=== PATIENT | female | born 1960 | race Hispanic/Latino ===

== ENCOUNTER 2018-02-04 15:05 | Emergency (ER) | payer OTHER ==
--- OUTSIDE RECORDS SUMMARY | 2018-02-04 15:07 | XMS REPORT | Clinical Summary ---
:1960 Author Organization [facility] Address [address] [place] [address] Phone Care Team Providers Name Role Phone Unavailable Primary Care Provider Unavailable Allergies Active Allergy Reactions Severity Noted Date Comments Salicylates Hives 01/02/2016 Sumatriptan Nausea Only 01/02/2016 Current Medications Prescription Sig. Disp. Refills Start Date End Date Status tiZANidine (ZANAFLEX) 4 MG Take 4 mg by mouth Active tablet every 6 (six) hours as needed. QUEtiapine (SEROQUEL) 50 Take 50 mg by Active MG tablet mouth nightly. OXcarbazepine (TRILEPTAL) Take 150 mg by Active 150 MG tablet mouth 2 (two) times daily. pregabalin (LYRICA) 150 MG Take 150 mg by Active capsule mouth 2 (two) times daily. doxepin (SINEQUAN) 75 MG Take 75 mg by Active capsule mouth nightly. BUPRENORPHINE (BUTRANS TD) Place onto the Active skin. HYDROcodone-acetaminophen Take 1 tablet by Active (NORCO 5-325) 5-325 mg per mouth every 6 tablet (six) hours as needed for Pain. Active Problems Not on file Social History Tobacco Use Types Packs/Day Years Used Date Never Smoker Alcohol Use Drinks/Week oz/Week Comments No Sex Assigned at Date Recorded Not on file Last Filed Vital Signs Not on file Plan of Treatment Not on file Results Not on fileafter 02/03/2017
[2018-02-04] MEDS ORDERED: HYDROCODONE/APAP 7.5/325 MG TAB ONE (15:29)
--- NOTE | 2018-02-04 15:49 | RAD REPORT ---
EXAM DESCRIPTION: RAD - Knee Right 3 View - 02/04/2018 3:43 pm CLINICAL HISTORY: PAIN COMPARISON: Knee Right 3 View dated 10/20/2008 FINDINGS: No acute fracture or dislocation is seen. No joint effusion is evident.
--- NOTE | 2018-02-04 15:57 | ER ---
Nurse's Notes [facility] Name: Shahnaz Ramos Age: 57 yrs Sex: Female : 1960 Arrival Date: 02/04/2018 Time: 15:08 Bed 30 Private MD: John Miguel E Diagnosis: Contusion of right knee Presentation: 02/04 15:09 Presenting complaint: Patient states: "I slipped and fell right onto my knee on aa5 concrete". Pt c/o right knee pain. Care prior to arrival: None. Mechanism of Injury: Fall from standing position. Trauma event details: Injury occurred in the [facility], Injury occurred: at home. Injury occurred: February 04, 2018. 15:09 Acuity: [place] 4 aa5 15:09 Method Of Arrival: Ambulatory aa5 15:27 Transition of care: patient was not received from another setting of care. Onset of mg2 symptoms was February 04, 2018. Risk Assessment: Do you want to hurt yourself or someone else? Patient reports no desire to harm self or others. Initial Sepsis Screen: Does the patient meet any 2 criteria? No. Patient's initial sepsis screen is negative. Does the patient have a suspected source of infection? No. Patient's initial sepsis screen is negative. Trauma Activation: Not Applicable Physician: ED Physician; Name: ; Notified At: ; Arrived At: Physician: General Surgeon; Name: ; Notified At: ; Arrived At: Physician: Radiology; Name: ; Notified At: ; Arrived At: Physician: Respiratory; Name: ; Notified At: ; Arrived At: Physician: Lab; Name: ; Notified At: ; Arrived At: Historical: - Allergies: 15:11 Aspirin; aa5 15:11 Imitrex; aa5 - PMHx: 15:11 Anxiety; Asthma; Bipolar disorder; cervical spinal stenosis; COPD; Depression; aa5 Fibromyalgia; GERD; Hepatitis C; insomnia; Migraines; Ulcers; - PSHx: 15:11 Cholecystectomy; Tubal ligation; aa5 - Immunization history:: Last tetanus immunization: unknown. - Social history:: Smoking status: Patient uses tobacco products, smokes one-half pack cigarettes per day. - Ebola Screening: : No symptoms or risks identified at this time. Screenin:27 Abuse screen: Denies threats or abuse. Denies injuries from another. Nutritional mg2 screening: No deficits noted. Tuberculosis screening: No symptoms or risk factors identified. Fall Risk Fall in past 12 months (25 points). Gait- Weak (10 pts.). Assessment: 15:24 General: Appears in no apparent distress. comfortable, Behavior is calm, cooperative. mg2 Pain: Complains of pain in right knee Pain does not radiate. Pain currently is 10 out of 10 on a pain scale. Quality of pain is described as aching, Pain began suddenly, 30 min ago. Is intermittent, Alleviated by rest, cold application. Neuro: Level of Consciousness is awake, alert, obeys commands, Oriented to person, place, time, situation. Cardiovascular: Capillary refill < 3 seconds Patient's skin is warm and dry. Respiratory: Airway is patent Respiratory effort is even, unlabored, Respiratory pattern is regular, symmetrical. GI: No signs and/or symptoms were reported involving the gastrointestinal system. : No signs and/or symptoms were reported regarding the genitourinary system. EENT: No signs and/or symptoms were reported regarding the EENT system. Derm: Skin has skin tears on right knee Wound noted right knee Wound is light scrape of skin. Musculoskeletal: Circulation, motion, and sensation intact. Vital Signs: 15:10 BP 129 / 77; Pulse 86; Resp 18 S; Temp 97.4(TE); Pulse Ox 98% on R/A; Weight 72.57 kg aa5 (R); Height 5 ft. 1 in. (154.94 cm) (R); Pain 10/10; 15:10 Body Mass Index 30.23 (72.57 kg, 154.94 cm) aa5 ED Course: 15:08 Patient arrived in ED. mr 15:08 John Miguel MD is Private Physician. mr 15:10 Triage completed. aa5 15:10 Arm band placed on. aa5 15:12 Rey Mata PA is PHCP. jr8 15:12 Don Mclain MD is Attending Physician. jr8 15:12 Vicki Schwab FNP-C is PHCP. kb 15:15 Ga Salazar, NEHA is Primary Nurse. mg2 15:28 Patient has correct armband on for positive identification. Call light in reach. Side mg2 rails up X 1. Pulse ox on. NIBP on. Door closed. Warm blanket given. Ice pack to injury. 15:43 X-ray completed. Portable x-ray completed in exam room. Patient tolerated procedure la2 well. 15:45 XRAY Knee RIGHT 3 view In Process Unspecified. EDMS 15:57 Sujit Cordova MD is Referral Physician. jr8 16:13 No provider procedures requiring assistance completed. Patient did not have IV access mg2 during this emergency room visit. Dressings: non-adherent dressing x 1 right knee. Administered Medications: 15:24 Drug: Bronson (7.5 mg-325 mg) 1 tabs Route: PO; mg2 16:13 Follow up: Response: No adverse reaction; Marked relief of symptoms mg2 Outcome: 15:57 Discharge ordered by . jr8 16:13 Discharged to mg2 16:13 Discharged to home ambulatory. 16:13 Condition: good 16:13 Discharge instructions given to patient, Instructed on discharge instructions, follow up and referral plans. Demonstrated understanding of instructions, follow-up care. 16:14 Patient left the ED. mg2 Signatures: Dispatcher [employer] EDMN Vicki Schwab, LINE SERVICE TECHNICIAN-C LINE SERVICE TECHNICIAN-Kelly Prince Audri, RN RN aa5 Rey Mata PA PA jr8 Ivon Olson2 Ga Salazar, RN RN mg2
--- NOTE | 2018-02-04 15:58 | EDPHYS ---
Physician Documentation [facility] Name: Shahnaz Ramos Age: 57 yrs Sex: Female : 1960 Arrival Date: 02/04/2018 Time: 15:08 Bed 30 Private MD: John Miguel E ED Physician Don Mclain HPI: 02/04 15:22 This 57 yrs old Female presents to ER via Ambulatory with complaints of Fall jr8 Injury. 15:22 Details of fall: The patient fell from an upright position, while standing. Onset: The jr8 symptoms/episode began/occurred acutely, today. Associated injuries: The patient sustained right knee, abrasion, decreased range of motion, painful injury. Severity of symptoms: At their worst the symptoms were moderate, in the emergency department the symptoms are unchanged. The patient has not experienced similar symptoms in the past. The patient has not recently seen a physician. Denies hitting head or neck. Denies any other pain . Historical: - Allergies: 15:11 Aspirin; aa5 15:11 Imitrex; aa5 - PMHx: 15:11 Anxiety; Asthma; Bipolar disorder; cervical spinal stenosis; COPD; Depression; aa5 Fibromyalgia; GERD; Hepatitis C; insomnia; Migraines; Ulcers; - PSHx: 15:11 Cholecystectomy; Tubal ligation; aa5 - Immunization history:: Last tetanus immunization: unknown. - Social history:: Smoking status: Patient uses tobacco products, smokes one-half pack cigarettes per day. - Ebola Screening: : No symptoms or risks identified at this time. ROS: 15:22 Eyes: Negative for injury, pain, redness, and discharge, ENT: Negative for injury, jr8 pain, and discharge, Neck: Negative for injury, pain, and swelling, Cardiovascular: Negative for chest pain, palpitations, and edema, Respiratory: Negative for shortness of breath, cough, wheezing, and pleuritic chest pain, Abdomen/GI: Negative for abdominal pain, nausea, vomiting, diarrhea, and constipation, Back: Negative for injury and pain, Skin: Negative for injury, rash, and discoloration, Neuro: Negative for headache, weakness, numbness, tingling, and seizure. 15:22 MS/extremity: Positive for abrasion, decreased range of motion, pain, tenderness, of the right knee. Exam: 15:22 Head/Face: Normocephalic, atraumatic. Eyes: Pupils equal round and reactive to light, jr8 extra-ocular motions intact. Lids and lashes normal. Conjunctiva and sclera are non-icteric and not injected. Cornea within normal limits. Periorbital areas with no swelling, redness, or edema. ENT: Nares patent. No nasal discharge, no septal abnormalities noted. Tympanic membranes are normal and external auditory canals are clear. Oropharynx with no redness, swelling, or masses, exudates, or evidence of obstruction, uvula midline. Mucous membranes moist. Neck: Trachea midline, no thyromegaly or masses palpated, and no cervical lymphadenopathy. Supple, full range of motion without nuchal rigidity, or vertebral point tenderness. No Meningismus. Chest/axilla: Normal chest wall appearance and motion. Nontender with no deformity. No lesions are appreciated. Cardiovascular: Regular rate and rhythm with a normal S1 and S2. No gallops, murmurs, or rubs. Normal PMI, no JVD. No pulse deficits. Respiratory: Lungs have equal breath sounds bilaterally, clear to auscultation and percussion. No rales, rhonchi or wheezes noted. No increased work of breathing, no retractions or nasal flaring. Abdomen/GI: Soft, non-tender, with normal bowel sounds. No distension or tympany. No guarding or rebound. No evidence of tenderness throughout. Back: No spinal tenderness. No costovertebral tenderness. Full range of motion. Skin: Warm, dry with normal turgor. Normal color with no rashes, no lesions, and no evidence of cellulitis. Neuro: Awake and alert, GCS 15, oriented to person, place, time, and situation. Cranial nerves II-XII grossly intact. Motor strength 5/5 in all extremities. Sensory grossly intact. Cerebellar exam normal. Normal gait. 15:22 Musculoskeletal/extremity: Extremities: grossly normal except: noted in the right knee: abrasion, decreased ROM, pain, tenderness, ROM: full active range of motion, limited passive range of motion, in the right knee, limited active range of motion due to pain, in the right knee, limited passive range of motion due to pain, in the right knee, Circulation is intact in all extremities. Sensation intact. Vital Signs: 15:10 BP 129 / 77; Pulse 86; Resp 18 S; Temp 97.4(TE); Pulse Ox 98% on R/A; Weight 72.57 kg aa5 (R); Height 5 ft. 1 in. (154.94 cm) (R); Pain 10/10; 15:10 Body Mass Index 30.23 (72.57 kg, 154.94 cm) aa5 MDM: 15:12 Patient medically screened. jr8 15:56 Data reviewed: vital signs, nurses notes, radiologic studies, plain films, and as a jr8 result, I will discharge patient. Data interpreted: Pulse oximetry: on room air is 98 %. Interpretation: normal. Counseling: I had a detailed discussion with the patient and/or guardian regarding: the historical points, exam findings, and any diagnostic results supporting the discharge/admit diagnosis, radiology results, the need for outpatient follow up, a orthopedic surgeon, to return to the emergency department if symptoms worsen or persist or if there are any questions or concerns that arise at home. 02/04 15:21 Order name: XRAY Knee RIGHT 3 view; Complete Time: 15:56 jr8 Administered Medications: 15:24 Drug: Horatio (7.5 mg-325 mg) 1 tabs Route: PO; mg2 16:13 Follow up: Response: No adverse reaction; Marked relief of symptoms mg2 Disposition: 02/05 06:52 Co-signature as Attending Physician, Don Mclain MD I agree with the assessment and opal plan of care. Disposition: 02/04/18 15:57 Discharged to Home. Impression: Contusion of right knee. - Condition is Stable. - Discharge Instructions: Knee Pain. - Medication Reconciliation Form, Thank You Letter, Antibiotic Education, Prescription Opioid Use form. - Follow up: Sujit Cordova MD; When: 1 week; Reason: Recheck today's complaints, Continuance of care, Re-evaluation by your physician. - Problem is new. - Symptoms have improved. Signatures: Dispatcher [employer] Don Camejo MD MD cha Calderon, Audri, RN RN aa5 Rey Mata PA PA jr8 Ga Salazar RN RN mg2 Corrections: (The following items were deleted from the chart) 02/04 16:14 15:57 02/04/2018 15:57 Discharged to Home. Impression: Contusion of right knee. mg2 Condition is Stable. Forms are Medication Reconciliation Form, Thank You Letter, Antibiotic Education, Prescription Opioid Use. Follow up: Dr. Sujit Cordova; When: 1 week; Reason: Recheck today's complaints, Continuance of care, Re-evaluation by your physician. Problem is new. Symptoms have improved. jr8
[2018-02-04 16:21] VITALS: BP 129/77; TEMP 97.4; O2SAT 98
== END 2018-02-04 16:14 | disposition home or self-care (01) ==
LOC: ER 15:05
DX: S80.01XA Contusion of right knee, initial encounter (principal); W18.30XA Fall on same level, unspecified, initial encounter; Y93.89 Activity, other specified; Y92.9 Unspecified place or not applicable; Z88.6 Allergy status to analgesic agent; Z88.8 Allergy status to other drugs, medicaments and biological substances; F17.210 Nicotine dependence, cigarettes, uncomplicated
CPT/HCPCS: 99283

== ENCOUNTER 2018-07-11 18:12 | Emergency (ER) | payer OTHER ==
--- OUTSIDE RECORDS SUMMARY | 2018-07-11 18:14 | XMS REPORT | Clinical Summary ---
:1960 Author Organization [facility] Address [address] [place] [address] Care Team Providers Name Role Phone Medina Gómez A Primary Care Provider Allergies Active Allergy Reactions Severity Noted Date Comments Salicylates Hives 01/02/2016 Sumatriptan Nausea Only 01/02/2016 Medications Medication Sig Dispensed Refills Start Date End Date Status tiZANidine (ZANAFLEX) 4 Take 4 mg by 0 Active MG tablet mouth every 6 (six) hours as needed. QUEtiapine (SEROQUEL) 50 Take 50 mg by 0 Active MG tablet mouth nightly. OXcarbazepine Take 150 mg by 0 Active (TRILEPTAL) 150 MG mouth 2 (two) tablet times daily. pregabalin (LYRICA) 150 Take 150 mg by 0 Active MG capsule mouth 2 (two) times daily. doxepin (SINEQUAN) 75 MG Take 75 mg by 0 Active capsule mouth nightly. BUPRENORPHINE (BUTRANS Place onto the 0 Active TD) skin. HYDROcodone-acetaminophe Take 1 tablet by 0 Active n (NORCO 5-325) 5-325 mg mouth every 6 per tablet (six) hours as needed for Pain. Active Problems Not on file Social History Tobacco Use Types Packs/Day Years Used Date Never Smoker Alcohol Use Drinks/Week oz/Week Comments No Sex Assigned at Date Recorded Not on file Job Start Date Occupation Industry Not on file Not on file Not on file Travel History Travel Start Travel End No recent travel history available. Last Filed Vital Signs Not on file Plan of Treatment Not on file Results Not on fileafter 07/10/2017 Insurance Payer Benefit Plan / Group Subscriber ID Type Phone Address MEDICARE MEDICARE A B xxxxxxxxxx Medicare OTHER MCR ADV PLANS GENERIC MEDICARE xxxxxxxxx NON-CONTR ADVANTAGE
[2018-07-11] MEDS ORDERED: DIAZEPAM 5 MG TABLET ONE (19:22)
[2018-07-11] MEDS ORDERED: FENTANYL CITR 100 MCG/2 ML ONE (20:47)
--- NOTE | 2018-07-11 21:01 | EDPHYS ---
Physician Documentation [facility] Name: Shahnaz Ramos Age: 58 yrs Sex: Female : 1960 Arrival Date: 07/11/2018 Time: 18:15 Bed 23 Private MD: John Miguel E ED Physician Lee Barrett HPI: 07/11 19:11 This 58 yrs old Female presents to ER via Ambulatory with complaints of High snw Blood Pressure, Migraine. 19:11 The patient has elevated blood pressure and discovered this hx of HTN and migraines. snw States Toradol never helps and she is allergic to Aspirin. Historical: - Allergies: 18:19 Aspirin; la1 18:19 Imitrex; la1 - PMHx: 18:19 Anxiety; Asthma; Bipolar disorder; cervical spinal stenosis; COPD; Depression; la1 Fibromyalgia; GERD; Hepatitis C; insomnia; Migraines; Ulcers; - Immunization history:: Adult Immunizations up to date. - Social history:: Smoking status: Patient uses tobacco products, smokes one pack cigarettes per day. - Ebola Screening: : No symptoms or risks identified at this time. ROS: 19:09 Eyes: Negative for injury, pain, redness, and discharge, ENT: Negative for injury, snw pain, and discharge, Neck: Negative for injury, pain, and swelling, Cardiovascular: Negative for chest pain, palpitations, and edema, Respiratory: Negative for shortness of breath, wheezing, and pleuritic chest pain, + cough Abdomen/GI: Negative for abdominal pain, nausea, vomiting, diarrhea, and constipation, Back: Negative for injury and pain, : Negative for injury, bleeding, discharge, and swelling, MS/Extremity: Negative for injury and deformity, Skin: Negative for injury, rash, and discoloration. 19:09 Constitutional: Positive for fever, malaise. 19:09 Neuro: Positive for headache, of the top of head and forehead. Exam: 19:09 Constitutional: This is a well developed, well nourished patient who is awake, alert, snw and in no acute distress. Head/Face: Normocephalic, atraumatic. Eyes: Pupils equal round and reactive to light, extra-ocular motions intact. Lids and lashes normal. Conjunctiva and sclera are non-icteric and not injected. Cornea within normal limits. Periorbital areas with no swelling, redness, or edema. ENT: Nares patent. No nasal discharge, no septal abnormalities noted. Tympanic membranes are normal and external auditory canals are clear. Oropharynx with no redness, swelling, or masses, exudates, or evidence of obstruction, uvula midline. Mucous membranes moist. Neck: Trachea midline, no thyromegaly or masses palpated, and no cervical lymphadenopathy. Supple, full range of motion without nuchal rigidity, or vertebral point tenderness. No Meningismus. Chest/axilla: Normal chest wall appearance and motion. Nontender with no deformity. No lesions are appreciated. Cardiovascular: Regular rate and rhythm with a normal S1 and S2. No gallops, murmurs, or rubs. Normal PMI, no JVD. No pulse deficits. Respiratory: Lungs have equal breath sounds bilaterally, clear to auscultation and percussion. No rales, rhonchi or wheezes noted. No increased work of breathing, no retractions or nasal flaring. Abdomen/GI: Soft, non-tender, with normal bowel sounds. No distension or tympany. No guarding or rebound. No evidence of tenderness throughout. Back: No spinal tenderness. No costovertebral tenderness. Full range of motion. Skin: Warm, dry with normal turgor. Normal color with no rashes, no lesions, and no evidence of cellulitis. MS/ Extremity: Pulses equal, no cyanosis. Neurovascular intact. Full, normal range of motion. Neuro: Awake and alert, GCS 15, oriented to person, place, time, and situation. Cranial nerves II-XII grossly intact. Motor strength 5/5 in all extremities. Sensory grossly intact. Cerebellar exam normal. Normal gait. Vital Signs: 18:19 BP 142 / 91; Pulse 88; Resp 18; Temp 98.4; Pulse Ox 98% on R/A; Weight 70.76 kg; Height la1 5 ft. 2 in. (157.48 cm); 19:45 BP 133 / 81; Pulse 81; Resp 18; Pulse Ox 100% on R/A; aj1 20:00 BP 133 / 81; Pulse 83; Resp 18; Pulse Ox 100% on R/A; rv 20:15 BP 111 / 73; Pulse 79; Resp 18 S; Pulse Ox 100% on R/A; rv 20:30 BP 117 / 85; Pulse 78; Resp 16 S; Pulse Ox 100% on R/A; rv 20:45 BP 135 / 67; Pulse 78; Resp 17 S; Pulse Ox 100% on R/A; rv 21:00 Pain 4/10; rv 18:19 Body Mass Index 28.53 (70.76 kg, 157.48 cm) la1 MDM: 18:40 Patient medically screened. snw 20:34 Data reviewed: vital signs, nurses notes. Data interpreted: Pulse oximetry: on room air snw is 100 %. Interpretation: normal. 07/11 18:25 Order name: Flu; Complete Time: 19:04 kb 07/11 18:34 Order name: Strep; Complete Time: 20:35 snw 07/11 20:07 Order name: Throat Culture EDMS Administered Medications: 19:22 Drug: Valium 5 mg Route: PO; aj1 20:57 Follow up: Response: Pain is unchanged, physician notified rv 20:20 Drug: fentaNYL (PF) 25 mcg Route: IM; Site: left deltoid; rv 21:00 Follow up: Pain 4/10 Adult; Response: Pain is decreased rv Disposition: 07/12 07:22 Co-signature as Attending Physician, Lee Barrett MD. rn Disposition: 07/11/18 21:00 Discharged to Home. Impression: Headache. - Condition is Stable. - Discharge Instructions: Migraine Headache, Analgesic Rebound Headaches, Rehydration, Adult. - Prescriptions for Zyrtec 10 mg Oral Tablet - take 1 tablet by ORAL route once daily As needed; 20 tablet. - Medication Reconciliation Form, Thank You Letter, Antibiotic Education, Prescription Opioid Use form. - Follow up: John Miguel MD; When: 1 - 2 days; Reason: Recheck today's complaints, Continuance of care, Re-evaluation by your physician. Follow up: Emergency Department; When: As needed; Reason: Worsening of condition. Signatures: Dispatcher [employer] EDMS Amairani Martin RN RN aj1 Leanne Birch, LOOPER FIXER-C LOOPER FIXER-Csnw Lee Barrett MD MD rn Attema, Lee, RN RN la1 Art Bingham RN RN rv Corrections: (The following items were deleted from the chart) 07/11 21:08 21:00 07/11/2018 21:00 Discharged to Home. Impression: Headache. Condition is Stable. rv Forms are Medication Reconciliation Form, Thank You Letter, Antibiotic Education, Prescription Opioid Use. Follow up: John Miguel; When: 1 - 2 days; Reason: Recheck today's complaints, Continuance of care, Re-evaluation by your physician. Follow up: Emergency Department; When: As needed; Reason: Worsening of condition. snw
--- NOTE | 2018-07-11 21:01 | ER ---
Nurse's Notes [facility] Name: Shahnaz Ramos Age: 58 yrs Sex: Female : 1960 Arrival Date: 07/11/2018 Time: 18:15 Bed 23 Private MD: John Miguel E Diagnosis: Headache Presentation: 07/11 18:17 Presenting complaint: Patient states: I have been feeling bad with headache/migraine la1 and had fever of 103 this morning. I took dayquil at 1000 this morning. Pt reports cough, sore throat, congestion. Transition of care: patient was not received from another setting of care. Onset of symptoms was July 11, 2018. Risk Assessment: Do you want to hurt yourself or someone else? Patient reports no desire to harm self or others. Initial Sepsis Screen: Does the patient meet any 2 criteria? No. Patient's initial sepsis screen is negative. Does the patient have a suspected source of infection? No. Patient's initial sepsis screen is negative. Care prior to arrival: None. 18:17 Method Of Arrival: Ambulatory la1 18:17 Acuity: WOLFGANG 3 la1 Historical: - Allergies: 18:19 Aspirin; la1 18:19 Imitrex; la1 - PMHx: 18:19 Anxiety; Asthma; Bipolar disorder; cervical spinal stenosis; COPD; Depression; la1 Fibromyalgia; GERD; Hepatitis C; insomnia; Migraines; Ulcers; - Immunization history:: Adult Immunizations up to date. - Social history:: Smoking status: Patient uses tobacco products, smokes one pack cigarettes per day. - Ebola Screening: : No symptoms or risks identified at this time. Screenin:45 Abuse screen: Denies threats or abuse. Denies injuries from another. Nutritional aj1 screening: No deficits noted. Tuberculosis screening: No symptoms or risk factors identified. 21:08 Fall Risk None identified. rv Assessment: 18:45 General: Appears in no apparent distress. uncomfortable, Behavior is calm, cooperative, aj1 appropriate for age. Pain: Complains of pain in forehead and top of head. Neuro: Level of Consciousness is awake, alert, obeys commands, Oriented to person, place, time, situation, Moves all extremities. Full function Gait is steady, Speech is normal, Facial symmetry appears normal, Reports headache. Cardiovascular: Heart tones S1 S2 present Patient's skin is warm and dry. Respiratory: Reports cough that is persistent Airway is patent Respiratory effort is even, unlabored, Respiratory pattern is regular, symmetrical, Breath sounds are clear bilaterally. GI: No signs and/or symptoms were reported involving the gastrointestinal system. : No signs and/or symptoms were reported regarding the genitourinary system. EENT: Reports nasal congestion nasal discharge sore throat. Derm: No signs and/or symptoms reported regarding the dermatologic system. Skin is pink, warm \T\ dry. normal. Musculoskeletal: No signs and/or symptoms reported regarding the musculoskeletal system. Circulation, motion, and sensation intact. 19:45 Reassessment: Patient appears in no apparent distress at this time. No changes from aj1 previously documented assessment. Patient and/or family updated on plan of care and expected duration. Pain level reassessed. Patient is alert, oriented x 3, equal unlabored respirations, skin warm/dry/pink. Vital Signs: 18:19 BP 142 / 91; Pulse 88; Resp 18; Temp 98.4; Pulse Ox 98% on R/A; Weight 70.76 kg; Height la1 5 ft. 2 in. (157.48 cm); 19:45 BP 133 / 81; Pulse 81; Resp 18; Pulse Ox 100% on R/A; aj1 20:00 BP 133 / 81; Pulse 83; Resp 18; Pulse Ox 100% on R/A; rv 20:15 BP 111 / 73; Pulse 79; Resp 18 S; Pulse Ox 100% on R/A; rv 20:30 BP 117 / 85; Pulse 78; Resp 16 S; Pulse Ox 100% on R/A; rv 20:45 BP 135 / 67; Pulse 78; Resp 17 S; Pulse Ox 100% on R/A; rv 21:00 Pain 4/10; rv 18:19 Body Mass Index 28.53 (70.76 kg, 157.48 cm) la1 ED Course: 18:15 Patient arrived in ED. sb2 18:15 John Miguel MD is Private Physician. sb2 18:18 Triage completed. la1 18:20 Arm band placed on right wrist. la1 18:33 Amairani Martin RN is Primary Nurse. aj1 18:34 [facility] Bir[facility]C [facility]. snw 18:34 Lee Barrett MD is Attending Physician. snw 18:45 Patient has correct armband on for positive identification. Bed in low position. Call aj1 light in reach. Side rails up X 1. 18:45 No provider procedures requiring assistance completed. aj1 19:24 Strep swab sent to lab. lt1 21:00 John Miguel MD is Referral Physician. snw 21:08 Patient did not have IV access during this emergency room visit. bleeding controlled, rv No redness/swelling at site. Pressure dressing applied. Administered Medications: 19:22 Drug: Valium 5 mg Route: PO; aj1 20:57 Follow up: Response: Pain is unchanged, physician notified rv 20:20 Drug: fentaNYL (PF) 25 mcg Route: IM; Site: left deltoid; rv 21:00 Follow up: Pain 4/10 Adult; Response: Pain is decreased rv Outcome: 21:00 Discharge ordered by . snw 21:07 Discharged to home ambulatory. rv 21:07 Condition: good 21:07 Discharge instructions given to patient, Instructed on discharge instructions, follow up and referral plans. medication usage, Demonstrated understanding of instructions, follow-up care, medications, Prescriptions given X 1. 21:08 Patient left the ED. rv Signatures: Amairani Martin, RN RN aj1 Leanne Birch, PRECISION GRINDER EXTERNAL-C PRECISION GRINDER EXTERNAL-Csnw Mazin Jerez, RN RN la1 Yael Cummings sb2 Art Bingham, RN RN rv Cele De La Cruz lt1 Corrections: (The following items were deleted from the chart) 20:00 19:57 General: Appears in no apparent distress. uncomfortable, Behavior is calm, aj1 cooperative, appropriate for age, aj1 20: 19:57 Pain: Complains of pain in forehead and top of head aj1 aj1 20:00 19:57 Neuro: Level of Consciousness is awake, alert, obeys commands, Oriented to aj1 person, place, time, situation, Moves all extremities. Full function Gait is steady, Speech is normal, Facial symmetry appears normal, Reports headache aj1 20: 19:57 Cardiovascular: Heart tones S1 S2 present Patient's skin is warm and dry. aj1 aj1 20:00 19:57 Respiratory: Reports cough that is persistent Airway is patent Respiratory effort aj1 is even, unlabored, Respiratory pattern is regular, symmetrical, Breath sounds are clear bilaterally. aj1 : 19:57 GI: No signs and/or symptoms were reported involving the gastrointestinal system. aj1 aj1 : 19:57 : No signs and/or symptoms were reported regarding the genitourinary system. aj1aj1 : 19:57 EENT: Reports nasal congestion nasal discharge sore throat. aj1 aj1 : 19:57 Derm: No signs and/or symptoms reported regarding the dermatologic system. Skin aj1 is pink, warm \T\ dry. normal, aj1 : 19:57 Musculoskeletal: No signs and/or symptoms reported regarding the musculoskeletal aj1 system. Circulation, motion, and sensation intact. aj1
[2018-07-11 21:14] VITALS: TEMP 98.4
[2018-07-11 21:15] VITALS: O2SAT 100
[2018-07-11 21:20] VITALS: BP 135/67
[2018-07-12] MEDS ORDERED: KETOROLAC 30 MG/ML INJ ONE (15:02)
[2018-07-12] MEDS ORDERED: predniSONE 20 MG TAB ONE (15:02)
== END 2018-07-11 21:08 | disposition home or self-care (01) ==
LOC: ER 18:12
DX: R51 Headache (principal); I10 Essential (primary) hypertension; F17.210 Nicotine dependence, cigarettes, uncomplicated; Z88.6 Allergy status to analgesic agent; Z88.8 Allergy status to other drugs, medicaments and biological substances
CPT/HCPCS: 87070; 87081; 87804 ×2; 96372; 99283; J3010; J7512

== ENCOUNTER 2018-07-12 13:28 | Emergency (ER) | payer OTHER ==
--- OUTSIDE RECORDS SUMMARY | 2018-07-12 14:29 | XMS REPORT | Clinical Summary ---
:1960 [address] [facility] Address [address] [place] [address] Care Team Providers Name Role Phone Medina [...] Not on file Results Not on fileafter 07/11/2017 Insurance Payer Benefit Plan / Group Subscriber ID Type Phone Address MEDICARE MEDICARE A B xxxxxxxxxx Medicare OTHER MCR ADV PLANS GENERIC MEDICARE xxxxxxxxx NON-CONTR ADVANTAGE
--- NOTE | 2018-07-12 14:58 | ER ---
Nurse's Notes [facility] Name: Shahnaz Ramos Age: 58 yrs Sex: Female : 1960 Arrival Date: 07/12/2018 Time: 13:30 Bed 24 Private MD: John Miguel E Diagnosis: Radiculopathy, cervical region;Migraine Presentation: 07/12 13:35 Presenting complaint: Sinus pressure and headache x 2 days, left sided neck and upper hb back pain since this morning. Pt was seen in ED yesterday for sinus pressure and headache, reports pain is much worse today. Transition of care: patient was not received from another setting of care. Onset of symptoms was July 09, 2018. Risk Assessment: Do you want to hurt yourself or someone else? Patient reports no desire to harm self or others. Care prior to arrival: None. 13:35 Method Of Arrival: Ambulatory hb 13:35 Acuity: WOLFGANG 3 hb Triage Assessment: 15:41 Pain: Also complains of. la1 Historical: - Allergies: 13:37 Aspirin; hb 13:37 Imitrex; hb - PMHx: 14:45 Anxiety; Asthma; Bipolar disorder; cervical spinal stenosis; COPD; Depression; la1 Fibromyalgia; GERD; Hepatitis C; insomnia; Migraines; Ulcers; - Immunization history:: Adult Immunizations up to date. - Social history:: Smoking status: Patient/guardian denies using tobacco. - Ebola Screening: : No symptoms or risks identified at this time. Screenin:56 Abuse screen: Denies threats or abuse. Nutritional screening: No deficits noted. la1 Tuberculosis screening: No symptoms or risk factors identified. Fall Risk None identified. Assessment: 14:56 General: Appears in no apparent distress. Behavior is calm, cooperative. Pain: la1 Complains of pain in forehead and left trapezius. Neuro: Level of Consciousness is awake, alert, obeys commands, Oriented to person, place, time, situation. Cardiovascular: Capillary refill < 3 seconds Patient's skin is warm and dry. Respiratory: Airway is patent Respiratory effort is even, unlabored, Respiratory pattern is regular, symmetrical. GI: No signs and/or symptoms were reported involving the gastrointestinal system. : No signs and/or symptoms were reported regarding the genitourinary system. Vital Signs: 13:36 BP 132 / 68; Pulse 90; Resp 16; Temp 98.2; Pulse Ox 99% on R/A; Pain 10/10; hb 15:42 BP 130 / 67; Pulse 81; Resp 16; Pulse Ox 98% on R/A; la1 [place] Coma Score: 14:49 Eye Response: spontaneous(4). Verbal Response: oriented(5). Motor Response: obeys kb commands(6). Total: 15. ED Course: 13:30 Patient arrived in ED. as 13:30 John Miguel MD is Private Physician. as 13:36 Triage completed. hb 13:37 Arm band placed on right wrist. hb 14:40 Mazin Jerez RN is Primary Nurse. la1 14:41 Vicki Schwab FNP-C is [facility]. kb 14:41 Lee Barrett MD is Attending Physician. kb 14:57 Call light in reach. Side rails up X 1. la1 14:57 No provider procedures requiring assistance completed. Patient did not have IV access la1 during this emergency room visit. Administered Medications: 14:56 Drug: TORadol 60 mg Route: IM; Site: right gluteus; la1 14:56 Drug: predniSONE 40 mg Route: PO; la1 Outcome: 14:57 Discharge ordered by MD. kb 15:42 Discharged to home ambulatory. la1 15:42 Condition: stable 15:42 Discharge instructions given to patient, Instructed on discharge instructions, follow up and referral plans. medication usage, Demonstrated understanding of instructions, follow-up care, medications, Prescriptions given X 2. 15:42 Patient left the ED. la1 Signatures: Vicki Schwab FNP-C FNP-Solange Han as Mazin Jerez RN RN la1 Domonique Romero RN RN hb Corrections: (The following items were deleted from the chart) 13:38 13:35 Presenting complaint: Sinus pressure and headache x 2 days, left sided neck and hb upper back pain since this morning. hb
--- NOTE | 2018-07-12 14:58 | EDPHYS ---
Physician Documentation [facility] Name: Shahnaz Ramos Age: 58 yrs Sex: Female : 1960 Arrival Date: 07/12/2018 Time: 13:30 Bed 24 Private MD: John Miguel E ED Physician Lee Barrett HPI: 07/12 14:54 This 58 yrs old Female presents to ER via Ambulatory with complaints of kb Headache, High Blood Pressure, Back Pain, Arm Pain. 14:54 The patient complains of pain to the forehead. The patient describes the headache as kb constant. Onset: The symptoms/episode began/occurred yesterday. Associated signs and symptoms: The patient has no apparent associated signs or symptoms. Severity of symptoms: At its worst the pain was moderate, in the emergency department the pain is unchanged. Headache History: The patient has had previous headaches and this one is similar to previous episodes. The symptoms are alleviated by nothing. the symptoms are aggravated by nothing. The patient has experienced similar episodes in the past, multiple times. The patient has been recently seen at the [facility] Emergency Department, yesterday, for similar complaints. Pt reports migraine and also pain to left side of neck that radiates to left shoulder. Reports she has neck problems and it only ever effects left side. Historical: - Allergies: 13:37 Aspirin; hb 13:37 Imitrex; hb - PMHx: 14:45 Anxiety; Asthma; Bipolar disorder; cervical spinal stenosis; COPD; Depression; la1 Fibromyalgia; GERD; Hepatitis C; insomnia; Migraines; Ulcers; - Immunization history:: Adult Immunizations up to date. - Social history:: Smoking status: Patient/guardian denies using tobacco. - Ebola Screening: : No symptoms or risks identified at this time. ROS: 14:51 Constitutional: Negative for fever, chills, and weight loss, ENT: Negative for injury, kb pain, and discharge, Cardiovascular: Negative for chest pain, palpitations, and edema, Respiratory: Negative for shortness of breath, cough, wheezing, and pleuritic chest pain, Abdomen/GI: Negative for abdominal pain, nausea, vomiting, diarrhea, and constipation, Back: Negative for injury and pain, : Negative for injury, bleeding, discharge, and swelling, MS/Extremity: Negative for injury and deformity, Skin: Negative for injury, rash, and discoloration. 14:51 Neck: Positive for pain with movement, pain at rest, Negative for injury or acute deformity, mass, rash, stiffness, swelling, swollen nodes, tenderness, bony tenderness. 14:51 Neuro: Positive for headache, Negative for altered mental status, dizziness, gait disturbance, hearing loss, loss of consciousness, numbness, seizure activity, speech changes, syncope, near syncope, tingling, tinnitus, tremor, visual changes, weakness. Exam: 14:51 Constitutional: This is a well developed, well nourished patient who is awake, alert, kb and in no acute distress. Head/Face: Normocephalic, atraumatic. ENT: Nares patent. No nasal discharge, no septal abnormalities noted. Tympanic membranes are normal and external auditory canals are clear. Oropharynx with no redness, swelling, or masses, exudates, or evidence of obstruction, uvula midline. Mucous membranes moist. Chest/axilla: Normal chest wall appearance and motion. Nontender with no deformity. No lesions are appreciated. Cardiovascular: Regular rate and rhythm with a normal S1 and S2. No gallops, murmurs, or rubs. Normal PMI, no JVD. No pulse deficits. Respiratory: Lungs have equal breath sounds bilaterally, clear to auscultation and percussion. No rales, rhonchi or wheezes noted. No increased work of breathing, no retractions or nasal flaring. Abdomen/GI: Soft, non-tender, with normal bowel sounds. No distension or tympany. No guarding or rebound. No evidence of tenderness throughout. Skin: Warm, dry with normal turgor. Normal color with no rashes, no lesions, and no evidence of cellulitis. MS/ Extremity: Pulses equal, no cyanosis. Neurovascular intact. Full, normal range of motion. Neuro: Awake and alert, GCS 15, oriented to person, place, time, and situation. Cranial nerves II-XII grossly intact. Motor strength 5/5 in all extremities. Sensory grossly intact. Cerebellar exam normal. Normal gait. 14:51 Neck: External neck: tenderness, that is moderate, of the left trapezius. 14:51 Back: pain, that is moderate, of the left trapezius. Vital Signs: 13:36 BP 132 / 68; Pulse 90; Resp 16; Temp 98.2; Pulse Ox 99% on R/A; Pain 10/10; hb 15:42 BP 130 / 67; Pulse 81; Resp 16; Pulse Ox 98% on R/A; la1 [place] Coma Score: 14:49 Eye Response: spontaneous(4). Verbal Response: oriented(5). Motor Response: obeys kb commands(6). Total: 15. MDM: 14:42 Patient medically screened. kb 14:49 Data reviewed: vital signs, nurses notes. Data interpreted: Pulse oximetry: on room air kb is 99 %. Interpretation: normal. Counseling: I had a detailed discussion with the patient and/or guardian regarding: the historical points, exam findings, and any diagnostic results supporting the discharge/admit diagnosis, the need for outpatient follow up, a family practitioner, to return to the emergency department if symptoms worsen or persist or if there are any questions or concerns that arise at home. Administered Medications: 14:56 Drug: TORadol 60 mg Route: IM; Site: right gluteus; la1 14:56 Drug: predniSONE 40 mg Route: PO; la1 Disposition: 18:35 Co-signature as Attending Physician, Lee Barrett MD. rn Disposition: 07/12/18 14:57 Discharged to Home. Impression: Radiculopathy, cervical region, Migraine. - Condition is Stable. - Discharge Instructions: Migraine Headache, [id number], Cervical Radiculopathy, [id number]. - Prescriptions for Prednisone 20 mg Oral Tablet - take 1 tablet by ORAL route once daily for 5 days; 5 tablet. Cyclobenzaprine 10 mg Oral Tablet - take 1 tablet by ORAL route every 8 hours As needed; 21 tablet. - Medication Reconciliation Form, Thank You Letter, Antibiotic Education, Prescription Opioid Use form. - Follow up: Emergency Department; When: As needed; Reason: Worsening of condition. Follow up: Private Physician; When: 2 - 3 days; Reason: Recheck today's complaints, Continuance of care, Re-evaluation by your physician. Signatures: Vicki Schwab, TOOL FILER-C TOOL FILER-Ckb Lee Barrett MD MD rn Attema, Lee, RN RN la1 Domonique Romero RN RN hb Corrections: (The following items were deleted from the chart) 15:42 14:57 07/12/2018 14:57 Discharged to Home. Impression: Radiculopathy, cervical region; la1 Migraine. Condition is Stable. Forms are Medication Reconciliation Form, Thank You Letter, Antibiotic Education, Prescription Opioid Use. Follow up: Emergency Department; When: As needed; Reason: Worsening of condition. Follow up: Private Physician; When: 2 - 3 days; Reason: Recheck today's complaints, Continuance of care, Re-evaluation by your physician. kb
[2018-07-12 16:09] VITALS: TEMP 98.2
[2018-07-12 16:10] VITALS: BP 130/67; O2SAT 98
== END 2018-07-12 15:42 | disposition home or self-care (01) ==
LOC: ER 13:28
DX: G43.909 Migraine, unspecified, not intractable, without status migrainosus (principal); M54.12 Radiculopathy, cervical region
CPT/HCPCS: 96372; 99283

== ENCOUNTER 2018-12-10 07:31 | Emergency (ER) | payer OTHER ==
--- OUTSIDE RECORDS SUMMARY | 2018-12-10 07:34 | XMS REPORT | Clinical Summary ---
:1960 Author Organization [facility] Address [address] [place] [address] Care Team Providers Name Role Phone Medina [...] Not on file Results Not on fileafter 12/09/2017 Insurance Payer Benefit Plan / Group Subscriber ID Type Phone Address MEDICARE MEDICARE A B xxxxxxxxxx Medicare OTHER MCR ADV PLANS GENERIC MEDICARE xxxxxxxxx NON-CONTR ADVANTAGE
[2018-12-10 08:58] LABS: Absolute Lymphocytes (CBC) 1.2 K/uL (0.7-4.9); Eosinophils % 1.3 % (0-4.4); Hematocrit 39.3 % (36.0-45.0); Lymphocytes % 21.8 % (15.3-44.8); MPV 10.1 fL (7.6-11.3); Monocytes % 14.3 % (3.3-12.3); RBC Red Blood Cell Count 4.22 M/uL (3.86-4.86)
[2018-12-10] MEDS ORDERED: ONDANSETRON 4 MG/2 ML VIAL ONE (09:02)
[2018-12-10] MEDS ORDERED: FENTANYL CITR 100 MCG/2 ML ONE (09:02)
[2018-12-10 09:15] LABS: Bilirubin Direct 0.1 mg/dL (0-0.2); Bilirubin Total 0.4 mg/dL (0.2-1.0); Potassium 3.3 mmol/L (3.5-5.1)
[2018-12-10 09:16] LABS: Albumin 2.9 g/dL (3.4-5.0); Protein, Total 6.5 g/dL (6.4-8.2)
[2018-12-10] MEDS ORDERED: NA CHLORIDE 0.9% 1,000 ML ONE (09:19)
[2018-12-10] MEDS ORDERED: FAMOTIDINE 20 MG/2 ML VIAL IV ONE (09:19)
--- NOTE | 2018-12-10 09:52 | RAD REPORT ---
EXAM DESCRIPTION: CT - Abdomen Pelvis W Contrast - 12/10/2018 9:39 am CLINICAL HISTORY: Abdominal pain, abdominal cramping, history of diverticulitis COMPARISON: July 2017 TECHNIQUE: Biphasic, helical CT imaging of the abdomen and pelvis was performed following 100 ml non -ionic IV contrast. No oral contrast administered air All CT scans are performed using dose optimization technique as appropriate and may include automated exposure control or mA/KV adjustment according to patient size. FINDINGS: No suspicious findings in the lung bases. The liver, spleen, and pancreas show no suspicious findings. Cholecystectomy clips are present. No bi liary tree dilatation. Symmetric renal function is seen with no hydronephrosis or suspicious renal mass. No pyelonephritis o r acute parenchymal process. No bladder abnormalities. No adrenal abnormalities. No gastric dilatation or gastric wall thickening. No dilated large or small bowel. Colon is decompres sed. Mild colitis could be masked along mucosal surface. No inflammatory stranding the surrounding fa t. No free air, free fluid or inflammatory stranding. No hernia, mass or bulky lymphadenopathy. Mimi mihir is absent. Ovaries are absent or atrophic. IMPRESSION: No bowel obstruction, free air or surgically emergent finding. No diverticulitis seen. Colon is decompressed. A mild mucosal level colitis would still be possible. Status post cholecystectomy.
--- NOTE | 2018-12-10 10:10 | ER ---
Nurse's Notes [facility] Name: Shahnaz Ramos Age: 58 yrs Sex: Female : 1960 Arrival Date: 12/10/2018 Time: 07:34 Bed 15 Private MD: John Miguel E Diagnosis: Abdominal and pelvic pain;Hypokalemia Presentation: 12/10 07:53 Presenting complaint: Patient states: vomiting/diarrhea started Friday, yesterday iw seemed to get better but last night started having symptoms again, also had dark red blood in stool, hx of diverticulitis, also c/o abd cramping 02/09. Transition of care: patient was not received from another setting of care. Onset of symptoms was December 07, 2018. Risk Assessment: Do you want to hurt yourself or someone else? Patient reports no desire to harm self or others. Initial Sepsis Screen: Does the patient meet any 2 criteria? No. Patient's initial sepsis screen is negative. Does the patient have a suspected source of infection? No. Patient's initial sepsis screen is negative. Care prior to arrival: None. 07:53 Method Of Arrival: Ambulatory iw 07:53 Acuity: [id number] 3 iw Historical: - Allergies: 07:57 Aspirin; iw 07:57 Imitrex; iw - Home Meds: 07:57 ranitidine HCl 150 mg Oral cap 1 cap 2 times per day [Active]; Vitamin B-12 Oral daily iw [Active]; Dexilant 60 mg oral CpDB 1 cap once daily [Active]; promethazine 25 mg Oral tab as needed [Active]; fluoxetine 40 mg Oral cap once daily [Active]; - PMHx: 07:57 Anxiety; Asthma; Bipolar disorder; cervical spinal stenosis; COPD; Depression; iw Fibromyalgia; GERD; Hepatitis C; insomnia; Migraines; Ulcers; Diverticulitis; - PSHx: 07:57 Cholecystectomy; Hysterectomy; iw - Immunization history:: Adult Immunizations up to date. - Social history:: Smoking status: Patient uses tobacco products, smokes one-half pack cigarettes per day. - Ebola Screening: : Patient negative for fever greater than or equal to 101.5 degrees Fahrenheit, and additional compatible Ebola Virus Disease symptoms Patient denies exposure to infectious person Patient denies travel to an Ebola-affected area in the 21 days before illness onset No symptoms or risks identified at this time. Screenin:59 Abuse screen: Denies threats or abuse. Denies injuries from another. Nutritional ph screening: No deficits noted. Tuberculosis screening: No symptoms or risk factors identified. Fall Risk None identified. Assessment: 08:35 General: Appears in no apparent distress. uncomfortable, well groomed, Behavior is ph calm, cooperative, appropriate for age, Reports chills for 1-2 days. Pain: Complains of pain in abdomen. Neuro: Level of Consciousness is awake, alert, obeys commands, Oriented to person, place, time, situation. Cardiovascular: Capillary refill < 3 seconds in bilateral fingers Patient's skin is warm and dry. Respiratory: Airway is patent Respiratory effort is even, unlabored, Respiratory pattern is regular, symmetrical. GI: Abdomen is non-distended, obese, Bowel sounds hypoactive in right upper quadrant, left upper quadrant, right lower quadrant and left lower quadrant Abdomen is tender to palpation in left upper quadrant and left lower quadrant Reports lower abdominal pain, upper abdominal pain, diarrhea, bloody stool, nausea, vomiting. : No signs and/or symptoms were reported regarding the genitourinary system. Derm: Skin is intact, is healthy with good turgor, Skin is pink, warm \T\ dry. Musculoskeletal: Circulation, motion, and sensation intact. Range of motion: intact in all extremities. 09:58 General: Appears in no apparent distress. comfortable, Behavior is calm, cooperative, aj appropriate for age. Neuro: Level of Consciousness is awake, alert, obeys commands, Oriented to person, place, time, situation. Respiratory: Airway is patent Respiratory effort is even, unlabored, Respiratory pattern is regular, symmetrical. GI: Abdomen is non-distended, obese, Reports lower abdominal pain, upper abdominal pain. Derm: Skin is intact, is healthy with good turgor, Skin is pink, warm \T\ dry. normal. Vital Signs: 07:50 BP 113 / 62; Pulse 82; Resp 18; Temp 98.0; Pulse Ox 98% on R/A; Weight 70.76 kg; Height iw 5 ft. 1 in. (154.94 cm); Pain 9/10; 09:00 BP 109 / 70; Pulse 75; Resp 18; Pulse Ox 96% on R/A; ph 09:58 BP 105 / 59; Pulse 68; Resp 18; Pulse Ox 97% on R/A; aj 10:32 BP 106 / 61; Pulse 62; Resp 18; Pulse Ox 98% on R/A; aj 07:50 Body Mass Index 29.48 (70.76 kg, 154.94 cm) iw ED Course: 07:34 Patient arrived in ED. as 07:35 John Miguel MD is Private Physician. as 07:44 Daphney Pedraza RN is Primary Nurse. ph 07:55 Triage completed. iw 07:55 Arm band placed on. iw 08:18 Chauncey Dos Santos MD is Attending Physician. kdr 08:39 Patient has correct armband on for positive identification. Bed in low position. Call mh5 light in reach. Side rails up X 1. Pulse ox on. NIBP on. 08:39 Initial lab(s) drawn, by me, sent to lab. Inserted saline lock: 22 gauge in right mh5 antecubital area, using aseptic technique. Blood collected. 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 ph 09:29 CT Abd/Pelvis - IV Contrast Only In Process Unspecified. EDMS 09:48 Primary Nurse role handed off by Daphney Pedraza RN aj 09:48 Stacia Shields, NEHA is Primary Nurse. aj 10:09 John Miguel MD is Referral Physician. kdr 10:32 IV discontinued, intact, bleeding controlled, No redness/swelling at site. Pressure aj dressing applied. Administered Medications: 08:56 Drug: fentaNYL (PF) 25 mcg Route: IVP; Site: right antecubital; ph 10:13 Follow up: Response: No change in condition; Pain is unchanged, physician notified aj 08:56 Drug: Zofran 4 mg Route: IVP; Site: right antecubital; ph 10:13 Follow up: Response: No adverse reaction; No change in condition aj 09:25 Drug: Pepcid 20 mg Route: IVP; Site: right antecubital; ph 10:14 Follow up: Response: No adverse reaction aj 09:25 Drug: NS 0.9% 1000 ml Route: IV; Rate: 1 bolus; Site: right antecubital; ph 10:34 Follow up: Response: No adverse reaction; IV Status: Order to discontinue infusion; IV aj Intake: 500ml 09:25 Drug: fentaNYL (PF) 25 mcg Route: IVP; Site: right antecubital; ph 10:34 Follow up: Response: No adverse reaction; No change in condition aj 10:12 Drug: Potassium Chloride 40 mEq Route: PO; aj 10:33 Follow up: Response: No adverse reaction aj 10:12 Drug: Cipro 500 mg Route: PO; aj 10:34 Follow up: Response: No adverse reaction aj 10:13 Drug: Flagyl 500 mg Route: PO; aj 10:34 Follow up: Response: No adverse reaction aj Intake: 10:34 IV: 500ml; Total: 500ml. aj Outcome: 10:09 Discharge ordered by . kdr 10:32 Discharged to home ambulatory. aj 10:32 Condition: good 10:32 Discharge instructions given to patient, Instructed on discharge instructions, follow up and referral plans. medication usage, Demonstrated understanding of instructions, follow-up care, medications, Prescriptions given X 5 10:33 Patient left the ED. aj Signatures: Dispatcher [employer] EDMS Stacia Shields RN RN aj Rittger, Kevin, MD MD kdr Martinez, Amelia as Roya Hummel, NEHA SOLOMON Daphney Pedraza RN RN Kelly Grijalva [facility] Corrections: (The following items were deleted from the chart) 07:57 07:50 BP 113 / 62; Pulse 82bpm; Resp 18bpm; Pulse Ox 98% RA; ph iw
--- NOTE | 2018-12-10 10:10 | EDPHYS ---
Physician Documentation [facility] Name: Shahnaz Ramos Age: 58 yrs Sex: Female : 1960 Arrival Date: 12/10/2018 Time: 07:34 Bed 15 Private MD: John Miguel E ED Physician Chauncey Dos Santos HPI: 12/10 09:10 This 58 yrs old Female presents to ER via Ambulatory with complaints of Bloody kdr Stools, Abdominal Pain, Pelvic Pain. 09:10 The patient presents with abdominal pain that is diffuse. Onset: The symptoms/episode kdr began/occurred gradually, Started Friday - . The symptoms do not radiate. Associated signs and symptoms: Pertinent positives: nausea and vomiting, blood in stools. The symptoms are described as achy, crampy, vague. Modifying factors: The symptoms are alleviated by nothing, the symptoms are aggravated by touching the area, walking. Severity of pain: At its worst the pain was moderate severe just prior to arrival, in the emergency department the pain is unchanged. The patient has experienced similar episodes in the past, multiple times. Historical: - Allergies: 07:57 Aspirin; iw 07:57 Imitrex; iw - Home Meds: 07:57 ranitidine HCl 150 mg Oral cap 1 cap 2 times per day [Active]; Vitamin B-12 Oral daily iw [Active]; Dexilant 60 mg oral CpDB 1 cap once daily [Active]; promethazine 25 mg Oral tab as needed [Active]; fluoxetine 40 mg Oral cap once daily [Active]; - PMHx: 07:57 Anxiety; Asthma; Bipolar disorder; cervical spinal stenosis; COPD; Depression; iw Fibromyalgia; GERD; Hepatitis C; insomnia; Migraines; Ulcers; Diverticulitis; - PSHx: 07:57 Cholecystectomy; Hysterectomy; iw - Immunization history:: Adult Immunizations up to date. - Social history:: Smoking status: Patient uses tobacco products, smokes one-half pack cigarettes per day. - Ebola Screening: : Patient negative for fever greater than or equal to 101.5 degrees Fahrenheit, and additional compatible Ebola Virus Disease symptoms Patient denies exposure to infectious person Patient denies travel to an Ebola-affected area in the 21 days before illness onset No symptoms or risks identified at this time. ROS: 09:10 Constitutional: Negative for fever, chills, and weight loss, Eyes: Negative for injury, kdr pain, redness, and discharge, ENT: Negative for injury, pain, and discharge, Neck: Negative for injury, pain, and swelling, Cardiovascular: Negative for chest pain, palpitations, and edema, Respiratory: Negative for shortness of breath, cough, wheezing, and pleuritic chest pain, Back: Negative for injury and pain, : Negative for injury, bleeding, discharge, and swelling, MS/Extremity: Negative for injury and deformity, Skin: Negative for injury, rash, and discoloration, Neuro: Negative for headache, weakness, numbness, tingling, and seizure activity. Psych: Negative for depression, anxiety, suicide ideation, homicidal ideation, and hallucinations, Allergy/Immunology: Negative for hives, rash, and allergies, Endocrine: Negative for neck swelling, polydipsia, polyuria, polyphagia, and marked weight changes, Hematologic/Lymphatic: Negative for swollen nodes, abnormal bleeding, and unusual bruising. 09:10 Abdomen/GI: Positive for abdominal pain, nausea and vomiting, rectal bleeding. Exam: 09:10 Constitutional: This is a well developed, well nourished patient who is awake, alert, kdr and in no acute distress. Head/Face: Normocephalic, atraumatic. Eyes: Pupils equal round and reactive to light, extra-ocular motions intact. Lids and lashes normal. Conjunctiva and sclera are non-icteric and not injected. Cornea within normal limits. Periorbital areas with no swelling, redness, or edema. Neck: Trachea midline, no thyromegaly or masses palpated, and no cervical lymphadenopathy. Supple, full range of motion without nuchal rigidity, or vertebral point tenderness. No Meningismus. Chest/axilla: Normal chest wall appearance and motion. Nontender with no deformity. No lesions are appreciated. Cardiovascular: Regular rate and rhythm with a normal S1 and S2. No gallops, murmurs, or rubs. Normal PMI, no JVD. No pulse deficits. Respiratory: Lungs have equal breath sounds bilaterally, clear to auscultation and percussion. No rales, rhonchi or wheezes noted. No increased work of breathing, no retractions or nasal flaring. Back: No spinal tenderness. No costovertebral tenderness. Full range of motion. Skin: Warm, dry with normal turgor. Normal color with no rashes, no lesions, and no evidence of cellulitis. MS/ Extremity: Pulses equal, no cyanosis. Neurovascular intact. Full, normal range of motion. Neuro: Awake and alert, GCS 15, oriented to person, place, time, and situation. Cranial nerves II-XII grossly intact. Motor strength 5/5 in all extremities. Sensory grossly intact. Cerebellar exam normal. Normal gait. Psych: Awake, alert, with orientation to person, place and time. Behavior, mood, and affect are within normal limits. 09:10 Abdomen/GI: Inspection: abdomen appears normal, Bowel sounds: diminished, in all quadrants, Palpation: soft, mild abdominal tenderness, in all quadrants, Rectal exam: rectal tone normal, Stool: normal, guzman, guaiac negative, the exam is chaperoned by the nurse. Vital Signs: 07:50 BP 113 / 62; Pulse 82; Resp 18; Temp 98.0; Pulse Ox 98% on R/A; Weight 70.76 kg; Height iw 5 ft. 1 in. (154.94 cm); Pain 9/10; 09:00 BP 109 / 70; Pulse 75; Resp 18; Pulse Ox 96% on R/A; ph 09:58 BP 105 / 59; Pulse 68; Resp 18; Pulse Ox 97% on R/A; aj 10:32 BP 106 / 61; Pulse 62; Resp 18; Pulse Ox 98% on R/A; aj 07:50 Body Mass Index 29.48 (70.76 kg, 154.94 cm) iw MDM: 10:09 Patient medically screened. kdr 10:25 Data reviewed: vital signs, nurses notes, lab test result(s), radiologic studies. kdr Counseling: I had a detailed discussion with the patient and/or guardian regarding: the historical points, exam findings, and any diagnostic results supporting the discharge/admit diagnosis, lab results, radiology results, the need for outpatient follow up. 12/10 08:18 Order name: Basic Metabolic Panel; Complete Time: 09:59 kdr 12/10 08:18 Order name: CBC with Diff; Complete Time: :59 kdr 12/10 08:18 Order name: Creatinine for Radiology; Complete Time: :59 kdr 12/10 08:18 Order name: Hepatic Function; Complete Time: :59 kdr 12/10 08:18 Order name: Lipase; Complete Time: 09:59 kdr 12/10 09:38 Order name: Urine Dipstick--Ancillary (enter results) ag 12/10 08:54 Order name: CT Abd/Pelvis - IV Contrast Only; Complete Time: 09:59 kdr 12/10 08:18 Order name: IV Saline Lock; Complete Time: 08:56 kdr 12/10 08:18 Order name: Labs collected and sent; Complete Time: 08:56 kdr Administered Medications: 08:56 Drug: fentaNYL (PF) 25 mcg Route: IVP; Site: right antecubital; ph 10:13 Follow up: Response: No change in condition; Pain is unchanged, physician notified aj 08:56 Drug: Zofran 4 mg Route: IVP; Site: right antecubital; ph 10:13 Follow up: Response: No adverse reaction; No change in condition aj 09:25 Drug: Pepcid 20 mg Route: IVP; Site: right antecubital; ph 10:14 Follow up: Response: No adverse reaction aj 09:25 Drug: NS 0.9% 1000 ml Route: IV; Rate: 1 bolus; Site: right antecubital; ph 10:34 Follow up: Response: No adverse reaction; IV Status: Order to discontinue infusion; IV aj Intake: 500ml 09:25 Drug: fentaNYL (PF) 25 mcg Route: IVP; Site: right antecubital; ph 10:34 Follow up: Response: No adverse reaction; No change in condition aj 10:12 Drug: Potassium Chloride 40 mEq Route: PO; aj 10:33 Follow up: Response: No adverse reaction aj 10:12 Drug: Cipro 500 mg Route: PO; aj 10:34 Follow up: Response: No adverse reaction aj 10:13 Drug: Flagyl 500 mg Route: PO; aj 10:34 Follow up: Response: No adverse reaction aj Disposition: 12/10/18 10:09 Discharged to Home. Impression: Abdominal and pelvic pain, Hypokalemia. - Condition is Stable. - Discharge Instructions: Potassium Content of Foods, Abdominal Pain, Adult, [id number]. - Prescriptions for Bentyl 20 mg Oral Tablet - take 1 tablet by ORAL route every 6 hours As needed; 20 tablet. Cipro 500 mg Oral Tablet - take 1 tablet by ORAL route every 12 hours for 10 days; 20 tablet. Flagyl 500 mg Oral Tablet - take 1 tablet by ORAL route every 6 hours for 10 days; 40 tablet. Tylenol- Codeine #3 300-30 mg Oral Tablet - take 2 tablet by ORAL route every 6 hours As needed; 30 tablet. Reglan 10 mg Oral Tablet - take 1 tablet by ORAL route every 6 hours take 30 minutes before meals and at bedtime; 20 tablet. - Medication Reconciliation Form, Thank You Letter, Antibiotic Education, Prescription Opioid Use form. - Follow up: John Miguel MD; When: 2 - 3 days; Reason: If symptoms return, Further diagnostic work-up, Recheck today's complaints, Continuance of care, Re-evaluation by your physician. - Problem is an acute exacerbation. - Symptoms have improved. Signatures: Dispatcher [employer] EDMS Stacia Shields RN RN Chauncey Moon MD MD kdr Roya Hummel RN RN iw Daphney Pedraza RN RN ph Corrections: (The following items were deleted from the chart) 10:10 10:09 12/10/2018 10:09 Discharged to Home. Impression: Abdominal and pelvic pain. kdr Condition is Stable. Forms are Medication Reconciliation Form, Thank You Letter, Antibiotic Education, Prescription Opioid Use. Follow up: John Miguel; When: 2 - 3 days; Reason: If symptoms return, Further diagnostic work-up, Recheck today's complaints, Continuance of care, Re-evaluation by your physician. Problem is an acute exacerbation. Symptoms have improved. kdr 10:33 10:10 12/10/2018 10:09 Discharged to Home. Impression: Abdominal and pelvic pain; aj Hypokalemia. Condition is Stable. Forms are Medication Reconciliation Form, Thank You Letter, Antibiotic Education, Prescription Opioid Use. Follow up: John Miguel; When: 2 - 3 days; Reason: If symptoms return, Further diagnostic work-up, Recheck today's complaints, Continuance of care, Re-evaluation by your physician. Problem is an acute exacerbation. Symptoms have improved. kdr
[2018-12-10] MEDS ORDERED: POTASSIUM CL SA 10 MEQ TAB PO ONE (10:21)
[2018-12-10] MEDS ORDERED: CIPROFLOXACIN HCL 500 MG TAB ONE (10:21)
[2018-12-10] MEDS ORDERED: metroNIDAZOLE 500 MG TABLET ONE (10:21)
[2018-12-10 10:40] VITALS: TEMP 98
[2018-12-10 10:43] VITALS: BP 106/61; O2SAT 98
[2018-12-10 10:57] LABS: Urine Blood TRACE (NEG); Urine Glucose NEGATIVE (NEG); Urine Protein 1+ (NEG); Urine Specific Gravity 1.025 (1.005-1.030)
== END 2018-12-10 10:33 | disposition home or self-care (01) ==
LOC: ER 07:31
DX: E87.6 Hypokalemia (principal); F41.9 Anxiety disorder, unspecified; F32.9 Major depressive disorder, single episode, unspecified; J44.9 Chronic obstructive pulmonary disease, unspecified; F17.210 Nicotine dependence, cigarettes, uncomplicated; Z88.6 Allergy status to analgesic agent; Z88.8 Allergy status to other drugs, medicaments and biological substances
CPT/HCPCS: 96361; 85025; 80048; 36415; 80076; 81003; 83690; 74177; 96375; 96374; 99284; Q9967; J3010; J7030; J2405

== ENCOUNTER 2019-03-12 21:01 | Emergency (ER) | payer OTHER ==
[2019-03-12] MEDS ORDERED: HYDROCODONE/CHLORPHEN 5 ML/OSYR ONE (22:11)
[2019-03-12] MEDS ORDERED: ALBUTEROL 2.5 MG/3 ML NEB SOL ONE ×2 (22:11→23:22)
[2019-03-12] MEDS ORDERED: IPRATROPIUM BROM 0.5MG/2.5ML ONE (22:11)
[2019-03-12 22:17] LABS: Urine Blood NEGATIVE (NEG); Urine Glucose NEGATIVE (NEG); Urine Protein NEGATIVE (NEG); Urine pH 5.5 (5.0-7.0)
[2019-03-12 22:18] LABS: Absolute Lymphocytes (CBC) 3.1 K/uL (0.7-4.9); Basophils % 0.2 % (0-1.3); Hematocrit 36.8 % (36.0-45.0); Lymphocytes % 37.9 % (15.3-44.8); MPV 9.6 fL (7.6-11.3); RBC Red Blood Cell Count 3.93 M/uL (3.86-4.86)
[2019-03-12 22:19] LABS: Protime INR 0.87
[2019-03-12 22:24] LABS: Urine Bacteria <20 /HPF (<20); Urine Culture Reflex Order REFLEXED; Urine RBC NONE SEEN /HPF (NONE SEEN); Urine Yeast PRESENT (NONE SEEN)
[2019-03-12 22:35] LABS: ALT/SGPT 37 U/L (12-78); AST/SGOT 17 U/L (15-37); Albumin 2.9 g/dL (3.4-5.0); Alkaline Phosphatase 128 U/L (45-117); BUN Blood Urea Nitrogen 17 mg/dL (7-18); Bicarbonate 26 mmol/L (21-32); Bilirubin Direct < 0.1 mg/dL (0-0.2); Bilirubin Total 0.2 mg/dL (0.2-1.0); Glucose Level 130 mg/dL (74-106); Magnesium 1.8 mg/dL (1.8-2.4); NT PRO-BNP 215 pg/mL (<125); Potassium 3.8 mmol/L (3.5-5.1); Protein, Total 6.2 g/dL (6.4-8.2); Sodium Level 143 mmol/L (136-145); Troponin (Emerg Dept Use Only) < 0.02 ng/mL (0.0-0.045)
[2019-03-12] MEDS ORDERED: BENZONATATE 100 MG CAP PO ONE (23:21)
[2019-03-12] MEDS ORDERED: DIPHENHYDRAMINE 50 MG/ML VIAL ONE (23:21)
[2019-03-12] MEDS ORDERED: METOCLOPRAMIDE 10 MG/2mL INJ ONE (23:21)
[2019-03-12] MEDS ORDERED: dexAMETHasone 10 MG/ML VIAL ONE (23:21)
[2019-03-12] MEDS ORDERED: NA CHLORIDE 0.9% 1,000 ML ONE (23:21)
--- NOTE | 2019-03-13 00:01 | RAD REPORT ---
EXAM DESCRIPTION: RAD - Chest Pa And Lat (2 Views) - 03/12/2019 10:30 pm CLINICAL HISTORY: COUGH Chest pain. COMPARISON: Chest Single View dated 07/10/2017; Chest Pa And Lat (2 Views) dated 02/08/2017; Chest Singl e View dated 09/25/2016; Chest Single View dated 09/01/2016 FINDINGS: Mild interstitial prominence is present most compatible with viral pneumonitis/ bronchitis . No focal consolidation seen. The heart is upper limit of normal in size. No displaced fractures.
--- NOTE | 2019-03-13 00:03 | EDPHYS ---
Physician Documentation [facility] Name: Shahnaz Ramos Age: 58 yrs Sex: Female : 1960 Arrival Date: 03/12/2019 Time: 21:13 Bed 14 Private MD: ED Physician Lee Barrett HPI: 03/12 21:55 This 58 yrs old Female presents to ER via Ambulatory with complaints of Cough, cp Shortness Of Breath, Sore Throat, Headache. 21:55 The patient or guardian reports cough, that is constant. cp 21:55 Onset: The symptoms/episode began/occurred 3 week(s) ago. Severity of symptoms: in the emergency department the symptoms are unchanged, despite home interventions. Associated signs and symptoms: Pertinent positives: chest pain, with cough, sore throat, headache, shortness of breath, Pertinent negatives: diarrhea, fever, vomiting. Historical: - Allergies: 21:19 Aspirin; mg2 21:19 Imitrex; mg2 - Home Meds: 21:44 Dexilant 60 mg Oral CpDB 1 cap once daily [Active]; fluoxetine 40 mg Oral cap once wh daily [Active]; dicyclomine 20 mg Oral tab q 6hr pnr [Active]; doxepin 100 mg oral cap 1 cap once daily [Active]; paliperidone 6 mg oral tr24 1 tab nightly [Active]; promethazine 25 mg Oral tab BID PRN [Active]; Lyrica 100 Oral 1 cap 2 times per day [Active]; - PMHx: 21:19 Anxiety; Asthma; Bipolar disorder; cervical spinal stenosis; COPD; Depression; mg2 Diverticulitis; Fibromyalgia; GERD; Hepatitis C; insomnia; Migraines; Ulcers; - PSHx: 21:19 Cholecystectomy; exlap; mg2 - Immunization history:: Flu vaccine is up to date. - Social history:: Smoking status: Patient uses tobacco products, smokes one pack cigarettes per day. Patient/guardian denies using alcohol, street drugs, IV drugs. - Ebola Screening: : No symptoms or risks identified at this time. ROS: 22:03 Constitutional: Negative for body aches, chills, fever, poor PO intake. cp 22:03 Eyes: Negative for injury, pain, redness, and discharge. cp 22:03 ENT: Positive for sore throat, Negative for drainage from ear(s), ear pain, difficulty swallowing, difficulty handling secretions. 22:03 Cardiovascular: Positive for chest pain, with cough, Negative for edema, palpitations. 22:03 Respiratory: Positive for cough, shortness of breath, Negative for wheezing. 22:03 Abdomen/GI: Negative for abdominal pain, nausea, vomiting, and diarrhea, constipation, anorexia. 22:03 Back: Negative for pain at rest, pain with movement. 22:03 : Negative for urinary symptoms. 22:03 Skin: Negative for cellulitis, rash. 22:03 Neuro: Positive for headache, Negative for altered mental status, syncope, weakness. 22:03 All other systems are negative. Exam: 22:05 ECG was reviewed by the Attending Physician. cp 22:10 Constitutional: The patient appears in no acute distress, alert, awake, cp non-diaphoretic, non-toxic, well developed, well nourished. 22:10 Head/Face: Normocephalic, atraumatic. cp 22:10 Eyes: Periorbital structures: appear normal, Conjunctiva: normal, no exudate, no injection, Lids and lashes: appear normal, bilaterally. 22:10 ENT: External ear(s): are unremarkable, Ear canal(s): are normal, clear, TM's: bulging, is not appreciated, bilaterally, dullness, bilaterally, erythema, is not appreciated, bilaterally, Nose: is normal, Mouth: Lips: moist, Oral mucosa: moist, Posterior pharynx: Airway: no evidence of obstruction, patent, swelling, is not appreciated, erythema, that is mild. 22:10 Neck: ROM/movement: is normal, is supple, without pain, no range of motions limitations, no meningismus, no nuchal rigidity. 22:10 Chest/axilla: Inspection: normal, Palpation: is normal, no crepitus, no tenderness. 22:10 Cardiovascular: Rate: normal, Rhythm: regular, Edema: is not appreciated, JVD: is not appreciated. 22:10 Respiratory: the patient does not display signs of respiratory distress, Respirations: normal, no use of accessory muscles, no retractions, no splinting, no tachypnea, labored breathing, is not present, Breath sounds: bronchial sounds, that are mild, are heard diffusely, decreased breath sounds, are not appreciated, stridor, is not appreciated, wheezing: is not appreciated. 22:10 Abdomen/GI: Inspection: abdomen appears normal, Palpation: abdomen is soft and non-tender, in all quadrants. 22:10 Back: pain, is absent, ROM is normal. 22:10 Skin: no rash present. 22:10 Neuro: Orientation: to person, place \T\ time. Mentation: is normal, Cerebellar function: is grossly normal, Motor: moves all fours, strength is normal, Sensation: is normal. Vital Signs: 21:18 BP 123 / 65; Pulse 83; Resp 18; Temp 98; Pulse Ox 100% on R/A; Weight 73.94 kg; Height mg2 6 ft. 1 in. (185.42 cm); Pain 8/10; 22:00 BP 103 / 56; Pulse 86; Resp 18; Pulse Ox 99% on R/A; wh 23:00 BP 99 / 62; Pulse 98; Resp 18; Pulse Ox 97% on R/A; wh 03/13 00:00 BP 105 / 71; Pulse 98; Resp 18; Pulse Ox 97% on R/A; wh 03/12 21:18 Body Mass Index 21.51 (73.94 kg, 185.42 cm) mg2 MDM: 03/12 21:29 Patient medically screened. 03/13 00:01 Data reviewed: vital signs, nurses notes, lab test result(s), EKG, radiologic studies, cp plain films. 00:01 Test interpretation: by ED physician or midlevel provider: ECG, plain radiologic cp studies, chest xray negative for infiltrates. Counseling: I had a detailed discussion with the patient and/or guardian regarding: the historical points, exam findings, and any diagnostic results supporting the discharge/admit diagnosis, lab results, radiology results, to return to the emergency department if symptoms worsen or persist or if there are any questions or concerns that arise at home. Response to treatment: the patient's symptoms have markedly improved after treatment, and as a result, I will discharge patient. 03/12 21:46 Order name: Basic Metabolic Panel; Complete Time: 23:00 03/12 23:01 Interpretation: Normal except: CL 109; GLUC 130; GFR 62; CA 8.1. 03/12 21:46 Order name: CBC with Diff 03/12 23:02 Interpretation: Reviewed. 03/12 21:46 Order name: LFT's; Complete Time: 23:00 03/12 23:01 Interpretation: Normal except: ALK 128; TP 6.2; ALB 2.9; A/G 0.9. 03/12 21:46 Order name: Magnesium; Complete Time: 23:00 03/12 21:46 Order name: NT PRO-BNP; Complete Time: 23:00 03/12 21:46 Order name: PT-INR; Complete Time: 23:00 03/12 21:46 Order name: Troponin (emerg Dept Use Only); Complete Time: 23:00 03/12 21:46 Order name: Influenza Screen (a \T\ B); Complete Time: 23:00 03/12 21:46 Order name: Strep; Complete Time: 23:00 03/12 23:01 Interpretation: Reviewed. 03/12 21:48 Order name: Urine Microscopic Only; Complete Time: 23:00 03/12 23:01 Interpretation: Normal except: YEAST PRESENT; BUD PRESENT. 03/12 22:15 Order name: Urine Dipstick--Ancillary (enter results); Complete Time: 23:00 [facility] 03/12 22:23 Order name: Throat Culture [facility] 03/12 22:25 Order name: Urine Culture [facility] 03/12 22:32 Order name: Manual Differential [facility] 03/12 21:46 Order name: EKG; Complete Time: 21:47 03/12 21:46 Order name: Cardiac monitoring; Complete Time: 22:08 03/12 21:46 Order name: EKG - Nurse/Tech; Complete Time: 22:08 03/12 21:46 Order name: IV Saline Lock; Complete Time: 22:08 03/12 21:46 Order name: Labs collected and sent; Complete Time: 22:08 03/12 21:46 Order name: O2 Per Protocol; Complete Time: 22:08 03/12 21:50 Order name: XRAY Chest Pa And Lat (2 Views); Complete Time: 00:11 03/13 00:11 Interpretation: Report reviewed. 03/12 21:46 Order name: O2 Sat Monitoring; Complete Time: 22:08 03/12 21:48 Order name: Urine Dipstick-Ancillary (obtain specimen); Complete Time: 22:08 cp EC/11 22:05 Rate is 81 beats/min. Rhythm is regular. MO interval is normal. QRS interval is normal. cp QT interval is normal. T waves are Inverted in leads V2, V3. Interpreted by me. Reviewed by me. Administered Medications: 22:15 Drug: Tussionex Pennkinetic ER 5 ml Route: PO; 03/13 00:23 Follow up: Response: No adverse reaction 03/12 22:15 Drug: Albuterol 2.5 mg Route: Inhalation; 22:15 Drug: AtroVENT Aerosol 0.5 mg Route: Inhalation; 23:28 Drug: Albuterol 2.5 mg Route: Inhalation; 03/13 00:20 Follow up: Response: No adverse reaction; Wheezing diminished 03/12 23:29 Drug: Reglan 10 mg Route: IVP; Site: right antecubital; 03/13 00:20 Follow up: Response: No adverse reaction 03/12 23:29 Drug: Benadryl 25 mg Route: IVP; Site: right antecubital; 03/13 00:20 Follow up: Response: No adverse reaction 03/12 23:29 Drug: NS 0.9% 1000 ml Route: IV; Rate: 1 bolus; Site: right antecubital; 03/13 00:20 Follow up: Response: No adverse reaction; IV Status: Completed infusion 03/12 23:30 Drug: Tessalon Perle 200 mg Route: PO; 03/13 00:19 Follow up: Response: No adverse reaction 03/12 23:30 Drug: Decadron - Dexamethasone 10 mg Route: IVP; Site: right antecubital; 03/13 00:20 Follow up: Response: No adverse reaction Disposition: 00:51 Co-signature as Attending Physician, Lee Barrett MD. rn Disposition: 03/13/19 00:02 Discharged to Home. Impression: Chronic obstructive pulmonary disease with acute lower respiratory infection. - Condition is Stable. - Discharge Instructions: Chronic Obstructive Pulmonary Disease, Upper Respiratory Infection, Adult. - Prescriptions for Levaquin 750 mg Oral Tablet - take 1 tablet by ORAL route once daily for 7 days; 7 tablet. Guaifenesin AC 10- 100 mg/5 mL Oral Liquid - take 10 milliliters by ORAL route every 6 hours As needed; 180 milliliter. Albuterol Sulfate 90 mcg/actuation - inhale 1-2 puff by INHALATION route every 4-6 hours; 1 Inhaler. Fluconazole 200 mg Oral Tablet - take 1 tablet by ORAL route once daily repeat 2 days later if vaginal itching or discharge; 2 tablet. - Medication Reconciliation Form, Thank You Letter, Antibiotic Education, Prescription Opioid Use form. - Follow up: Private Physician; When: 2 - 3 days; Reason: Worsening of condition. - Problem is new. - Symptoms have improved. Signatures: Dispatcher [employer] EDLee Rose MD MD rn Don Retana PA PA cp Habalo, Winsy wh Gardose, Michele, RN RN mg2 Corrections: (The following items were deleted from the chart) 03/12 23:01 23:00 Normal except: CL 109; GLUC 130; GFR 62. cp cp 03/13 00:22 00:02 03/13/2019 00:02 Discharged to Home. Impression: Chronic obstructive pulmonary wh disease with acute lower respiratory infection. Condition is Stable. Forms are Medication Reconciliation Form, Thank You Letter, Antibiotic Education, Prescription Opioid Use. Follow up: Private Physician; When: 2 - 3 days; Reason: Worsening of condition. Problem is new. Symptoms have improved. cp
--- NOTE | 2019-03-13 00:03 | ER ---
Nurse's Notes [facility] Name: Shahnaz Ramos Age: 58 yrs Sex: Female : 1960 Arrival Date: 03/12/2019 Time: 21:13 Bed 14 Private MD: Diagnosis: Chronic obstructive pulmonary disease with acute lower respiratory infection Presentation: 03/12 21:16 Presenting complaint: Patient states: i have URTI for 3 weeks now and my DR. put me on mg2 ABX for 7 days and im done with it but im getting worse. i have headache (migraine), cough and sore throat and vomiting this morning. Transition of care: patient was not received from another setting of care. Onset of symptoms was March 12, 2019. Risk Assessment: Do you want to hurt yourself or someone else? Patient reports no desire to harm self or others. Initial Sepsis Screen: Does the patient meet any 2 criteria? No. Patient's initial sepsis screen is negative. Does the patient have a suspected source of infection? No. Patient's initial sepsis screen is negative. Care prior to arrival: None. 21:16 Method Of Arrival: Ambulatory mg2 21:16 Acuity: [place] 4 mg2 Triage Assessment: 21:49 General: Behavior is calm, cooperative. Respiratory: Airway is patent Onset: The symptoms/episode began/occurred at an unknown time. the patient has mild shortness of breath. Historical: - Allergies: 21:19 Aspirin; mg2 21:19 Imitrex; mg2 - Home Meds: 21:44 Dexilant 60 mg Oral CpDB 1 cap once daily [Active]; fluoxetine 40 mg Oral cap once wh daily [Active]; dicyclomine 20 mg Oral tab q 6hr pnr [Active]; doxepin 100 mg oral cap 1 cap once daily [Active]; paliperidone 6 mg oral tr24 1 tab nightly [Active]; promethazine 25 mg Oral tab BID PRN [Active]; Lyrica 100 Oral 1 cap 2 times per day [Active]; - PMHx: 21:19 Anxiety; Asthma; Bipolar disorder; cervical spinal stenosis; COPD; Depression; mg2 Diverticulitis; Fibromyalgia; GERD; Hepatitis C; insomnia; Migraines; Ulcers; - PSHx: 21:19 Cholecystectomy; exlap; mg2 - Immunization history:: Flu vaccine is up to date. - Social history:: Smoking status: Patient uses tobacco products, smokes one pack cigarettes per day. Patient/guardian denies using alcohol, street drugs, IV drugs. - Ebola Screening: : No symptoms or risks identified at this time. Screenin:39 Abuse screen: Denies threats or abuse. Denies injuries from another. Nutritional wh screening: No deficits noted. Tuberculosis screening: No symptoms or risk factors identified. Fall Risk None identified. Assessment: 21:45 General: Appears in no apparent distress. Pain: Denies pain. Neuro: Level of wh Consciousness is awake, alert, obeys commands. Cardiovascular: Heart tones S1 S2 Rhythm is regular. Respiratory: Airway is patent Respiratory effort is even, unlabored, Respiratory pattern is regular, symmetrical, Breath sounds with rhonchi bilaterally. Respiratory: Reports cough that is productive. GI: Abdomen is round non-distended. : No signs and/or symptoms were reported regarding the genitourinary system. EENT: No signs and/or symptoms were reported regarding the EENT system. Derm: Skin is intact, is healthy with good turgor, Skin is pink, warm \T\ dry. normal. Musculoskeletal: Circulation, motion, and sensation intact. 23:05 Reassessment: Patient appears in no apparent distress at this time. No changes from previously documented assessment. Patient and/or family updated on plan of care and expected duration. Pain level reassessed. Patient is alert, oriented x 3, equal unlabored respirations, skin warm/dry/pink. Notified Provider Pt still C/O cough and headache. 03/13 00:16 Reassessment: Patient appears in no apparent distress at this time. No changes from previously documented assessment. Patient and/or family updated on plan of care and expected duration. Pain level reassessed. Patient is alert, oriented x 3, equal unlabored respirations, skin warm/dry/pink. Patient denies pain at this time. Patient states feeling better. Patient states symptoms have improved. Vital Signs: 03/12 21:18 BP 123 / 65; Pulse 83; Resp 18; Temp 98; Pulse Ox 100% on R/A; Weight 73.94 kg; Height mg2 6 ft. 1 in. (185.42 cm); Pain 01/09; 22:00 BP 103 / 56; Pulse 86; Resp 18; Pulse Ox 99% on R/A; 23:00 BP 99 / 62; Pulse 98; Resp 18; Pulse Ox 97% on R/A; 03/13 00:00 BP 105 / 71; Pulse 98; Resp 18; Pulse Ox 97% on R/A; 03/12 21:18 Body Mass Index 21.51 (73.94 kg, 185.42 cm) [facility] [place] Course: 03/12 21:13 Patient arrived in ED. cf2 21:18 Triage completed. mg2 21:19 Arm band placed on. mg2 21:20 Don Retana PA is PHCP. cp 21:20 Lee Barrett MD is Attending Physician. cp 21:23 Jose Guadalupe Farmer is Primary Nurse. wh 21:49 Patient has correct armband on for positive identification. Placed in gown. Bed in low wh position. Call light in reach. Side rails up X 1. Pulse ox on. NIBP on. 22:00 Inserted saline lock: 20 gauge in right antecubital area, using aseptic technique. wh Blood collected. 22:30 XRAY Chest Pa And Lat (2 Views) In Process Unspecified. EDMS 03/13 00:21 No provider procedures requiring assistance completed. IV discontinued, intact, wh bleeding controlled, No redness/swelling at site. Administered Medications: 03/12 22:15 Drug: Tussionex Pennkinetic ER 5 ml Route: PO; 03/13 00:23 Follow up: Response: No adverse reaction 03/12 22:15 Drug: Albuterol 2.5 mg Route: Inhalation; 22:15 Drug: AtroVENT Aerosol 0.5 mg Route: Inhalation; 23:28 Drug: Albuterol 2.5 mg Route: Inhalation; 03/13 00:20 Follow up: Response: No adverse reaction; Wheezing diminished 03/12 23:29 Drug: Reglan 10 mg Route: IVP; Site: right antecubital; 03/13 00:20 Follow up: Response: No adverse reaction 03/12 23:29 Drug: Benadryl 25 mg Route: IVP; Site: right antecubital; 03/13 00:20 Follow up: Response: No adverse reaction 03/12 23:29 Drug: NS 0.9% 1000 ml Route: IV; Rate: 1 bolus; Site: right antecubital; 03/13 00:20 Follow up: Response: No adverse reaction; IV Status: Completed infusion 03/12 23:30 Drug: Tessalon Perle 200 mg Route: PO; 03/13 00:19 Follow up: Response: No adverse reaction 03/12 23:30 Drug: Decadron - Dexamethasone 10 mg Route: IVP; Site: right antecubital; 03/13 00:20 Follow up: Response: No adverse reaction Outcome: 00:02 Discharge ordered by . tiara 00:21 Discharged to home ambulatory, with family. 00:21 Condition: good 00:21 Discharge instructions given to patient, Instructed on discharge instructions, follow up and referral plans. medication usage, POC URTI and COPD Demonstrated understanding of instructions, follow-up care, medications, POC Prescriptions given X 3. 00:22 Patient left the ED. Signatures: Dispatcher [employer] EDMS Don Retana PA PA cp Habalo, Winsy Ga Salazar RN RN mg2 [place]ier, Celesta 2
[2019-03-13 00:17] LABS: Blood Morphology Comment NOT SEEN (NOT SEEN); Platelet Estimate ADEQ
[2019-03-13 01:17] VITALS: TEMP 98
[2019-03-13 01:20] VITALS: O2SAT 97
[2019-03-13 01:21] VITALS: BP 105/71
--- NOTE | 2019-03-14 13:06 | EKG ---
Test Date: 2019-03-12 Test Time: 21:56:40 Economic Geographer: LADARIUS MEASUREMENT RESULTS: Intervals: Rate: 81 MI: 146 QRSD: 74 QT: 378 QTc: 439 [place]: P: 63 MI: 146 QRS: 85 T: 53 INTERPRETIVE STATEMENTS: Normal sinus rhythm Low voltage QRS Nonspecific T wave abnormality Abnormal ECG Compared to ECG 07/10/2017 18:37:59 Low QRS voltage now present T-wave abnormality now present Myocardial infarct finding no longer present Electronically Signed On 03-14-19 13:03:48 CDT by Rajan Singh
== END 2019-03-13 00:22 | disposition home or self-care (01) ==
LOC: ER 21:01
DX: J44.0 Chronic obstructive pulmonary disease with (acute) lower respiratory infection (principal); F41.9 Anxiety disorder, unspecified; F32.9 Major depressive disorder, single episode, unspecified; Z72.0 Tobacco use
CPT/HCPCS: 96361; 93005; 87070; 87088; 85025; 80048; 36415; 83735; 85610; 80076; 87081; 84484; 83880; 87804 ×2; 71046; 96375; 96374; 99284; J2765; J1200; J1100; J7030; 81003; 81015; 87086

== ENCOUNTER 2019-12-21 13:40 | Emergency (ER) | payer OTHER ==
--- OUTSIDE RECORDS SUMMARY | 2019-12-21 14:42 | XMS REPORT | Clinical Summary ---
:1960 Author Organization [facility] Address [address] [place] [address] Care Team Providers Name Role Phone Anshu Medina Primary Care Provider Allergies Active Allergy Reactions [...] nightly. OXcarbazepine Take 150 mg by 0 A ctive (TRILEPTAL) 150 MG mouth 2 (two) tablet [...] Not on file Results Not on fileafter 12/20/2018 Insurance Payer Benefit Plan / Group Subscriber ID Type Phone A ddress MEDICARE MEDICARE A B xxxxxxxxxx Medicare OTHER MCR ADV PLANS GENERIC MEDICARE xxxxxxxxx NON-CONTR ADVANTAGE
--- OUTSIDE RECORDS SUMMARY | 2019-12-21 14:42 | XMS REPORT | Clinical Summary ---
:1960 Author Organization [facility] Address [address] [place] [address] Care Team Providers Name Role Phone John Miguel MD Primary Care Provider Allergies Active Allergy Reactions Severity Noted Date Comments Aspirin Hives 04/07/2019 Sumatriptan Succinate Palpitations Low 04/07/2019 And ch est pain Medications Medication Sig Dispensed Refills Start Date End Date Status FLUoxetine (PROzac) 40 MG Take 40 mg by 0 Active capsule mouth daily. cyanocobalamin, vitamin Take by mouth. 0 Active B-12, (VITAMIN B-12 ORAL) dexlansoprazole Take 60 mg by 0 Active (DEXILANT) 60 mg capsule mouth daily. paliperidone (INVEGA Take by mouth. 0 Active ORAL) ALPRAZolam (XANAX) 2 MG Take 2 mg by 0 Active tablet mouth 3 (three) times a day as needed for anxiety. budesonide/formoterol Inhale. 0 Active fumarate (SYMBICORT INHL) Active Problems No known active problems Encounters Date Type Specialty Care Team Description 04/12/2019 Anesthesia Event General Surgery David Nam MD 04/12/2019 Surgery General Surgery Ger Corbett CERVICAL M EDIAL BRANCH BLOCK LEFT C4-7 04/12/2019 Hospital Encounter General Surgery Ger Corbett MD after 12/20/2018 Social History Tobacco Use Types Packs/Day Years Used Date Current Every Day Smoker Cigarettes 1 Smokeless Tobacco: Never Used Alcohol Use Drinks/Week oz/Week Comments Not Currently Alcohol Habits Answer Date Recorded How often do you have a drink containing alcohol? Never 04/07/2019 How many drinks containing alcohol do you have on a typical Not asked day when you are drinking? How often do you have six or more drinks on one occasion? No t asked Sex Assigned at Date Recorded Not on file Job Start Date Occupation Industry Not on file Not on file Not on file Travel History Travel Start Travel End No recent travel history available. Last Filed Vital Signs Vital Sign Reading Time Taken Comments Blood Pressure 111/53 04/12/2019 11:00 AM [employer] Pulse 71 04/12/2019 11:00 AM [employer] Temperature 36.8 C (98.3 F) 04/12/2019 10:45 AM [employer] Respiratory Rate 16 04/12/2019 11:00 AM [employer] Oxygen Saturation 96% 04/12/2019 11:00 AM [employer] Inhaled Oxygen Concentration - - Weight 75.3 kg (166 lb 1.6 oz) 04/12/2019 8:22 AM [employer] Height 154.9 cm (5' 1") 04/12/2019 8:22 AM [employer] Body Mass Index 31.38 04/12/2019 8:22 AM [employer] Plan of Treatment Health Maintenance Due Date Last Done Comments CERVICAL CANCER SCREENING 1982 BREAST CANCER SCREENING 2011 COLONOSCOPY SCREENING 2011 SHINGLES VACCINES (#1) 2011 INFLUENZA VACCINE 01/01/2020 Procedures Procedure Name Priority Date/Time Associated Diagnosis Comme nts OR [place] < 1 HOUR Routine 04/12/2019 10:42 Results f or this AM [employer] procedure are i n the results section. 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 after 12/20/2018 Results OR [place] < 1 Hour (04/12/2019 10:42 AM [employer]) Specimen Narrative Performed At EXAMINATION: [place] 1 HOUR HM [facility]IANT C-arm fluoroscopy was requested in OR. FLUORO TIME 0:37 IMPRESSION: Separate operative report will be issued by the physic marv performing the procedure. [id number] Procedure Note Hm Interface, Radiology Results Incoming - 04/12/2019 11:13 AM [employer] EXAMINATION: [place] 1 HOUR C-arm fluoroscopy was requested in OR. FLUORO TIME 0:37 IMPRESSION: Separate operative report will be issued by the physician performing the procedure. [id number] Performing Organization Address City/[facility]/Zipcode Phone Number [facility] [address] [place] [address] ECG 12 lead (04/12/2019 8:47 AM [employer]IVERSITY [employer]) Pathologist Sig nature Ventricular rate 69 [facility] Atrial rate 69 [facility] UT interval 158 [facility] QRSD interval 84 [facility] QT interval 420 [facility] QTC interval 450 [facility] P axis 1 64 [facility] QRS axis 1 74 [facility] T wave axis 50 [facility] EKG impression Normal sinus [facility] rhythm-Normal ECG-No previous ECGs available-Electronicall y Signed By Itzel Robbins MD ([id number]) on 04/12/2019 11:09:16 AM Specimen Narrative Performed At This result has an attachment that is no t available. 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
--- OUTSIDE RECORDS SUMMARY | 2019-12-21 14:43 | XMS REPORT | Continuity of Care Document ---
:1960 Author Organization [facility] t Address [address] [place] [address] Care Team Providers Name Role Phone Anshu Medina Primary Care Physician Lab, Fam Pob I Attending Clinician Unavailable DR ALBIN Attending Clinician Unavailable DR Breanna SIMEON Attending Clinician Unavailable Aric NAIDU Attending Clinician Cyril NAIDU Attending Clinician DR ALBIN Admitting Clinician Unavailable DR Breanna SIMEON Admitting Clinician Unavailable Payers Payer Name Policy Type Policy Number Effective Date Expiration Date Cesar thomas UHC MEDICAREUHC xxxxxxxxx 2018 [place] DUAL COMPLETE 00:00:00 Mandaen [id number] 019-PresentHMO Problems This patient has no known problems. Allergies, Adverse Reactions, Alerts Allergy Allergy Status Severity Reaction(s) Onset Inactive Treating Comm ents Source Name Type Date Date Clinician Aspirin Propensi Active Hives 2018-06 Roger ty to 06-07 Methodi adverse 00:00: st reaction 00 s to drug Sumatrip Propensi Active Palpitations 2018-[address] Roger guzman ty to 06-07 pain Methodi Succinat adverse 00:00: st e reaction 00 s to drug Salicyla Propensi Active Hives [facility] reaction 00 Center s Sumatrip Propensi Active Nausea Only [facility] guz[facility] ty to 01-01 [facility] - adverse 00:00: Medical reaction 00 [facility] s Social History Social Habit Start Date Stop Date Quantity Comments Source History of tobacco Cigarette Smoker [facility]mer use Mandaen History [facility] Alcohol Std Drinks Method ist History [facility] Alcohol Binge Mandaen Sex Assigned At [facility] Mandaen Cigarettes smoked 2019-04-12 2019-04-12 Elmer current (pack per 00:00:00 00:00:[address] day) - Reported Alcohol intake 2019-04-12 2019-04-12 Ex-drinker Elmer 00:00:00 00:00:00 (finding) Mandaen History [facility] 2019-04-07 2019-04-07 1 Elmer Alcohol Frequency 00:00:00 00:00:[address] Smoking Status Start Date Stop Date Source Current every day smoker 2019-04-12 00:00:00 Omaira Lockwoodist Never smoker [facility] Medications Ordered Filled Start Stop Current Ordering Indication Dosage Frequency Signature Comments Components Source Medication Medication Date Date Medication? Clinician (SIG) Name Name FLUoxetine 2018-06 Yes 40mg QD Take 40 mg [place] (PROzac) 40 11 by mouth Meth darshan MG capsule 11:18: daily. st 06 cyanocobala 2018-06 Yes Take by Omaira villarreal min, 11 mouth. Methodi vitamin 11:18: st B-12, 06 (VITAMIN B-12 ORAL) dexlansopra 2018-06 Yes 60mg QD Take 60 mg Roger zole 11 by mouth Methodi (DEXILANT) 11:18: daily. st 60 mg 06 capsule paliperidon 2018-06 Yes Take by Omaira villarreal e (INVEGA 11 mouth. Methodi ORAL) 11:18: st 06 ALPRAZolam 2018-06 Yes 2mg [id number] Take 2 mg Roger (XANAX) 2 -11 [id number] by mouth 3 Methodi MG tablet 11:18: 3D (three) st 06 times a day as needed for anxiety. budesonide/ 2018-06 Yes Inhale. Omaira villarreal formoterol 11 Methodi fumarate 11:18: st (SYMBICORT 06 INHL) BUPRENORPHI Yes Place onto [facility] (BUTRANS 8-02 the skin. Harry fagan - TD) 10:59: Medical 26 Center HYDROcodone 2016-0 Yes 1{tbl} Take [address] -acetaminop 8-02 tablet by Harry Castaneda hen (NORCO 10:59: mouth Medica l 5-325) 26 every 6 Center 5-325 mg (six) per tablet hours as needed for Pain. tiZANidine 2015-0 Yes 4mg Take [address] (ZANAFLEX) 8-02 by mouth [facility] - 4 MG tablet 10:59: every 6 Med ical 25 (six) Center hours as needed. QUEtiapine 2015-0 Yes 50mg QD Take [address] (SEROQUEL) 8-02 by mouth [facility] - 50 MG 10:59: nightly. Medical tablet 25 Center OXcarbazepi 0 Yes 150mg Q.5D Take [address] ne 8-02 mg by [facility] - (TRILEPTAL) 10:59: mouth 2 Med ical 150 MG 25 (two) Center tablet times daily. pregabalin 2015-0 Yes 150mg Q.5D Take [address] (LYRICA) 8-02 mg by [facility] - 150 MG 10:59: mouth 2 Medical capsule 25 (two) Center times daily. doxepin 2015-0 Yes 75mg QD Take [address] (SINEQUAN) 8-02 by mouth [facility] - 75 MG 10:59: nightly. Medical capsule 25 Center Vital Signs Vital Name Observation Time Observation Value Comments Source Systolic blood 2019-04-12 11:00:00 111 mm[Hg] Jessica n Mandaen pressure Diastolic blood 2019-04-12 11:00:00 53 mm[Hg] Yazan on Mandaen pressure Heart rate 2019-04-12 11:00:00 71 /min Kana Dejesus Respiratory rate 2019-04-12 11:00:00 16 /min Alexandra Dejesus Oxygen saturation in 2019-04-12 11:00:00 96 /min Kana Dejesus Arterial blood by Pulse oximetry Body temperature 2019-04-12 10:45:00 36.83 Daniela Alexandra Dejesus Body height 2019-04-12 08:22:00 154.9 cm Kana Dejesus Body weight 2019-04-12 08:22:00 75.342 kg Kana Dejesus BMI 2019-04-12 08:22:00 31.38 kg/m2 Kana Dejesus Procedures Procedure Date / Time Performed Performing Clinician Sour e OR FL < 1 HOUR 2019-04-12 10:42:00 Ger Corbett BLOCK, FACET JOINT, 2019-04-12 10:20:00 Ger Corbett Mandaen CERVICAL OR THORACIC INJECTION, HIP 2019-04-12 10:20:00 Ger Corbett odist ECG 12-LEAD 2019-04-12 08:47:04 Ger Corbett Plan of Care Planned Activity Planned Date Details Comments Source Future Scheduled 2020-01-01 INFLUENZA VACCINE [place] Test 00:00:00 [code = INFLUENZA VACCINE] Future Scheduled 2011 BREAST CANCER [facility] Test 00:00:00 SCREENING [code = BREAST CANCER SCREENING] Future Scheduled 2011 COLONOSCOPY [facility]CREENING [facility] Test 00:00:00 [code = COLONOSCOPY SCREENING] Future Scheduled 2011 SHINGLES VACCINES [place] Test 00:00:00 (#1) [code = SHINGLES VACCINES (#1)] Future Scheduled 1982 Screening for [facility] Test 00:00:00 malignant neoplasm of cervix (procedure) [code = 511681325] Encounters Start End Encounter Admission Attending Care Care Encounter Source Date/Time Date/Time Type Type Clinicians Facility Department ID 2019-12-10 2019-12-10 Laboratory Lab, [facility] [id number] 14:41:41 15:01:41 Only Fam Pob I [facility] [id number] [place] [id number] Professio [id number] nal [address] 2019-11-15 2019-11-15 Emergency E TALAMANTES, [facility] [id number] 20:57:00 22:21:00 KEN [facility] 2019-10-15 2019-10-15 Emergency E FREEYEHUDA, [facility] [id number] 14:01:00 15:07:00 [facility] Results Test Description Test Time Test Comments Results Result Comments Source SARS-CoV (RAPID ANTIGEN) WW 2019-11-15 21:58:00 Test Item Value Reference Range Interpretation Comme nts SARS-CoV (ANTIGEN) (test code = NEGATIVE NEGATIVE COVAG) COVID AG (test code = COVAGC) This test has been marketed under the FDA Emergency Use Authorization (EUA) to meet challenges of the COVID-19 pandemic. The validation standards normally enforced by the FDA and the [employer] of the [employer] (CAP) are more stringent than those required for this test. Therefore, the result should be interpreted with caution and close attention to other clinical and epidemiological data OR FL < 1 [id number] 11:10:39Hm Interface, Radiology Results Incoming - 04/12/2019 11:13 AM CSTEXAMINATION: [place] FL 1 HOURC-arm fluoroscopy was requested in OR. FLUORO TIME 0:37IMPRESSION:Separate operative report will be issuedby the physician performing the procedure.[id number] [id number] 11:09:30 Test Item Value Reference Range Interpretation Comments Ventricular rate (test 69 code = 253) Atrial rate (test code = 69 255) WI interval (test code = 158 266) QRSD interval (test code 84 = 260) QT interval (test code = 420 264) QTC interval (test code 450 = 265) P axis 1 (test code = 64 267) QRS axis 1 (test code = 74 268) T wave axis (test code = 50 270) EKG impression (test Normal sinus code = 273) rhythm-Normal ECG-No previous ECGs available-Electronica lly Signed By Itzel Robbins MD ([id number]) on 04/12/2019 11:09:16 AM Kana Dejesus
--- OUTSIDE RECORDS SUMMARY | 2019-12-21 14:43 | XMS REPORT | Summary of Care ---
:1960 Author Organization [facility] - [facility] Address [address] [place] [id number] Care Team Providers Name Role Phone Gómez Medina Medicaid o Gianni Davison MD Unavailable Reason for Visit Reason Comments Exposure COVID Encounter Details Date Type Department Care Team Description 12/10/2019 Laboratory Only [facility] Family Jackson Leary, FRANCHISE SALES DIRECTOR [address] [address] Exposure to Covid-19 [facility], [facility] Fam Pob I Virus (Primary Dx) [address] [place] [address] Allergies Active Allergy Reactions Severity Noted Date Comments Aspirin Rash 06/11/2006 Sumatriptan Succinate Shortness of Breath 06/11/2006 documented as of this encounter (statuses as of 12/10/2019) Medications Medication Sig Dispensed Refills Start Date End Date Status DEXLANSOPRAZOLE Take 60 mg by 0 Active (DEXILANT ORAL) mouth daily. HYDROcodone-acetaminophe Take 1 Tab by 0 Active n (NORCO) 10-325 mg mouth 2 (two) tablet times daily. ALBUTEROL INHALE Inhale 2 Puffs 0 Active as needed. tiZANidine (ZANAFLEX) 4 Take 4 mg by 0 Active mg tablet mouth 3 (three) times daily. DOXEPIN HCL (DOXEPIN Take 75 mg by 0 Active ORAL) mouth daily. pregabalin (LYRICA) 150 Take 150 mg by 0 Active mg capsule mouth daily. hydrOXYzine (ATARAX) 50 Take 50 mg by 0 Active mg tablet mouth 3 (three) times daily as needed for Itching. QUEtiapine (SEROQUEL) 50 Take 100 mg by 0 Active mg tablet mouth at bedtime. OXcarbazepine Take 150 mg by 0 A ctive (TRILEPTAL) 150 mg mouth 2 (two) tablet times daily. ALPRAZolam (XANAX) 2 mg Take 2 mg by 0 Active tablet mouth. antipyrine-benzocaine Place 2 Drops in 1 Bottle 0 10/08/2016 Active 5.4-1.4 % otic drops both ears every 4 (four) hours as needed for Pain (scale 4-6). lidocaine 2% viscous Take 15 mL by 200 mL 0 10/08/2016 Active (LIDOCAINE VISCOUS) 2 % mouth every 4 solution (four) hours as needed for Oral mucosal pain. azithromycin (ZITHROMAX #1 Zpak-Take as 1 Package 0 08/31/2019 Active Z-RIVER) 250 mg directed tabletIndications: Acute lower respiratory infection, Intermittent asthma without complication, unspecified asthma severity documented as of this encounter (statuses as of 12/10/2019) Active Problems Problem Noted Date Cervical high risk human papillomavirus (HPV) DNA test positive 02/22/2014 Overview: 53yo h/o hysterectomy unclear of reason, per patient heavy bleeding, with +HPV; pap NIL. Per guidelines repeat cytology 1 y ear. 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 06/11/2006 Overview: ICD10 Diagnosis [employer] Cocaine abuse in remission 06/11/2006 Overview: ICD10 Diagnosis [employer] Asthma with status asthmaticus 06/11/2006 Overview: ICD10 Diagnosis [employer] Peptic ulcer 06/11/2006 Overview: ICD10 Diagnosis [employer] Migraine with aura 06/11/2006 Overview: ICD10 Diagnosis [employer] documented as of this encounter (statuses as of 12/10/2019) Immunizations Name Administration Dates Next Due TDAP 03/18/2013 documented as of this encounter Social History Tobacco Use Types Packs/Day Years Used Date Current Every Day Smoker Cigarettes 0.5 Smokeless Tobacco: Never Used Alcohol Use Drinks/Week oz/Week Comments No Sex Assigned at Date Recorded Not on file Job Start Date Occupation Industry Not on file Not on file Not on file Travel History Travel Start Travel End No recent travel history available. COVID-19 Exposure Response Date Recorded In the last month, have you been in contact with No / Unsure 12/10/2019 10:09 AM CDT someone who was confirmed or suspected to have Coronavirus / COVID-19? documented as of this encounter Last Filed Vital Signs Not on filedocumented in this encounter Plan of Treatment Name Type Priority Associated Diagnoses Order S chedule COVID-19 (PCR MOLECULAR LAB Routine Exposure to Covid -19 Expected: 12/10/2019, TESTING) Virus Expires: 2020 Health Maintenance Due Date Last Done Comments HEPATITIS C (HCV) SCREEN 1960 PNEUMOCOCCAL 0-64 YEARS COMBINED SERIES (1 of 1 - 1967 PPSV23) Depression Screening 1973 Breast Cancer Screening (MAMMOGRAM) 03/09/2011 03/09/2010 COLONOSCOPY 2011 Zoster Recombinant Vaccine (SHINGRIX) (1 of 2) 2011 LUNG CANCER SCREEN: Recommended for age 55-80 with 30 2016 + pack year history PAP SMEAR 02/16/2017 02/16/2014 INFLUENZA VACCINE (#1) 2020 DTaP,Tdap,and Td Vaccines (2 - Td) 03/18/2023 03/18/2013 documented as of this encounter Results Not on filedocumented in this encounter Visit Diagnoses Diagnosis Exposure to Covid-19 Virus - Primary documented in this encounter Additional Health Concerns Infection Onset Date Last Indicated Resolved Time COVID-19 Rule Out 12/10/2019 12/10/2019 documented as of this encounter Insurance Payer Benefit Plan / Subscriber ID Effective Phone Address T ype Group Dates [facility] [id number] 2019-Prese Medic are Adv HEALTHCARE - HEALTHCARE DUAL nt H MO MANAGED COMPLETE HMO MEDICARE [id number] documented as of this encounter Advance Directives Type Date Recorded Patient Survey Technologist Explanati on Advance Directives and Living Will Power of Count Team Member
--- NOTE | 2019-12-21 15:00 | RAD REPORT ---
EXAM DESCRIPTION: RAD - Chest Single View - 12/21/2019 2:53 pm CLINICAL HISTORY: MALAISE Chest pain. COMPARISON: Chest Pa And Lat (2 Views) dated 03/12/2019; Chest Single View dated 07/10/2017; Chest Pa And Lat (2 Views) dated 02/08/2017; Chest Single View dated 09/25/2016 FINDINGS: Portable technique limits examination quality. The lungs are grossly clear. The heart is normal in size. No displaced fractures. IMPRESSION: No acute intrathoracic process suspected.
[2019-12-21 15:01] LABS: RBC Red Blood Cell Count 4.71 M/uL (3.86-4.86)
[2019-12-21 15:02] LABS: Absolute Lymphocytes (CBC) 2.4 K/uL (0.7-4.9); Basophils % 0.8 % (0-1.3); Lymphocytes % 31.6 % (15.3-44.8); MPV 9.5 fL (7.6-11.3)
[2019-12-21 15:14] LABS: ALT/SGPT 22 U/L (12-78); AST/SGOT 11 U/L (15-37); Albumin 3.6 g/dL (3.4-5.0); Alkaline Phosphatase 108 U/L (45-117); BUN Blood Urea Nitrogen 10 mg/dL (7-18); Bicarbonate 25 mmol/L (21-32); Bilirubin Direct 0.1 mg/dL (0-0.2); Bilirubin Total 0.6 mg/dL (0.2-1.0); Glucose Level 96 mg/dL (74-106); Magnesium 2.2 mg/dL (1.8-2.4); NT PRO-BNP 15 pg/mL (<125); Potassium 3.8 mmol/L (3.5-5.1); Protein, Total 7.6 g/dL (6.4-8.2); Sodium Level 139 mmol/L (136-145); Troponin (Emerg Dept Use Only) < 0.02 ng/mL (0.0-0.045)
[2019-12-21] MEDS ORDERED: ACETAMINOPHEN 325 MG TABLET ONE (15:37)
[2019-12-21] MEDS ORDERED: MECLIZINE HCL 12.5 MG TAB ONE (15:37)
--- NOTE | 2019-12-21 15:54 | RAD REPORT ---
EXAM DESCRIPTION: CT - Head Brain Wo Cont - 12/21/2019 3:48 pm CLINICAL HISTORY: DIZZINESS Headache, drowsiness, dizziness COMPARISON: Head Brain Wo Cont dated 03/19/2017; Head Brain Wo Cont dated 08/22/2016 TECHNIQUE: All CT scans are performed using dose optimization technique as appropriate and may inclu de automated exposure control or mA/KV adjustment according to patient size. FINDINGS: No intracranial hemorrhage, hydrocephalus or extra-axial fluid collection.No areas of brai n edema or evidence of midline shift. The paranasal sinuses and mastoids are clear. The calvarium is intact. IMPRESSION: No acute intracranial abnormality.
--- NOTE | 2019-12-21 16:27 | RAD REPORT ---
EXAM DESCRIPTION: MRI - Brain Wo Cont - 12/21/2019 4:08 pm CLINICAL HISTORY: DIZZINESS Headache, drowsiness COMPARISON: Head Brain Wo Cont dated 12/21/2019; MRI BRAIN WITH CONTRAST dated 12/24/2011; MRA HEAD W O CONTRAST dated 12/24/2011 TECHNIQUE: Multi-sequence, multiplanar MR imaging of the brain was performed without contrast. FINDINGS: No intracranial hemorrhage, hydrocephalus or extra-axial fluid collections.Several focal T 2/FLAIR hyperintensities are seen in the periventricular region, left insular region, left superior c erebellar peduncle. This is a new finding since 2012 comparative study. No edema or shift of midline structures. No findings to suspect brain mass. DWI is negative for acute CVA. Midline structures are normally formed. Mastoid air cells and paranasal sinuses are clear. IMPRESSION: No acute CVA or other acute intracranial abnormality. Scattered T2/FLAIR hyperintense lesions as detailed above may represent chronic microvascular ischemi a or underlying demyelinating condition.
[2019-12-21] MEDS ORDERED: DIAZEPAM 10 MG/2 ML INJ SYRINGE ONE (16:57)
--- NOTE | 2019-12-21 18:01 | EDPHYS ---
Physician Documentation [facility] Name: Shahnaz Ramos Age: 59 yrs Sex: Female : 1960 Arrival Date: 12/21/2019 Time: 13:45 Bed 25 Private MD: ED Physician Lee Barrett HPI: 12/20 15:26 This 59 yrs old Female presents to ER via Wheelchair with complaints of jmm Dizziness, Fall Injury. 15:26 The patient presents with dizziness. Onset: The symptoms/episode began/occurred jmm acutely, 3 day(s) ago. Context: occurred at home. Modifying factors: The symptoms are alleviated by nothing, the symptoms are aggravated by movement of head, standing up, changing position. Associated signs and symptoms: Pertinent negatives: chest pain, shortness of breath. This is a 59 year old female with a history of copd, that presents to the ED with complaints of dizziness beginning approx 3 days ago. Symptoms are described as the room spinning. Patient is also concerned she may have COVID. Patient states she was exposed to someone recently diagnosed. . Historical: - Allergies: 14:08 Aspirin; ca1 14:08 Imitrex; ca1 - PMHx: 14:08 Anxiety; Asthma; Bipolar disorder; cervical spinal stenosis; COPD; Depression; ca1 Diverticulitis; Fibromyalgia; GERD; Hepatitis C; insomnia; Migraines; Ulcers; - PSHx: 14:08 Cholecystectomy; exlap; ca1 - Immunization history:: Adult Immunizations up to date. - Social history:: Smoking status: Patient reports the use of cigarette tobacco products, smokes one-half pack cigarettes per day. ROS: 15:26 Cardiovascular: Negative for chest pain, palpitations, and edema, Respiratory: Negative jmm for shortness of breath, cough, wheezing, and pleuritic chest pain, Abdomen/GI: Negative for abdominal pain, nausea, vomiting, diarrhea, and constipation. 15:26 Constitutional: Positive for fatigue, malaise. 15:26 Neuro: Positive for dizziness. 15:26 All other systems are negative. Exam: 15:26 Constitutional: This is a well developed, well nourished patient who is awake, alert, jmm and in no acute distress. Head/Face: atraumatic. 15:26 ENT: Moist Mucus Membranes Neck: Trachea midline, Supple Chest/axilla: Normal chest wall appearance and motion. Cardiovascular: Regular rate and rhythm. No edema appreciated Respiratory: Normal respirations, no respiratory distress appreciated Abdomen/GI: Non distended, soft Back: Normal ROM Skin: General appearance color normal MS/ Extremity: Moves all extremities, no obvious deformities appreciated, no edema noted to the lower extremities Neuro: Awake and alert, normal gait Psych: Behavior is normal, Mood is normal, Patient is cooperative and pleasant 15:26 Eyes: Nystagmus: Vital Signs: 14:02 BP 117 / 85; Pulse 79; Resp 18 S; Temp 97.1(TE); Pulse Ox 99% on R/A; Weight 72.57 kg ca1 (R); Height 5 ft. 1 in. (154.94 cm) (R); 15:35 BP 110 / 67; Pulse 73; Resp 18; Pulse Ox 98% on R/A; em 16:15 BP 132 / 69; Pulse 72; Resp 18; Pulse Ox 99% on R/A; em 18:00 BP 127 / 75; Pulse 69; Resp 20; Pulse Ox 97% on R/A; em 14:02 Body Mass Index 30.23 (72.57 kg, 154.94 cm) ca1 MDM: 15:12 Patient medically screened. jovon 17:59 Data reviewed: vital signs, nurses notes. Counseling: I had a detailed discussion with daisha the patient and/or guardian regarding: the historical points, exam findings, and any diagnostic results supporting the discharge/admit diagnosis, radiology results, the need for outpatient follow up, to return to the emergency department if symptoms worsen or persist or if there are any questions or concerns that arise at home. ED course: MRI negative for CVA. Patient is able to use restroom without assistance in the ED. Most likely peripheral vertigo. Patient is otherwise given strict return precautions. Patient understood and agrees with the plan of care. . 12/20 14:25 Order name: Basic Metabolic Panel; Complete Time: 15: 4 12/20 14:25 Order name: CBC with Diff; Complete Time: 15: 4 12/20 14:25 Order name: LFT's; Complete Time: 15: 4 12/20 14:25 Order name: Magnesium; Complete Time: 15: 4 12/20 14:25 Order name: NT PRO-BNP; Complete Time: 15: [facility] 12/20 14:25 Order name: PT-INR; Complete Time: 15:21 [facility] 12/20 14:25 Order name: Troponin (emerg Dept Use Only); Complete Time: 15:21 [facility] 12/20 14:25 Order name: XRAY Chest (1 view); Complete Time: 15:12 [facility] 12/20 15:22 Order name: CT Head Brain wo Cont; Complete Time: 16:00 [facility] 12/20 15:22 Order name: COVID-19 [facility] 12/20 15:25 Order name: MRI - Brain Wo Cont; Complete Time: 16:31 [facility] 12/20 14:25 Order name: EKG; Complete Time: 14:25 [facility] 12/20 14:25 Order name: Cardiac monitoring; Complete Time: 15:18 [facility] 12/20 14:25 Order name: EKG - Nurse/Tech; Complete Time: 15:18 [facility] 12/20 14:25 Order name: IV Saline Lock; Complete Time: 15:18 [facility] 12/20 14:25 Order name: Labs collected and sent; Complete Time: 15:18 [facility] 12/20 14:25 Order name: O2 Per Protocol; Complete Time: 15:18 [facility] 12/20 14:25 Order name: O2 Sat Monitoring; Complete Time: 15:18 [facility] 12/20 17:28 Order name: Misc. Order: ambulate patient; Complete Time: 18:20 jm Administered Medications: 15:38 Drug: Meclizine 50 mg Route: PO; em 16:30 Follow up: Response: No adverse reaction; No change in condition em 15:38 Drug: Tylenol 650 mg Route: PO; em 16:30 Follow up: Response: No adverse reaction em 16:53 Drug: Valium 5 mg Route: IVP; Site: left antecubital; em 18:20 Follow up: Response: No adverse reaction; Marked relief of symptoms em Disposition: 18:56 Co-signature as Attending Physician, Lee Barrett MD. rn Disposition: 12/21/19 18:01 Discharged to Home. Impression: Vertigo. - Condition is Stable. - Discharge Instructions: Benign Positional Vertigo. - Prescriptions for Valium 5 mg Oral Tablet - take 1 tablet by ORAL route every 8 hours As needed; 20 tablet. - Medication Reconciliation Form, Thank You Letter, Antibiotic Education, Prescription Opioid Use form. - Follow up: Andrew Wen MD; When: 2 - 3 days; Reason: Recheck today's complaints, Continuance of care, Re-evaluation by your physician. Signatures: Dispatcher [employer] Jag Dorman PA PA jmm Munoz, Edgar, RN RN em Lee Barrett MD MD rn Stewart, Lisa, RN RN ls4 AcIsela lozano RN RN ca1 Corrections: (The following items were deleted from the chart) 18:23 18:01 12/21/2019 18:01 Discharged to Home. Impression: Vertigo. Condition is Stable. em Forms are Medication Reconciliation Form, Thank You Letter, Antibiotic Education, Prescription Opioid Use. Follow up: Andrew Wen; When: 2 - 3 days; Reason: Recheck today's complaints, Continuance of care, Re-evaluation by your physician. daisha
--- NOTE | 2019-12-21 18:01 | ER ---
Nurse's Notes [facility] Name: Shahnaz Ramos Age: 59 yrs Sex: Female : 1960 Arrival Date: 12/21/2019 Time: 13:45 Bed 25 Private MD: Diagnosis: Vertigo Presentation: 12/20 14:02 Chief complaint: Patient states: Dizziness x 3 days, getting worse, fell down twice. ca1 Feels confused, seeing objects moving, feels weak and tired. Exposed to a Covid positive person 3 days ago. Denies cough, SOB and fever. Coronavirus screen: Patient denies a cough. Patient denies shortness of breath or difficulty breathing. Patient denies measured and/or subjective temperature greater than 100.4F prior to today's visit. Patient denies travel on a cruise ship or to a country the [facility] currently lists as an affected area. Patient reports contact with known and/or suspected case of COVID-19. Patient was placed back in the lobby due to no available rooms at this time. Patient was instructed to always wear their mask and to isolate themselves as much as possible from others in the lobby. [id number]. Ebola Screen: Patient negative for fever greater than or equal to 101.5 degrees Fahrenheit, and additional compatible Ebola Virus Disease symptoms Patient denies exposure to infectious person. Patient denies travel to an Ebola-affected area in the 21 days before illness onset. No symptoms or risks identified at this time. Initial Sepsis Screen: Does the patient meet any 2 criteria? No. Patient's initial sepsis screen is negative. Does the patient have a suspected source of infection? No. Patient's initial sepsis screen is negative. Risk Assessment: Do you want to hurt yourself or someone else? Patient reports no desire to harm self or others. Onset of symptoms was December 21, 2019. 14:02 Method Of Arrival: Wheelchair ca1 14:02 Acuity: [place] 3 ca1 Historical: - Allergies: 14:08 Aspirin; ca1 14:08 Imitrex; ca1 - PMHx: 14:08 Anxiety; Asthma; Bipolar disorder; cervical spinal stenosis; COPD; Depression; ca1 Diverticulitis; Fibromyalgia; GERD; Hepatitis C; insomnia; Migraines; Ulcers; - PSHx: 14:08 Cholecystectomy; exlap; ca1 - Immunization history:: Adult Immunizations up to date. - Social history:: Smoking status: Patient reports the use of cigarette tobacco products, smokes one-half pack cigarettes per day. Screenin:53 Abuse screen: Denies threats or abuse. Nutritional screening: No deficits noted. em Tuberculosis screening: No symptoms or risk factors identified. Fall Risk None identified. Assessment: 14:50 General: Appears in no apparent distress. comfortable, Behavior is calm, cooperative, em appropriate for age, Denies fever. Pain: Complains of pain in "head" Pain currently is 8 out of 10 on a pain scale. Neuro: Level of Consciousness is awake, alert, obeys commands, Oriented to person, place, time, situation, Appropriate for age Reports dizziness. Cardiovascular: Capillary refill < 3 seconds Patient's skin is warm and dry. Respiratory: Airway is patent Respiratory effort is even, unlabored, Respiratory pattern is regular, symmetrical. GI: Patient currently denies nausea, vomiting. Derm: Skin is intact, is healthy with good turgor, Skin is pink, warm \\T\\ dry. Musculoskeletal: Capillary refill < 3 seconds, Range of motion: intact in all extremities. 16:12 Reassessment: returned from MRI via wheelchair. em 17:10 Reassessment: Patient appears in no apparent distress at this time. Patient and/or em family updated on plan of care and expected duration. Pain level reassessed. Patient is alert, oriented x 3, equal unlabored respirations, skin warm/dry/pink. 18:00 Reassessment: Patient appears in no apparent distress at this time. Patient and/or em family updated on plan of care and expected duration. Pain level reassessed. Patient is alert, oriented x 3, equal unlabored respirations, skin warm/dry/pink. Patient states feeling better. Patient states symptoms have improved. Vital Signs: 14:02 BP 117 / 85; Pulse 79; Resp 18 S; Temp 97.1(TE); Pulse Ox 99% on R/A; Weight 72.57 kg ca1 (R); Height 5 ft. 1 in. (154.94 cm) (R); 15:35 BP 110 / 67; Pulse 73; Resp 18; Pulse Ox 98% on R/A; em 16:15 BP 132 / 69; Pulse 72; Resp 18; Pulse Ox 99% on R/A; em 18:00 BP 127 / 75; Pulse 69; Resp 20; Pulse Ox 97% on R/A; em 14:02 Body Mass Index 30.23 (72.57 kg, 154.94 cm) ca1 ED Course: 13:45 Patient arrived in ED. mr 14:07 Triage completed. ca1 14:08 Arm band placed on right wrist. ca1 14:30 Armando Rojo, RN is Primary Nurse. em 14:40 Initial lab(s) drawn, by me, sent to lab. Inserted saline lock: 22 gauge in left kj1 antecubital area, using aseptic technique. Blood collected. 14:53 Patient has correct armband on for positive identification. Placed in gown. Bed in low em position. Call light in reach. Pulse ox on. NIBP on. 14:54 XRAY Chest (1 view) In Process Unspecified. EDMS 15:11 Jag Tirado PA is PHCP. jmm 15:11 Lee Barrett MD is Attending Physician. jmm 15:49 CT Head Brain wo Cont In Process Unspecified. EDMS 16:07 MRI - Brain Wo Cont In Process Unspecified. EDMS 18:00 Andrew Wen MD is Referral Physician. jmm 18:21 No provider procedures requiring assistance completed. IV discontinued, intact, em bleeding controlled, No redness/swelling at site. Pressure dressing applied. Administered Medications: 15:38 Drug: Meclizine 50 mg Route: PO; em 16:30 Follow up: Response: No adverse reaction; No change in condition em 15:38 Drug: Tylenol 650 mg Route: PO; em 16:30 Follow up: Response: No adverse reaction em 16:53 Drug: Valium 5 mg Route: IVP; Site: left antecubital; em 18:20 Follow up: Response: No adverse reaction; Marked relief of symptoms em Outcome: 18:01 Discharge ordered by . jmm 18:21 Discharged to home ambulatory. em 18:21 Condition: good 18:21 Discharge instructions given to patient, Instructed on discharge instructions, follow up and referral plans. medication usage, Demonstrated understanding of instructions, follow-up care, medications, Prescriptions given X 1. 18:23 Patient left the ED. em Addendum: 12/24/2019 12:18 Addendum: COVID-19 Result: Negative result given to RN to notify pt. Contacted by: anais Yuen RN. Notified pt of negative COVID 19 swab results. Pt advised that even with a negative test result they should remain in isolation until symptom free for 3 days without medication. Pt also advised to return to the ED for worsening symptoms. Signatures: Dispatcher [employer] Marline Palumbo RN RN dm5 Jag Tirado PA PA jmm Rivera, Mary mr Armando Rojo RN RN em Acob, Cheryl, RN RN ca1 Jackson, Kandis kj1
[2019-12-22 08:59] VITALS: TEMP 97.1
[2019-12-22 09:02] VITALS: BP 127/75; O2SAT 97
--- NOTE | 2019-12-22 12:34 | EKG ---
Test Date: 2019-12-21 Test Time: 14:35:16 Iv Technician: GEETA MEASUREMENT RESULTS: Intervals: Rate: 73 CT: 154 QRSD: 78 QT: 386 QTc: 425 [place]: P: 55 CT: 154 QRS: 77 T: 37 INTERPRETIVE STATEMENTS: Normal sinus rhythm Normal ECG Compared to ECG 03/12/2019 21:56:40 T-wave abnormality no longer present Electronically Signed On 12-22-19 12:31:36 CDT by Rajan Singh
== END 2019-12-21 18:23 | disposition home or self-care (01) ==
LOC: ER 13:40
DX: R42 Dizziness and giddiness (principal); Z20.828 Contact with and (suspected) exposure to other viral communicable diseases; F17.210 Nicotine dependence, cigarettes, uncomplicated; Z88.6 Allergy status to analgesic agent; Z88.8 Allergy status to other drugs, medicaments and biological substances
CPT/HCPCS: 93005; 85025; 80048; 36415; 83735; 85610; 80076; 84484; 83880; 70450; 71045; 70551; 96374; 99284; U0001; J3360; J8597

== ENCOUNTER 2021-05-06 13:05 | Emergency (ER) | payer OTHER ==
--- OUTSIDE RECORDS SUMMARY | 2021-05-06 13:10 | XMS REPORT | Continuity of Care Document ---
:1960 Author Organization [facility] t Address [address] [place] [id number] Care Team Providers Name Role Phone Miguel, E Primary Care Physician Cesar TATE Attending Clinician Unavailable Taisha PAC, S Attending Clinician DR Rosanne WOOD Attending Clinician Unavailable SAMM Attending Clinician Unavailable DR Sang ROMERO Attending Clinician Unavailable Radiology Attending Clinician Unavailable Lab, Fam Pob I Attending Clinician Unavailable DR ALBIN Attending Clinician Unavailable Cesar PEREZ Attending Clinician Unavailable DR Breanna SIMEON Attending Clinician Unavailable DR Rosanne WOOD Admitting Clinician Unavailable DR Sang ROMERO Admitting Clinician Unavailable DR ALBIN Admitting Clinician Unavailable DR Breanna SIMEON Admitting Clinician Unavailable Payers Payer Name Policy Type Policy Number Effective Date Expiration Date S martha [facility] DUAL [id number] 2020 COMP HMO D SNP 00:00:00 [place]ID OF [place] [id number] 2020 00:00:00 Problems Condition Condition Condition Status Onset Resolution Last Treating Co mments Source Name Details Category Date Date Treatment Clinician Date CHEST PAIN Condition Active 2015-01-04 Memoria 01-04 16:37:00 l CHEST 00:00: Tal PAIN 00 Active 01/04/2015 Condition [facility] LIGHTHEADE Condition Active 2015-01-04 Memoria DNESS 01-04 16:37:00 l 00:00: [place] LIGHTHEADE 00 DNESS Active 01/04/2015 Condition [facility] SHORTNESS Condition Active 2015-01-04 Memoria OF BREATH 01-04 16:37:00 l 00:00: [place] SHORTNESS 00 OF BREATH Active 01/04/2015 Condition 5 [facility] Cervical Cervical Disease Active Overview: Un anjel high risk high risk 02-22 Formattin i ty of human human 00:00: g of this [place] papillomav papillomav 00 note Me dical irus (HPV) irus (HPV) might be Branch DNA test DNA test different positive positive from the original. 53yo h/o hysterect sukhdev unclear of reason, per patient heavy bleeding, with +HPV; pap NIL. Per guideline s repeat cytology 1 year. Tobacco Tobacco Disease Active Univers use use 02-16 ity of disorder disorder 00:00: [place] 00 Medical Branch S/P S/P Disease Active Univers hysterecto hysterecto 02-16 it y of my my 00:00: [place] 00 Medical Branch Overweight Overweight Disease Active Overview : Univers 02-16 Formattin ity of 00:00: g of this [place] 00 note Medical might be Branch different from the original. 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 ICD10 Diagnosis Term Audit Officer Utility Cocaine Cocaine Disease Active Overview: Univ ers abuse in abuse in 1-10 Formattin ity of remission remission 00:00: [place] of this [place] 00 note Medical might be Branch different from the original. ICD10 Diagnosis Term Audit Officer Utility Asthma Asthma Disease Active Overview: Univer s with with 1-10 Formattin ity of status status 00:00: g of this [place] asthmaticu asthmaticu 00 note Me dical s s might be Branch different from the original. ICD10 Diagnosis Term Audit Officer Utility Peptic Peptic Disease Active Overview: Univer s ulcer ulcer 1-10 Formattin ity of 00:00: g of this [place] note Medical might be Branch different from the original. ICD10 Diagnosis Term Audit Officer Utility Migraine Migraine Disease Active Overview: Un anjel with aura with aura 1-10 Formattin i ty of 00:00: g of this [place] note Medical might be Branch different from the original. ICD10 Diagnosis Term Audit Officer Utility Shortness Shortness Problem Active Uni vers of breath of breath ity of [place] [facility] ans Depressive Depressive Problem Active U nivers disorder disorder ity of [place] [facility] Anxiety Anxiety Problem Active Univers disorder disorder ity of [place] [facility] Gastroesop Gastroesop Problem Active U nivers hageal hageal ity of reflux reflux [place] [facility] Pericardia Pericardia Problem Active U nivers l effusion l effusion it y of [place] [facility] Abnormal Abnormal Problem Active Unive rs antibody antibody ity of titer titer [place] [facility] UTI (lower UTI (lower Problem Active U nivers urinary urinary ity of tract tract [place] infection) infection) Ph ysici ans Multiple Multiple Problem Active Unive rs joint pain joint pain it y of [place] [facility] ans Abnormal Abnormal Problem Active Unive rs electrocar electrocar it y of diogram diogram [place] [facility] Emphysema Emphysema Problem Active Uni vers ity of [place] [facility] Paronychia Paronychia Problem Active U nivers of right of right ity of index index [place] finger finger Physici ans History of History of Problem Resolve Univers Asthma Asthma d ity of [place] [facility] ans History of History of Problem Resolve Univers High blood High blood d it y of pressure pressure [place] [facility] History of History of Problem Resolve Univers Reflux Reflux d ity of gastritis gastritis [place] [facility] [place] Chest pain Chest pain Problem Active U nivers ity of [place] [facility] Allergies, Adverse Reactions, Alerts Allergy Allergy Status Severity Reaction(s) Onset Inactive Treating Comm ents Source Name Type Date Date Clinician ASA ASA Active Memoria 8 l 00:00: Tal 00 IMITREX IMITREX Active Memoria 8 l 00:00: Tal 00 Aspirin Propensi Active Rash 2006-0 Univers ty to 1-10 ity of adverse 00:00: [place] reaction 00 Medical s Branch Sumatrip Propensi Active Shortness of 2006-0 Univers lindo ty to Breath 1-10 ity of Succinat adverse 00:00: [place] e reaction 00 Medical s Branch ASPIRIN DRUG Active Rash 2006-0 Univers INGREDI 1-10 ity of 00:00: [place] 00 Medical Branch SUMATRIP DRUG Active SOB 2006-0 Univers LINDO INGREDI 1-10 ity of SUCCINAT 00:00: [place] E 00 Medical Branch Imitrex Allergy Active Univers to drug ity of (finding [place] ) Physici ans aspirin Allergy Active Univers to drug ity of (finding [place] ) Physici ans Social History Social Habit Start Date Stop Date Quantity Comments Source History of tobacco Cigarette Smoker [facility] Sex Assigned At Female Access [facility] alth Alcohol intake 2021-05-03 2021-05-03 Current University 00:00:00 00:00:00 non-drinker of [facility] alcohol [place] (finding) Tobacco Comment 2021-03-06 2021-03-06 1 ppd Universit y of 00:00:00 00:00:00 [facility] Cigarettes smoked 2014-02-16 2014-02-16 Univers ity of current (pack per 00:00:00 00:00:00 ) - Reported [place] Tobacco use and 2014-02-16 2014-02-16 Never used Universit y of exposure 00:00:00 00:00:00 [facility] Smoking Status Start Date Stop Date Source Unknown if ever smoked [facility] Smoker (finding) [facility] [facility] Current every day smoker 2014-02-16 00:00:00 Uni versity of [facility] Medications Ordered Filled Start Stop Current Ordering Indication Dosage Frequency Signature Comments Components Source Medication Medication Date Date Medication? Clinician (SIG) Name Name HYDROcodone 2020-06 Yes 1{tbl} Take 1 Tab Univers -acetaminop 0-06 by mouth 2 it y of hen (NORCO) 16:05: (two) [place] 10-325 mg 17 times Medical tablet daily. [place] ALBUTEROL 2020-06 Yes 2{puff} Inhale 2 U nivers INHALE 0-06 Puffs as ity of 16:05: needed. [address] hydrOXYzine 2020-06 Yes 50mg Take 50 mg Univers (ATARAX) 50 0-06 by mouth 3 it y of mg tablet 16:05: (three) [place] 17 times Medical daily as Branch needed for Itching. QUEtiapine 2020-06 Yes 100mg Take 100 Un anjel (SEROQUEL) 0-06 mg by ity of 50 mg 16:05: mouth at [place] tablet 17 bedtime. Medical Branch acetaminoph 2020-06 Yes 1{tbl} Take 1 Un anjel en-codeine 0-06 tablet by ity of 300-30 mg 16:05: mouth [place] tablet 17 every 4 Medical (four) Branch hours as needed. doxepin 50 2020-06 Yes 50mg Take 50 mg U nivers mg capsule 0-06 by mouth ity o f 16:05: at [place] 17 bedtime. Medical Branch HYDROcodone 2020-06 Yes 1{tbl} Take 1 Tab Univers -acetaminop 0-06 by mouth 2 it y of hen (NORCO) 16:05: (two) [place] 10-325 mg 17 times Medical tablet daily. Branch ALBUTEROL 2020-06 Yes 2{puff} Inhale 2 U nivers INHALE 0-06 Puffs as ity of 16:05: needed. [place] [address] Medical Branch hydrOXYzine 2020-06 Yes 50mg Take 50 mg Univers (ATARAX) 50 0-06 by mouth 3 it y of mg tablet 16:05: (three) [place] 17 times Medical daily as Branch needed for Itching. QUEtiapine 2020-06 Yes 100mg Take 100 Un anjel (SEROQUEL) 0-06 mg by ity of 50 mg 16:05: mouth at [place] tablet 17 bedtime. Medical Branch acetaminoph 2020-06 Yes 1{tbl} Take 1 Un anjel en-codeine 0-06 tablet by ity of 300-30 mg 16:05: mouth [place] tablet 17 every 4 Medical (four) Branch hours as needed. doxepin 50 2020-06 Yes 50mg Take 50 mg U nivers mg capsule 0-06 by mouth ity o f 16:05: at [place] 17 bedtime. Medical Branch simvastatin Yes 10mg Take 10 mg Univers 10 mg 6-08 by mouth ity of tablet 00:00: every [place] 00 evening. Medical Branch simvastatin Yes 10mg Take 10 mg Univers 10 mg 6-08 by mouth ity of tablet 00:00: every [place] 00 evening. Medical Branch pregabalin Yes 100mg Take 100 Un anjel 100 mg 6-07 mg by ity of capsule 00:00: mouth 2 (two) Medical times Branch daily. pregabalin Yes 100mg Take 100 Un anjel 100 mg 6-07 mg by ity of capsule 00:00: mouth 2 (two) Medical times Branch daily. DEXILANT 60 Yes 1{capsu Take 1 U nivers mg capsule 5-21 le} capsule by ity of 00:00: mouth 00 daily. Medical Branch levocetiriz Yes 5mg Take 5 mg U nivers ine 5 mg 5-21 by mouth ity of tablet 00:00: every [place] 00 evening. Medical Branch DEXILANT 60 Yes 1{capsu Take 1 U nivers mg capsule 5-21 le} capsule by ity of 00:00: mouth [place] daily. Medical Branch levocetiriz Yes 5mg Take 5 mg U nivers ine 5 mg 5-21 by mouth ity of tablet 00:00: every [place] evening. Medical Branch Cephalexin Cephalexin Yes RAMONA QUIJANO Q0.25D TAKE 1 Univers 500 MG Oral 500 MG Oral 3-22 M.D. TABLET 4 ity of Tablet Tablet 00:00: TIMES [place] 00 DAILY Physici ans antipyrine- Yes 2[drp] Place 2 U nivers benzocaine 5-09 Drops in ity o f 5.4-1.4 % 00:00: both ears Frances[place] as otic drops 00 every 4 Medica l (four) Branch hours as needed for Pain (scale 4-6). lidocaine Yes 15mL Take 15 mL Un najel 2% viscous 5-09 by mouth ity o f (LIDOCAINE 00:00: every 4 [place] VISCOUS) 2 00 (four) Medical % solution hours as Branc h needed for Oral mucosal pain. antipyrine- Yes 2[drp] Place 2 U nivers benzocaine 5-09 Drops in ity o f 5.4-1.4 % 00:00: both ears [place] as otic drops 00 every 4 Medica l (four) Branch hours as needed for Pain (scale 4-6). lidocaine Yes 15mL Take 15 mL Un anjel 2% viscous 09 by mouth ity o f (LIDOCAINE 00:00: every 4 [place] VISCOUS) 2 00 (four) Medical % solution hours as Branc h needed for Oral mucosal pain. DEXILANT 60 Yes one po Bin emili MG CPDR 8-05 daily l 00:00: LIPITOR Yes .qd Memoria 8-05 l 00:00: ZANAFLEX Yes .bid Memoria 8-05 l 00:00: HYDROCODONE Yes one po Bin emili -ACETAMINOP 8-05 twice a l HEN 10-325 00:00: day [place] MG TABS 00 COLCHICINE Yes one po Memor ia 8-05 twice a l 00:00: day ATARAX Yes prn Memoria 8-05 anxiety l 00:00: SEROQUEL Yes Two po qhs Mem oria 400 MG TABS 8-05 l 00:00: SEROQUEL 50 Yes Two po qam Memoria MG TABS 8-05 l 00:00: DEXILANT 60 Yes one po Bin emili MG CPDR 8-05 daily l 00:00: LIPITOR Yes .qd Memoria 8-05 l 00:00: ZANAFLEX Yes .bid Memoria 8-05 l 00:00: HYDROCODONE Yes one po Bin emili -ACETAMINOP 8-05 twice a l HEN 10-325 00:00: day [place] MG TABS 00 COLCHICINE Yes one po Memor ia 8-05 twice a l 00:00: day [place] 00 ATARAX Yes prn Memoria 8-05 anxiety l 00:00: SEROQUEL Yes Two po qhs Mem oria 400 MG TABS 8-05 l 00:00: SEROQUEL 50 Yes Two po qam Memoria MG TABS 8-05 l 00:00: DEXILANT 60 Yes one po Bin emili MG CPDR 8-05 daily l 00:00: LIPITOR Yes .qd Memoria 8-05 l 00:00: ZANAFLEX Yes .bid Memoria 8-05 l 00:00: HYDROCODONE Yes one po Bin emili -ACETAMINOP 8-05 twice a l HEN 10-325 00:00: day Tal MG TABS 00 COLCHICINE Yes one po Memor ia 8-05 twice a l 00:00: day ATARAX Yes prn Memoria 8-05 anxiety l 00:00: SEROQUEL Yes Two po qhs Mem oria 400 MG TABS 8-05 l 00:00: SEROQUEL 50 Yes Two po qam Memoria MG TABS 8-05 l 00:00: DEXILANT 60 Yes one po Bin emili MG CPDR 8-05 daily l 00:00: LIPITOR Yes .qd Memoria 8-05 l 00:00: ZANAFLEX Yes .bid Memoria 8-05 l 00:00: HYDROCODONE Yes one po Bin emili -ACETAMINOP 8-05 twice a l HEN 10-325 00:00: day [place] MG TABS 00 SEROQUEL Yes Two po qhs Mem oria 400 MG TABS 8-05 l 00:00: COLCHICINE Yes one po Memor ia 8-05 twice a l 00:00: day ATARAX Yes prn Memoria 8-05 anxiety l 00:00: SEROQUEL 50 Yes Two po qam Memoria MG TABS 8-05 l 00:00: Ciprofloxac Ciprofloxac Yes VENITA 1 QD TAKE 1 Univers in HCl - in HCl - 9-26 HUMMEL TABLET ity of 500 MG Oral 500 MG Oral 00:00: M.D. DAILY. [place] Tablet Tablet 00 Physici ans HYDROcodone HYDROcodone Yes 1 Q0.5D TAKE 1 Univers -Acetaminop -Acetaminop 8-19 TABLET ity of hen 5-325 hen 5-325 00:00: [place]ICE [place] MG Oral MG Oral 00 DAILY Physici Tablet Tablet ans tiZANidine tiZANidine Yes 1 Q0.5D TAKE 1 Univers HCl - 4 MG HCl - 4 MG 8-19 CAPSULE ity of Oral Oral 00:00: TWICE [place] Capsule Capsule 00 DAILY Physici ans Dexilant 60 Dexilant 60 Yes QD TAKE 1 Univers MG Oral MG Oral 8-19 CAPSULE ity of Capsule Capsule 00:00: DAILY [place] Delayed Delayed 00 EVERY Physici Release Release MORNING ans BEFORE BREAKFAST. Topiramate Topiramate Yes Q0.5D TAKE 1 Univers 50 MG Oral 50 MG Oral 8-19 TABLET i ty of Tablet Tablet 00:00: TWICE [place] 00 DAILY. Physici ans busPIRone busPIRone Yes Q0.3333D TAKE 1 Univers HCl - 10 MG HCl - 10 MG 8-19 TABLET 3 ity of Oral Tablet Oral Tablet 00:00: TIMES [place] 00 DAILY. Physici ans FLUoxetine FLUoxetine Yes 1 QD TAKE 1 Univers HCl - 20 MG HCl - 20 MG 8-19 TABLET ity of Oral Tablet Oral Tablet 00:00: DAILY. [place] 00 Physici ans Dexilant Dexilant Yes Univers CPDR CPDR ity of [place] Physici ans Cymbalta 30 Cymbalta 30 Yes U nivers MG Oral MG Oral ity of Capsule Capsule [place] Delayed Delayed Physici Release Release ans Particles Particles Lyrica 300 Lyrica 300 Yes Uni vers MG Oral MG Oral ity of Capsule Capsule [place] Physici ans Doxepin HCl Doxepin HCl Yes U nivers TABS TABS ity of [place] Physici ans SEROquel 50 SEROquel 50 Yes U nivers MG Oral MG Oral ity of Tablet Tablet [place] Physici ans Immunizations Ordered Filled Immunization Date Status Comments [facility] e Immunization Name Name SARS-COV-2 COVID-19 2021-02-16 Completed Unive rsity of PFIZER VACCINE 00:00:00 [facility] SARS-COV-2 COVID-19 2021-02-16 Completed Unive rsity of PFIZER VACCINE 00:00:00 [facility] SARS-COV-2 COVID-19 2021-01-26 Completed Unive rsity of PFIZER VACCINE 00:00:00 [facility] SARS-COV-2 COVID-19 2021-01-26 Completed Unive rsity of PFIZER VACCINE 00:00:00 [facility] TDAP 2013-03-18 Completed University 00:00:00 [facility] TDAP 2013-03-18 Completed [facility] 00:00:00 [facility] Vital Signs Vital Name Observation Time Observation Value Comments Source Systolic blood 2021-05-03 17:08:00 112 mm[Hg] Univer sity of pressure [facility] Diastolic blood 2021-05-03 17:08:00 75 mm[Hg] Unive rsity of pressure [facility] Heart rate 2021-05-03 17:08:00 85 /min [facility] ty [facility] Body height 2021-05-03 17:08:00 154.9 cm [facility] Body weight 2021-05-03 17:08:00 78.472 kg [facility] BMI 2021-05-03 17:08:00 32.69 kg/m2 [facility] Body height 2020-08-21 09:30:00 61 [in_us] Universi ty [facility] Physician s Weight 2020-08-21 09:30:00 150 [lb_av] [facility] Physician s Body mass index 2020-08-21 09:30:00 28.34 kg/m2 Unive rsity of (BMI) [Ratio] [place] [facility] Height 2015-01-04 20:15:50 [facility] Weight 2015-01-04 20:15:50 [facility] [place] Temperature Oral (F) 2015-01-04 20:15:50 98.4 F [facility] Heart Rate 2015-01-04 20:15:50 [facility] [place] Systolic (mm Hg) 2015-01-04 20:15:50 Bin rial Tal Diastolic (mm Hg) 2015-01-04 20:15:50 Mem orial Tal Procedures Procedure Date / Time Performing Clinician Source Performed XR HIPS 2 VW BILATERAL 2021-05-03 17:47:00 J Luis Tate Unive rsity of [facility] nfectious agent detection 2019-11-15 00:00:00 Ac cess Health by nucleic acid (DNA or smoking/tobacco cessation, 2015-01-04 20:15:50 M bud Parada patient education and counseling vaginal Pap smear results 2014-01-31 20:34:06 Me nadine Parada colonoscopy 2013-05-02 21:35:09 Adwoa monte History of Tubal Ligation Univer [facility] Physicians History of Exploratory [facility] [place] [facility] Physicians [facility] En[facility] Start End Encounter Admission Attending Care Care Encounter Source Date/Time Date/Time Type Type Clinicians Facility Department ID 2021-05-03 2021-05-03 Outpatient R [facility] [id number] Univers 11:15:00 23:59:00 [facility] 2021-05-03 2021-05-03 [facility] [id number] Univers 11:15:00 23:59:00 Encounter [facility] [id number] ity of [place] [id number] Francesco as ILENE?BLEA [id number] [facility] [address] [place] MEDICAL OFFICE [facility] [address] 2021-05-03 2021-05-03 Office [facility] [id number] Univers 10:24:20 10:54:20 Visit [facility] [id number] it y of [place] [id number] Francesco as ILENE?BLEA [id number] [facility] [address] [place] MEDICAL OFFICE BUILDING 2020-12-18 2020-12-18 Emergency E [place], [facility] [id number] [place] 15:41:00 16:41:00 JA [facility] 2020-08-21 2020-08-21 Appointmen SAMM [facility] Orthopedics [id number] Univers 09:00:00 09:00:00 RAMONA Buckley M.D. Trauma i ty of [place]. [facility] 2020-08-15 2020-08-15 Emergency [facility] [id number] [place] 16:24:00 19:05:00 BOB Medica l [place] 2020-03-02 2020-03-02 [facility] Radiology [facility] [id number] 08:54:20 23:59:00 Encounter [place] [id number] [place] [id number] [place] [id number] 2020-03-02 2020-03-02 [facility] Radiology [facility] [id number] 08:29:56 08:53:00 Encounter [place] [id number] [place] [id number] [place] [id number] 2020-01-19 2020-01-19 [facility] Radiology [facility] [id number] 12:00:00 23:59:00 Encounter [place] [id number] [place] [id number] [place] [id number] 2019-12-10 2019-12-10 Laboratory Lab, [facility] [id number] 14:41:41 15:01:41 Only Fam Pob I Health [id number] [place] [id number] Professio [id number] nal 044 Office [address] 2019-11-15 2019-11-15 Emergency E ALBIN [facility] [id number] [address] [place] [address] 20:57:00 22:21:00 KEN [facility] 2019-11-15 2019-11-15 Outpatient [facility] [id number] Access 14:00:00 14:00:00 [id number] 2019-11-15 2019-11-[address] [facility] [id number] Access 00:00:00 00:00:00 TUNG [facility] 2019-11-15 2019-11-15 Outpatient CHRIS [facility] [id number] Access 00:00:00 00:00:00 TUNG Guerre[place] [id number] 2019-10-15 2019-10-15 Emergency E CAILIN [facility] [id number] [facility] 14:01:00 15:07:00 ROSE MARIE [facility] 2015-01-04 2015-01-04 [facility] [id number] Memoria 00:00:00 00:00:00 Visit r [place] Medical [id number] tyson [facility] 2015-01-04 2015-01-04 Lab Report [place] [id number] Memoria 00:00:00 00:00:00 r [place] Medical [id number] l [facility] Results Test Description Test Time Test Comments Results Result [facility] e Comments XR ANKLE RIGHT 2020-12-18 COMPLETE 3 VIEWS 16:16:22 *WW* [facility] LOLA ENRIQUEZ : 1960 Sex: F Exam: X-ray right ankle 3 viewsLocation: [id number]: Fall with right ankle painFindings:No fractures or dislocations identified. No osseous lesions. Mild soft tissue swelling is present.Impressio n:1. Mild soft tissue swelling without fracture or dislocation.Elect ronically signed by: Manuel Beebe MD 12/18/2020 4:16 PM CDT [U] XRAY 2020-08-21 Images acquired, Universi ty of FINGER(S) - 2 VWS 09:35:00 [place]. RIGHT [id number] this accession Phys icians number. Panel Description: SARS-CoV-2 (COVID-19) RNA [Presence] in 2 09:17:00 Unspecified specimen by DELFIN with probe detection Test Item Value Reference Range Interpretation Comme nts SARS-CoV-2, DELFIN (test Not Detected Not Detected Testin g was performed using the code = 72529-0) Aptima SARS- CoV-2 assay.This test was developed a nd its performance characteristics determinedby Ivan mercado. This test has not been FD A cleared orapproved. Thi s test has been authorized by [employer] under an Emergency UseAu thorization (EUA). This test is on ly authorized for the duration of time the declaration fabricio t circumstances exist justifyin g theauthorization of the emergenc y use of in vitro diagnostic test s fordetection of SARS-CoV-2 viru s and/or diagnosis of COVID-19 inf ectionunder section 564(b)( 1) of the Act, 21 U.S.C. 360bbb-3 (b)(1), unlessthe authorization i s terminated or revoked sooner. When diagnostic testing is nega tive, the possibility of a falsenegative result should b e considered in the context of a patient'srecent exposures and t he presence of clinical signs and symptomsconsist ent with COVID-19. An individual w ithout symptoms of COVID-19and who is not shedding SARS-CoV-2 viru s would expect to have anegative (not detected) result in this assay.
< br/>Performed by:
Ivan Roger (AN)

F?rsat Bu F?rsatRS-CoV (RAPID ANTIGEN) WW2019-11-15 21:58:00 Test Item Value Reference Range Interpretation Comments SARS-CoV (ANTIGEN) NEGATIVE NEGATIVE (test code = COVAG) COVID AG (test This test has been code = COVAGC) marketed under the FDA Emergency Use Authorization (EUA) to meet challenges of the COVID-19 pandemic. The validation standards normally enforced by the FDA and the College of the [place] [employer] (CAP) are more stringent than those required for this test. Therefore, the result should be interpreted with caution and close attention to other clinical and epidemiological data Mxsrngcifu0355-84-01 21:37:0043.5Memorial TxlqwgmOdvmcjgjel2946-07-28 21:37:00 208 K/CMMMemorial TafnjktEuflvfhmn7763-97-01 21:37:001.590[facility] [place] Ypyuwhtrc0437-09-68 21:37:0017[facility]orial QmouarjRclnfiisx5761-05-69 21:37:000.9 Memorial EpdnzngCkimvuqup0147-44-64 21:37:06707 MEQ/L[facility]annChemistry 2015-01-04 21:37:005.2 MEQ/LMemorial UfqqgisTflowupbr4679-13-19 21:37:008.6 Memorial PtpvkvmQdspcxedux2357-49-84 21:37:0014.1[facility]ann[facility]ematology 2015-01-04 21:37:0043.5Memorial VslkcqhCyxaumulcw2416-89-07 21:37:92514 K/CMM Memorial OpsohahBsbsujcrd3423-05-69 21:37:001.590[facility] 2015-01-04 21:37:0017[facility]orial IwrrythKpsotyrkk5255-83-67 21:37:000.9Memorial HglyrbeDwlrghydt9796-82-86 21:37:47887 MEQ/LMemorial ZjirpbeWcyfuikvd0714-33-62 21:37:005.2 MEQ/LMemorial ZqqockxYzxvwlcmn3773-84-61 21:37:008.6[facility] Tal Hzzifldhas8113-07-62 21:37:0014.1[facility] HzmfyeoQldbptrpd4362-27-38 21:37:00 1.590[facility] TtlmsesVzbubgksp8832-80-23 21:37:0017[facility] HermannChemistry 2015-01-04 21:37:000.9[facility] JueppguSvpepuuko0023-26-67 21:37:25904 MEQ/L [facility] AkzbykoIwdcuxfbn3885-56-12 21:37:005.2 MEQ/LMem[facility] HermannChemistry 2015-01-04 21:37:008.6[facility] GsmzngwZpeawsgtju6749-13-47 21:37:0014.1[facility] EcvrwloFipcewfobm2341-68-23 21:37:0043.5[facility] RhwoimsFbicikklgx4618-58-19 21:37:22073 K/CMMMemorial QdndnxzVrculskxa6635-13-34 21:37:001.590[facility] BgfvwgmVwewxltsw3543-04-42 21:37:0017[facility] TurskbzSfptagasr1714-94-49 21:37:000.9[facility] RcnrdeuAxqrgrakf2676-23-31 21:37:27250 [facility]/L[facility] [place] Pbiszdqgo5680-42-79 21:37:005.2 MEQ/LMemorial EjnyqlfKobwkspdf2987-94-76 21:37:008.6[facility] LxbfsjrIlobbubbsh3620-43-17 21:37:0014.1[facility] [place] Nkmdpvmfxb8953-69-79 21:37:0043.5[facility] JbkgaffZnxgyxbwfy6207-61-65 21:37:00 208 K/CMMMemorial HermannOb/Muu8243-93-67 20:34:06NormalMemorial HermannOb/Echo Technician 2014-01-31 20:34:06NormalMemorial HermannOb/Kfe0820-16-85 20:34:06NormalMemorial HermannOb/Zqk7458-78-05 20:34:06NormalMemorial HermannOb/Ase5790-26-02 20:34:06 NormalMemorial HermannOb/Cow9309-47-56 20:34:06NormalMemorial HermannOb/Echo Technician 2014-01-31 20:34:06NormalMemorial HermannOb/Znk0927-40-28 20:34:06NormalMemorial Tal
[2021-05-06 14:47] LABS: Urine Blood Trace-intact (Negative); Urine Glucose Negative (Negative); Urine Protein Negative (Negative)
[2021-05-06] MEDS ORDERED: ONDANSETRON 4 MG/2 ML VIAL ONE (15:10)
[2021-05-06] MEDS ORDERED: MORPHINE 4 MG/ML SYR ONE ×2 (15:10→16:36)
[2021-05-06 15:30] LABS: Absolute Lymphocytes (CBC) 2.6 K/uL (0.7-4.9); Basophils % 0.6 % (0-1.3); Hematocrit 45.6 % (36.0-45.0); Lymphocytes % 22.8 % (15.3-44.8); MPV 9.3 fL (7.6-11.3); RBC Red Blood Cell Count 4.84 M/uL (3.86-4.86)
[2021-05-06 15:46] LABS: Albumin 3.6 g/dL (3.4-5.0); Bilirubin Direct 0.2 mg/dL (0-0.2); Bilirubin Total 0.5 mg/dL (0.2-1.0); Potassium 3.9 mmol/L (3.5-5.1); Protein, Total 7.9 g/dL (6.4-8.2)
--- NOTE | 2021-05-06 15:52 | RAD REPORT ---
EXAM DESCRIPTION: CT - Abdomen Pelvis W Contrast - 05/06/2021 3:44 pm CLINICAL HISTORY: LLQ;Abd pain COMPARISON: Abdomen Pelvis W Contrast dated 12/10/2018 TECHNIQUE: Biphasic, helical CT imaging of the abdomen and pelvis was performed following 100 ml non -ionic IV contrast. No oral contrast administered. All CT scans are performed using dose optimization technique as appropriate and may include automated exposure control or mA/KV adjustment according to patient size. FINDINGS: No suspicious findings in the lung bases. The liver, spleen, and pancreas show no suspicious findings. Cholecystectomy clips are present. No bi liary tree dilatation. Symmetric renal function is seen with no hydronephrosis or suspicious renal mass. No pyelonephritis o r acute parenchymal process. No bladder abnormalities. No adrenal abnormalities. No stomach or small bowel abnormality seen. No appendicitis findings. Right-side of the colon is unre markable. There is a 10 centimeter long segment of the descending colon that shows circumferential wa ll thickening. Trace amount of stranding is seen in the adjacent fat. Patient has rare sigmoid divert icula. No free air, free fluid or pneumatosis. No mass or bulky lymphadenopathy. No suspicious bony findings. IMPRESSION: Long segment circumferential wall thickening of the descending colon without diverticulo sis in this region and without a single focal discrete mass. Nonspecific colitis is most likely.
[2021-05-06] MEDS ORDERED: CIPROFLOXACIN 400mg IV 400 MG/200 ML BAG IV ONE (16:06)
[2021-05-06] MEDS ORDERED: metroNIDAZOLE 500 MG TABLET ONE (16:12)
--- NOTE | 2021-05-06 17:40 | ER ---
Nurse's Notes [facility] Name: Shahnaz Ramos Age: 61 yrs Sex: Female : 1960 Arrival Date: 05/06/2021 Time: 13:06 Bed 18 Private MD: Diagnosis: Left sided colitis without complications Presentation: 05/06 13:31 Chief complaint: Patient states: "I think it's my diverticulitis. It's the same ss symptoms as before. I've been vomiting and the pain is horrible." Pt c/o pain, N/V and blood tinged stools that began yesterday. Coronavirus screen: Client denies travel out of the [place] in the last 14 days. Ebola Screen: Patient denies exposure to infectious person. Patient denies travel to an Ebola-affected area in the 21 days before illness onset. Initial Sepsis Screen: Does the patient meet any 2 criteria? No. Patient's initial sepsis screen is negative. Does the patient have a suspected source of infection? No. Patient's initial sepsis screen is negative. Risk Assessment: Do you want to hurt yourself or someone else? Patient reports no desire to harm self or others. Onset of symptoms was May 05, 2021. 13:31 Method Of Arrival: Ambulatory ss 13:31 Acuity: [place]OL[place] 3 ss Historical: - Allergies: 13:33 Aspirin; ss 13:33 Imitrex; ss - PMHx: 13:33 Anxiety; Asthma; Bipolar disorder; cervical spinal stenosis; COPD; Depression; ss Diverticulitis; Fibromyalgia; GERD; Hepatitis C; insomnia; Migraines; Ulcers; - Immunization history:: Client reports receiving the 2nd dose of the Covid vaccine. - Social history:: Smoking status: Patient reports the use of cigarette tobacco products, smokes one pack cigarettes per day. - Family history:: not pertinent. - Hospitalizations: : No recent hospitalization is reported. Screenin:30 Abuse screen: Denies threats or abuse. Denies injuries from another. Nutritional jg9 screening: No deficits noted. Tuberculosis screening: No symptoms or risk factors identified. Fall Risk None identified. Assessment: 14:30 General: Appears uncomfortable, Behavior is crying. Pain: Complains of pain in jg9 abdomen-LLQx2 days, diarrhea/constipation/vomiting hx diverticulitis Pain currently is 10 out of 10 on a pain scale. Neuro: No deficits noted. Cardiovascular: No deficits noted. Respiratory: No deficits noted. GI: Abd is soft Abdomen is tender to palpation in left lower quadrant Reports lower abdominal pain, constipation, diarrhea, bloody stool, vomiting, Patient currently denies. : No deficits noted. EENT: No deficits noted. Derm: No deficits noted. Musculoskeletal: No deficits noted. 15:28 GI: Bowel sounds present X 4 quads. 9 17:30 Reassessment: Patient states symptoms have improved. [facility] [place]ital Signs: 13:33 BP 98 / 69; Pulse 105; Resp 18; Temp 97.9(TE); Pulse Ox 97% on R/A; Weight 73.94 kg; Height 5 ft. 0 in. (152.40 cm); Pain 10/10; 14:48 BP 131 / 79; Pulse 100; Resp 20; Temp 98.0(O); Pulse Ox 100% on R/A; 5 15:00 BP 130 / 90; Pulse 90; Resp 17 S; Pulse Ox 96% on R/A; jg9 15:15 BP 133 / 81; Pulse 88; Resp 20 S; Pulse Ox 96% on R/A; jg9 16:27 BP 116 / 77; Pulse 84; Resp 22 S; Pulse Ox 96% on R/A; jg9 16:30 BP 125 / 79; Pulse 82; Resp 18 S; Pulse Ox 96% on R/A; jg9 17:15 BP 108 / 62; Pulse 78; Resp 14 S; Pulse Ox 96% on R/A; jg9 17:48 BP 125 / 75; Pulse 63; Resp 17; Pulse Ox 100% ; Pain 0/10; jh6 13:33 Body Mass Index 31.83 (73.94 kg, 152.40 cm) ED Course: 13:06 Patient arrived in ED. ds1 13:33 Triage completed. 13:33 Arm band placed on left wrist. 14:47 Urine Dipstick-Ancillary Sent. 5 14:47 Urine collected: clean catch specimen, cloudy. 5 14:48 Patient has correct armband on for positive identification. Bed in low position. Call [facility] light in reach. Side rails up X 1. Warm blanket given. Pulse ox on. NIBP on. 14:57 Lee Barrett MD is Attending Physician. rn 15:20 Basic Metabolic Panel Sent. [facility] 15:20 CBC with Diff Sent. [facility] 15:20 Hepatic Function Sent. [facility] 15:21 Lipase Sent. [facility] 15:21 Initial lab(s) drawn, by oh, sent to lab. Inserted saline lock: 20 gauge in left [facility] antecubital area, using aseptic technique. Blood collected. 15:44 CT Abd/Pelvis - IV Contrast Only In Process Unspecified. EDMS 15:[address] jg9 16:15 Patient requests pain medication. jg9 16:15 Appears tearful. j9 16:45 Resting quietly. Awaiting radiology results. j9 17:29 Awaiting disposition. j9 17:31 Patient up to bathroom. j9 17:39 John Galeas MD is Referral Physician. rn 17:48 No provider procedures requiring assistance completed. [facility] 17:48 IV discontinued, intact, bleeding controlled, No redness/swelling at site. Pressure [facility] dressing applied. Administered Medications: 15:22 Drug: Zofran (Ondansetron) 4 mg Route: IVP; Site: left antecubital; j9 16:00 Follow up: Response: Nausea is decreased j9 15:24 Drug: morphine 4 mg Route: IVP; Site: left antecubital; j9 16:00 Follow up: Response: No adverse reaction; Pain is decreased j 16:00 Follow up: Response: No adverse reaction; Pain is decreased; RASS: Alert and Calm (0) [facility] [place] 16:11 CANCELLED (Physician Discretion; changed to poo): Flagyl (metroNIDAZOLE) 500 mg 100 ml 9 IVPB at 200 ml/hr once over 30 mins 16:15 Drug: Flagyl (metroNIDAZOLE) 500 mg Route: PO; j9 16:20 Follow up: Response: No adverse reaction 9 16:20 Drug: Cipro (ciprofloxacin) 400 mg Volume: 200 ml; Route: IVPB; Infused Over: 60 mins; jg9 Site: left antecubital; 17:20 Follow up: IV Status: Completed infusion; IV converted to saline lock j9 16:38 Drug: morphine 4 mg Route: IVP; Site: left antecubital; j9 17:00 Follow up: Response: No adverse reaction; Pain is decreased jg9 Outcome: 17:39 Discharge ordered by . surekha 17:48 Discharged to home ambulatory. [facility] 17:48 Condition: improved 17:48 Discharge instructions given to patient, Instructed on discharge instructions, follow up and referral plans. Demonstrated understanding of instructions, follow-up care, medications, Prescriptions given X 3. 17:49 Patient left the ED. [facility] Signatures: Dispatcher [employer] [facility] Zulema Elena ds1 Lee Barrett MD MD rn Smirch, Shelby, RN RN ss Martinez, Maria Jennifer Anand RN RN jh Jennifer Valverde jg9
--- NOTE | 2021-05-06 17:40 | EDPHYS ---
Physician Documentation [facility] Name: Shahnaz Ramos Age: 61 yrs Sex: Female : 1960 Arrival Date: 05/06/2021 Time: 13:06 Bed 18 Private MD: ED Physician Lee Barrett HPI: 05/06 16:39 This 61 yrs old Female presents to ER via Ambulatory with complaints of rn Abdominal Pain, Can't keep food down. 16:39 The patient presents with abdominal pain in the left lower quadrant. Onset: The rn symptoms/episode began/occurred yesterday. The symptoms do not radiate. Associated signs and symptoms: Pertinent positives: nausea and vomiting, Pertinent negatives: blood in stools, fever, hematuria. The symptoms are described as intermittent, sharp. Modifying factors: The symptoms are alleviated by nothing, the symptoms are aggravated by movement, touching the area. Severity of pain: At its worst the pain was moderate in the emergency department the pain is unchanged. The patient has not experienced similar symptoms in the past. The patient has not recently seen a physician. Patient reports left lower quadrant abdominal pain that is similar to previous episode of diverticulitis. No fever. Reports nausea and vomiting. No trauma. No blood in stool.. Historical: - Allergies: 13:33 Aspirin; ss 13:33 Imitrex; ss - PMHx: 13:33 Anxiety; Asthma; Bipolar disorder; cervical spinal stenosis; COPD; Depression; ss Diverticulitis; Fibromyalgia; GERD; Hepatitis C; insomnia; Migraines; Ulcers; - Immunization history:: Client reports receiving the 2nd dose of the Covid vaccine. - Social history:: Smoking status: Patient reports the use of cigarette tobacco products, smokes one pack cigarettes per day. - Family history:: not pertinent. - Hospitalizations: : No recent hospitalization is reported. ROS: 16:39 Constitutional: Negative for fever, chills, and weight loss, Eyes: Negative for injury, rn pain, redness, and discharge, Neck: Negative for injury, pain, and swelling, Cardiovascular: Negative for chest pain, palpitations, and edema, Respiratory: Negative for shortness of breath, cough, wheezing, and pleuritic chest pain, Abdomen/GI: Positive for abdominal pain and nausea vomiting Back: Negative for injury and pain, : Negative for injury, bleeding, discharge, and swelling, MS/Extremity: Negative for injury and deformity, Skin: Negative for injury, rash, and discoloration, Neuro: Negative for headache, weakness, numbness, tingling, and seizure. Exam: 16:39 Constitutional: This is a well developed, well nourished patient who is awake, alert, rn laying on right side, appears to be in mild pain Head/Face: Normocephalic, atraumatic. Cardiovascular: Regular rate and rhythm. No pulse deficits. Respiratory: No increased work of breathing, no retractions or nasal flaring. Abdomen/GI: Soft, mild tenderness left lower quadrant. No peritoneal signs Skin: Warm, dry MS/ Extremity: Pulses equal, no cyanosis. Neuro: Awake and alert, GCS 15 Vital Signs: 13:33 BP 98 / 69; Pulse 105; Resp 18; Temp 97.9(TE); Pulse Ox 97% on R/A; Weight 73.94 kg; ss Height 5 ft. 0 in. (152.40 cm); Pain 10/10; 14:48 BP 131 / 79; Pulse 100; Resp 20; Temp 98.0(O); Pulse Ox 100% on R/A; mh5 15:00 BP 130 / 90; Pulse 90; Resp 17 S; Pulse Ox 96% on R/A; jg9 15:15 BP 133 / 81; Pulse 88; Resp 20 S; Pulse Ox 96% on R/A; jg9 16:27 BP 116 / 77; Pulse 84; Resp 22 S; Pulse Ox 96% on R/A; jg9 16:30 BP 125 / 79; Pulse 82; Resp 18 S; Pulse Ox 96% on R/A; jg9 17:15 BP 108 / 62; Pulse 78; Resp 14 S; Pulse Ox 96% on R/A; jg9 17:48 BP 125 / 75; Pulse 63; Resp 17; Pulse Ox 100% ; Pain 0/10; jh6 13:33 Body Mass Index 31.83 (73.94 kg, 152.40 cm) ss MDM: 14:57 Patient medically screened. rn 17:35 Differential diagnosis: non-specific abd pain, diverticulitis, colitis. Data reviewed: rn vital signs, nurses notes, lab test result(s), radiologic studies, CT scan, and as a result, I will discharge patient. Counseling: I had a detailed discussion with the patient and/or guardian regarding: the historical points, exam findings, and any diagnostic results supporting the discharge/admit diagnosis, lab results, radiology results, the need for outpatient follow up, to return to the emergency department if symptoms worsen or persist or if there are any questions or concerns that arise at home. Response to treatment: the patient's symptoms have markedly improved after treatment, and as a result, I will discharge patient. Special discussion: Based on the patient's Hx, exam, and Dx evaluation, there is no indication for emergent surgery or inpatient Tx. It is understood by the patient/guardian that if the Sx's persist or worsen they need to return immediately for re-evaluation. I discussed with the patient/guardian in detail that at this point there is no indication for admission to the hospital. It is understood, however, that if the symptoms persist or worsen the patient needs to return immediately for re-evaluation. ED course: Patient markedly improved, CT shows mild colitis/diverticulitis. Patient has had this before. Patient is ambulatory to bathroom and sitting upright feels much better. States pain controlled. Will DC home with pain medication and antibiotics.. 05/06 14:47 Order name: Urine Dipstick-Ancillary; Complete Time: 15:29 EDMS 05/06 15:02 Order name: Basic Metabolic Panel; Complete Time: 15:58 rn 05/06 15:02 Order name: CBC with Diff; Complete Time: 15:32 rn 05/06 15:02 Order name: Hepatic Function; Complete Time: 15:58 rn 05/06 15:02 Order name: Lipase; Complete Time: 15:58 rn 05/06 16:01 Order name: CREATININE WHOLE BLOOD; Complete Time: 16:32 EDMS 05/06 15:02 Order name: IV Saline Lock; Complete Time: 15:20 rn 05/06 15:02 Order name: CT Abd/Pelvis - IV Contrast Only; Complete Time: 15:58 rn 05/06 15:02 Order name: Labs collected and sent; Complete Time: 15:20 rn Administered Medications: 15:22 Drug: Zofran (Ondansetron) 4 mg Route: IVP; Site: left antecubital; jg9 16:00 Follow up: Response: Nausea is decreased jg9 15:24 Drug: morphine 4 mg Route: IVP; Site: left antecubital; jg9 16:00 Follow up: Response: No adverse reaction; Pain is decreased j9 16:00 Follow up: Response: No adverse reaction; Pain is decreased; RASS: Alert and Calm (0) j9 16:11 CANCELLED (Physician Discretion; changed to poo): Flagyl (metroNIDAZOLE) 500 mg 100 ml jg9 IVPB at 200 ml/hr once over 30 mins 16:15 Drug: Flagyl (metroNIDAZOLE) 500 mg Route: PO; jg9 16:20 Follow up: Response: No adverse reaction j9 16:20 Drug: Cipro (ciprofloxacin) 400 mg Volume: 200 ml; Route: IVPB; Infused Over: 60 mins; jg9 Site: left antecubital; 17:20 Follow up: IV Status: Completed infusion; IV converted to saline lock j9 16:38 Drug: morphine 4 mg Route: IVP; Site: left antecubital; jg9 17:00 Follow up: Response: No adverse reaction; Pain is decreased j9 Disposition Summary: 05/06/21 17:39 Discharge Ordered Location: Home rn Problem: new rn Symptoms: have improved rn Condition: Stable rn Diagnosis - Left sided colitis without complications rn Followup: rn - With: John Galeas MD - When: As needed - Reason: Recheck today's complaints, Re-evaluation by your physician Discharge Instructions: - Discharge Summary Sheet rn - Colitis rn Forms: - Medication Reconciliation Form rn - Thank You Letter rn - Antibiotic [employer]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 - Prescription Opioid Use rn Prescriptions: - ondansetron 4 mg Oral tablet,disintegrating - place 1 tablet by TRANSLINGUAL route every 8 hours As needed; 15 tablet; rn Refills: 0, Product Selection Permitted - Cipro 500 mg Oral Tablet - take 1 tablet by ORAL route every 12 hours for 10 days; 20 tablet; Refills: 0, rn Product Selection Permitted - Flagyl 500 mg Oral Tablet - take 1 tablet by ORAL route every 8 hours for 10 days; 30 tablet; Refills: 0, rn Product Selection Permitted - Tramadol 50 mg Oral Tablet - take 1 tablet by ORAL route every 8 hours as needed; 15 tablet; Refills: 0, rn Product Selection Permitted Signatures: Dispatcher [employer] Lee Rose MD MD rn Smirch, Shelby, RN RN ss Gilmore, Jennifer jg9 Corrections: (The following items were deleted from the chart) 16:11 15:59 Flagyl (metroNIDAZOLE) 500 mg 100 ml IVPB at 200 ml/hr once over 30 mins ordered. jg9 surekha 16:11 16:10 Flagyl (metroNIDAZOLE) 500 mg 100 ml IVPB at 200 ml/hr once over 30 mins ordered. jg9 jg9
[2021-05-06 17:55] VITALS: TEMP 98
[2021-05-06 18:04] VITALS: BP 125/75; O2SAT 100
== END 2021-05-06 17:49 | disposition home or self-care (01) ==
LOC: ER 13:05
DX: K51.50 Left sided colitis without complications (principal); F17.210 Nicotine dependence, cigarettes, uncomplicated
CPT/HCPCS: 96365; 85025; 80048; 36415; 82565; 80076; 81003; 83690; 74177; 96375; 99284; Q9967; J2405; J0744

== ENCOUNTER 2021-06-20 22:05 | Emergency (ER) | payer OTHER ==
--- OUTSIDE RECORDS SUMMARY | 2021-06-20 22:10 | XMS REPORT | Continuity of Care Document ---
:1960 Author Organization [facility] t Address [address] [place] [id number] Care Team Providers Name Role Phone VALLE, E Primary Care Physician Unavailable Cesar TATE Attending Clinician Unavailable Bebeto PAC, S Attending Clinician Doctor Unassigned, Name Attending Clinician Unavailable DR Rosanne WOOD Attending Clinician Unavailable SAMM Attending Clinician Unavailable DR Jed ROMERO Attending Clinician Unavailable Radiology Attending Clinician Unavailable Lab, Fam Pob I Attending Clinician Unavailable DR ALBIN Attending Clinician Unavailable Cesar PEREZ Attending Clinician Unavailable DR Breanna SIMEON Attending Clinician Unavailable DR Rosanne WOOD Admitting Clinician Unavailable DR Jed ROMERO Admitting Clinician Unavailable DR ALBIN Admitting Clinician Unavailable DR Breanna SIMEON Admitting Clinician Unavailable Payers Payer Name Policy Type Policy Number Effective Date Expiration Date S martha [facility] DUAL [id number] 2020 COMP HMO D SNP 00:00:00 [place]ID OF [place] [id number] 2020 00:00:00 Problems Condition Condition Condition Status Onset Resolution Last Treating Co mments Source Name Details Category Date Date Treatment Clinician Date CHEST PAIN Condition Active 2015-01-04 Memoria 01-04 16:37:00 l CHEST 00:00: [place] PAIN 00 Active 01/04/2015 Condition [facility] LIGHTHEADE Condition Active 2015-01-04 Memoria DNESS 01-04 16:37:00 l 00:00: Tal LIGHTHEADE 00 DNESS Active 01/04/2015 Condition [facility] SHORTNESS Condition Active 2015-01-04 Memoria OF BREATH 01-04 16:37:00 l 00:00: Tal SHORTNESS 00 OF BREATH Active 01/04/2015 Condition [...] different from the original. 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 ICD10 Diagnosis Term Nitroglycerin Nitrator Operator Batch Utility Cocaine Cocaine Disease Active Overview: Univ ers abuse in abuse in 1-10 Formattin ity of remission remission 00:00: g of this [place] 00 note Medical might be Branch different from the original. ICD10 Diagnosis Term Nitroglycerin Nitrator Operator Batch Utility Asthma Asthma Disease Active Overview: Univer s with with 1-10 Formattin ity of status status 00:00: g of this [place] asthmaticu asthmaticu 00 note Me dical s s might be Branch different from the original. ICD10 Diagnosis Term Nitroglycerin Nitrator Operator Batch Utility Peptic Peptic Disease Active Overview: Univer s ulcer ulcer 1-10 Formattin ity of 00:00: g of this [place] note Medical might be Branch different from the original. ICD10 Diagnosis Term Nitroglycerin Nitrator Operator Batch Utility Migraine Migraine Disease Active Overview: Un anjel with aura with aura 1-10 Formattin i ty of 00:00: g of this [place] note Medical might be Branch different from the original. ICD10 Diagnosis Term Nitroglycerin Nitrator Operator Batch Utility Shortness Shortness Problem Active Uni vers [...] IMITREX IMITREX Active Memoria 8 l 00:00: [place] 00 Aspirin Propensi Active Rash 2006- Univers ty to 1-10 ity of adverse [...] Active Univers to drug ity of (finding [place] ) Physici ans aspirin Allergy Active Univers to drug ity of (finding [place] ) Physici ans Social History Social Habit Start Date Stop Date Quantity Comments Source History of tobacco Cigarette Smoker [facility] Exposure to Not sure [facility] SARS-CoV-2 (event) [facility] Sex Assigned At Female Access He alth Alcohol intake 2021-03-08 2021-03-08 Current University 00:00:00 00:00:00 non-drinker of [facility] alcohol Branch (finding) Tobacco Comment 2021-03-06 2021-03-06 1 ppd Universit y of 00:00:00 00:00:00 [facility] Cigarettes smoked 2014-02-16 2014-02-16 Univers ity of current (pack per 00:00:00 00:00:00 [place] ) - Reported Branch Tobacco use and 2014-02-16 2014-02-16 Never used Universit y of exposure 00:00:00 00:00:00 [facility] Smoking Status Start Date Stop Date Source Unknown if ever smoked Access He alth Smoker (finding) [facility] [place] [facility] Current every day smoker 2014-02-16 00:00:[address] [facility] Medications Ordered Filled Start Stop Current Ordering [...] 0-06 Puffs as ity of 16:05: needed. [place] [address] Medical Branch hydrOXYzine 2020-06 Yes 50mg Take [...] by mouth ity o f 16:05: at [place] 17 bedtime. Medical Branch HYDROcodone 2020-06 Yes 1{tbl} Take 1 Tab Univers -acetaminop 0-06 by mouth 2 it y of hen (NORCO) 16:05: (two) [place] 10-325 mg 17 times Medical tablet daily. Branch ALBUTEROL 2020-06 Yes 2{puff} Inhale 2 U nivers INHALE 0-06 Puffs as ity of 16:05: needed. [place] [address] Medical Branch hydrOXYzine 2020-06 Yes 50mg Take [...] by mouth ity o f 16:05: at [place] 17 bedtime. Medical Branch HYDROcodone 2020-06 Yes 1{tbl} Take 1 Tab Univers -acetaminop 0-06 by mouth 2 it y of hen (NORCO) 16:05: (two) [place] 10-325 mg 17 times Medical tablet daily. Branch ALBUTEROL 2020-06 Yes 2{puff} Inhale 2 U nivers INHALE 0-06 Puffs as ity of 16:05: needed. [place] [address] Medical Branch hydrOXYzine 2020-06 Yes 50mg Take 50 mg Univers (ATARAX) 50 0-06 by mouth 3 it y of mg tablet 16:05: (three) [place] 17 times Medical daily as Branch needed for Itching. QUEtiapine 2020-06 Yes 100mg Take 100 Un anjel (SEROQUEL) 0-06 mg by ity of 50 mg 16:05: mouth at [place] tablet 17 bedtime. Medical Branch acetaminoph 2020-06 Yes 1{tbl} Take 1 Un anjel en-codeine 0-06 tablet by ity of 300-30 mg 16:05: mouth [place] tablet 17 every 4 Medical (four) Branch hours as needed. doxepin 50 2020-06 Yes 50mg Take 50 mg U nivers mg capsule 0-06 by mouth ity o f 16:05: at [place] [address] bedtime. Medical Branch simvastatin Yes 10mg Take 10 mg Univers 10 mg 6-08 by mouth ity of tablet 00:00: every [place] 00 evening. Medical Branch simvastatin Yes 10mg Take 10 mg Univers 10 mg 6-08 by mouth ity of tablet 00:00: every [place] 00 evening. Medical Branch simvastatin Yes 10mg Take 10 mg Univers 10 mg 6-08 by mouth ity of tablet 00:00: every [place] 00 evening. Medical Branch pregabalin Yes 100mg Take 100 Un anjel 100 mg 6-07 mg by ity of capsule 00:00: mouth 2 [place] 00 (two) Medical times Branch daily. pregabalin 0 Yes 100mg Take 100 Un anjel 100 mg 6-07 mg by ity of capsule 00:00: mouth 2 [place] 00 (two) Medical times Branch daily. pregabalin Yes 100mg Take 100 Un anjel 100 mg 6-07 mg by ity of capsule 00:00: mouth 2 [place] 00 (two) Medical times Branch daily. DEXILANT 60 2021-0 Yes 1{capsu Take 1 U nivers mg capsule 5-21 le} capsule by ity of 00:00: mouth [place] 00 daily. Medical Branch levocetiriz Yes 5mg Take 5 mg U nivers ine 5 mg 5-21 by mouth ity of tablet 00:00: every [place] 00 evening. Medical Branch DEXILANT 60 Yes 1{capsu Take 1 U nivers mg capsule 5-21 le} capsule by ity of 00:00: mouth [place] daily. Medical Branch levocetiriz Yes 5mg Take 5 mg U nivers ine 5 mg 5-21 by mouth ity of tablet 00:00: every [place] evening. Medical Branch DEXILANT 60 Yes 1{capsu Take 1 U nivers mg capsule 5-21 le} capsule by ity of 00:00: mouth [place] daily. Medical Branch levocetiriz Yes 5mg Take 5 mg U nivers ine 5 mg 5-21 by mouth ity of tablet 00:00: every [place] evening. Medical Branch Cephalexin Cephalexin Yes RAMONA QUIJANO Q0.25D TAKE 1 Univers 500 MG Oral 500 MG Oral 3-22 M.D. TABLET 4 ity of Tablet Tablet 00:00: TIMES [place] 00 DAILY Physici ans antipyrine- Yes 2[drp] Place 2 U nivers benzocaine 5-09 Drops in ity o f 5.4-1.4 % 00:00: both ears Frances[place] as otic drops 00 every 4 Medica l (four) Branch hours as needed for Pain (scale 4-6). lidocaine Yes 15mL Take 15 mL Un anjel 2% viscous 5-09 by mouth ity o [...] Take 15 mL Un anjel 2% viscous 5-09 by mouth ity o [...] Take 15 mL Un anjel 2% viscous 5-09 by mouth ity o [...] twice a l HEN 10-325 00:00: day [place] MG TABS 00 COLCHICINE Yes one po [...] ia 8-05 twice a l 00:00: day [place] 00 ATARAX 0 Yes prn Memoria 8-05 anxiety l 00:00: [place] 00 SEROQUEL 0 Yes Two po qhs Mem oria 400 MG TABS 8-05 l 00:00: [place] 00 SEROQUEL 50 0 Yes Two po qam Memoria MG TABS 8-05 l 00:00: DEXILANT 60 Yes one po Bin emili MG CPDR 8-05 daily l 00:00: LIPITOR 0 Yes .qd Memoria 8-05 l 00:00: ZANAFLEX 0 Yes .bid Memoria 8-05 l 00:00: HYDROCODONE 0 Yes one po Bin emili -ACETAMINOP 8-05 [...] MG CPDR 8-05 daily l 00:00: LIPITOR 0 Yes .qd Memoria 8-05 l 00:00: ZANAFLEX 0 Yes .bid Memoria 8-05 l 00:00: [place] 00 HYDROCODONE 0 Yes one po Bin emili -ACETAMINOP 8-05 twice a l HEN 10-325 00:00: day Tal MG TABS 00 SEROQUEL 0 Yes Two po qhs Mem oria 400 MG TABS 8-05 l 00:00: Tal 00 COLCHICINE 0 Yes one po Memor ia 8-05 twice a l 00:00: day Tal 00 ATARAX 0 Yes prn Memoria 8-05 anxiety l 00:00: SEROQUEL 50 0 Yes Two po qam Memoria MG TABS 8-05 l 00:00: [place] 00 Ciprofloxac Ciprofloxac Yes VENITA 1 QD TAKE [...] Dexilant Yes Univers CPDR CPDR ity of [place] Physici ans Cymbalta 30 Cymbalta 30 Yes U nivers MG Oral MG Oral ity of Capsule Capsule [place] Delayed Delayed Physici Release Release ans Particles Particles Lyrica 300 Lyrica 300 Yes Uni vers MG Oral MG Oral ity of Capsule Capsule [place] Physici ans Doxepin HCl Doxepin HCl Yes U nivers TABS TABS ity of [place] Physici ans SEROquel 50 SEROquel 50 Yes U nivers MG Oral MG Oral ity of Tablet Tablet [place] Physici ans Immunizations Ordered Filled Immunization Date Status Comments [facility] e Immunization Name Name SARS-COV-2 COVID-19 2021-02-16 Completed Unive rsity of PFIZER VACCINE 00:00:00 [facility] SARS-COV-2 COVID-19 2021-02-16 Completed Unive rsity of PFIZER VACCINE 00:00:00 [facility] SARS-COV-2 COVID-19 2021-02-16 Completed Unive rsity of PFIZER VACCINE 00:00:00 [facility] SARS-COV-2 COVID-19 2021-01-26 Completed Unive rsity of PFIZER VACCINE 00:00:00 [facility] SARS-COV-2 COVID-19 2021-01-26 Completed Unive rsity of PFIZER VACCINE 00:00:00 [facility] SARS-COV-2 COVID-19 2021-01-26 Completed Unive rsity of PFIZER VACCINE 00:00:00 [facility] TDAP 2013-03-18 Completed University 00:00:00 [facility] TDAP 2013-03-18 Completed University 00:00:00 [facility] TDAP 2013-03-18 Completed University 00:00:00 [facility] Vital Signs Vital Name Observation Time Observation Value Comments Source Systolic blood 2021-05-03 17:08:00 112 mm[Hg] Univer sity of pressure [facility] Diastolic blood 2021-05-03 17:08:00 75 mm[Hg] Unive rsity of pressure [facility] Heart rate 2021-05-03 17:08:00 85 /min [facility] Body height 2021-05-03 17:08:00 154.9 cm [facility] Body weight 2021-05-03 17:08:00 78.472 kg [facility] BMI 2021-05-03 17:08:00 32.69 kg/m2 [facility] Body height 2020-08-21 09:30:00 61 [in_us] [facility] Physician s Weight 2020-08-21 09:30:00 150 [lb_av] [facility] s Body mass index 2020-08-21 09:30:00 28.34 kg/m2 Unive rsity of (BMI) [Ratio] [place] [facility] 2015-01-04 20:15[facility] 2015-01-04 20:15:50 [facility] Tal Temperature Oral (F) 2015-01-04 20:15:50 98.4 F [facility] Heart Rate 2015-01-04 20:15:50 [facility] Systolic (mm Hg) 2015-01-04 20:15:50 Bin rial [place] Diastolic (mm Hg) 2015-01-04 20:15:50 Mem orial [place] Procedures Procedure Date / Time Performing Clinician Source Performed XR HIPS 2 VW BILATERAL 2021-05-03 17:47:00 [facility] REFERRAL- REQUEST/RESPONSE 2021 05:01:00 Doctor Unassigned , [facility] nfectious agent detection 2019-11-15 00:00:00 [facility] by nucleic acid (DNA or smoking/tobacco cessation, 2015-01-04 20:15:50 M bud Parada patient education and counseling vaginal Pap smear results 2014-01-31 20:34:06 Me morial Tal colonoscopy 2013-05-02 21:35:09 Adwoa monte History of Tubal Ligation [facility] Physicians [facility] History of Cholecystectomy [facility] Encounters Start End Encounter Admission Attending Care Care Encounter Source Date/Time Date/Time Type Type Clinicians Facility Department ID 2021-05-28 2021-05-28 Outpatient Dilip TATE [facility] [id number] Univers 00:00:00 00:00:00 SHERI [id number] [facility] 2021-05-21 2021-05-21 Outpatient Dilip TATE [facility] [id number] Univers 00:00:00 00:00:00 SHERI [id number] [facility] 2021-05-14 2021-05-14 Outpatient Dilip TATE [facility] [id number] Univers 14:45:00 14:45:00 SHERI [id number] [facility] 2021-05-14 2021-05-14 Outpatient Dilip TATE [facility] [id number] Univers 00:00:00 00:00:00 SHERI [facility] 2021-05-03 2021-05-03 [id number] Univers 11:15:00 23:59:[address] [facility] 2021-05-03 2021-05-03 [facility] [id number] Univers 11:15:00 23:59:00 Encounter Sheri Guerrero HEALTH [id number] ity of [place] 4.2.7.2.686 Francesco as ILENE?BLEA [id number] [facility] [address] [facility] OFFICE [facility] 2021-05-03 2021-05-03 Office [facility] [id number] Univers 10:24:20 10:54:20 Visit Sheri Guerrero HEALTH [id number] it y of [place] 4.2.7.2.686 Francesco as ILENE?BLEA [id number] Ak dical [facility] [address] MEDICAL OFFICE [facility] 2021 2021 Orders Doctor NATHAN [id number] Univers 00:00:00 00:00:00 Only Unassigned, MARK [id number] ity of [place] [facility] 4.2.7.2.686 Francesco as [id number] [address] 2020-12-18 2020-12-18 Emergency E ISRAEL [facility] [id number] 15:41:00 16:41:00 JA Niño [facility] 2020-08-21 2020-08-21 Appointmen [facility] Orthopedics [id number] Univers 09:00:00 09:00:00 t; RAMONA QUIJANO M.D. Trauma i ty of Alexey [facility] 2020-08-15 2020-08-15 Emergency E NICK [facility] [id number] 16:24:00 19:05:00 BOB Niño [facility] 2020-03-02 2020-03-02 Hospital Radiology [facility] 1.2.840.114 [id number] 08:54:20 23:59:00 Encounter [place]anna [id number] [place] 4.2.7.2.686 Adrian [id number] 2020-03-02 2020-03-02 Hospital Radiology [facility] 1.2.840.114 [id number] 08:29:56 08:53:00 Encounter Hanna [id number] [place] 4.2.7.2.686 Adrian [id number] 2020-01-19 2020-01-19 [facility] Radiology [facility] 1.2.840.114 [id number] 12:00:00 23:59:00 Encounter [place]anna [id number] [place] 4.2.7.2.686 Adrian [id number] 2019-12-10 2019-12-10 Laboratory Lab, [facility] 1.2.840.114 [id number] 14:41:41 15:01:41 Only Fam Pob I Health [id number] [place] 4.2.7.2.686 Professio [id number] nal [address] 2019-11-15 2019-11-15 Emergency E ALBIN, [facility] [id number] 20:57:00 22:21:00 KEN [facility] al Tony 2019-11-15 2019-11-15 Outpatient [facility] [id number] Access 14:00:00 14:00:00 00-0000-000 [id number] 2019-11-15 2019-11-15 [facility] [id number] Access 00:00:00 00:00:00 [facility] 2019-11-15 2019-11-15 Outpatient [facility] [id number] Access 00:00:00 00:00:00 TUNG [id number] 2019-10-15 2019-10-15 Emergency E CAILIN [facility] [id number] 14:01:00 15:07:00 ROSE MARIE Medica [facility] 2015-01-04 2015-01-04 Office nullRochelle [place] [id number] [facility] 00:00:00 00:00:00 Visit r [place] Medical [id number] [facility] 2015-01-04 2015-01-04 Lab Report Luis Armando [place] [address] [id number] [facility] 00:00:00 00:00:00 r [place] Medical [id number] [facility] Results Test Description Test Time Test Comments Results Result Sourc e Comments XR ANKLE RIGHT 2020-12-18 COMPLETE 3 VIEWS 16:16:22 *WW* [facility] CENTERName: LOLA ENRIQUEZ : 1960 Sex: F Exam: X-ray right ankle 3 viewsLocation: [id number]: Fall with right ankle painFindings:No fractures or dislocations identified. No osseous lesions. Mild soft tissue swelling is present.Impressio n:1. Mild soft tissue swelling without fracture or dislocation.Elect ronically signed by: Manuel Beebe MD 12/18/2020 4:16 PM CDT [U] XRAY 2020-08-21 Images acquired, Universi ty of FINGER(S) - 2 VWS 09:35:00 [place]. RIGHT [id number] this accession Phys icians number. Panel Description: SARS-CoV-2 (COVID-19) RNA [Presence] in 2 09:17:00 Unspecified specimen by DELFIN with probe detection Test Item Value Reference Range Interpretation Comme nts SARS-CoV-2, DELFIN (test Not Detected Not Detected Testin g was performed using the code = 00106-5) Aptima SARS- CoV-2 assay.This test was developed a nd its performance characteristics determinedby [employer] Angelica mercado. This test has not been FD [...] result in this assay.
< br/>Performed by:
LabAbdi Roger (AN)

Altitude CoRS-CoV (RAPID ANTIGEN) WW2019-11-15 21:58:00 Test Item Value Reference Range Interpretation Comments SARS-CoV (ANTIGEN) NEGATIVE NEGATIVE (test code = COVAG) COVID AG (test This test has been code = COVAGC) marketed under the FDA Emergency Use Authorization (EUA) to meet challenges of the COVID-19 pandemic. The validation standards normally enforced by the FDA and the [employer] of the [employer] (CAP) are more stringent than those required for this test. Therefore, the result should be interpreted with caution and close attention to other clinical and epidemiological data Wlmgvhsgd0027-00-21 21:37:001.590[facility] WawjjjbVmxkncmce1734-18-27 21:37:0017 [facility] JqpcwwaUuvmsgaqj7464-06-88 21:37:000.9[facility] 2015-01-04 21:37:29463 MEQ/LMemorial TjvsfekFsxpmwulz3262-47-30 21:37:005.2 MEQ/LMemorial RetgekfOirshqtnd0344-76-79 21:37:008.6[facility]ann[facility] 2015-01-04 21:37:0014.1[facility]orial NjmvzhnAbfropseqt9558-61-91 21:37:0043.5Memorial QnmdxtpFbisdzkrjp1300-32-85 21:37:54649 K/CMMMemorial HermannChemistry 2015-01-04 21:37:001.590[facility] MmanqitRtupmiatb7004-36-28 21:37:0017[facility]orial EjshujwYewxpcqsw1046-36-36 21:37:000.9[facility]orial MopqusfGextltknb2650-81-22 21:37:04691 MEQ/LMemorial JqbpthzJgudchzpp5186-13-03 21:37:005.2 MEQ/LMemorial UkilvzxKadaoszyh4912-60-03 21:37:008.emorial DsujsxmRjhdnxidte0658-79-80 21:37:0014.1[facility]orial MxvzkliOluisvlobq6197-81-79 21:37:0043.5Memorial Tal Fkgjztdgfm6693-74-10 21:37:95544 K/CMMMemorial IubnonqNwzbosakb9686-55-13 21:37:001.590Memorial TgvekmlBcramrrmd8230-79-35 21:37:0017[facility] Tal Iwnyolobz6998-64-22 21:37:000.9Memorial XfzzmumOfvhkpsgf9023-06-91 21:37:64907 MEQ/LMemorial FdtvocnWnnrxuczv5672-78-16 21:37:005.2 MEQ/LMemorial [place] Inzpipuvn1531-56-25 21:37:008.6Memorial YcrscwnYzcemedapd3301-29-52 21:37:0014.1 Memorial IqlgkuuDulacodvfe1203-53-51 21:37:0043.5[facility]ann[facility]emat[facility] 2015-01-04 21:37:93557 K/CMMMemorial PafxthrHbwamlpjx7020-24-93 21:37:001.590 Memorial NjxybnpNelunncgr4483-24-29 21:37:0017[facility] 2015-01-04 21:37:000.9Memorial VktzhngAoryngrri4720-34-80 21:37:66314 MEQ/L Memorial JbxzqksIguvuoneo7686-49-77 21:37:005.2 MEQ/LMemorial HermannChemistry 2015-01-04 21:37:008.6Memorial NytnjvbNkhzvcnnwa4772-19-43 21:37:0014.1Memorial HtotpqvGlxxeqxiom8549-10-41 21:37:0043.5Memorial XeezgkfRvgvntauap2503-68-36 21:37:86287 K/CMMMemorial HermannOb/Xls3383-13-88 20:34:06NormalMemorial [place] Ob/Kta8252-18-01 20:34:06NormalMemorial HermannOb/Uww6029-11-50 20:34:06Normal Memorial HermannOb/Bpc2209-96-19 20:34:06NormalMemorial HermannOb/Oau0131-77-79 20:34:06NormalMemorial HermannOb/Sgw1573-49-73 20:34:06NormalMemorial [place] Ob/Xtx8905-94-83 20:34:06NormalMemorial HermannOb/Jyo2377-30-18 20:34:06Normal Memorial Tal
[2021-06-20] MEDS ORDERED: HYDROCODONE/APAP 7.5/325 MG TAB ONE (22:26)
[2021-06-20] MEDS ORDERED: TETANUS & DIPHTHERIA TOX,ADULT 0.5 ML VIAL ONE (22:27)
--- NOTE | 2021-06-21 00:36 | EDPHYS ---
Physician Documentation [facility] Name: Shahnaz Ramos Age: 61 yrs Sex: Female : 1960 Arrival Date: 06/20/2021 Time: 22:08 Bed Waiting Private MD: ED Physician Lee Barrett HPI: 06/20 22:57 This 61 yrs old Female presents to ER via Wheelchair with complaints of Fall kb Injury. 22:57 Details of fall: The patient fell from a height, down approximately 3 stairs. Onset: kb The symptoms/episode began/occurred at 19:00. Associated injuries: The patient sustained right knee, abrasion, painful injury, left foot, painful injury, swelling. Severity of symptoms: At their worst the symptoms were moderate, in the emergency department the symptoms are unchanged. The patient has not experienced similar symptoms in the past. The patient has not recently seen a physician. Historical: - Allergies: 22:20 Aspirin; sm5 22:20 Imitrex; sm5 - PMHx: 22:20 Anxiety; Asthma; Bipolar disorder; cervical spinal stenosis; COPD; Depression; sm5 Diverticulitis; Fibromyalgia; GERD; Hepatitis C; insomnia; Migraines; Ulcers; - Immunization history:: Last tetanus immunization: > 10 years ago. - Social history:: Smoking status: Patient reports the use of cigarette tobacco products. ROS: 22:56 Constitutional: Negative for fever, chills, and weight loss. kb 22:56 MS/extremity: Positive for pain, swelling, tenderness, of the left foot and right knee. 22:56 All other systems are negative. Exam: 22:56 Constitutional: This is a well developed, well nourished patient who is awake, alert, kb and in no acute distress. Head/Face: Normocephalic, atraumatic. ENT: Moist Mucous membranes Respiratory: Respirations even and unlabored. No increased work of breathing. Talking in full sentences Neuro: Awake and alert, GCS 15, oriented to person, place, time, and situation. Moves all extremities. Normal gait. Psych: Awake, alert, with orientation to person, place and time. Behavior, mood, and affect are within normal limits. 22:56 Musculoskeletal/extremity: Extremities: grossly normal except: noted in the left foot: pain, swelling, tenderness, ROM: limited active range of motion due to pain, Circulation is intact in all extremities. Sensation intact. Weight bearing: is unable to bear weight. 22:56 Skin: injury, abrasion(s), moderate sized abrasion noted, of the right knee. Vital Signs: 22:23 BP 105 / 89; Pulse 95; Resp 18; Temp 98.1; Pulse Ox 94% on R/A; sm5 06/21 00:57 BP 110 / 87; Pulse 84; Resp 17; Pulse Ox 100% on R/A; sm5 MDM: 06/20 22:25 Patient medically screened. kb 22:55 Data reviewed: vital signs, nurses notes. Data interpreted: Pulse oximetry: on room air kb is 94 %. Interpretation: normal. 06/21 00:34 Counseling: I had a detailed discussion with the patient and/or guardian regarding: the kb historical points, exam findings, and any diagnostic results supporting the discharge/admit diagnosis, radiology results, the need for outpatient follow up, a orthopedic surgeon, to return to the emergency department if symptoms worsen or persist or if there are any questions or concerns that arise at home. 06/20 22:22 Order name: Foot Left 3 View XRAY kb 06/20 22:25 Order name: Knee Right 3 View XRAY kb Administered Medications: 06/20 22:31 Drug: Tetanus-Diphtheria Toxoid Adult 0.5 ml {Public Service Administrator: [employer]. Exp: sm5 10/20/2022. Lot #: [id number]. } Route: IM; Site: left deltoid; 22:32 Drug: [place] (HYDROcodone-acetaminophen) (7.5 mg-325 mg) 1 tabs Route: PO; sm5 06/21 00:57 Drug: Ketorolac 60 mg Route: IM; Site: right deltoid; 5 Disposition: 01:04 Co-signature as Attending Physician, Lee Barrett MD I agree with the assessment and rn plan of care. Attestation: The patient's history, exam findings, diagnostics, and a summary of any interventions or procedures was reviewed in detail with Vicki TREJO. Disposition Summary: 06/21/21 00:35 Discharge Ordered Location: Home kb Condition: Stable kb Diagnosis - Abrasion of lower leg - right knee kb - Contusion of right foot kb Followup: kb - With: Private Physician - When: 2 - 3 days - Reason: Recheck today's complaints, Continuance of care, Re-evaluation by your physician Followup: kb - With: Emergency Department - When: As needed - Reason: Worsening of condition Discharge Instructions: - Discharge Summary Sheet kb - Abrasion, [id number] kb - Foot Contusion, [id number] kb Forms: - Medication Reconciliation Form kb - Thank You Letter kb - Antibiotic Education kb - Prescription Opioid Use kb Prescriptions: - Diclofenac Sodium 75 mg Oral tablet,delayed release (DR/EC) - take 1 tablet by ORAL route 2 times per day As needed; 30 tablet; Refills: 0, kb Product Selection Permitted Signatures: Dispatcher [employer] EDMS Vicki Schwab, RAMIREZ-C BRICK CATCHER-Lee Roth MD MD rn Mazur, Sarah, RN RN sm5
--- NOTE | 2021-06-21 00:36 | ER ---
Nurse's Notes [facility] Name: Shahnaz Ramos Age: 61 yrs Sex: Female : 1960 Arrival Date: 06/20/2021 Time: 22:08 Bed Waiting Private MD: Diagnosis: Abrasion of lower leg-right knee;Contusion of right foot Presentation: 06/20 22:19 Chief complaint: Patient states: she was going down the stairs outside of her apartment 5 and fell down 4 concrete steps around 1900, abrasion to R knee, swelling and pain to L foot, no blood thinners. Care prior to arrival: Ice pack applied to injury. Mechanism of Injury: Fall down 4 steps. Trauma event details: Injury occurred: at home. Injury occurred: June 20, 2021 Injury occurred at: 19:00. 22:19 Acuity: [place] 4 [facility] 22:19 Method Of Arrival: Wheelchair [facility] 22:23 Coronavirus screen: At this time, the client does not indicate any symptoms associated [facility] with coronavirus-19. Ebola Screen: No symptoms or risks identified at this time. Initial Sepsis Screen: Does the patient meet any 2 criteria? No. Patient's initial sepsis screen is negative. Does the patient have a suspected source of infection? No. Patient's initial sepsis screen is negative. Risk Assessment: Do you want to hurt yourself or someone else? Patient reports no desire to harm self or others. Onset of symptoms was June 20, 2021 at 19:00. Triage Assessment: 06/21 00:57 Pain: Complains of pain in right leg and left foot and right knee. Neuro: No deficits 5 noted. Cardiovascular: No deficits noted. Respiratory: No deficits noted. Injury Description: swelling to L foot. Historical: - Allergies: 06/20 22:20 Aspirin; sm5 22:20 Imitrex; sm5 - PMHx: 22:20 Anxiety; Asthma; Bipolar disorder; cervical spinal stenosis; COPD; Depression; sm5 Diverticulitis; Fibromyalgia; GERD; Hepatitis C; insomnia; Migraines; Ulcers; - Immunization history:: Last tetanus immunization: > 10 years ago. - Social history:: Smoking status: Patient reports the use of cigarette tobacco products. Screenin/20 00:58 Abuse screen: Denies threats or abuse. Denies injuries from another. Nutritional sm5 screening: No deficits noted. Tuberculosis screening: No symptoms or risk factors identified. Fall Risk Fall in past 12 months (25 points). Total Snyder Fall Scale indicates Low Risk Score (25-44 pts). Fall prevention measures have been instituted. Assessment: 06/20 22:24 General: Appears in no apparent distress. Behavior is cooperative. Pain: Complains of sm5 pain in right knee, left leg. Vital Signs: 22:23 BP 105 / 89; Pulse 95; Resp 18; Temp 98.1; Pulse Ox 94% on R/A; sm5 06/21 00:57 BP 110 / 87; Pulse 84; Resp 17; Pulse Ox 100% on R/A; 5 ED Course: 06/20 22:08 Patient arrived in ED. 22:20 Triage completed. 5 22:22 Vicki Schwab [facility]NP[facility]C [facility] kb 22:22 Lee Barrett MD is Attending Physician. kb 23:51 Foot Left 3 View XRAY In Process Unspecified. EDMS 23:51 Knee Right 3 View XRAY In Process Unspecified. EDIN 06/21 00:58 Arm band placed on right wrist. sm5 00:58 Patient has correct armband on for positive identification. sm5 00:58 No provider procedures requiring assistance completed. Patient did not have IV access 5 during this emergency room visit. 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 Exp: 5 10/20/2022. Lot #: [id number]. } Route: IM; Site: left deltoid; 22:32 Drug: [place] (HYDROcodone-acetaminophen) (7.5 mg-325 mg) 1 tabs Route: PO; sm5 06/21 00:57 Drug: Ketorolac 60 mg Route: IM; Site: right deltoid; [facility] Outcome: 00:35 Discharge ordered by . kb 00:58 Discharged to home with crutches. sm5 00:58 Condition: good 00:58 Discharge instructions given to patient, Instructed on discharge instructions, medication usage, crutch walking, Demonstrated understanding of instructions, follow-up care, medications, crutch walking, Prescriptions given X 1. 00:59 Patient left the ED. 5 Signatures: Dispatcher [employer] EDMS Schwab, Vicki, UTILITY TELLER-C UTILITY TELLER-Ckb Adelina Mccarty Sarah, RN RN sm5
[2021-06-21] MEDS ORDERED: KETOROLAC 30 MG/ML INJ ONE (00:44)
[2021-06-21 01:18] VITALS: TEMP 98.1
[2021-06-21 01:21] VITALS: BP 110/87; O2SAT 100
--- NOTE | 2021-06-21 14:35 | RAD REPORT ---
EXAM DESCRIPTION: RAD - Knee Right 3 View - 06/20/2021 11:51 pm CLINICAL HISTORY: 61 years Female PAIN TECHNIQUE: 3 x-ray views of the right knee were performed on 06/20/2021 at 11:31 PM. COMPARISON: None FINDINGS: There is no evidence of fracture or dislocation. There is no significant arthritis or dege nerative change. There is mild narrowing of the medial joint compartment. No focal lytic or sclerotic bone lesions are seen. Bone mineralization is normal. No acute soft tissue abnormalities are identified. IMPRESSION: No evidence of acute osseous injury involving the right knee. There is mild narrowing of the medial joint compartment. Electronically signed by: Grisel Kate DO 06/21/2021 12:28 AM MAIL CARRIER AND CLERK Due to temporary technical issues with the PACS/Fluency reporting system, reports are being signed by the in house radiologists without review as a courtesy to insure prompt reporting. The interpreting radiologist is fully responsible for the content of the report.
--- NOTE | 2021-06-21 14:38 | RAD REPORT ---
EXAM DESCRIPTION: RAD - Foot Left 3 View - 06/20/2021 11:51 pm CLINICAL HISTORY: 61 years Female PAIN TECHNIQUE: 3 x-ray views of the left foot were performed on 06/20/2021 at 11:33 PM. COMPARISON: Previous left foot x-ray report from January 27, 2019. The images were not available for review. FINDINGS: There is no evidence of fracture or dislocation. There is no significant arthritis or dege nerative change. No focal lytic or sclerotic bone lesions are seen. There is a small plantar calcan eal spur. There is a small well-corticated osseous density adjacent to the anterior calcaneus which m ay represent an accessory center of ossification (os peroneum). Bone mineralization is normal. No acute soft tissue abnormalities are identified. IMPRESSION: No evidence of acute osseous injury involving the left foot. There is a small plantar ca lcaneal spur. Electronically signed by: Grisel Kate DO 06/21/2021 12:06 AM INSURANCE FOLLOW UP SPECIALIST Due to temporary technical issues with the PACS/Fluency reporting system, reports are being signed by the in house radiologists without review as a courtesy to insure prompt reporting. The interpreting radiologist is fully responsible for the content of the report.
== END 2021-06-21 00:59 | disposition home or self-care (01) ==
LOC: ER 22:05
DX: S80.211A Abrasion, right knee, initial encounter (principal); S90.31XA Contusion of right foot, initial encounter; W10.9XXA Fall (on) (from) unspecified stairs and steps, initial encounter; Z23 Encounter for immunization; Z72.0 Tobacco use; Z88.6 Allergy status to analgesic agent
CPT/HCPCS: 90471; 90714; 96372; 99284

== ENCOUNTER 2021-07-16 19:01 | Day surgery (SDC) | payer OTHER ==
--- OUTSIDE RECORDS SUMMARY | 2021-07-16 19:05 | XMS REPORT | Continuity of Care Document ---
:1960 Author Organization [facility] t Address [address] [place] [id number] Care Team Providers Name Role Phone VALLE, E Primary Care Physician Unavailable Cesar TATE Attending Clinician Unavailable Taisha PAC, S Attending Clinician Doctor Unassigned, Name [...] Number Effective Date Expiration Date S martha [facility] DUAL [id number] 2020 COMP HMO D SNP 00:00:00 [place]ID OF [place] [id number] 2020 00:00:00 Problems Condition Condition Condition Status Onset Resolution Last Treating Co mments Source Name Details Category Date Date Treatment Clinician Date CHEST PAIN Condition Active 2015-01-04 Memoria 01-04 16:37:00 l CHEST 00:00: [place] PAIN 00 Active 01/04/2015 Condition 5 [facility] LIGHTHEADE Condition Active 2015-01-04 Memoria DNESS 01-04 16:37:00 l 00:00: Tal LIGHTHEADE 00 DNESS Active 01/04/2015 Condition 5 Medical [facility] SHORTNESS Condition Active 2015-01-04 Memoria OF BREATH 01-04 16:37:00 l 00:00: [place] SHORTNESS 00 OF BREATH Active 01/04/2015 Condition [...] different from the original. 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 Emphysema Emphysema Problem Active Uni vers ity [...] U nivers ity of [place] [facility] Shortness Shortness Problem Active Uni vers of [...] y of diogram diogram [place] [facility] Allergies, Adverse Reactions, Alerts Allergy Allergy Status Severity Reaction(s) Onset Inactive Treating Comm ents Source Name Type Date Date Clinician ASA ASA Active Memoria 8 l 00:00: [place] 00 IMITREX IMITREX Active Memoria 01-04 l 00:00: [place] 00 Imitrex DA Active Unknown 0 [facility] 7-30 Medical 00:00: Center 00 Aspirin DA Active Unknown 2012-06 [facility] 2-14 Medical 00:00: Center 00 Aspirin Propensi Active Rash 2006-0 Univers ty to 1-10 ity of adverse 00:00: [place] reaction 00 Medical s Branch Sumatrip Propensi Active Shortness of 2006-0 Univers lindo ty to Breath 1-10 ity of Succinat adverse 00:00: [place] e reaction 00 Medical s Branch ASPIRIN DRUG Active Rash 2007-0 Univers INGREDI 1-10 ity of 00:00: [place] 00 Medical Branch SUMATRIP DRUG Active SOB 2007-0 Univers LINDO INGREDI 1-10 ity of SUCCINAT 00:00: [place] E 00 Medical Branch aspirin Allergy Active Univers to drug ity of (finding [place] ) Physici ans Imitrex Allergy Active Univers to drug ity of (finding [place] ) Physici ans Social History Social Habit Start Date Stop Date Quantity Comments Source Sex Assigned At Female Access He alth History of tobacco Cigarette Smoker [facility] Exposure to Not sure [facility] SARS-CoV-2 (event) [facility] Alcohol intake 2021-03-08 2021-03-08 Current University of 00:00:00 00:00:00 non-drinker of [facility] alcohol Branch (finding) Tobacco Comment 2021-03-06 2021-03-06 1 ppd Universit y of 00:00:00 00:00:00 [facility] Cigarettes smoked 2014-02-16 2014-02-16 Univers ity of current (pack per 00:00:00 00:00:00 ) - Reported Branch Tobacco use and 2014-02-16 2014-02-16 Never used Universit y of exposure 00:00:00 00:00:00 [facility] Smoking Status Start Date Stop Date Source Smoker (finding) [facility] Unknown if ever smoked Access He alth Current every day smoker 2014-02-16 00:00:00 Uni versity of [facility] Medications Ordered Filled Start Stop Current Ordering [...] 0-06 Puffs as ity of 16:05: needed. [place] [address] Medical Branch hydrOXYzine 2020-06 Yes 50mg Take [...] by mouth ity o f 16:05: at [place] [address] bedtime. Medical Branch HYDROcodone 2020-06 Yes 1{tbl} Take 1 Tab Univers -acetaminop 0-06 by mouth 2 it y of hen (NORCO) 16:05: (two) [place] 10-325 mg 17 times Medical tablet daily. Branch ALBUTEROL 2020-06 Yes 2{puff} Inhale 2 U nivers INHALE 0-06 Puffs as ity of 16:05: needed. [place] [address] Medical Branch hydrOXYzine 2020-06 Yes 50mg Take [...] by mouth ity o f 16:05: at [place] [address] bedtime. Medical Branch HYDROcodone 2020-06 Yes 1{tbl} Take 1 Tab Univers -acetaminop 0-06 by mouth 2 it y of hen (NORCO) 16:05: (two) [place] 10-325 mg 17 times Medical tablet daily. Branch ALBUTEROL 2020-06 Yes 2{puff} Inhale 2 U nivers INHALE 0-06 Puffs as ity of 16:05: needed. [place] [address] Medical Branch hydrOXYzine 2020-06 Yes 50mg Take 50 mg Univers (ATARAX) 50 0-06 by mouth 3 it y of mg tablet 16:05: (three) [place] 17 times Medical daily as Branch needed for Itching. QUEtiapine 2020-06 Yes 100mg Take 100 Un anjel (SEROQUEL) 0-06 mg by ity of 50 mg 16:05: mouth at [facility] [place] [facility] 17 bedtime. Medical Branch acetaminoph 2020-06 Yes 1{tbl} Take 1 Un anjel en-codeine 0-06 tablet by ity of 300-30 mg 16:05: mouth [place] tablet 17 every 4 Medical (four) Branch hours as needed. doxepin 50 2020-06 Yes 50mg Take 50 mg U nivers mg capsule 0-06 by mouth ity o f 16:05: at [place] [address] bedtime. Medical Branch simvastatin Yes 10mg Take 10 mg Univers 10 mg 6-08 by mouth ity of tablet 00:00: every [place] 00 evening. Medical Branch simvastatin Yes 10mg Take 10 mg Univers 10 mg 6-08 by mouth ity of tablet 00:00: every [place] 00 evening. Medical Branch simvastatin Yes 10mg Take 10 mg Univers 10 mg 6-08 by mouth ity of tablet 00:00: every [place] 00 evening. Medical Branch pregabalin Yes 100mg Take 100 Un anjel 100 mg 6-07 mg by ity of capsule 00:00: mouth 2 [place] 00 (two) Medical times Branch daily. pregabalin Yes 100mg Take 100 Un anjel 100 mg 6-07 mg by ity of capsule 00:00: mouth 2 [place] 00 (two) Medical times Branch daily. pregabalin Yes 100mg Take 100 Un anjel 100 mg 6-07 mg by ity of capsule 00:00: mouth 2 [place] 00 (two) Medical times Branch daily. DEXILANT 60 Yes 1{capsu Take 1 U nivers mg capsule 5-21 le} capsule by ity of 00:00: mouth 00 daily. Medical Branch levocetiriz Yes 5mg Take 5 mg U nivers ine 5 mg 5-21 by mouth ity of tablet 00:00: every [place] 00 evening. Medical Branch DEXILANT 60 Yes 1{capsu Take 1 U nivers mg capsule 5-21 le} capsule by ity of 00:00: mouth 00 daily. Medical Branch levocetiriz Yes 5mg Take 5 mg U nivers ine 5 mg 5-21 by mouth ity of tablet 00:00: every [place] 00 evening. Medical Branch DEXILANT 60 Yes 1{capsu Take 1 U nivers mg capsule 5-21 le} capsule by ity of 00:00: mouth 00 daily. Medical Branch levocetiriz Yes 5mg Take 5 mg U nivers ine 5 mg 5-21 by mouth ity of tablet 00:00: every [place] 00 evening. Medical Branch Cephalexin Cephalexin Yes RAMONA QUIJANO Q0.25D TAKE 1 Univers 500 MG Oral 500 MG Oral 3-22 M.D. TABLET 4 ity of Tablet Tablet 00:00: TIMES [place] 00 DAILY Physici ans antipyrine- Yes 2[drp] [...] LIPITOR Yes .qd Memoria 8-05 l 00:00: Tal 00 ZANAFLEX Yes .bid Memoria 8-05 l 00:00: HYDROCODONE Yes one po Bin emili -ACETAMINOP 8-05 twice a l HEN 10-325 00:00: day Tal MG TABS 00 COLCHICINE Yes one po Memor ia 8-05 twice a l 00:00: day ATARAX Yes prn Memoria 8-05 anxiety l 00:00: SEROQUEL Yes Two po qhs Mem oria 400 MG TABS 8-05 l 00:00: [place] 00 SEROQUEL 50 Yes Two po qam Memoria MG TABS 8-05 l 00:00: [place] 00 DEXILANT 60 Yes one po Bin emili MG CPDR 8-05 daily l 00:00: [place] 00 LIPITOR Yes .qd Memoria 8-05 l 00:00: [place] 00 ZANAFLEX Yes .bid Memoria 8-05 l 00:00: [place] 00 HYDROCODONE 2015-0 Yes one po Bin emili -ACETAMINOP 8-05 twice a l HEN 10-325 00:00: day Tal MG TABS 00 COLCHICINE Yes one po Memor ia 8-05 twice a l 00:00: day Tal 00 ATARAX 0 Yes prn Memoria 8-05 anxiety l 00:00: Tal 00 SEROQUEL 0 Yes Two po qhs [...] MG TABS 8-05 l 00:00: DEXILANT 60 0 Yes one po Bin emili MG CPDR 8-05 daily l 00:00: LIPITOR 0 Yes .qd Memoria 8-05 l 00:00: ZANAFLEX 0 Yes .bid Memoria 8-05 l 00:00: HYDROCODONE 0 Yes one po Bin emili -ACETAMINOP 8-05 twice a l HEN 10-325 00:00: day [place] MG TABS 00 SEROQUEL 0 Yes Two po qhs Mem oria 400 MG TABS 8-05 l 00:00: [place] COLCHICINE 0 Yes one po Memor ia [...] of Oral Tablet Oral Tablet 00:00: DAILY. 00 Physici ans Dexilant Dexilant Yes Univers CPDR CPDR ity of [place] [facility]ici ans Cymbalta 30 Cymbalta 30 Yes U nivers MG Oral MG Oral ity of Capsule Capsule [place] Delayed Delayed Physici Release Release ans Particles Particles Lyrica 300 Lyrica 300 Yes Uni vers MG Oral MG Oral ity of Capsule Capsule Physici ans Doxepin HCl Doxepin HCl Yes U nivers TABS TABS ity of [place] Physici ans SEROquel 50 SEROquel 50 Yes U nivers MG Oral MG Oral ity of Tablet Tablet [place] Physici ans Immunizations Ordered Filled Immunization Date Status Comments Sour e Immunization Name Name SARS-COV-2 COVID-19 2021-02-16 Completed Unive rsity of PFIZER VACCINE 00:00:00 [facility] [place] [facility] SARS-COV-2 COVID-19 2021-02-16 Completed Unive rsity of PFIZER VACCINE 00:00:00 [facility] [place] [facility] SARS-COV-2 COVID-19 2021-02-16 Completed Unive rsity of PFIZER VACCINE 00:00:00 [facility] [place] [facility] SARS-COV-2 COVID-19 2021-01-26 Completed Unive rsity of PFIZER VACCINE 00:00:00 [facility] [place] [facility] SARS-COV-2 COVID-19 2021-01-26 Completed Unive rsity of PFIZER VACCINE 00:00:00 [facility] [place] [facility] SARS-COV-2 COVID-19 2021-01-26 Completed Unive rsity of PFIZER VACCINE 00:00:00 [facility] [place] [facility] TDAP 2013-03-18 Completed University 00:00:00 [facility] TDAP 2013-03-18 Completed University 00:00:00 [facility] TDAP 2013-03-18 Completed [facility] 00:00:00 [facility] Vital Signs Vital Name Observation Time Observation Value Comments Source Systolic blood 2021-05-03 17:08:00 112 mm[Hg] Univer sity of pressure [facility] Diastolic blood 2021-05-03 17:08:00 75 mm[Hg] Unive rsity of pressure [facility] Heart rate 2021-05-03 17:08:00 85 /min General acute hospital Body height 2021-05-03 17:08:00 154.9 cm General acute hospital Body weight 2021-05-03 17:08:00 78.472 kg General acute hospital BMI 2021-05-03 17:08:00 32.69 kg/m2 General acute hospital Height 2020-12-18 15:59:00 154.94 CM Weight 2020-12-18 15:59:00 71.21 KG Height 2020-08-15 16:25:00 152.4 CM Weight 2020-08-15 16:25:00 68.03 KG Height 2019-11-15 21:05:00 154.94 CM Weight 2019-11-15 21:05:00 71.66 KG Height 2019-10-15 14:14:00 162.56 CM Weight 2019-10-15 14:14:00 72.57 KG Body height 2020-08-21 09:30:00 61 [in_us[facility] 2020-08-21 09:30:00 150 [lb_av] [facility] Physician s Body mass index 2020-08-21 09:30:00 28.34 kg/m2 Unive rsity of (BMI) [Ratio] [place] Physicia ns Height 2015-01-04 20:15:50 [facility] Weight 2015-01-04 20:15:50 [facility] Temperature Oral (F) 2015-01-04 20:15:50 98.4 F [facility] Heart Rate 2015-01-04 20:15:50 [facility] Systolic (mm Hg) 2015-01-04 20:15:50 [facility] Di[facility] (mm Hg) 2015-01-04 20:15:50 [facility] orial Tal Procedures Procedure Date / Time Performing Clinician Source Performed XR HIPS 2 VW BILATERAL 2021-05-03 17:47:00 Sheri Tate [facility] [place] [facility] Medical [place] REFERRAL- REQUEST/RESPONSE 2021 05:01:00 Doctor Unassigned , [facility] [place] Medical Branch DRAIN RH SUBQ TISS FASCIA 2020-08-15 00:00:00 [facility] OPEN APPR Center nfectious agent detection 2019-11-15 00:00:00 Ac cess Health by nucleic acid (DNA or smoking/tobacco cessation, 2015-01-04 20:15:50 M emoelizabeth Parada patient education and counseling vaginal Pap smear results 2014-01-31 20:34:06 Tx morial Tal colonoscopy 2013-05-02 21:35:09 Adwoa monte History of Tubal Ligation Univer [facility] Physicians History of Exploratory Universit y of [place] Laparotomy Physicians [facility] En[facility]ters Start End Encounter Admission Attending Care Care Encounter Source Date/Time Date/Time Type Type Clinicians Facility Department ID 2021-05-28 2021-05-28 Outpatient Dilip TATE [facility] [id number] Univers 00:00:00 00:00:00 SHERI [id number] ity [facility] 2021-05-21 2021-05-21 Outpatient Dilip TATE [facility] [id number] Univers 00:00:00 00:00:00 SHERI [id number] ity [facility] 2021-05-14 2021-05-14 Outpatient Dilip TATE [facility] [id number] Univers 14:45:00 14:45:00 SHERI [id number] ity [facility] 2021-05-14 2021-05-14 Outpatient Dilip TATE [facility] [id number] Univers 00:00:00 00:00:00 [facility] 2021-05-03 2021-05-03 [id number] Univers 11:15:00 23:59:00 [facility] 2021-05-03 2021-05-03 [facility] [id number] Univers 11:15:00 23:59:00 Encounter Sheri S HEALTH [id number] ity of [place] 4.2.7.2.686 Francesco as ILENE?BLEA [id number] Tx deb MARTINO [address] [place] MEDICAL OFFICE [facility] 2021-05-03 2021-05-03 Office [facility] [id number] Univers 10:24:20 10:54:20 Visit Sheri S HEALTH [id number] it y of [facility] [id number] Francesco as ILENE?BLEA [id number] Tx dical [place] [address] [place] MEDICAL OFFICE [facility] 2021 2021 Orders Doctor NATHAN [id number] Univers 00:00:00 00:00:00 Only Unassigned, MARK [id number] ity of [place] [facility] [id number] Francesco as [id number] [address] 2020-12-18 2020-12-18 Emergency E WOOD, [facility] [id number] [facility] 15:41:00 16:41:00 JA Medica [facility] 2020-08-21 2020-08-21 [facility] Orthopedics [id number] [facility] 09:00:00 09:00:00 tRAMONA ODEN M.D. Trauma i ty of Roxi [facility] 2020-08-15 2020-08-15 Emergency E NICK, [facility] [id number] [facility] 16:24:00 19:05:00 BOB Medica l [place] 2020-03-02 2020-03-02 [facility] Radiology [facility] [id number] 08:54:20 23:59:00 Encounter [place] [id number] [place] 4.2.7.2.686 [place] [id number] 2020-03-02 2020-03-02 [facility] Radiology [facility] 1.2.840.114 [id number] 08:29:56 08:53:00 Encounter [place] [id number] [place] 4.2.7.2.686 [place] [id number] 2020-01-19 2020-01-19 [facility] Radiology [facility] [id number] 12:00:00 23:59:00 Encounter [place] [id number] [place] 4.2.7.2.686 [place] [id number] 2019-12-10 2019-12-10 Laboratory Lab, [facility] [id number] 14:41:41 15:01:41 Only Fam Pob I Health [id number] [place] 4.2.7.2.686 Professio [id number] nal 0[address] 2019-11-15 2019-11-15 Emergency E ALBIN, [facility] [id number] [facility] 20:57:00 22:21:00 [facility] [place] 2019-11-15 2019-11-15 Outpatient [facility] [id number] Access 14:00:00 14:00:00 [id number] 2019-11-15 2019-11-15 Outpatient CHRIS [facility] [id number] Access 00:00:00 00:00:00 TUNG Vega 2019-11-15 2019-11-15 Outpatient CHRIS [facility] [id number] Access 00:00:00 00:00:00 TUNG Guerrero [id number] [facility] [id number] 2019-10-15 2019-10-15 Emergency E CAILIN, [facility] [id number] [facility] 14:01:00 15:07:00 ROSE MARIE Medica [facility] 2015-01-04 2015-01-04 Office nullFlavo [facility] [id number] Memoria 00:00:00 00:00:00 Visit r [place] Medical [id number] Xu Boswell [facility] 2015-01-04 2015-01-04 Lab [place] [id number] Memoria 00:00:00 00:00:00 r [place] [id number] Xu Elbert [facility] Results Test Description Test Time Test Comments Results Result [facility] e Comments XR ANKLE RIGHT 2020-12-18 COMPLETE 3 VIEWS 16:16:22 *WW* [facility] : 1960 Sex: F Exam: X-ray right ankle 3 viewsLocation: [id number]: Fall with right ankle painFindings:No fractures or dislocations identified. No osseous lesions. Mild soft tissue swelling is present.Ada cordero:1. Mild soft tissue swelling without fracture or dislocation.Elect ronically signed by: Manuel Beebe MD 12/18/2020 4:16 PM CDT [U] XRAY 2020-08-21 Images acquired, Universi ty of FINGER(S) - 2 VWS 09:35:00 [place]. RIGHT [id number] this accession Phys icians number. Panel Description: SARS-CoV-2 (COVID-19) RNA [Presence] in 2 09:17:00 Unspecified specimen by DELFIN with probe detection Test Item Value Reference Range Interpretation Comme nts SARS-CoV-2, DELFIN (test Not Detected Not Detected Testin g was performed using the code = 21178-1) Aptima SARS- CoV-2 assay.This test was developed a nd its performance characteristics determinedby [facility] Angelica mercado. This test has not been [...] result in this assay.
< br/>Performed by:
[facility] Kana (AN)

[facility]TIGEN[facility] WW2019-11-15 21:58:00 Test Item Value Reference Range Interpretation Comments SARS-CoV (ANTIGEN) NEGATIVE NEGATIVE (test code = COVAG) COVID AG (test This test has been code = COVAGC) marketed under the FDA Emergency Use Authorization (EUA) to meet challenges of the COVID-19 pandemic. The validation standards normally enforced by the FDA and the College of the [place] [employer] (CAP) are more stringent than those required for this test. Therefore, the result should be interpreted with caution and close attention to other clinical and epidemiological data Ulwengyau3124-54-32 21:37:001.590[facility] FgzqvklQqgarwwwn1344-28-50 21:37:0017 [facility] SltvopaMvazybwfn2654-72-73 21:37:000.9[facility]ann[facility] 2015-01-04 21:37:72588 MEQ/LMemorial AwbtxsiJbgzkzabc5570-66-89 21:37:005.2 MEQ/LMemorial IcxayulPbsfrbcnx4939-59-14 21:37:008.6[facility]annHematology 2015-01-04 21:37:0014.1[facility]orial JadiwhkYicbksnwzi9884-29-90 21:37:0043.5Memorial DtmczhfYgujbdizkv7567-45-87 21:37:07120 K/CMMMemorial HermannChemistry 2015-01-04 21:37:001.590[facility]orial WwyfnbgEnskvohxz0778-25-39 21:37:0017Memorial IxboxrgSkmlujkzj0165-74-94 21:37:000.9Memorial MdrhzlbOhpgvmqmk5748-22-74 21:37:95336 MEQ/LMemorial TxulnmdCmysyeqzo1177-18-82 21:37:005.2 MEQ/LMemorial FbkghstOtgvgsybc9980-84-99 21:37:008.6[facility]orial NowzbipCtlxzukvhm4545-36-93 21:37:0014.1[facility]orial DnrqvxfFrvukrccgx4875-51-65 21:37:0043.5[facility] [place] Orrsgztzno2555-41-35 21:37:43712 K/CMMMemorial JyhlfyaUdogvvynm9714-86-65 21:37:000.9Memorial UdfdyspIioxkvrkg4302-49-56 21:37:80691 MEQ/LMemorial [place] Qovfildfc5597-54-27 21:37:005.2 MEQ/LMemorial TmjnqviKuespbvar6331-33-78 21:37:008.6[facility]orial ClhahdpGdptvglxwt0950-84-61 21:37:0014.1[facility] [place] Lbkduksytf6555-51-04 21:37:0043.5Memorial ZwsbrkpAtzaamyrdk0296-47-30 21:37:00 208 K/CMMMemorial KcamoxdKxaiglpsa9290-75-48 21:37:001.590[facility] [place] Cqeluqkua7109-32-86 21:37:0017Memorial NuoonkiIvbusqjjy4162-15-07 21:37:000.9 Memorial DofvocnIeiorbonj3980-01-41 21:37:99495 MEQ/LMemorial HermannChemistry 2015-01-04 21:37:005.2 MEQ/LMemorial SyggmbyKfxzrpnqb2627-59-44 21:37:008.6 Memorial ZpvayfwCrdachmnpe9252-98-24 21:37:0014.1[facility] HermannHematology 2015-01-04 21:37:0043.5Memorial RmfurduFynyobebry1054-38-48 21:37:72929 K/CMM Memorial BlaxqvaZnmvphqwn4443-17-01 21:37:001.590[facility]ann[facility] 2015-01-04 21:37:0017Memorial HermannOb/Pfb3175-89-97 20:34:06NormalMemorial HermannOb/Fbd9007-88-38 20:34:06NormalMemorial HermannOb/Npi1341-96-91 20:34:06 NormalMemorial HermannOb/Bfb4322-11-16 20:34:06NormalMemorial HermannOb/[employer] 2014-01-31 20:34:06NormalMemorial HermannOb/Hne7869-26-76 20:34:06NormalMemorial HermannOb/Ggr6167-00-66 20:34:06NormalMemorial HermannOb/Uaz6202-10-96 20:34:06 NormalMemorial Tal
[2021-07-16] MEDS ORDERED: ONDANSETRON 4 MG/2 ML VIAL ONE ×4 (19:17→22:22)
[2021-07-16] MEDS ORDERED: CEFAZOLIN SODIUM 1 GM/VIAL ONE (19:17)
[2021-07-16] MEDS ORDERED: MORPHINE 4 MG/ML SYR ONE ×2 (19:17→19:41)
[2021-07-16] MEDS ORDERED: NA CHLORIDE 0.9% 50 ML ONE (19:19)
[2021-07-16] MEDS ORDERED: LIDOCAINE 1% W/EPI 1:100,000 MDV 50 ML VIAL ONE (19:23)
[2021-07-16] MEDS ORDERED: LORazepam 2 MG/ML VIAL ONE (19:41)
--- NOTE | 2021-07-16 19:42 | ER ---
Nurse's Notes [facility] Name: Shahnaz Ramos Age: 61 yrs Sex: Female : 1960 Arrival Date: 07/16/2021 Time: 19:05 Bed 3 Private MD: John Miguel E Diagnosis: Bitten by dog;Laceration without foreign body of left forearm-large 10 cm flap laceration Presentation: 07/16 19:10 Chief complaint: Patient states: dog bite to right arm. Coronavirus screen: Vaccine cb5 status: Patient reports receiving the 2nd dose of the covid vaccine. [employer] Client denies travel out of the [place] in the last 14 days. At this time, the client does not indicate any symptoms associated with coronavirus-19. Ebola Screen: No symptoms or risks identified at this time. Initial Sepsis Screen: Does the patient meet any 2 criteria? No. Patient's initial sepsis screen is negative. Does the patient have a suspected source of infection? No. Patient's initial sepsis screen is negative. Risk Assessment: Do you want to hurt yourself or someone else? Patient reports no desire to harm self or others. Onset of symptoms is unknown. 19:10 Method Of Arrival: Ambulatory cb5 19:10 Acuity: WOLFGANG 2 cb5 Triage Assessment: 19:12 Bite description: bite by a dog, animal information: vaccination(s) is unknown. cb5 General: Appears uncomfortable, Behavior is cooperative, anxious, crying. Pain: Complains of pain in left arm Pain currently is 10 out of 10 on a pain scale. 20:37 Bite description: bite sustained to dorsal aspect of left forearm. as6 Historical: - Allergies: 19:12 Aspirin; cb5 19:12 Imitrex; cb5 - PMHx: 19:12 Anxiety; Asthma; Bipolar disorder; cervical spinal stenosis; Depression; COPD; cb5 Fibromyalgia; GERD; Diverticulitis; insomnia; Hepatitis C; Ulcers; Migraines; - PSHx: 19:12 Unable to Obtain; cb5 - Immunization history:: Adult Immunizations up to date, Client reports receiving the 2nd dose of the Covid vaccine, Last tetanus immunization: unknown. - Social history:: Smoking status: Patient reports the use of cigarette tobacco products, smokes one pack cigarettes per day. Patient/guardian denies using alcohol. Screenin:32 Abuse screen: Denies threats or abuse. Denies injuries from another. Nutritional as6 screening: No deficits noted. Tuberculosis screening: No symptoms or risk factors identified. Fall Risk None identified. Assessment: 19:00 Pain: Complains of pain in dorsal aspect of left forearm Pain at worst was 10 out of 10 as6 on a pain scale. Derm: Skin wound to l forearm Skin is normal, Wound noted dorsal aspect of left forearm Reports pain that is 10 out of 10 on a pain scale. 19:00 General: Appears uncomfortable, Behavior is anxious, crying, restless. as6 19:56 General: wet to dry drsg applied . as6 20:00 General: [place] . cb5 20:35 General: pt reports feeling better and appears less anxious . as6 Vital Signs: 19:45 BP 170 / 105; Pulse 108; Resp 22 S; Temp 99.1(TE); Pulse Ox 97% on R/A; as6 ED Course: 19:05 Patient arrived in ED. es 19:05 John Miguel MD is Private Physician. es 19:09 Don Mclain MD is Attending Physician. opal 19:12 Triage completed. cb5 19:12 Arm band placed on. cb5 19:20 Inserted saline lock: 18 gauge in right antecubital area, using aseptic technique. as6 Blood collected. 19:28 Comprehensive Metabolic Panel Sent. oe 19:28 CBC with Diff Sent. oe 19:35 Forearm Left XRAY In Process Unspecified. EDMS 19:35 Miriam Quevedo, NEHA is Primary Nurse. cb5 19:39 Piter Marin MD is Hospitalizing Provider. opal 20:01 COVID-19 SARS RT PCR (Document "Date of Onset" if Symptomatic) Sent. cb5 20:02 SARS-COV-2 RT PCR Sent. cb5 20:33 Placed in gown. Bed in low position. Call light in reach. Side rails up X2. Adult w/ as6 patient. Pulse ox on. NIBP on. Warm blanket given. 20:36 No provider procedures requiring assistance completed. as6 20:37 Patient admitted, IV remains in place. as6 Administered Medications: 19:36 Drug: Zofran (Ondansetron) 4 mg Route: IVP; Site: right antecubital; cb5 19:36 Follow up: Response: No adverse reaction cb5 19:36 Drug: morphine 4 mg Route: IVP; Site: right antecubital; cb5 19:36 Follow up: Response: No adverse reaction; RASS: Restless (+1) cb5 20:38 Follow up: Response: No adverse reaction; RASS: Alert and Calm (0) as6 19:37 Drug: NS 0.9% 1000 ml Route: IV; Rate: 1 bolus; Site: right antecubital; cb5 20:39 Follow up: Response: No adverse reaction; IV Status: Infusion continued upon admission as6 19:37 Drug: Ancef (cefazolin) 2 grams Route: IVPB; Infused Over: 30 mins; Site: right cb5 antecubital; 20:38 Follow up: Response: No adverse reaction; IV Status: Completed infusion; IV Intake: as6 100ml 19:47 Drug: Ativan (LORazepam) 1 mg Route: IVP; Site: right antecubital; as6 20:01 Follow up: Response: No adverse reaction cb5 20:38 Follow up: Response: No adverse reaction as6 19:48 Drug: morphine 4 mg Route: IVP; Site: right antecubital; as6 20:02 Follow up: Response: No adverse reaction; RASS: Alert and Calm (0) cb5 20:38 Follow up: Response: No adverse reaction; RASS: Alert and Calm (0) as6 19:48 Drug: Zofran (Ondansetron) 4 mg Route: IVP; Site: right antecubital; as6 20:02 Follow up: Response: No adverse reaction cb5 20:38 Follow up: Response: No adverse reaction as6 20:08 Drug: Tetanus-Diphtheria Toxoid Adult 0.5 ml {Payroll Benefits Administrator: Feedback. Exp: as6 10/20/2022. Lot #: [id number]. } Route: IM; Site: right deltoid; 20:39 Follow up: Response: No adverse reaction as6 20:30 Not Given (pt being taken to OR): Lidocaine-Epinephrine -1%: (1:100,000) 15 ml 20 ml as6 Infiltration once; to bedside Intake: 20:38 IV: 100ml; Total: 100ml. as6 Outcome: 19:41 Decision to Hospitalize by Provider. opal 20:36 Admitted to OR accompanied by nurse, family with patient, via wheelchair, with chart. as6 20:36 Condition: stable 20:36 Instructed on the need for admit. 20:39 Patient left the ED. as6 Signatures: Dispatcher [employer] Don Camejo MD MD cha Salyer, Shelton Bautista Ashby, RN RN as6 Miriam Quevedo, RN RN cb5
--- NOTE | 2021-07-16 19:42 | EDPHYS ---
Physician Documentation [facility] Name: Shahnaz Ramos Age: 61 yrs Sex: Female : 1960 Arrival Date: 07/16/2021 Time: 19:05 Bed 3 Private MD: John Miguel E ED Physician Don Mclain HPI: 07/16 19:23 This 61 yrs old Female presents to ER via Ambulatory with complaints of Dog opal Bite. 19:23 The patient was bitten on the dorsal aspect of left forearm and palmar aspect of left opal forearm. Onset: The symptoms/episode began/occurred just prior to arrival. Animal information: The animal was reported to appear healthy. Animal's vaccinations are up to date. Secondary to the bite the patient reports multiple lacerations, pain. Associated signs and symptoms: Pertinent positives: swelling at site, tenderness. Severity of symptoms: At their worst the symptoms were moderate, in the emergency department the symptoms are unchanged. The patient has not experienced similar symptoms in the past. Historical: - Allergies: 19:12 Aspirin; cb5 19:12 Imitrex; cb5 - PMHx: 19:12 Anxiety; Asthma; Bipolar disorder; cervical spinal stenosis; Depression; COPD; cb5 Fibromyalgia; GERD; Diverticulitis; insomnia; Hepatitis C; Ulcers; Migraines; - PSHx: 19:12 Unable to Obtain; cb5 - Immunization history:: Adult Immunizations up to date, Client reports receiving the 2nd dose of the Covid vaccine, Last tetanus immunization: unknown. - Social history:: Smoking status: Patient reports the use of cigarette tobacco products, smokes one pack cigarettes per day. Patient/guardian denies using alcohol. ROS: 19:25 Constitutional: Negative for fever, chills, and weight loss, Eyes: Negative for injury, opal pain, redness, and discharge, ENT: Negative for injury, pain, and discharge, Neck: Negative for injury, pain, and swelling, Cardiovascular: Negative for chest pain, palpitations, and edema, Respiratory: Negative for shortness of breath, cough, wheezing, and pleuritic chest pain, Abdomen/GI: Negative for abdominal pain, nausea, vomiting, diarrhea, and constipation, Back: Negative for injury and pain, : Negative for injury, bleeding, discharge, and swelling, Neuro: Negative for headache, weakness, numbness, tingling, and seizure, Psych: Negative for depression, anxiety, suicide ideation, homicidal ideation, and hallucinations, Allergy/Immunology: Negative for hives, rash, and allergies, Endocrine: Negative for neck swelling, polydipsia, polyuria, polyphagia, and marked weight changes, Hematologic/Lymphatic: Negative for swollen nodes, abnormal bleeding, and unusual bruising. 19:25 MS/extremity: Positive for decreased range of motion, laceration, pain, of the dorsal aspect of left forearm and palmar aspect of left forearm. Exam: 19:25 Constitutional: This is a well developed, well nourished patient who is awake, alert, opal and in no acute distress. Head/Face: Normocephalic, atraumatic. Eyes: Pupils equal round and reactive to light, extra-ocular motions intact. Lids and lashes normal. Conjunctiva and sclera are non-icteric and not injected. Cornea within normal limits. Periorbital areas with no swelling, redness, or edema. ENT: Nares patent. No nasal discharge, no septal abnormalities noted. Tympanic membranes are normal and external auditory canals are clear. Oropharynx with no redness, swelling, or masses, exudates, or evidence of obstruction, uvula midline. Mucous membranes moist. Neck: Trachea midline, no thyromegaly or masses palpated, and no cervical lymphadenopathy. Supple, full range of motion without nuchal rigidity, or vertebral point tenderness. No Meningismus. Chest/axilla: Normal chest wall appearance and motion. Nontender with no deformity. No lesions are appreciated. Cardiovascular: Regular rate and rhythm with a normal S1 and S2. No gallops, murmurs, or rubs. Normal PMI, no JVD. No pulse deficits. Respiratory: Lungs have equal breath sounds bilaterally, clear to auscultation and percussion. No rales, rhonchi or wheezes noted. No increased work of breathing, no retractions or nasal flaring. Abdomen/GI: Soft, non-tender, with normal bowel sounds. No distension or tympany. No guarding or rebound. No evidence of tenderness throughout. Back: No spinal tenderness. No costovertebral tenderness. Full range of motion. Female : Normal external genitalia. Skin: Warm, dry with normal turgor. Normal color with no rashes, no lesions, and no evidence of cellulitis. Neuro: Awake and alert, GCS 15, oriented to person, place, time, and situation. Cranial nerves II-XII grossly intact. Motor strength 5/5 in all extremities. Sensory grossly intact. Cerebellar exam normal. Normal gait. Psych: Awake, alert, with orientation to person, place and time. Behavior, mood, and affect are within normal limits. 19:25 Musculoskeletal/extremity: Circulation is intact in all extremities. Sensation intact. Compartment Syndrome exam of affected extremity: is normal. DVT Exam: swelling, tenderness. 19:25 Skin: Appearance: Color: normal in color, Temperature: normal temperature, Moisture: normal moisture, petechiae, not noted, ecchymosis, not noted, flushing, not noted, diaphoresis is not appreciated, injury, laceration(s), the wound is approximately 2 cm(s), with a depth of 1 cm(s), of the palmar aspect of left forearm, the second wound is approximately 10 cm(s), with a depth of .5 cm(s), of the dorsal aspect of left forearm. Vital Signs: 19:45 BP 170 / 105; Pulse 108; Resp 22 S; Temp 99.1(TE); Pulse Ox 97% on R/A; as6 MDM: 19:09 Patient medically screened. [facility] 19:28 Differential diagnosis: tendon injury, vascular injury, rabies, cellulitis, closed opal fracture, contusion. Rabies Status: Rabies immunization is not indicated. Data reviewed: vital signs, nurses notes, lab test result(s), radiologic studies, plain films. Data interpreted: electrician elevator maintenance: rate is 82 beats/min, rhythm is regular, Pulse oximetry: on room air is 99 %. Test interpretation: by ED physician or midlevel provider: plain radiologic studies. Counseling: I had a detailed discussion with the patient and/or guardian regarding: the historical points, exam findings, and any diagnostic results supporting the discharge/admit diagnosis, lab results, radiology results. 07/16 19:19 Order name: CBC with Diff [facility] 07/16 19:19 Order name: Comprehensive Metabolic Panel [facility] 07/16 19:19 Order name: Forearm Left XRAY [facility] 07/16 19:44 Order name: XRAY Chest (1 view) 07/16 19:44 Order name: COVID-19 SARS RT PCR (Document "Date of Onset" if Symptomatic) 07/16 19:44 Order name: SARS-COV-2 RT PCR EDND 07/16 19:19 Order name: Dressing - Wound; Complete Time: 19:56 [facility] 07/16 19:44 Order name: EKG; Complete Time: 19:44 07/16 19:44 Order name: EKG - Nurse/Tech; Complete Time: 20:01 bb Administered Medications: 19:36 Drug: Zofran (Ondansetron) 4 mg Route: IVP; Site: right antecubital; cb5 19:36 Follow up: Response: No adverse reaction cb5 19:36 Drug: morphine 4 mg Route: IVP; Site: right antecubital; cb5 19:36 Follow up: Response: No adverse reaction; RASS: Restless (+1) cb5 20:38 Follow up: Response: No adverse reaction; RASS: Alert and Calm (0) as6 19:37 Drug: NS 0.9% 1000 ml Route: IV; Rate: 1 bolus; Site: right antecubital; cb5 20:39 Follow up: Response: No adverse reaction; IV Status: Infusion continued upon admission as6 19:37 Drug: Ancef (cefazolin) 2 grams Route: IVPB; Infused Over: 30 mins; Site: right cb5 antecubital; 20:38 Follow up: Response: No adverse reaction; IV Status: Completed infusion; IV Intake: as6 100ml 19:47 Drug: Ativan (LORazepam) 1 mg Route: IVP; Site: right antecubital; as6 20:01 Follow up: Response: No adverse reaction cb5 20:38 Follow up: Response: No adverse reaction as6 19:48 Drug: morphine 4 mg Route: IVP; Site: right antecubital; as6 20:02 Follow up: Response: No adverse reaction; RASS: Alert and Calm (0) cb5 20:38 Follow up: Response: No adverse reaction; RASS: Alert and Calm (0) as6 19:48 Drug: Zofran (Ondansetron) 4 mg Route: IVP; Site: right antecubital; as6 20:02 Follow up: Response: No adverse reaction cb5 20:38 Follow up: Response: No adverse reaction as6 20:08 Drug: Tetanus-Diphtheria Toxoid Adult 0.5 ml {Tool Chaser: Sandata. Exp: as6 10/20/2022. Lot #: [id number]. } Route: IM; Site: right deltoid; 20:39 Follow up: Response: No adverse reaction as6 20:30 Not Given (pt being taken to OR): Lidocaine-Epinephrine -1%: (1:100,000) 15 ml 20 ml as6 Infiltration once; to bedside Disposition Summary: 07/16/21 19:41 Hospitalization Ordered Hospitalization Status: Observation opal Provider: Piter Marin cha Condition: Stable opal Problem: new opal Symptoms: have improved opal Bed/Room Type: Standard opal Location: Operating Room(07/16/21 20:12) Room Assignment: (07/16/21 20:12) Diagnosis - Bitten by dog opal - Laceration without foreign body of left forearm - large 10 cm flap laceration opal Forms: - Medication Reconciliation Form opal - SBAR form opal Signatures: Dispatcher [employer] EDMS Lori Lomax RN RN Don Amos MD MD cha Ballard, Brenda, RN RN bb Slawson, Ashby, RN RN as6 Miriam Quevedo, NEHA RN cb5 Corrections: (The following items were deleted from the chart) 20:12 19:41 Telemetry/MedSurg (observation) [facility] 20:12 19:41 [facility]
[2021-07-16 19:48] LABS: Absolute Lymphocytes (CBC) 3.6 K/uL (0.7-4.9); Lymphocytes % 33.6 % (15.3-44.8); MPV 9.1 fL (7.6-11.3); RBC Red Blood Cell Count 4.85 M/uL (3.86-4.86)
--- NOTE | 2021-07-16 19:57 | RAD REPORT ---
EXAM DESCRIPTION: RAD - Forearm Left - 07/16/2021 7:35 pm CLINICAL HISTORY: PAIN COMPARISON: No comparisons FINDINGS: No fracture, dislocation or radiopaque foreign body seen.
[2021-07-16] MEDS ORDERED: TETANUS & DIPHTHERIA TOX,ADULT 0.5 ML VIAL ONE (20:04)
[2021-07-16 20:12] LABS: Bilirubin Total 0.7 mg/dL (0.2-1.0); Potassium 3.7 mmol/L (3.5-5.1)
[2021-07-16] MEDS ORDERED: ACETAMINOPHEN 500 MG TAB PO PRN (20:16)
[2021-07-16] MEDS ORDERED: ONDANSETRON 4 MG/2 ML VIAL IV PRN ×2 (20:16→22:35)
[2021-07-16] MEDS ORDERED: NA CHLORIDE 0.9% 1,000 ML IV SCH (20:16)
[2021-07-16 20:18] LABS: Albumin 3.9 g/dL (3.4-5.0)
[2021-07-16] MEDS: NA CHLORIDE 0.9% 1,000 ML ONE ×2 (20:30→21:00)
[2021-07-16] MEDS ORDERED: LIDOCAINE 2% MPF 5 ML VIAL ONE (20:37)
[2021-07-16] MEDS ORDERED: propofoL 200 MG/20 ML VIAL IV ONE (20:37)
[2021-07-16] MEDS ORDERED: FENTANYL CITR 100 MCG/2 ML ONE ×2 (20:37→21:20)
[2021-07-16] MEDS ORDERED: NA CIT/CITRIC AC 30 ML ORAL UDC ONE (20:47)
[2021-07-16] MEDS ORDERED: Ringers Lactate 1,000 ML IV ONE (20:47)
[2021-07-16] MEDS ORDERED: ROCURONIUM 50 MG/5 ML VIAL IV ONE (20:55)
[2021-07-16 21:01] LABS: Blood Morphology Comment NOT SEEN (NOT SEEN); Platelet Estimate ADEQ
--- NOTE | 2021-07-16 21:06 | P.HP ---
Date of Service: 07/16/21 PC: This is-year-old female presented emergency room after sustaining a dog bite to her left arm. HPC: Patient was at her son-in-law's house. A dog jumped up and grabbed her arm. She sustained a laceration to the skin and subcutaneous tissue. PMHx: Anxiety; Asthma; Bipolar disorder; cervical spinal stenosis; Depression; COPD; Fibromyalgia; GERD; Diverticulitis; insomnia; Hepatitis C; Ulcers; Migraines; Social Hx: Allergic to aspirin, and sumatriptan. No cigarettes. Sys R: States she is otherwise been in good health. No chest pain or palpitations. No urinary complaints. O/E: Awake alert vital signs are stable, calm at the moment HEENT: Negative Chest: Chest movement equal bilaterally Abd: Negative [place]: Left arm has a evulsion type laceration on the dorsal surface of the forearm. Not actively bleeding at the moment. Appears to be some skin loss but mostly tear in the skin. No evidence of any motor deficit or sensation at this time but difficult to evaluate as patient is a little anxious. Data: X-ray negative Impression: Dog bite to left forearm Plan: I will taken the operating room for exploration, debridement, and irrigation of this dog bite to the patient's left forearm. The risks of this procedure were discussed. The possibility of bleeding, infection, missed injuries to nerves muscles and tendons were explained. The possible need for further surgeries and procedures. Scar formation and need to go back to the OR if skin loss reveals itself in a few days time. She understands and wants us to proceed.
--- NOTE | 2021-07-16 21:08 | RAD REPORT ---
EXAM DESCRIPTION: RAD - Chest Single View - 07/16/2021 8:29 pm CLINICAL HISTORY: surgery Chest pain. COMPARISON: Chest Single View dated 12/21/2019; Chest Pa And Lat (2 Views) dated 03/12/2019; Chest Si ngle View dated 07/10/2017; Chest Pa And Lat (2 Views) dated 02/08/2017 FINDINGS: Portable technique limits examination quality. The lungs are grossly clear. The heart is normal in size. No displaced fractures. IMPRESSION: No acute intrathoracic process suspected.
[2021-07-16] MEDS ORDERED: dexAMETHasone 10 MG/ML VIAL ONE (21:31)
[2021-07-16] MEDS ORDERED: Phenylephrine HCl 10 MG/ML 1 ML VIAL ONE (21:47)
[2021-07-16] MEDS ORDERED: Mastisol Adhesive Liq ONE (21:54)
[2021-07-16] MEDS ORDERED: MEPERIDINE HCL 25 MG/ML SYR ONE (21:58)
[2021-07-16] MEDS: HYDROMORPHONE HCL 1 MG/ML INJ ONE ×6 (22:22→22:55)
--- NOTE | 2021-07-16 22:24 | P.OP ---
Preoperative diagnosis: Dog bite to the left arm Postoperative diagnosis: Complex laceration to the left arm Primary procedure: Closure of complex laceration to the left arm Secondary procedure: Post lavage of complex laceration to the left arm Other procedure(s): Debridement of complex laceration to the left arm Anesthesia: General Estimated blood loss: Less than 10 cc Specimen: Debrided tissue was not sent Operative Technique: Patient brought the operating room placed supine on the table. After the induction of adequate general endotracheal anesthesia, the area of the left arm was prepped with a Betadine solution, she was draped in usual aseptic manner. Attention was turned towards his complex laceration of her left arm. The laceration extended from the thenar margin of the forearm for a length of approximately 10 cm. There was a another jagged portion that extended upwards for approximately 4 cm. The total area of muscle exposed was 8 cm x 7 cm. A separate 2cm linear wound was also on the palmar area of the forearm. Attention was turned towards the diagonal laceration that measured approximately 10 cm. We carefully approximated the tissue using interrupted sutures of has. The skin edges were brought together. The 4 cm extension the corner of which was brought up to the wound and a triangular stitch was placed to hold it altog ether. Further interrupted sutures were used to loosely approximate the fat and subcutaneous tissue as well as the skin itself. Having brought the wound together sy were now used to fix the skin in place. The wound having been loosely closed, was now covered with Xeroform gauze. The other 2 cm wound was approximated also with sy. Over the wound itself there was a layer of Xeroform gauze and to dries scrub sponges. Tegaderm was then used to fix this in position. Applying suction to the whole area we were able to get the wound to collapse down as much like a wound VAC to help hold pressure on the wound in an effort to try and prevent postoperative seroma formation and allow the subcutaneous tissue to be adherent to the underlying muscle and fascia. It should be noted that on inspection of our wound there was only mild avulsion of the fascia over the belly of the muscles there was no extension any deeper. We did not see any exposed tendon any hard bleeding or venous blood at the time of surgery. The skin edges appear relatively viable, but we will see how they demarcate over the next few days. At this point a Kerlix pleural was placed over the whole dressing. Sling has been ordered to be applied in the OR. A Marcaine block was then done across the upper arm on the dorsal surface to allow for adequate analgesia in the postoperative period. At the end of the procedure the patient was in a stable condition was sent to the recovery room. Needle sponge instrument count were correct. No drains were placed. Complications: None Transferred to: Recovery Room Condition: Good
[2021-07-16] MEDS: CEFAZOLIN 1 GM in NA CHLORIDE 0.9% 50 ML IVPB SCH (23:52)
[2021-07-16] MEDS: Ringers Lactate 1,000 ML IV SCH (23:53)
[2021-07-17] MEDS: HYDROCODONE/APAP 7.5/325 MG TAB PO PRN ×3 (00:02→15:46)
[2021-07-17] MEDS: MORPHINE 4 MG/ML SYR IV PRN ×3 (00:57→10:43)
[2021-07-17] MEDS: CEFAZOLIN 1 GM in NA CHLORIDE 0.9% 50 ML IVPB SCH ×2 (05:38→12:47)
[2021-07-17 09:45] VITALS: O2SAT 92
--- NOTE | 2021-07-17 10:15 | EKG ---
Test Date: 2021-07-16 Test Time: 19:54:04 Marketing Automation Manager: MARY MEASUREMENT RESULTS: Intervals: Rate: 97 TN: 148 QRSD: 74 QT: 342 QTc: 434 [place]: P: 53 TN: 148 QRS: 85 T: 48 INTERPRETIVE STATEMENTS: Normal sinus rhythm Normal ECG Compared to ECG 12/21/2019 14:35:16 No significant changes Electronically Signed On 07-17-21 10:14:[address] by Rajan Singh
[2021-07-17] MEDS: Ringers Lactate 1,000 ML IV SCH (10:39)
[2021-07-17] MEDS ORDERED: ACETAMINOPHEN 325 MG TABLET PO PRN (10:57)
[2021-07-17 13:47] VITALS: BP 163/78; TEMP 97.6
--- NOTE | 2021-07-17 13:57 | P.PN ---
Date of Service: 07/17/21 S: Patient is doing well today, has been up walking around. Pain is controlled on oral medications. Has good movement of her fingers, and wrist. Sensation is normal in her fingers. O: Vital signs are stable, dressing is intact, sling is in place. Normal movement of patient's fingers, normal sensation in her hand. She has good pu lses. A: Patient is stable status post exploration debridement and closure of complex wound to her right arm from dog bite P: Discharge home, patient will see me Friday in my office.
== END 2021-07-17 16:11 | disposition home or self-care (01) ==
LOC: ER 19:01 → DS 19:43 → 2ND 19:43 → UNDOADMIN 20:22 → DS 07-17 16:11 → UNDODISIN 07-17 16:11
PROVIDERS: ATTEND Surgery
PROC: 0JQH0ZZ Repair Left Lower Arm Subcutaneous Tissue and Fascia, Open Approach (ICD-10-PCS; 2021-07-16)
PROC: 0KQB0ZZ Repair Left Lower Arm and Wrist Muscle, Open Approach (ICD-10-PCS; principal; 2021-07-16 21:00)
DX: S51.812A Laceration without foreign body of left forearm, initial encounter (principal); W54.0XXA Bitten by dog, initial encounter; Y93.9 Activity, unspecified; Y92.9 Unspecified place or not applicable; Z20.822 Contact with and (suspected) exposure to COVID-19; Z23 Encounter for immunization
CPT/HCPCS: 13121; 13122; 12002; 12001; 96365; 93005; 85025; 36415; 80053; 71045; 73090; 90471; 90714; 94010; 96375; 99285; U0003; J2704; J2370; J3010 ×2; J1100; J2175; J1170 ×3; J7120 ×3; J7030; J2405 ×4; J0690 ×4

== ENCOUNTER 2021-10-08 12:18 | Emergency (ER) | payer OTHER ==
--- OUTSIDE RECORDS SUMMARY | 2021-10-08 12:21 | XMS REPORT | Continuity of Care Document ---
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 RsghwubQhvqnnrsfo5636-13-31 21:37:93338 K/CMMMemorial HermannOb/Brq0566-43-07 20:34:06Normal[facility] [place] Ob/Lbp0332-89-59 20:34:06NormalMemorial HermannOb/Qab6277-72-01 20:34:06Normal [facility] HermannOb/Ifk0689-48-89 20:34:06NormalMemorial HermannOb/Lya7225-30-16 20:34:06NormalMemorial HermannOb/Vqh3547-38-09 20:34:06Normal[facility] [place] Ob/Khg1608-98-19 20:34:06NormalMemorial HermannOb/Nzx3253-33-72 20:34:06Normal [facility] [place]
[2021-10-08] MEDS ORDERED: NA CHLORIDE 0.9% 1,000 ML ONE (14:08)
[2021-10-08] MEDS ORDERED: MORPHINE 4 MG/ML SYR ONE (14:08)
[2021-10-08] MEDS ORDERED: ONDANSETRON 4 MG/2 ML VIAL ONE (14:08)
[2021-10-08 14:16] LABS: Absolute Lymphocytes (CBC) 2.7 K/uL (0.7-4.9); Hematocrit 44.5 % (36.0-45.0); Lymphocytes % 28.1 % (15.3-44.8); MPV 8.5 fL (7.6-11.3)
--- NOTE | 2021-10-08 14:24 | RAD REPORT ---
EXAM DESCRIPTION: CT - Stone Protocol - 10/08/2021 2:13 pm CLINICAL HISTORY: Flank pain. Flank pain, kidney stone suspected COMPARISON: Abdomen Pelvis W Contrast dated 05/06/2021 TECHNIQUE: Axial images were obtained without oral or IV contrast. Lack of contrast limits solid org an and vascular assessment. The pzgbe-rt-fgle spans the entirety of the system partially obscuring uppermost abdomen and lung bases. Coronal reformatted images were obtained and reviewed. All CT scans are performed using dose optimization technique as appropriate and may include automated exposure control or mA/KV adjustment according to patient size. FINDINGS: Linear atelectasis is present posterior right lower lobe. Cholecystectomy clips. Imaged portions of the liver and spleen show no suspicious findings on non-contrast imaging. The panc reas and adrenal glands are normal. No pathologic lymphadenopathy in the abdomen or pelvis. No urinary tract stones or obstructive uropathy. No bowel obstruction, free air, free fluid or abscess. Normal appendix noted. Moderate lumbosacral degenerative changes are present. IMPRESSION: No urinary tract stones or obstructive uropathy.
[2021-10-08 14:36] LABS: Urine Blood Trace-intact (Negative); Urine Glucose Negative (Negative); Urine Protein Negative (Negative); Urine Specific Gravity >=1.030 (1.005-1.030)
[2021-10-08 14:37] LABS: Albumin 3.5 g/dL (3.4-5.0); Bilirubin Total 0.7 mg/dL (0.2-1.0); Potassium 3.7 mmol/L (3.5-5.1); Protein, Total 7.9 g/dL (6.4-8.2)
[2021-10-08] MEDS ORDERED: FENTANYL CITR 100 MCG/2 ML ONE (16:18)
[2021-10-08] MEDS ORDERED: DIAZEPAM 10 MG/2 ML INJ SYRINGE ONE (16:19)
--- NOTE | 2021-10-08 17:17 | ER ---
Nurse's Notes [facility] Name: Shahnaz Ramos Age: 61 yrs Sex: Female : 1960 Arrival Date: 10/08/2021 Time: 12:20 Bed 28 Private MD: John Miguel E Diagnosis: Low back pain Presentation: 10/08 14:37 Chief complaint: Patient states: c/o abd pain, lower back pain X 3 days. Coronavirus ld1 screen: At this time, the client does not indicate any symptoms associated with coronavirus-19. Ebola Screen: No symptoms or risks identified at this time. Initial Sepsis Screen: Does the patient meet any 2 criteria? No. Patient's initial sepsis screen is negative. Does the patient have a suspected source of infection? No. Patient's initial sepsis screen is negative. Risk Assessment: Do you want to hurt yourself or someone else? Patient reports no desire to harm self or others. Onset of symptoms was October 08, 2021 at 14:39. 14:37 Method Of Arrival: Ambulatory ld1 14:37 Acuity: [place]OL[place] 4 ld1 Triage Assessment: 14:39 General: Appears in no apparent distress. comfortable, Behavior is calm, cooperative, ld1 appropriate for age. Pain: Complains of pain in back and abdomen Pain does not radiate. Pain currently is 6 out of 10 on a pain scale. Quality of pain is described as aching, throbbing. EENT: No signs and/or symptoms were reported regarding the EENT system. Neuro: Level of Consciousness is awake, alert, obeys commands, Oriented to person, place, time, situation. Cardiovascular: Capillary refill < 3 seconds Patient's skin is warm and dry. Respiratory: Airway is patent Respiratory effort is even, unlabored. GI: Abdomen is flat, non-distended. : Reports urinary frequency. Derm: No signs and/or symptoms reported regarding the dermatologic system. Musculoskeletal: Range of motion: intact in all extremities. Historical: - Allergies: 14:39 Aspirin; ld1 14:39 Imitrex; ld1 - PMHx: 14:39 Asthma; Bipolar disorder; Anxiety; cervical spinal stenosis; COPD; Depression; ld1 Fibromyalgia; GERD; Hepatitis C; Diverticulitis; Migraines; Ulcers; insomnia; - PSHx: 14:39 None; ld1 - Immunization history:: Adult Immunizations up to date, Client reports receiving the 2nd dose of the Covid vaccine. - Social history:: Smoking status: Patient denies any tobacco usage or history of. Patient/guardian denies using alcohol. Screenin:40 Abuse screen: Denies threats or abuse. Denies injuries from another. Nutritional ld1 screening: No deficits noted. Tuberculosis screening: No symptoms or risk factors identified. Fall Risk None identified. Assessment: 14:40 Reassessment: See triage assessme nt. ld1 17:00 Reassessment: Patient appears in no apparent distress at this time. Patient and/or ld1 family updated on plan of care and expected duration. Pain level reassessed. Patient is alert, oriented x 3, equal unlabored respirations, skin warm/dry/pink. Neuro: Russell Agitation-Sedation Scale (RASS): 0 - Alert and Calm. Vital Signs: 14:37 BP 99 / 63; Pulse 82; Resp 18; Temp 98.6(TE); Pulse Ox 97% on R/A; Weight 70.31 kg; ld1 Height 5 ft. 1 in. (154.94 cm); Pain 6/10; 16:25 BP 101 / 66; Pulse 80; Resp 18; Pulse Ox 94% on R/A; ld1 17:00 BP 104 / 59; Pulse 72; Resp 18; Pulse Ox 97% on R/A; ld1 14:37 Body Mass Index 29.29 (70.31 kg, 154.94 cm) ld1 ED Course: 12:20 Patient arrived in ED. as 12:20 John Miguel MD is Private Physician. as 13:45 Jag Tirado PA is PHCP. [facility] 13:45 Don Mclain MD is Attending Physician. [facility] 13:55 Kassie Bashir, NEHA is Primary Nurse. ld1 14:10 Initial lab(s) drawn, by me, sent to lab. Inserted saline lock: 20 gauge in right em1 antecubital area, using aseptic technique. Blood collected. 14:15 Stone Protocol In Process Unspecified. EDMS 14:39 Triage completed. ld1 14:39 Arm band placed on right wrist. ld1 14:40 No provider procedures requiring assistance completed. ld1 14:40 Patient has correct armband on for positive identification. Placed in gown. Bed in low ld1 position. Call light in reach. Side rails up X2. lunchroom monitor on. Pulse ox on. NIBP on. Door closed. Noise minimized. Warm blanket given. 17:23 IV discontinued, intact, bleeding controlled, No redness/swelling at site. ld1 Administered Medications: 14:37 Drug: morphine 4 mg Route: IVP; Site: right antecubital; ld1 14:37 Drug: Zofran (Ondansetron) 4 mg Route: IVP; Site: right antecubital; ld1 14:37 Drug: NS 0.9% 1000 ml Route: IV; Rate: 1 bolus; Site: right antecubital; ld1 16:18 Drug: Valium (diazepam) 5 mg Route: IVP; Site: right antecubital; ld1 16:18 Drug: fentaNYL (PF) 25 mcg Route: IVP; Site: right antecubital; ld1 Outcome: 17:17 Discharge ordered by MD. ashton 17:23 Discharged to home ambulatory. ld1 17:23 Condition: stable 17:23 Discharge instructions given to patient, Instructed on discharge instructions, follow up and referral plans. medication usage, Demonstrated understanding of instructions, follow-up care, medications, Prescriptions given X 1. 17:23 Patient left the ED. ld1 Signatures: Dispatcher [employer] EDMS Jag Tirado PA PA jmm Martinez, Amelia as Martinez, Eric em1 Kassie Bashir, RN RN ld1
--- NOTE | 2021-10-08 17:17 | EDPHYS ---
Physician Documentation [facility] Name: Shahnaz Ramos Age: 61 yrs Sex: Female : 1960 Arrival Date: 10/08/2021 Time: 12:20 Bed 28 Private MD: John Miguel E ED Physician Don Mclain HPI: 10/08 13:50 This 61 yrs old Female presents to ER via Ambulatory with complaints of Back jmm Pain, Abdominal Pain. 13:50 The patient presents with pain that is acute. Onset: The symptoms/episode jmm began/occurred gradually, 3 day(s) ago. The pain does not radiate. Associated signs and symptoms: Pertinent positives: abdominal pain. This is a 61 year old female with a history of asthma, bipolar, anxiety, copd that presents to the ED with complaints of right flank pain, abdominal pain, back pain, hematuria beginning approx 3 days ago. Denies hx of kidney stone. . Historical: - Allergies: 14:39 Aspirin; ld1 14:39 Imitrex; ld1 - PMHx: 14:39 Asthma; Bipolar disorder; Anxiety; cervical spinal stenosis; COPD; Depression; ld1 Fibromyalgia; GERD; Hepatitis C; Diverticulitis; Migraines; Ulcers; insomnia; - PSHx: 14:39 None; ld1 - Immunization history:: Adult Immunizations up to date, Client reports receiving the 2nd dose of the Covid vaccine. - Social history:: Smoking status: Patient denies any tobacco usage or history of. Patient/guardian denies using alcohol. ROS: 13:50 Constitutional: Negative for fever, chills, and weight loss, Cardiovascular: Negative jmm for chest pain, palpitations, and edema, Respiratory: Negative for shortness of breath, cough, wheezing, and pleuritic chest pain. 13:50 Abdomen/GI: Positive for abdominal pain, nausea and vomiting. 13:50 Back: Positive for flank pain. 13:50 : Positive for urinary symptoms, hematuria. 13:50 All other systems are negative. Exam: 13:50 Constitutional: This is a well developed, well nourished patient who is awake, alert, jmm and in no acute distress. Head/Face: atraumatic. Eyes: EOMI, no conjunctival erythema appreciated ENT: Moist Mucus Membranes Neck: Trachea midline, Supple Chest/axilla: Normal chest wall appearance and motion. Cardiovascular: Regular rate and rhythm. No edema appreciated Respiratory: Normal respirations, no respiratory distress appreciated Abdomen/GI: Non distended, soft 13:50 Skin: General appearance color normal MS/ Extremity: Moves all extremities, no obvious deformities appreciated, no edema noted to the lower extremities Neuro: Awake and alert Psych: Behavior is normal, Mood is normal, Patient is cooperative and pleasant 13:50 Back: pain, that is moderate, of the right flank and right mid back. Vital Signs: 14:37 BP 99 / 63; Pulse 82; Resp 18; Temp 98.6(TE); Pulse Ox 97% on R/A; Weight 70.31 kg; ld1 Height 5 ft. 1 in. (154.94 cm); Pain 6/10; 16:25 BP 101 / 66; Pulse 80; Resp 18; Pulse Ox 94% on R/A; ld1 17:00 BP 104 / 59; Pulse 72; Resp 18; Pulse Ox 97% on R/A; ld1 14:37 Body Mass Index 29.29 (70.31 kg, 154.94 cm) ld1 MDM: 13:50 Patient medically screened. opal 17:16 Data reviewed: vital signs, nurses notes. Counseling: I had a detailed discussion with daisha the patient and/or guardian regarding: the historical points, exam findings, and any diagnostic results supporting the discharge/admit diagnosis, radiology results, the need for outpatient follow up, to return to the emergency department if symptoms worsen or persist or if there are any questions or concerns that arise at home. 10/08 13:53 Order name: CBC with Diff; Complete Time: 14:[address] [facility] 10/08 13:53 Order name: CMP; Complete Time: 14:[address] [facility] 10/08 13:53 Order name: Lipase; Complete Time: 14:[address] [facility] 10/08 13:56 Order name: CT Stone Protocol [facility] 10/08 14:00 Order name: Stone Protocol; Complete Time: 14:38 [facility] 10/08 14:36 Order name: Urine Dipstick-Ancillary; Complete Time: 14:38 [facility] 10/08 13:53 Order name: IV Saline Lock; Complete Time: 14:[address] [facility] 10/08 13:53 Order name: Labs collected and sent; Complete Time: 14:[address] [facility] 10/08 13:56 Order name: Urine Dipstick-Ancillary (obtain specimen); Complete Time: 14:[address] [facility] Administered Medications: 14:37 Drug: morphine 4 mg Route: IVP; Site: right antecubital; ld1 14:37 Drug: Zofran (Ondansetron) 4 mg Route: IVP; Site: right antecubital; ld1 14:37 Drug: NS 0.9% 1000 ml Route: IV; Rate: 1 bolus; Site: right antecubital; ld1 16:18 Drug: Valium (diazepam) 5 mg Route: IVP; Site: right antecubital; ld1 16:18 Drug: fentaNYL (PF) 25 mcg Route: IVP; Site: right antecubital; ld1 Disposition Summary: 10/08/21 17:17 Discharge Ordered Location: Home [facility] Condition: Stable [facility] Diagnosis - Low back pain [facility] Followup: [facility] - With: Private Physician - When: 2 - 3 days - Reason: Recheck today's complaints, Continuance of care, Re-evaluation by your physician Discharge Instructions: - Discharge Summary Sheet [facility] - Acute Back Pain, Adult [facility] Forms: - Medication Reconciliation Form [facility] - Thank You Letter [facility] - Antibiotic Education [facility] - Prescription Opioid Use [facility] Prescriptions: - Zanaflex 4 mg Oral Tablet - take 1 tablet by ORAL route every 8 hours As needed; 20 tablet; Refills: 0, [facility] Product Selection Permitted Signatures: Dispatcher [employer] Don Camejo MD MD cha Mickail, Joel, PA PA [facility] Kassie Bashir, RN RN ld1
[2021-10-08 18:53] VITALS: TEMP 98.6
[2021-10-08 18:55] VITALS: BP 104/59; O2SAT 97
== END 2021-10-08 17:23 | disposition home or self-care (01) ==
LOC: ER 12:18
DX: M54.50 Low back pain, unspecified (principal); R10.9 Unspecified abdominal pain; J44.9 Chronic obstructive pulmonary disease, unspecified; F31.9 Bipolar disorder, unspecified; Z88.6 Allergy status to analgesic agent; Z88.8 Allergy status to other drugs, medicaments and biological substances
CPT/HCPCS: 85025; 36415; 81003; 83690; 80053; 76377; 74176; 96375; 96374; 99284; J3360; J3010; J7030; J2405

== ENCOUNTER 2021-10-11 17:16 | Emergency (ER) | payer OTHER ==
[2011-12-25 21:04] VITALS: BP 132/71
--- OUTSIDE RECORDS SUMMARY | 2021-10-11 17:18 | XMS REPORT | Continuity of Care Document ---
:1960 Author Organization [facility] t Address [address] [place] [address] Care Team Providers Name Role Phone VALLE, E Primary Care Physician Unavailable GC_CPC_Mora_A Attending Clinician Unavailable Cesar TATE Attending Clinician Unavailable Bebeto GARNER, S Attending Clinician Doctor Unassigned, Name Attending Clinician Unavailable DR Rosanne WOOD Attending Clinician Unavailable SAMM Attending Clinician Unavailable DR Sang ROMERO Attending Clinician Unavailable Radiology Attending Clinician Unavailable Lab, Fam Pob I Attending Clinician Unavailable DR ALBIN Attending Clinician Unavailable Cesar PEREZ Attending Clinician Unavailable DR Breanna SIMEON Attending Clinician Unavailable ARTEM_CPC_Mora_Anshu Admitting Clinician Unavailable DR Rosanne WOOD Admitting Clinician Unavailable DR Sang ROMERO Admitting Clinician Unavailable DR ALBIN Admitting Clinician Unavailable DR Breanna SIMEON Admitting Clinician Unavailable Payers Payer Name Policy Type Policy Number Effective Date Expiration Date Cesar thomas [facility] - MEDICARE [id number] COMPLETE (MEDICARE REPLACEMENT HMO) GENERIC COMMERCIAL [id number] - MOVED HOLD [facility] DUAL [id number] 2020 COMP HMO D SNP 00:00:00 MEDICAID OF [place] [id number] 2020 00:00:00 Problems Condition Condition Condition Status [...] Memoria OF BREATH 01-04 16:37:00 l 00:00: [place] SHORTNESS 00 OF BREATH Active 01/04/2015 Condition 5 [facility] Group Cervical Cervical Disease Active Overview: Un anjel high risk high risk 02-22 Formattin i ty of human human 00:00: g of this [place] papillomav papillomav 00 note Me dical irus [...] different from the original. 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 ICD10 Diagnosis Term [employer] Utility Cocaine Cocaine Disease Active Overview: Univ ers abuse in abuse in - Formattin ity of remission remission 00:00: g of this [place] 00 note Medical might be Branch different from the original. ICD10 Diagnosis Term [employer] Utility Asthma Asthma Disease Active Overview: Univer s with with 1-10 Formattin ity of status status 00:00: g of this [place] asthmaticu asthmaticu 00 note Me dical s s might be Branch different from the original. ICD10 Diagnosis Term [employer] Utility Peptic Peptic Disease Active Overview: Univer s ulcer ulcer 1-10 Formattin ity of 00:00: g of this note Medical might be Branch different from the original. ICD10 Diagnosis Term [employer] Utility Migraine Migraine Disease Active Overview: Un anjel with aura with aura 1-10 Formattin i ty of 00:00: g of this note Medical might be Branch different from the original. ICD10 Diagnosis Term [employer] Utility Shortness Shortness Problem Active UT of breath of breath Phys ici ans Depressive Depressive Problem Active U T disorder disorder Physic i ans Anxiety Anxiety Problem Active UT disorder disorder Physic i ans Gastroesop Gastroesop Problem Active U T hageal hageal Physici reflux reflux ans Pericardia Pericardia Problem Active U T l effusion l effusion Ph ysici ans Abnormal Abnormal Problem Active UT antibody antibody Physic i titer titer ans UTI (lower UTI (lower Problem Active U T urinary urinary Physici tract tract ans infection) infection) Multiple Multiple Problem Active UT joint pain joint pain Ph ysici ans Abnormal Abnormal Problem Active UT electrocar electrocar Ph ysici diogram diogram ans Emphysema Emphysema Problem Active UT Physici ans Paronychia Paronychia Problem Active U T of right of right Physic i index index ans finger finger History of History of Problem Resolve UT Asthma Asthma d Physici ans History of History of Problem Resolve UT High blood High blood d Ph ysici pressure pressure ans History of History of Problem Resolve UT Reflux Reflux d Physici gastritis gastritis ans Chest pain Chest pain Problem Active U T Physici ans Allergies, Adverse Reactions, Alerts Allergy Allergy Status Severity Reaction(s) Onset Inactive Treating Comm ents Source Name Type Date Date Clinician ASA ASA Active Memoria 01-04 l 00:00: [place] 00 IMITREX IMITREX Active Memoria 01-04 l 00:00: [place] 00 Imitrex DA Active Unknown [facility] 7-30 Medical 00:00: [place] 00 Aspirin DA Active Unknown 2012-06 [facility] [...] E 00 Medical Branch Imitrex Allergy Active UT to drug Physici (finding ans ) aspirin Allergy Active UT to drug Physici (finding ans ) Social History Social Habit Start Date Stop Date Quantity Comments Source Sex Assigned At Female formerly [facility] History of tobacco Cigarette Smoker [facility] use [facility] Exposure to Not sure [facility] SARS-CoV-2 (event) Medica l Branch Alcohol intake 2021-03-08 2021-03-08 Current [facility] 00:00:00 00:00:00 non-drinker of Medical Br anch alcohol (finding) Tobacco Comment 2021-03-06 2021-03-06 1 ppd [facility] 00:00:00 00:00:00 [facility] Cigarettes smoked 2014-02-16 2014-02-16 [facility] current (pack per 00:00:00 00:00:00 Medical Branch day) - Reported Tobacco use and 2014-02-16 2014-02-16 Never used [facility] exposure 00:00:00 00:00:00 Medical Branch Smoking Status Start Date Stop Date Source Smoker (finding) [place] [facility] Unknown if ever smoked formerly [facility] Current every day smoker 2014-02-16 00:00:00 Uni versity [facility] Medications Ordered Filled Start Stop Current Ordering [...] 0-06 Puffs as ity of 16:05: needed. [place] [address] Medical Branch hydrOXYzine 2020-06 Yes 50mg Take [...] by mouth ity o f 16:05: at [place] [address] bedtime. Medical Branch HYDROcodone 2020-06 Yes 1{tbl} Take 1 Tab Univers -acetaminop 0-06 by mouth 2 it y of hen (NORCO) 16:05: (two) [place] 10-325 mg 17 times Medical tablet daily. Branch ALBUTEROL 2020-06 Yes 2{puff} Inhale 2 U nivers INHALE 0-06 Puffs as ity of 16:05: needed. [place] [address] Medical Branch hydrOXYzine 2020-06 Yes 50mg Take [...] by mouth ity o f 16:05: at [place] 17 bedtime. Medical Branch HYDROcodone 2020-06 Yes 1{tbl} Take 1 Tab Univers -acetaminop 0-06 by mouth 2 it y of hen (NORCO) 16:05: (two) [place] 10-325 mg 17 times Medical tablet daily. Branch ALBUTEROL 2020-06 Yes 2{puff} Inhale 2 U nivers INHALE 0-06 Puffs as ity of 16:05: needed. [place] [address] Medical Branch hydrOXYzine 2020-06 Yes 50mg Take 50 mg Univers (ATARAX) 50 0-06 by mouth 3 it y of mg tablet 16:05: (three) [place] 17 times Medical daily as Branch needed for Itching. QUEtiapine 2020-06 Yes 100mg Take 100 Un anjel (SEROQUEL) 0-06 mg by ity of 50 mg 16:05: mouth at [facility] 17 bedtime. Medical Branch acetaminoph 2020-06 Yes 1{tbl} Take 1 Un anjel en-codeine 0-06 tablet by ity of 300-30 mg 16:05: mouth [place] tablet 17 every 4 Medical (four) Branch hours as needed. doxepin 50 2020-06 Yes 50mg Take 50 mg U nivers mg capsule 0-06 by mouth ity o f 16:05: at [place] [address] bedtime. Medical Branch simvastatin Yes 10mg Take 10 mg Univers 10 mg 6-08 by mouth ity of tablet 00:00: every [place] 00 evening. Medical Branch simvastatin Yes 10mg Take 10 mg Univers 10 mg 6-08 by mouth ity of tablet 00:00: every [place] 00 evening. Medical Branch simvastatin Yes 10mg Take 10 mg Univers 10 mg 6-08 by mouth ity of tablet 00:00: every [place] 00 evening. Medical Branch pregabalin Yes 100mg Take 100 Un anjel 100 mg 6-07 mg by ity of capsule 00:00: mouth 2 [place] 00 (two) Medical times Branch daily. pregabalin Yes 100mg Take 100 Un anjel 100 mg 6-07 mg by ity of capsule 00:00: mouth 2 [place] 00 (two) Medical times Branch daily. pregabalin Yes 100mg Take 100 Un anjel 100 mg 6-07 mg by ity of capsule 00:00: mouth 2 [place] 00 (two) Medical times Branch daily. DEXILANT 60 Yes 1{capsu Take 1 U nivers mg capsule 5-21 le} capsule by ity of 00:00: mouth 00 daily. Medical Branch levocetiriz Yes 5mg Take 5 mg U nivers ine 5 mg 5-21 by mouth ity of tablet 00:00: every [place] 00 evening. Medical Branch DEXILANT 60 Yes 1{capsu Take 1 U nivers mg capsule 5-21 le} capsule by ity of 00:00: mouth 00 daily. Medical Branch levocetiriz Yes 5mg Take 5 mg U nivers ine 5 mg 5-21 by mouth ity of tablet 00:00: every [place] 00 evening. Medical Branch DEXILANT 60 Yes 1{capsu Take 1 U nivers mg capsule 5-21 le} capsule by ity of 00:00: mouth [place] daily. Medical Branch levocetiriz Yes 5mg Take 5 mg U nivers ine 5 mg 5-21 by mouth ity of tablet 00:00: every [place] evening. Medical Branch Cephalexin Cephalexin Yes RAMONA QUIJANO Q0.25D TAKE 1 UT 500 MG Oral 500 MG Oral 3-22 M.D. TABLET 4 Physici Tablet Tablet 00:00: TIMES ans 00 DAILY antipyrine- Yes 2[drp] Place 2 U nivers [...] twice a l HEN 10-325 00:00: day [place] MG TABS 00 COLCHICINE Yes one po Memor ia 8-05 twice a l 00:00: day Tal ATARAX 0 Yes prn Memoria 8-05 anxiety l 00:00: [place] 00 SEROQUEL 0 Yes Two po qhs Mem oria 400 MG TABS 8-05 l 00:00: [place] 00 SEROQUEL 50 0 Yes Two po qam Memoria MG TABS 8-05 l 00:00: DEXILANT 60 Yes one po Bin emili MG CPDR 8-05 daily l 00:00: Tal 00 LIPITOR 0 Yes .qd Memoria 8-05 l [...] 0 Yes .bid Memoria 8-05 l 00:00: [place] 00 HYDROCODONE 0 Yes one po Bin emili -ACETAMINOP 8-05 twice a l HEN 10-325 00:00: day [place] MG TABS 00 SEROQUEL 0 Yes Two po qhs Mem oria 400 MG TABS 8-05 l 00:00: [place] 00 COLCHICINE 0 Yes one po Memor ia 8-05 twice a l 00:00: day [place] 00 ATARAX 0 Yes prn Memoria 8-05 anxiety l 00:00: SEROQUEL 50 2015-0 Yes Two po qam Memoria MG TABS 8-05 l 00:00: Tal 00 Ciprofloxac Ciprofloxac Yes VENITA 1 QD TAKE 1 UT in HCl - in HCl - 9-26 HUMMEL TABLET Phy sici 500 MG Oral 500 MG Oral 00:00: M.D. DAILY. ans Tablet Tablet 00 HYDROcodone HYDROcodone Yes 1 Q0.5D TAKE 1 UT -Acetaminop -Acetaminop 8-19 TABLET Physici hen 5-325 hen 5-325 00:00: TWICE an s MG Oral MG Oral 00 DAILY Tablet Tablet tiZANidine tiZANidine Yes 1 Q0.5D TAKE 1 UT HCl - 4 MG HCl - 4 MG 8-19 CAPSULE Physici Oral Oral 00:00: TWICE ans Capsule Capsule 00 DAILY Dexilant 60 Dexilant 60 Yes QD TAKE 1 UT MG Oral MG Oral 8-19 CAPSULE Physic i Capsule Capsule 00:00: DAILY ans Delayed Delayed 00 EVERY Release Release MORNING BEFORE BREAKFAST. Topiramate Topiramate Yes Q0.5D TAKE 1 UT 50 MG Oral 50 MG Oral 8-19 TABLET P hysici Tablet Tablet 00:00: TWICE ans 00 DAILY. busPIRone busPIRone Yes Q0.3333D TAKE 1 UT HCl - 10 MG HCl - 10 MG 8-19 TABLET 3 Physici Oral Tablet Oral Tablet 00:00: TIMES ans 00 DAILY. FLUoxetine FLUoxetine Yes 1 QD TAKE 1 UT HCl - 20 MG HCl - 20 MG 8-19 TABLET Physici Oral Tablet Oral Tablet 00:00: DAILY. ans 00 Dexilant Dexilant Yes UT CPDR CPDR Physici ans Cymbalta 30 Cymbalta 30 Yes U T MG Oral MG Oral Physici Capsule Capsule ans Delayed Delayed Release Release Particles Particles Lyrica 300 Lyrica 300 Yes UT MG Oral MG Oral Physici Capsule Capsule ans Doxepin HCl Doxepin HCl Yes U T TABS TABS Physici ans SEROquel 50 SEROquel 50 Yes U T MG Oral MG Oral Physici Tablet Tablet ans Immunizations Ordered Filled Immunization Date Status Comments Sourc e Immunization Name Name SARS-COV-2 COVID-19 2021-02-16 Completed Unive rsity of PFIZER VACCINE 00:00:00 [facility] SARS-COV-2 COVID-19 2021-02-16 Completed Unive rsity of PFIZER VACCINE 00:00:00 [facility] SARS-COV-2 COVID-19 2021-02-16 Completed Unive rsity of PFIZER VACCINE 00:00:00 [facility] SARS-COV-2 COVID-19 2021-01-26 Completed Unive rsity of PFIZER VACCINE 00:00:00 [facility] SARS-COV-2 COVID-19 2021-01-26 Completed Unive rsity of PFIZER VACCINE 00:00:00 [facility] SARS-COV-2 COVID-19 2021-01-26 Completed Unive rsity of PFIZER VACCINE 00:00:00 [facility] TDAP 2013-03-18 Completed University of 00:00:00 [facility] TDAP 2013-03-18 Completed University of 00:00:00 [facility] TDAP 2013-03-18 Completed University of 00:00:00 [facility] Vital Signs Vital Name Observation Time Observation Value Comments Source Systolic blood 2021-05-03 17:08:00 112 mm[Hg] Univer sity of pressure [facility] Diastolic blood 2021-05-03 17:08:00 75 mm[Hg] Unive rsity of pressure [facility] Heart rate 2021-05-03 17:08:00 85 /min [facility] Body height 2021-05-03 17:08:[address] [facility] Body weight 2021-05-03 17:08:[address] [facility] BMI 2021-05-03 17:08:00 32.69 kg/m2 [facility] Height 2020-12-18 15:59:00 154.94 CM Weight 2020-12-18 15:59:00 71.21 KG Height 2020-08-15 16:25:00 152.4 CM Weight 2020-08-15 16:25:00 68.03 KG Height 2019-11-15 21:05:00 154.94 CM Weight 2019-11-15 21:05:00 71.66 KG Height 2019-10-15 14:14:00 162.56 CM Weight 2019-10-15 14:14:00 72.57 KG Body height 2020-08-21 09:30:00 61 [in_us] [facility] Weight 2020-08-21 09:30:00 150 [lb_av] [facility] Body mass index 2020-08-21 09:30:00 28.34 kg/m2 [facility] (BMI) [Ratio] Height 2015-01-04 20:15:50 [facility] Tal Weight 2015-01-04 20:15:50 [facility] [place] Temperature Oral (F) 2015-01-04 20:15:50 98.4 F [facility] [place] Heart Rate 2015-01-04 20:15:50 [facility] Systolic (mm Hg) 2015-01-04 20:15:50 Bin rial Tal Diastolic (mm Hg) 2015-01-04 20:15:50 Mem orial Tal Procedures Procedure Date / Time Performing Clinician Source Performed XR HIPS 2 VW BILATERAL 2021-05-03 17:47:00 Sheri Tate [facility] REFERRAL- 2021 05:01:00 Doctor Unassigned, [facility] REQUEST/RESPONSE [place] [facility] DRAIN RH SUBQ TISS FASCIA 2020-08-15 00:00:00 [facility] OPEN APPR Center nfectious agent detection 2019-11-15 00:00:00 [facility] by nucleic acid (DNA or smoking/tobacco 2015-01-04 20:15:50 Adwoa monte cessation, patient education and counseling vaginal Pap smear results 2014-01-31 20:34:06 Me morial Tal colonoscopy 2013-05-02 21:35:09 Adwoa lavell History of Tubal Ligation [facility] History of Exploratory [facility] Laparotomy History of [facility] Cholecystectomy Encounters Start End Encounter Admission Attending Care Care Encounter Source Date/Time Date/Time Type Type Clinicians Facility Department ID 2021-10-08 2021-10-08 Outpatient GC_CPC_Mora PRIV PRIV [id number] [facility] 02:19:00 02:19:00 _A [id number] Medica l 2021-09-25 2021-09-25 Outpatient GC_CPC_Mora PRIV PRIV [id number] [facility] 09:32:00 09:32:00 _A [id number] Medica l 2021-09-25 2021-09-25 Outpatient GC_CPC_Mora PRIV PRIV [id number] [facility] 09:32:00 09:32:00 _A [id number] Medica l 2021-05-28 2021-05-28 Outpatient Dilip BEBETO [facility] [id number] Univers 00:00:00 00:00:00 SHERI [id number] ity [facility] 2021-05-21 2021-05-21 [facility] [id number] Univers 00:00:00 00:00:00 SHERI [id number] ity [facility] 2021-05-14 2021-05-14 [facility] [id number] Univers 14:45:00 14:45:00 SHERI [id number] y [facility] 2021-05-14 2021-05-14 [facility] [id number] Univers 00:00:00 00:00:00 [facility] 2021-05-03 2021-05-03 [facility] [id number] Univers 11:15:00 23:59:00 [facility] 2021-05-03 2021-05-03 [facility] [id number] Univers 11:15:00 23:59:00 Encounter Sheri S HEALTH [id number] ity of [place] 4.2.7.2.686 Francesco as ILENE?BLEA [id number] Fl deb MARTINO [address] [place] MEDICAL OFFICE [facility] 2021-05-03 2021-05-03 Office [facility] [id number] Univers 10:24:20 10:54:20 Visit Sheri S HEALTH [id number] it y of [place] 4.2.7.2.686 Francesco as ILENE?BLEA [id number] Fl deb SAUCEDA [address] [place] MEDICAL OFFICE [facility] 2021 2021 Orders Doctor EVANS [id number] Univers 00:00:00 00:00:00 Only Unassigned, MARK [id number] ity of [place] [facility] 4.2.7.2.686 Francesco as [id number] [facility] 009 Branch 2020-12-18 2020-12-18 Emergency E ISRAEL, [facility] [id number] [facility] 15:41:00 16:41:00 JA Rosalesa [facility] 2020-08-21 2020-08-21 Dorys QUIJANO [facility] Orthopedics [id number] [place] 09:00:00 09:00:00 t; RAMONA QUIJANO M.D. Trauma P chantal GREENE M.D. [facility]ly [facility] 2020-08-15 2020-08-15 Emergency E [facility] [id number] [facility] 16:24:00 19:05:00 BOB Bobbya [facility] 2020-03-02 2020-03-02 [facility] Radiology [facility] [id number] 08:54:20 23:59:00 Encounter [place] [id number] [place] 4.2.7.2.686 [place] [id number] 2020-03-02 2020-03-02 [facility] Radiology [facility] [id number] 08:29:56 08:53:00 Encounter [place] [id number] [place] 4.2.7.2.686 [place] [id number] 2020-01-19 2020-01-19 [facility] Radiology [facility] [id number] 12:00:00 23:59:00 Encounter [place] [id number] [place] 4.2.7.2.686 [place] [id number] 2019-12-10 2019-12-10 Laboratory Lab, [facility] [id number] 14:41:41 15:01:41 Only Fam Pob I Health [id number] [place] 4.2.7.2.686 Professio [id number] nal 044 [address] 2019-11-15 2019-11-15 Emergency E ALBIN, [facility] [id number] [facility] 20:57:00 22:21:00 KEN [facility] 2019-11-15 2019-11-15 Outpatient [facility] [id number] Access 14:00:00 14:00:00 [id number] [facility] [id number] 2019-11-15 2019-11-15 Outpatient [facility] [id number] Access 00:00:00 00:00:00 TUNG [facility] 2019-11-15 2019-11-15 [facility] [id number] Access 00:00:00 00:00:00 TUNG Guerrero [id number] [facility] [id number] 2019-10-15 2019-10-15 Emergency E CAILIN, [facility] [id number] [facility] 14:01:00 15:07:00 ROSE MARIE Medica [facility] 2015-01-04 2015-01-04 Office nullFlavo [facility] [id number] Memoria 00:00:00 00:00:00 Visit r [place] Medical [id number] [facility] 2015-01-04 2015-01-04 Lab Report nullFlavo [place] [id number] Memoria 00:00:00 00:00:00 r [place] Medical [id number] l Mcnair [facility] Results Test Description Test Time Test Comments Results Result [facility] e Comments XR ANKLE RIGHT 2020-12-18 COMPLETE 3 VIEWS 16:16:22 *WW* [facility] : 1960 Sex: F Exam: X-ray right ankle 3 viewsLocation: I4Nhjshqf: Fall with right ankle painFindings:No fractures or dislocations identified. No osseous lesions. Mild soft tissue swelling is present.Impressio n:1. Mild soft tissue swelling without fracture or dislocation.Elect ronically signed by: Manuel Beebe MD 12/18/2020 4:16 PM CDT [U] XRAY 2020-08-21 Images acquired, [facility] FINGER(S) - 2 VWS 09:35:00 not reported on MIN. RIGHT [id number] this accession number. Panel Description: SARS-CoV-2 (COVID-19) RNA [Presence] in 2 09:17:00 Unspecified specimen by DELFIN with probe detection Test Item Value Reference Range Interpretation Comme nts SARS-CoV-2, DELFIN (test Not Detected Not Detected Testin g was performed using the code = 98997-2) Aptima SARS- CoV-2 assay.This test was developed a nd its performance characteristics determinedby [facility] Angelica mercado. This test has not been [...] this assay.
< br/>Performed by:
Lab[facility]od[facility] Roger (AN)

AccessHealthSARS-CoV (RAPID ANTIGEN) WW2019-11-15 21:58:00 Test Item Value Reference Range Interpretation Comments SARS-CoV (ANTIGEN) NEGATIVE NEGATIVE (test code = COVAG) COVID AG (test This test has been code = COVAGC) marketed under the FDA Emergency Use Authorization (EUA) to meet challenges of the COVID-19 pandemic. The validation standards normally enforced by the FDA and the College of the [place] [employer] (CAP) are more stringent than those required for this test. Therefore, the result should be interpreted with caution and close attention to other clinical and epidemiological data Osibzrzsi5195-73-64 21:37:001.590[facility] GlswdpoPicjytwds2492-72-74 21:37:0017 [facility] UcwirbuSwenpbbul8266-53-63 21:37:000.9[facility] 2015-01-04 21:37:55484 MEQ/LMemorial RxnuftoRwarpdhnl5432-65-49 21:37:005.2 MEQ/LMemorial SnqlvwwWtarmgutx6763-94-64 21:37:008.6[facility]ann[facility] 2015-01-04 21:37:0014.1[facility]orial TpxkqxxJoxgimllvk0632-16-89 21:37:0043.5Memorial NkyveyuHpfogdvxpe1345-84-51 21:37:06672 K/CMMMemorial HermannChemistry 2015-01-04 21:37:001.590[facility]orial BtvddkjWvjtvawdb0423-87-13 21:37:0017Memorial AgpykkjTmkucpdql4759-46-90 21:37:000.9[facility]orial YfehrdgCghdgjjas9989-48-77 21:37:05680 MEQ/LMemorial EbqodcyIcqnzftah3576-00-29 21:37:005.2 MEQ/LMemorial QvvpkeaSjgtmyfih4617-75-60 21:37:008.6[facility]orial FpwimxeAwbxanqmvm4140-54-32 21:37:0014.1[facility] BiwtglfLtedotpesu3195-54-54 21:37:0043.5[facility] [place] Bgoaddckuz3544-83-11 21:37:40973 K/CMMMemorial HkyxrkzWyhoouvkx2442-21-30 21:37:005.2 MEQ/LMemorial FxogwfpZnkswpbml5634-44-15 21:37:008.6[facility] [place] Jkmqonllbk9013-74-13 21:37:0014.1[facility] McxdltnFyulzrujol3508-68-62 21:37:00 43.5Memorial PmzumeiDjeijlmhje0715-95-18 21:37:21641 K/CMMMemorial Tal Xinroixst1698-94-61 21:37:001.590[facility] JzyzqbpBswkalcio4511-57-28 21:37:0017 Memorial NxvugygEbspthumm3869-23-36 21:37:000.9[facility] 2015-01-04 21:37:72128 MEQ/LMemorial RpvbuhrNjknkqwiz2587-45-00 21:37:005.2 MEQ/LMemorial YbwfbybFxjqqgptr4446-12-70 21:37:008.6[facility]ann[facility] 2015-01-04 21:37:0014.1Memorial PlqnhiyXgiyzgrbvm6705-19-35 21:37:0043.5Memorial MabnbdrRoatifmwhs8480-56-40 21:37:27304 K/CMMMemorial HermannChemistry 2015-01-04 21:37:001.590[facility] CsffqcrFuudxwlzh8010-23-97 21:37:0017Memorial QxinmzdGcaqcewzs3031-71-60 21:37:000.9[facility]orial WdevghzBtusmixnp5445-57-88 21:37:90955 MEQ/LMemorial HermannOb/Hjc3068-03-32 20:34:06NormalMemorial [place] Ob/Tlh5160-47-00 20:34:06NormalMemorial HermannOb/Uln0032-53-21 20:34:06Normal Memorial HermannOb/Svj7751-53-32 20:34:06NormalMemorial HermannOb/Itu3566-77-28 20:34:06NormalMemorial HermannOb/Dhr1232-25-62 20:34:06NormalMemorial [place] Ob/Uqt6615-71-57 20:34:06Normal[facility]/Ctg7245-65-00 20:34:06Normal [facility] Tal
[2021-10-11 17:39] LABS: Urine Blood Negative (Negative); Urine Glucose Negative (Negative); Urine Protein Negative (Negative); Urine Specific Gravity >=1.030 (1.005-1.030)
[2021-10-11 18:32] LABS: Absolute Lymphocytes (CBC) 3.5 K/uL (0.7-4.9); Hematocrit 40.6 % (36.0-45.0); Lymphocytes % 27.3 % (15.3-44.8); MPV 8.4 fL (7.6-11.3); RBC Red Blood Cell Count 4.41 M/uL (3.86-4.86)
[2021-10-11 18:49] LABS: Albumin 3.5 g/dL (3.4-5.0); Bilirubin Total 0.6 mg/dL (0.2-1.0); Potassium 3.8 mmol/L (3.5-5.1); Protein, Total 7.5 g/dL (6.4-8.2)
--- NOTE | 2021-10-11 19:21 | EDPHYS ---
Physician Documentation [facility] Name: Shahnaz Ramos Age: 61 yrs Sex: Female : 1960 Arrival Date: 10/11/2021 Time: 17:17 Bed Waiting Private MD: ED Physician Ever Casarez HPI: 10/11 17:42 This 61 yrs old Female presents to ER via Ambulatory with complaints of Blood ms3 in Urine. 17:42 The patient presents with Hematuria. Onset: The symptoms/episode began/occurred 3 ms3 day(s) ago. Modifying factors: The symptoms are alleviated by nothing, the symptoms are aggravated by nothing. Associated signs and symptoms: Pertinent positives: fever, hematuria, nausea, Pertinent negatives: vomiting. Severity of symptoms: At their worst the symptoms were moderate, in the emergency department the symptoms are unchanged. The patient has been recently seen at the [facility] Emergency Department, this week. Historical: - Allergies: 17:28 Aspirin; iw 17:28 Imitrex; iw - Home Meds: 17:28 Risperdal Oral [Active]; Prazosin Oral [Active]; trazodone Oral [Active]; iw - PMHx: 17:28 Anxiety; Asthma; Bipolar disorder; cervical spinal stenosis; COPD; Depression; iw Diverticulitis; Fibromyalgia; GERD; Hepatitis C; insomnia; Migraines; Ulcers; ROS: 17:42 Positive for hematuria. ms3 17:42 Constitutional: Negative for fever, and chills. Neck: Negative for injury, pain, and swelling, Cardiovascular: Negative for chest pain, and palpitations. Respiratory: Negative for shortness of breath, cough, wheezing, and pleuritic chest pain, Back: Negative for injury and pain, Skin: Negative for injury, rash, and discoloration. 17:42 Abdomen/GI: Positive for abdominal pain. 17:42 All other systems are negative. Exam: 17:42 Constitutional: This is a well developed, well nourished patient who is awake, alert, ms3 and in no acute distress. Head/Face: Normocephalic, atraumatic. Neck: Trachea midline, no cervical lymphadenopathy. Supple, full range of motion without nuchal rigidity, or vertebral point tenderness. No Meningismus. Chest/axilla: Normal chest wall appearance and motion. Nontender with no deformity. Cardiovascular: Regular rate and rhythm with a normal S1 and S2. No gallops, murmurs, or rubs. Normal PMI, no JVD. No pulse deficits. Respiratory: Lungs have equal breath sounds bilaterally, clear to auscultation and percussion. No rales, rhonchi or wheezes noted. No increased work of breathing, no retractions or nasal flaring. 17:42 Abdomen/GI: Inspection: abdomen appears normal, Bowel sounds: normal, Palpation: mild abdominal tenderness, in the suprapubic area. Vital Signs: 17:25 BP 120 / 70; Pulse 95; Resp 16; Temp 98.8; Pulse Ox 100% on R/A; Weight 76.2 kg; iw MDM: 17:42 Differential diagnosis: urinary tract infection, Pyelonephritis vs electrolyte ms3 abnormality. 19:21 Patient medically screened. ms3 22:00 Data reviewed: vital signs, nurses notes, lab test result(s). Counseling: I had a ms3 detailed discussion with the patient and/or guardian regarding: the historical points, exam findings, and any diagnostic results supporting the discharge/admit diagnosis, lab results, the need for outpatient follow up, to return to the emergency department if symptoms worsen or persist or if there are any questions or concerns that arise at home. 10/11 17:39 Order name: Urine Dipstick-Ancillary; Complete Time: 18:13 EDMS 10/11 17:41 Order name: CBC with Diff; Complete Time: 18:49 ms3 10/11 17:41 Order name: CMP; Complete Time: 19:17 ms3 10/11 17:41 Order name: IV Saline Lock; Complete Time: 18:22 ms3 10/11 17:41 Order name: Labs collected and sent; Complete Time: 18:22 ms3 10/11 17:41 Order name: Urine Dipstick-Ancillary (obtain specimen); Complete Time: 18:42 ms3 Administered Medications: No medications were administered Disposition Summary: 10/11/21 19:21 Discharge Ordered Location: Home ms3 Problem: new ms3 Symptoms: are unchanged ms3 Condition: Stable ms3 Diagnosis - Hematuria, unspecified ms3 - Suprapubic pain ms3 Followup: ms3 - With: Private Physician - When: 2 - 3 days - Reason: Recheck today's complaints Discharge Instructions: - Discharge Summary Sheet ms3 - Hematuria, Adult ms3 Forms: - Medication Reconciliation Form ms3 - Thank You Letter ms3 - Antibiotic Education ms3 - Prescription Opioid Use ms3 Prescriptions: - Zofran 4 mg Oral Tablet - take 1 tablet by ORAL route every 12 hours As needed; 20 tablet; Refills: 0, ms3 Product Selection Permitted Signatures: Dispatcher [employer] Roya Whitaker RN RN iw Ever Casarez DO DO ms3
--- NOTE | 2021-10-11 19:21 | ER ---
Nurse's Notes [facility] Name: Shahnaz Ramos Age: 61 yrs Sex: Female : 1960 Arrival Date: 10/11/2021 Time: 17:17 Bed Waiting Private MD: Diagnosis: Hematuria, unspecified;Suprapubic pain Presentation: 10/11 17:25 Chief complaint: Patient states: was told she might have kidney stones on 10-08, had CT iw done at that time, now still has blood in urine , had sharp pain last night in her mid back but none today . Is just worried about the blood in her urine, started Risperdal and trazodone a couple weeks ago. Coronavirus screen: At this time, the client does not indicate any symptoms associated with coronavirus-19. Ebola Screen: Patient negative for fever greater than or equal to 101.5 degrees Fahrenheit, and additional compatible Ebola Virus Disease symptoms Patient denies exposure to infectious person. Patient denies travel to an Ebola-affected area in the 21 days before illness onset. No symptoms or risks identified at this time. Initial Sepsis Screen: Does the patient meet any 2 criteria? No. Patient's initial sepsis screen is negative. Does the patient have a suspected source of infection? No. Patient's initial sepsis screen is negative. Risk Assessment: Do you want to hurt yourself or someone else? Patient reports no desire to harm self or others. Onset of symptoms was October 11, 2021. 17:25 Method Of Arrival: Ambulatory iw 17:25 Acuity: WOLFGANG 3 iw Triage Assessment: 19:25 General: Appears in no apparent distress. comfortable, Behavior is calm, cooperative, iw appropriate for age. Pain: Denies pain. Historical: - Allergies: 17:28 Aspirin; iw 17:28 Imitrex; iw - Home Meds: 17:28 Risperdal Oral [Active]; Prazosin Oral [Active]; trazodone Oral [Active]; iw - PMHx: 17:28 Anxiety; Asthma; Bipolar disorder; cervical spinal stenosis; COPD; Depression; iw Diverticulitis; Fibromyalgia; GERD; Hepatitis C; insomnia; Migraines; Ulcers; Screenin:24 Abuse screen: Denies threats or abuse. Denies injuries from another. Nutritional iw screening: No deficits noted. Tuberculosis screening: No symptoms or risk factors identified. Fall Risk None identified. Assessment: 19:24 Reassessment: See triage assessment. Discharged from [facility]. iw Vital Signs: 17:25 BP 120 / 70; Pulse 95; Resp 16; Temp 98.8; Pulse Ox 100% on R/A; Weight 76.2 kg; iw ED Course: 17:17 Patient arrived in ED. ds1 17:25 Ever Casarez DO is Attending Physician. ms3 17:28 Triage completed. iw 17:28 Arm band placed on. iw 18:22 Inserted saline lock: 20 gauge in right antecubital area, using aseptic technique. zm Blood collected. 18:22 CMP Sent. zm 18:22 CBC with Diff Sent. zm 19:24 Patient has correct armband on for positive identification. Call light in reach. Pulse iw ox on. NIBP on. 19:24 No provider procedures requiring assistance completed. IV discontinued, intact, iw bleeding controlled, No redness/swelling at site. Administered Medications: No medications were administered Medication: 19:24 VIS not applicable for this client. iw Outcome: 19:21 Discharge ordered by . ms3 19:25 Discharged to home ambulatory. iw 19:25 Condition: stable 19:25 Discharge instructions given to patient, Instructed on discharge instructions, follow up and referral plans. medication usage, Demonstrated understanding of instructions, follow-up care, medications, Prescriptions given X 1. 19:25 Patient left the ED. iw Signatures: Zulema Elena ds1 Roya Hummel, RN RN Ever Casarez DO DO ms3 Ayaka Grijalva
== END 2021-10-11 19:25 | disposition home or self-care (01) ==
LOC: ER 17:16
DX: R31.9 Hematuria, unspecified (principal); R10.9 Unspecified abdominal pain; F31.9 Bipolar disorder, unspecified; J44.9 Chronic obstructive pulmonary disease, unspecified; Z88.6 Allergy status to analgesic agent
CPT/HCPCS: 36415; 80053; 81003; 85025; 99284

== ENCOUNTER 2021-12-10 22:48 | Emergency (ER) | payer OTHER ==
[2021-12-11] MEDS ORDERED: NA CHLORIDE 0.9% 1,000 ML ONE (01:28)
[2021-12-11] MEDS ORDERED: AZITHROMYCIN 250 MG TAB ONE (01:55)
[2021-12-11] MEDS ORDERED: FAMOTIDINE 20 MG TAB ONE (01:55)
[2021-12-11 02:01] LABS: Absolute Lymphocytes (CBC) 1.2 K/uL (0.7-4.9); Hematocrit 42.7 % (36.0-45.0); Lymphocytes % 24.6 % (15.3-44.8); MCV 91.2 fL (80-100); MPV 9.1 fL (7.6-11.3); Protime INR 1.04; RBC Red Blood Cell Count 4.69 M/uL (3.86-4.86)
[2021-12-11 02:12] LABS: Albumin 3.4 g/dL (3.4-5.0); Bilirubin Direct 0.2 mg/dL (0-0.2); Bilirubin Total 0.4 mg/dL (0.2-1.0); Magnesium 2.1 mg/dL (1.8-2.4); Potassium 3.6 mmol/L (3.5-5.1); Protein, Total 7.4 g/dL (6.4-8.2); Troponin High Sensitivity 4.1 pg/mL (<58.9)
[2021-12-11] MEDS ORDERED: MORPHINE 4 MG/ML SYR ONE (03:31)
[2021-12-11] MEDS ORDERED: ONDANSETRON 4 MG/2 ML VIAL ONE (03:32)
[2021-12-11] MEDS ORDERED: BEBTELOVIMAB 175 MG/2 ML VIAL IV ONE (03:50)
--- NOTE | 2021-12-11 04:19 | ER ---
Nurse's Notes [facility] Name: Shahnaz Ramos Age: 61 yrs Sex: Female : 1960 Arrival Date: 12/10/2021 Time: 22:53 Bed 11 Private MD: Diagnosis: COPD/ Chronic obstructive pulmonary disease, unspecified;Acute upper respiratory infection, unspecified;Chest pain, unspecified;Chest pain on breathing;Coronavirus infection, unspecified;SARS-associated coronavirus as the cause of diseases classified elsewhere Presentation: 12/11 01:01 Chief complaint: Patient states: I was exposed to covid and I tested positive today. I kd3 have been running a fever and my chest hurts and I just feel really bad. I have a lot of head and chest congestion. Coronavirus screen: Vaccine status: Patient reports receiving the 2nd dose of the covid vaccine. Ebola Screen: No symptoms or risks identified at this time. Initial Sepsis Screen: Does the patient meet any 2 criteria? No. Patient's initial sepsis screen is negative. Does the patient have a suspected source of infection? No. Patient's initial sepsis screen is negative. Risk Assessment: Do you want to hurt yourself or someone else? Patient reports no desire to harm self or others. Onset of symptoms was December 11, 2021. 01:01 Method Of Arrival: Ambulatory kd3 01:01 Acuity: WOLFGANG 3 kd3 Triage Assessment: 01:06 General: Appears uncomfortable, Behavior is calm, cooperative. Pain: Complains of pain kd3 in chest. Cardiovascular: Patient's skin is warm and dry. Historical: - Allergies: 01:06 Aspirin; kd3 01:06 Imitrex; kd3 - Home Meds: 01:06 Prazosin Oral [Active]; Risperdal Oral [Active]; Trazodone Oral [Active]; kd3 - PMHx: 01:06 Anxiety; Bipolar disorder; cervical spinal stenosis; COPD; Diverticulitis; GERD; kd3 insomnia; Migraines; Fibromyalgia; Depression; Asthma; Hepatitis C; Ulcers; - Immunization history:: Adult Immunizations up to date. - Social history:: Smoking status: Patient reports the use of cigarette tobacco products, smokes one pack cigarettes per day. - Family history:: not pertinent. Screenin:07 Abuse screen: Denies threats or abuse. Denies injuries from another. Nutritional kd3 screening: No deficits noted. Tuberculosis screening: No symptoms or risk factors identified. Fall Risk None identified. Vital Signs: 01:01 BP 123 / 82; Pulse 84; Resp 19; Temp 98.9(O); Pulse Ox 96% on R/A; Weight 74.84 kg; kd3 Height 5 ft. 1 in. (154.94 cm); Pain 8/10; 01:01 Body Mass Index 31.18 (74.84 kg, 154.94 cm) kd3 ED Course: 12/10 22:53 Patient arrived in ED. ja2 12/11 01:06 Triage completed. kd3 01:06 Arm band placed on left wrist. kd3 01:07 Patient has correct armband on for positive identification. kd3 01:15 Don Mclain MD is Attending Physician. opal 01:19 Faye Rios, RN is Primary Nurse. aa9 01:37 XRAY Chest (1 view) In Process Unspecified. EDMS 01:45 Inserted saline lock: 18 gauge in left antecubital area, using aseptic technique. Blood aa9 collected. 03:42 CT Chest For PE Angio In Process Unspecified. EDMS 03:47 US Extremity Venous W Compression Jayesh In Process Unspecified. EDMS 04:17 Gustavo Javed MD is Referral Physician. opal 05:29 No provider procedures requiring assistance completed. IV discontinued, intact, aa9 bleeding controlled, No redness/swelling at site. Pressure dressing applied. Administered Medications: 01:58 Drug: NS 0.9% 1000 ml Route: IV; Rate: 1 bolus; Site: left antecubital; aa9 04:56 Follow up: Response: No adverse reaction; IV Status: Completed infusion; IV Intake: as6 1000ml 01:58 Drug: Pepcid (famotidine) 40 mg Route: PO; aa9 02:21 Follow up: Response: No adverse reaction aa9 01:58 Drug: Zithromax (azithromycin) 500 mg Route: PO; aa9 02:21 Follow up: Response: No adverse reaction aa9 03:38 Drug: morphine 4 mg Route: IVP; Infused Over: 4 mins; Site: left antecubital; aa9 04:56 Follow up: Response: No adverse reaction as6 03:38 Drug: Zofran (Ondansetron) 4 mg Route: IVP; Site: left antecubital; aa9 04:57 Follow up: Response: No adverse reaction as6 Medication: 04:57 VIS not applicable for this client. as6 Intake: 04:56 IV: 1000ml; Total: 1000ml. as6 Outcome: 04:18 Discharge ordered by . opal 05:30 Discharged to home ambulatory. aa9 05:30 Condition: stable 05:30 Discharge instructions given to patient, Instructed on discharge instructions, follow up and referral plans. medication usage, Demonstrated understanding of instructions, follow-up care, medications, Prescriptions given X 3. 05:31 Patient left the ED. aa9 Signatures: Dispatcher [employer] EDMS Don Mclain MD MD cha Alexander, Jessica ja2 Slawson, Ashby, RN RN as6 Kelsea Davis RN RN kd3 Faye Rios, RN RN aa9
--- NOTE | 2021-12-11 04:19 | EDPHYS ---
Physician Documentation [facility] Name: Shahnaz Ramos Age: 61 yrs Sex: Female : 1960 Arrival Date: 12/10/2021 Time: 22:53 Bed 11 Private MD: ED Physician Don Mclain HPI: 12/11 04:13 This 61 yrs old Female presents to ER via Ambulatory with complaints of Chest opal Pain, Breathing Difficulty, Sore Throat, Fever, Cough. 04:13 The patient or guardian reports chest pain that is located primarily in the substernal opal area. Onset: 1 day(s) ago. The pain does not radiate. Associated signs and symptoms: Pertinent positives: shortness of breath. The chest pain is described as aching. Duration: The patient or guardian reports multiple episodes, with no pattern. Modifying factors: The symptoms are alleviated by remaining still, the symptoms are aggravated by cough, deep breath, movement. Severity of pain: At its worst the pain was mild in the emergency department the pain is unchanged. The patient has experienced similar episodes in the past, a few times. Historical: - Allergies: 01:06 Aspirin; kd3 01:06 Imitrex; kd3 - Home Meds: 01:06 Prazosin Oral [Active]; Risperdal Oral [Active]; Trazodone Oral [Active]; kd3 - PMHx: 01:06 Anxiety; Bipolar disorder; cervical spinal stenosis; COPD; Diverticulitis; GERD; kd3 insomnia; Migraines; Fibromyalgia; Depression; Asthma; Hepatitis C; Ulcers; - Immunization history:: Adult Immunizations up to date. - Social history:: Smoking status: Patient reports the use of cigarette tobacco products, smokes one pack cigarettes per day. - Family history:: not pertinent. ROS: 04:13 Constitutional: Negative for fever, chills, and weight loss, Eyes: Negative for injury, opal pain, redness, and discharge, ENT: Negative for injury, pain, and discharge, Neck: Negative for injury, pain, and swelling, Abdomen/GI: Negative for abdominal pain, nausea, vomiting, diarrhea, and constipation, Back: Negative for injury and pain, : Negative for injury, bleeding, discharge, and swelling, MS/Extremity: Negative for injury and deformity, Skin: Negative for injury, rash, and discoloration, Neuro: Negative for headache, weakness, numbness, tingling, and seizure, Psych: Negative for depression, anxiety, suicide ideation, homicidal ideation, and hallucinations, Allergy/Immunology: Negative for hives, rash, and allergies, Endocrine: Negative for neck swelling, polydipsia, polyuria, polyphagia, and marked weight changes, Hematologic/Lymphatic: Negative for swollen nodes, abnormal bleeding, and unusual bruising. 04:13 Cardiovascular: Positive for chest pain. 04:13 Respiratory: Positive for cough, shortness of breath, at rest. Exam: 04:13 Constitutional: This is a well developed, well nourished patient who is awake, alert, opal and in no acute distress. Head/Face: Normocephalic, atraumatic. Eyes: Pupils equal round and reactive to light, extra-ocular motions intact. Lids and lashes normal. Conjunctiva and sclera are non-icteric and not injected. Cornea within normal limits. Periorbital areas with no swelling, redness, or edema. ENT: Nares patent. No nasal discharge, no septal abnormalities noted. Tympanic membranes are normal and external auditory canals are clear. Oropharynx with no redness, swelling, or masses, exudates, or evidence of obstruction, uvula midline. Mucous membranes moist. Neck: Trachea midline, no thyromegaly or masses palpated, and no cervical lymphadenopathy. Supple, full range of motion without nuchal rigidity, or vertebral point tenderness. No Meningismus. Chest/axilla: Normal chest wall appearance and motion. Nontender with no deformity. No lesions are appreciated. Cardiovascular: Regular rate and rhythm with a normal S1 and S2. No gallops, murmurs, or rubs. Normal PMI, no JVD. No pulse deficits. Respiratory: Lungs have equal breath sounds bilaterally, clear to auscultation and percussion. No rales, rhonchi or wheezes noted. No increased work of breathing, no retractions or nasal flaring. Abdomen/GI: Soft, non-tender, with normal bowel sounds. No distension or tympany. No guarding or rebound. No evidence of tenderness throughout. Back: No spinal tenderness. No costovertebral tenderness. Full range of motion. Skin: Warm, dry with normal turgor. Normal color with no rashes, no lesions, and no evidence of cellulitis. MS/ Extremity: Pulses equal, no cyanosis. Neurovascular intact. Full, normal range of motion. Neuro: Awake and alert, GCS 15, oriented to person, place, time, and situation. Cranial nerves II-XII grossly intact. Motor strength 5/5 in all extremities. Sensory grossly intact. Cerebellar exam normal. Normal gait. Psych: Awake, alert, with orientation to person, place and time. Behavior, mood, and affect are within normal limits. 04:13 Respiratory: the patient does not display signs of respiratory distress, Respirations: normal, Breath sounds: are clear throughout, Respiratory rate: 19 04:13 Musculoskeletal/extremity: ROM: intact in all extremities, full active range of motion, full passive range of motion, Pulses: are normal with no appreciated deficits, Sensation intact. Compartment Syndrome exam of affected extremity: is normal. DVT Exam: no pain, no swelling, no tenderness, negative Homans' sign noted on exam, no appreciated bluish discoloration, no erythema, no increased warmth. Vital Signs: 01:01 BP 123 / 82; Pulse 84; Resp 19; Temp 98.9(O); Pulse Ox 96% on R/A; Weight 74.84 kg; kd3 Height 5 ft. 1 in. (154.94 cm); Pain 8/10; 01:01 Body Mass Index 31.18 (74.84 kg, 154.94 cm) kd3 MDM: 01:15 Patient medically screened. opal 04:22 Differential diagnosis: abnormal EKG, acute myocardial infarction, acute pericarditis, opal chest wall pain, costochondritis, pericarditis, pleurisy, pneumonia, pneumothorax, pulmonary embolus, stable angina, thoracic aortic disection, unstable angina. HEART Score: History: Slightly Suspicious (0), ECG: Normal (0), Age: > 45 and < 65 years (1), Risk Factors: > or = 3 Risk factors for atherosclerotic disease (2), [Hypertension] [Active Smoker] [+ Family HX] [Obesity] Troponin: < or = 1 x Normal Limit (0), Total Score = 2. The patient was not given aspirin in the Emergency Department. Not indicated due to patient's past medical history. The patient's deep vein thrombosis risk score was calculated as follows: Total Score: 0. This patient was found to be at low risk for a deep vein thrombosis by using the Well's assessment criteria. The patient's pulmonary embolism risk score was calculated as follows: Total Score: 0-2 points. This patient was found to be at low risk for a pulmonary embolism by using the Well's assessment criteria. NICKO Risk Score: 1 - Three or more CAD risk factors, TOTAL SCORE = 1. Data reviewed: nurses notes, EMS record, lab test result(s), EKG, radiologic studies, CT scan, doppler, plain films. Data interpreted: personnel monitor: rate is 84 beats/min, rhythm is regular, Pulse oximetry: on room air is 96 %. Test interpretation: by ED physician or midlevel provider: ECG, plain radiologic studies. 12/11 01:18 Order name: Basic Metabolic Panel; Complete Time: 04:12 [facility] 12/11 01:18 Order name: CBC with Diff; Complete Time: 02:07 [facility] 12/11 01:18 Order name: D-Dimer; Complete Time: 02:08 [facility] 12/11 01:18 Order name: LFT's; Complete Time: 04:12 [facility] 12/11 01:18 Order name: Magnesium; Complete Time: 04:12 [facility] 12/11 01:18 Order name: NT PRO-BNP; Complete Time: 04:12 [facility] 12/11 01:18 Order name: PT-INR; Complete Time: 02:08 [facility] 12/11 01:18 Order name: Troponin HS; Complete Time: 04:12 [facility] 12/11 01:18 Order name: XRAY Chest (1 view) 12/11 02:08 Order name: US Extremity Venous W Compression Jayesh 12/11 02:08 Order name: CT Chest For PE Angio [facility] 12/11 01:18 Order name: EKG; Complete Time: 01:18 [facility] 12/11 01:18 Order name: Cardiac monitoring; Complete Time: 01:45 12/11 01:18 Order name: EKG - Nurse/Tech; Complete Time: 02:56 12/11 01:18 Order name: IV Saline Lock; Complete Time: :45 [facility] 12/11 01:18 Order name: Labs collected and sent; Complete Time: 01:45 [facility] 12/11 01:18 Order name: O2 Per Protocol; Complete Time: 01:45 [facility] 12/11 01:18 Order name: O2 Sat Monitoring; Complete Time: 01:45 [facility] 12/11 01:21 Order name: Radha. Order: BEBTELOVIMAB; Complete Time: 04:23 opal Administered Medications: 01:58 Drug: NS 0.9% 1000 ml Route: IV; Rate: 1 bolus; Site: left antecubital; aa9 04:56 Follow up: Response: No adverse reaction; IV Status: Completed infusion; IV Intake: as6 1000ml 01:58 Drug: Pepcid (famotidine) 40 mg Route: PO; aa9 02:21 Follow up: Response: No adverse reaction aa9 01:58 Drug: Zithromax (azithromycin) 500 mg Route: PO; aa9 02:21 Follow up: Response: No adverse reaction aa9 03:38 Drug: morphine 4 mg Route: IVP; Infused Over: 4 mins; Site: left antecubital; aa9 04:56 Follow up: Response: No adverse reaction as6 03:38 Drug: Zofran (Ondansetron) 4 mg Route: IVP; Site: left antecubital; aa9 04:57 Follow up: Response: No adverse reaction as6 Disposition Summary: 12/11/21 04:18 Discharge Ordered Location: Home opal Problem: new opal Symptoms: have improved opal Condition: Stable opal Diagnosis - COPD/ Chronic obstructive pulmonary disease, unspecified opal - Acute upper respiratory infection, unspecified opal - Chest pain, unspecified opal - Chest pain on breathing opal - Coronavirus infection, unspecified opal - SARS-associated coronavirus as the cause of diseases classified elsewhere opal Followup: opal - With: Private Physician - When: 2 - 3 days - Reason: Recheck today's complaints, Continuance of care, Re-evaluation by your physician Followup: opal - With: Gustavo Javed MD - When: 2 - 3 days - Reason: Recheck today's complaints, Continuance of care, Re-evaluation by your physician Discharge Instructions: - Discharge Summary Sheet opal - Nonspecific Chest Pain, Adult opal - Upper Respiratory Infection, Adult opal - Cool Mist Vaporizer opal - Nonspecific Chest Pain, Adult, [id number] opal - COVID-19 opal - COVID-19 Frequently Asked Questions opal - Things to Know about the COVID-19 Pandemic - [facility] opal - COVID-19: Quarantine vs. Isolation - [facility] opal - Prevent the Spread of COVID-19 if You Are Sick - [facility] opal Forms: - Medication Reconciliation Form opal - Thank You Letter opal - Antibiotic Education opal - Prescription Opioid Use [facility] Prescriptions: - Symbicort 80-4.5 mcg/actuation Inhalation HFA aerosol inhaler - inhale 2 puff by INHALATION route 2 times per day; 1 Pump; Refills: 0, Product opal Selection Permitted - Pepcid 20 mg Oral Tablet - take 1 tablet by ORAL route every 12 hours for 30 days; 60 tablet; Refills: 0, [facility] Product Selection Permitted - Zithromax 500 mg Oral Tablet - take 1 tablet by ORAL route once daily for 5 days; 5 tablet; Refills: 0, [facility] Product Selection Permitted Signatures: Dispatcher [employer] EDDon Dowell MD MD cha Ballard, Brenda, RN RN Kelsea Oh RN RN kd3 Beverley Razo PA PA sb3 Faye Rios RN RN aa9 Trevor Baldwin RN as6
--- NOTE | 2021-12-11 05:42 | RAD REPORT ---
EXAM DESCRIPTION: CT - Chest For Pe Angio - 12/11/2021 3:40 am CLINICAL HISTORY: sob COMPARISON: CTANGIO CHEST FOR PE dated 08/27/2014; Chest Single View dated 12/11/2021 TECHNIQUE: Dynamically enhanced 3 mm thick images of the chest were obtained during administration o f approximately 150mL Isovue 370 IV contrast. Coronal and oblique MIP reconstruction images were gene rated and reviewed. Exam utilizes a protocol to evaluate the pulmonary arterial tree. All CT scans are performed using dose optimization technique as appropriate and may include automated exposure control or mA/KV adjustment according to patient size. FINDINGS: No pulmonary emboli are identified. The aorta as imaged shows no acute or suspicious finding. No pericardial thickening or effusion. No focal mass or consolidation. There is minimal subpleural scarring. A few very small trace areas of airspace opacification are present. These are very minimal. Given the positive COVID history of thes e could be minimal areas of acute viral infiltrate. No pleural effusion or pleural thickening. No mediastinal or hilar suspicious masses. No chest wall masses or abnormal axillary lymphadenopathy. IMPRESSION: No pulmonary emboli identified. A few very small areas of ground-glass opacification are scattered in the lung parenchyma. These are very minimal in size and number.Given a positive COVID history, minimal areas of viral infiltrate wou ld be most likely.
[2021-12-11 05:43] VITALS: BP 123/82; TEMP 98.9; O2SAT 96
--- NOTE | 2021-12-11 08:18 | EKG ---
Test Date: 2021-12-11 Test Time: 02:56:41 [employer]: ROGER MEASUREMENT RESULTS: Intervals: Rate: 71 CT: 172 QRSD: 82 QT: 368 QTc: 399 [place]: P: 47 CT: 172 QRS: 84 T: 55 INTERPRETIVE STATEMENTS: Normal sinus rhythm Low voltage QRS Nonspecific T wave abnormality Abnormal ECG Compared to ECG 07/16/2021 19:54:04 Low QRS voltage now present T-wave abnormality now present Electronically Signed On 12-11-21 08:18:03 CDT by Rajan Singh
--- NOTE | 2021-12-11 10:51 | RAD REPORT ---
EXAM DESCRIPTION: US - Extrem Venous W Compress Jayesh - 12/11/2021 4:46 am CLINICAL HISTORY: Pain. COMPARISON: None. TECHNIQUE: Grayscale, color Doppler, duplex Doppler, spectral Doppler images and analysis with compr ession and augmentation of right and left lower extremity veins. FINDINGS: Right and Left common femoral, greater saphenous, femoral, deep (profunda) femoral, poplit eal, posterior tibial veins unremarkable without evidence of clot. IMPRESSION: No sonographic evidence of right or left lower extremity DVT. Electronically signed by: Marciano Ambrocio MD 12/11/2021 4:22 AM CDT Due to temporary technical issues with the PACS/Fluency reporting system, reports are being signed by the in house radiologists without review as a courtesy to insure prompt reporting. The interpreting radiologist is fully responsible for the content of the report.
--- NOTE | 2021-12-11 10:54 | RAD REPORT ---
EXAM DESCRIPTION: RAD - Chest Single View - 12/11/2021 1:35 am CLINICAL HISTORY: The patient is 61 years old and is Female; CHEST PAIN TECHNIQUE: Frontal view of the chest. COMPARISON: No relevant prior studies available. FINDINGS: LUNGS: Unremarkable. No consolidation. PLEURAL SPACE: Unremarkable. No pneumothorax. HEART: Unremarkable. No cardiomegaly. MEDIASTINUM: Unremarkable. BONES/JOINTS: There are degenerative changes of the bones. UPPER ABDOMEN: Unremarkable as visualized. IMPRESSION: No acute cardiopulmonary process. Electronically signed by: Krystyna Nelson MD 12/11/2021 4:10 AM CDT Due to temporary technical issues with the PACS/Fluency reporting system, reports are being signed by the in house radiologists without review as a courtesy to insure prompt reporting. The interpreting radiologist is fully responsible for the content of the report.
== END 2021-12-11 05:31 | disposition home or self-care (01) ==
LOC: ER 22:48
DX: U07.1 COVID-19 (principal); J06.9 Acute upper respiratory infection, unspecified; J44.9 Chronic obstructive pulmonary disease, unspecified; F17.210 Nicotine dependence, cigarettes, uncomplicated; F31.9 Bipolar disorder, unspecified; Z88.6 Allergy status to analgesic agent
CPT/HCPCS: 93005; 85025; 80048; 36415; 83735; 85610; 85379; 80076; 84484; 83880; 71275; 71045; 93970; Q9967; J7030; J2405; 96361; 96374; 96375; 99284

== ENCOUNTER 2022-05-24 15:51 | Emergency (ER) | payer OTHER ==
--- NOTE | 2022-05-24 16:58 | RAD REPORT ---
EXAM DESCRIPTION: RAD - Chest Single View - 05/24/2022 4:34 pm CLINICAL HISTORY: lightheaded, COPD COMPARISON: Portable 12/11/2021 TECHNIQUE: AP portable chest image was obtained 05/24/2022 4:34 pm . FINDINGS: Lungs are clear. Interstitial pattern matches comparison. Heart and vasculature are normal . No measurable pleural effusion and no pneumothorax. No acute bony abnormality seen. No acute aortic findings suspected. IMPRESSION: No acute cardiopulmonary process. No significant change from comparison study.
--- NOTE | 2022-05-24 16:59 | RAD REPORT ---
EXAM DESCRIPTION: CT - Head Brain Wo Cont - 05/24/2022 4:50 pm CLINICAL HISTORY: Headache, Lightheaded, nausea COMPARISON: CT Brain Wo Cont dated 12/21/2019 TECHNIQUE: Axial 5 mm thick images of the head were obtained without IV contrast. All CT scans are performed using dose optimization technique as appropriate and may include automated exposure control or mA/KV adjustment according to patient size. FINDINGS: No intracranial hemorrhage, mass, edema or shift of mid-line structures. No acute infarcti on changes seen. No abnormal extra-axial fluid collections. Ventricles are normal. Physiologic calcif ications are present. Mastoid air cells and visualized portions of the paranasal sinuses are clear. No acute bony findings. No significant change comparison. IMPRESSION: Negative non-contrast CT head examination for acute or significant finding.
[2022-05-24 17:53] LABS: Hematocrit 42.4 % (36.0-45.0); MCV 95.2 fL (80-100); MPV 9.9 fL (7.6-11.3); RBC Red Blood Cell Count 4.45 M/uL (3.86-4.86)
[2022-05-24 17:56] LABS: Absolute Lymphocytes (CBC) 2.4 K/uL (0.7-4.9); Lymphocytes % 35.3 % (15.3-44.8)
--- OUTSIDE RECORDS SUMMARY | 2022-05-24 18:00 | XMS REPORT | Continuity of Care Document ---
:1960 Author Organization [facility] t Address [address] [place] [id number] Care Team Providers Name Role Phone Gómez Medina Anshu Primary Care Physician ANJU DAVISON Attending Clinician Unavailable MAL BURGER Attending Clinician Unavailable MAL BURGER Attending Clinician Unavailable Doctor Unassigned, [place] Attending Clinician Unavailable [email or web address] Attending Clinician Unavailable SHERI TATE Attending Clinician Unavailable Sheri Jeffries Attending Clinician Anju Davison MD Attending Clinician Only, Adc Test Attending Clinician Unavailable Nurse, Adc Pob Immunization Attending Clinician Unavailable Daniel Chapa DO Attending Clinician DANIEL CHAPA Attending Clinician Unavailable Kristi Brock PHD Attending Clinician KRISTI BROCK Attending Clinician Unavailable Radiology Attending Clinician Unavailable RADIOLOGY Attending Clinician Unavailable JEWEL ODEN Attending Clinician Unavailable JEWEL ODEN Attending Clinician Unavailable Jewel Oden MD Attending Clinician Reuben Montanez MD Attending Clinician DR JA WOOD Attending Clinician Unavailable RAMONA QUIJANO M.D. Attending Clinician Unavailable DR BOB ROMERO Attending Clinician Unavailable VALENTE LEARY Attending Clinician Unavailable Lab, Adc Fam Pob I Attending Clinician Unavailable Valente Park Attending Clinician DR KEN TALAMANTES Attending Clinician Unavailable TUNG PEREZ Attending Clinician Unavailable DR ROSE MARIE SIMEON Attending Clinician Unavailable ANJU DAVISON Admitting Clinician Unavailable [email or web address] Admitting Clinician Unavailable Anju Davison MD Admitting Clinician DR JA WOOD Admitting Clinician Unavailable DR BOB ROMERO Admitting Clinician Unavailable DR KEN TALAMANTES Admitting Clinician Unavailable DR ROSE MARIE SIMEON Admitting Clinician Unavailable Payers Payer Name Policy Type Policy Number Effective Date Expiration Date S [facility] D[facility] [id number] 2020 COMP HMO D SNP 00:00:00 [place] [id number] 2020 00:00:00 [facility] [id number] 2022 00:00:00 [facility] - MEDICARE [id number] COMPLETE (MEDICARE REPLACEMENT HMO) GENERIC COMMERCIAL [id number] - MOVED HOLD Problems Condition Condition Condition Status Onset Resolution Last Treating Co mments Source Name Details Category Date Date Treatment Clinician Date CHEST PAIN CHEST Condition Active 2015-01-04 [facility] PAIN 01-04 16:37:00 l Active 00:00: [place] 01/04/2015 00 Condition 01/04/2015 [facility] Group LIGHTHEADE Condition Active 2015-01-04 Memoria DNESS LIGHTHEADE 01-04 16:37:00 l DNESS 00:00: [place] Active 00 01/04/2015 Condition 01/04/2015 Medical Group SHORTNESS SHORTNESS Condition Active 2015-01-04 [facility] OF BREATH OF BREATH 01-04 16:37:00 l Active 00:00: Tal 01/04/2015 00 Condition 01/04/2015 Medical Group Cervical Cervical Disease Active Overview: [...] use 02-16 ity of disorder disorder 00:00: Medical Branch S/P S/P Disease Active Univers hysterecto hysterecto 02-16 it y of my my 00:00: Medical Branch Overweight Overweight Disease Active Overview : Univers 02-16 Formattin ity of 00:00: g of this 00 note Medical might be Branch different from the original. 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 ICD10 Diagnosis Term Interior Design Principal Utility Cocaine Cocaine Disease Active Overview: Univ ers abuse in abuse in 1-10 Formattin ity of remission remission 00:00: g of this [place] 00 note Medical might be Branch different from the original. ICD10 Diagnosis Term Interior Design Principal Utility Asthma Asthma Disease Active Overview: Univer s with with 1-10 Formattin ity of status status 00:00: g of this [place] asthmaticu asthmaticu 00 note Me dical s s might be Branch different from the original. ICD10 Diagnosis Term Interior Design Principal Utility Peptic Peptic Disease Active Overview: Univer s ulcer ulcer 1-10 Formattin ity of 00:00: g of this [place] 00 note Medical might be Branch different from the original. ICD10 Diagnosis Term Interior Design Principal Utility Migraine Migraine Disease Active Overview: Un anjel with aura with aura 1-10 Formattin i ty of 00:00: g of this 00 note Medical might be Branch different from the original. ICD10 Diagnosis Term Interior Design Principal Utility Shortness Shortness Problem Active [facility] of [...] pain Problem Active U T Physici ans No known No known Disease Metho di active active st problems problems Hospit a l Allergies, Adverse Reactions, Alerts Allergy Allergy Status Severity Reaction(s) Onset Inactive Treating Comm ents Source Name Type Date Date Clinician Aspirin Propensi Active Hives 2018-06 Methodi ty to 06-07 st adverse 00:00: Hospita reaction 00 l s to drug Sumatrip Propensi Active Palpitations 2018-[address] Methodi lindo ty to 06-[address] Succinat adverse 00:00: Hospita e reaction 00 l s to drug Salicyla Propensi Active Hives [facility]: Medical reaction 00 Center s Sumatrip Propensi Active Nausea Only [facility] 01-01 [facility] adverse 00:00: Medical reaction 00 Center s Salicyla Propensi Active Hives [facility] adverse 00:00: Medical reaction 00 Center s ASA ASA Active Memoria 8-05 l 00:00: [place] IMITREX IMITREX Active Memoria 8-05 l 00:00: Tal 00 Imitrex DA Active Unknown 2015-0 [facility] 7-30 Medical 00:00: Center 00 Aspirin DA Active Unknown 2012- [facility] 2-14 Medical 00:00: Center 00 Aspirin Propensi Active Rash 2006-0 Univers ty to 1-10 ity of adverse 00:00: [place] reaction 00 Medical s Branch Sumatrip Propensi Active Shortness of 2007-0 Univers lindo ty to Breath 1-10 ity [...] Comments Source History of tobacco Cigarette Smoker University of use [facility] Exposure to Not sure University of SARS-CoV-2 (event) [facility] History SDOH [facility] Alcohol Std Drinks Hospit al History SDOH [facility] Alcohol Binge Hospital Tobacco use and 2021-03-06 2021-03-06 Smokeless Universit y of exposure 00:00:00 00:00:00 tobacco non-user [facility] Tobacco Comment 2021-03-06 2021-03-06 1 ppd Universit y of 00:00:00 00:00:00 [facility] History SDOH 2019-04-12 2019-04-12 1 [facility] Alcohol Frequency 00:00:00 00:00:00 Hospita l Alcohol intake 2019-04-12 2019-04-12 Ex-drinker [facility] 00:00:00 00:00:00 (finding) Hospital Cigarettes smoked 2019-04-07 2019-04-[address] current (pack per 00:00:00 00:00:00 Hospita l day) - Reported Sex Ass[birth year] At [birth year] [facility] 00:00:00 00:00:00 Hospital Smoking Status Start Date Stop Date Source Unknown if ever smoked [facility] Smoker (finding) [place] [facility]icians Smokes tobacco daily 2021-03-06 00:00:00 Univers ity of [facility] Never smoker [facility] Medications Ordered Filled Start Stop Current [...] 0-06 Puffs as ity of 16:05: needed. [place] [address] Medical Branch hydrOXYzine 2020-06 Yes 50mg Take [...] by mouth ity o f 16:05: at [place] [address] bedtime. Medical Branch HYDROcodone 2020-06 Yes 1{tbl} Take 1 Tab Univers -acetaminop 0-06 by mouth 2 it y of hen (NORCO) 16:05: (two) [place] 10-325 mg 17 times Medical tablet daily. Branch ALBUTEROL 2020-06 Yes 2{puff} Inhale 2 U nivers INHALE 0-06 Puffs as ity of 16:05: needed. [place] [address] Medical Branch hydrOXYzine 2020-06 Yes 50mg Take [...] by mouth ity o f 16:05: at [place] [address] bedtime. Medical Branch HYDROcodone 2020-06 Yes 1{tbl} Take 1 Tab Univers -acetaminop 0-06 by mouth 2 it y of hen (NORCO) 16:05: (two) [place] 10-325 mg 17 times Medical tablet daily. Branch ALBUTEROL 2020-06 Yes 2{puff} Inhale 2 U nivers INHALE 0-06 Puffs as ity of 16:05: needed. [place] [address] Medical Branch hydrOXYzine 2020-06 Yes 50mg Take 50 mg Univers (ATARAX) 50 0-06 by mouth 3 it y of mg tablet 16:05: (three) [place] 17 times Medical daily as Branch needed for Itching. QUEtiapine 2020-06 Yes 100mg Take 100 Un anjel (SEROQUEL) 0-06 mg by ity of 50 mg 16:05: mouth at [place] tablet 17 bedtime. Medical Branch acetaminoph 2020-06 Yes 1{tbl} Take 1 Un anjel en-codeine 0-06 tablet by ity of 300-30 mg 16:05: mouth [place] tablet 17 every 4 Medical (four) Branch hours as needed. doxepin 50 2020-06 Yes 50mg Take 50 mg U nivers mg capsule 0-06 by mouth ity o f 16:05: at [place] [address] bedtime. Medical Branch HYDROcodone 2020-06 Yes 1{tbl} Take 1 Tab Univers -acetaminop 0-06 by mouth 2 it y of hen (NORCO) 16:05: (two) [place] 10-325 mg 17 times Medical tablet daily. Branch ALBUTEROL 2020-06 Yes 2{puff} Inhale 2 U nivers INHALE 0-06 Puffs as ity of 16:05: needed. [place] [address] Medical Branch hydrOXYzine 2020-06 Yes 50mg Take 50 mg Univers (ATARAX) 50 0-06 by mouth 3 it y of mg tablet 16:05: (three) [place] 17 times Medical daily as Branch needed for Itching. QUEtiapine 2020-06 Yes 100mg Take 100 Un anjel (SEROQUEL) 0-06 mg by ity of 50 mg 16:05: mouth at [facility] 17 bedtime. Medical Branch acetaminoph 2020-06 Yes 1{tbl} Take 1 Un anjel en-codeine 0-06 tablet by ity of 300-30 mg 16:05: mouth [place] tablet 17 every 4 Medical (four) Branch hours as needed. doxepin 50 2020-06 Yes 50mg Take 50 mg U nivers mg capsule 0-06 by mouth ity o f 16:05: at [place] [address] bedtime. Medical Branch simvastatin Yes 10mg Take 10 mg Univers 10 mg 6-08 by mouth ity of tablet 00:00: every [place] [address] evening. Medical Branch simvastatin Yes 10mg Take 10 mg Univers 10 mg 6-08 by mouth ity of tablet 00:00: every [place] 00 evening. Medical Branch simvastatin 0 Yes 10mg Take 10 mg Univers 10 mg 6-08 by mouth ity of tablet 00:00: every [place] 00 evening. Medical Branch simvastatin Yes 10mg Take 10 mg Univers 10 mg 6-08 by mouth ity of tablet 00:00: every [place] 00 evening. Medical Branch pregabalin Yes 100mg Take 100 Un anjel 100 mg 6-07 mg by ity of capsule 00:00: mouth [place] [address] (two) Medical times Branch daily. pregabalin 2020-0 Yes 100mg Take 100 Un anjel 100 mg 6-07 mg by ity of capsule 00:00: mouth [place] (two) Medical times Branch daily. pregabalin 2020-0 Yes 100mg Take 100 Un anjel 100 mg 6-07 mg by ity of capsule 00:00: mouth [place] (two) Medical times Branch daily. pregabalin 202-0 Yes 100mg Take 100 Un anjel 100 mg 6-07 mg by ity of capsule 00:00: mouth [place] (two) Medical times Branch daily. DEXILANT 60 Yes 1{capsu Take 1 U nivers mg capsule 5-21 le} capsule by ity of 00:00: mouth [place] 00 daily. Medical Branch levocetiriz Yes 5mg Take 5 mg U nivers ine 5 mg 5-21 by mouth ity of tablet 00:00: every [place] 00 evening. Medical Branch DEXILANT 60 Yes 1{capsu Take 1 U nivers mg capsule 5-21 le} capsule by ity of 00:00: mouth [place] 00 daily. Medical Branch levocetiriz Yes 5mg Take 5 mg U nivers ine 5 mg 5-21 by mouth ity of tablet 00:00: every [place] 00 evening. Medical Branch DEXILANT 60 Yes 1{capsu Take 1 U nivers mg capsule 5-21 le} capsule by ity of 00:00: mouth [place] 00 daily. Medical Branch levocetiriz Yes 5mg Take 5 mg U nivers ine 5 mg 5-21 by mouth ity of tablet 00:00: every [place] 00 evening. Medical Branch DEXILANT 60 Yes 1{capsu Take 1 U nivers mg capsule 5-21 le} capsule by ity of 00:00: mouth [place] 00 daily. Medical Branch levocetiriz Yes 5mg Take 5 mg U nivers ine 5 mg 5-21 by mouth ity of tablet 00:00: every [place] 00 evening. Medical Branch Cephalexin Cephalexin Yes RAMONA QUIJANO Q0.25D TAKE 1 UT 500 MG Oral 500 MG Oral 3-22 M.D. TABLET 4 Physici Tablet Tablet 00:00: TIMES ans 00 DAILY FLUoxetine 2018-06 Yes 40mg QD Take 40 mg M ethodi (PROzac) 40 -[address] MG capsule 11:18: daily. Hospi ta 06 l cyanocobala 2018-06 Yes Take by Met hodi min, - mouth. st vitamin 11:18: Hospita B-12, 06 l (VITAMIN B-12 ORAL) FLUoxetine 2018-06 Yes 40mg QD Take 40 mg M ethodi (PROzac) 40 -[address] MG capsule 11:18: daily. Hospi ta 06 l cyanocobala 2018-06 Yes Take by Met hodi min, -[address] vitamin 11:18: Hospita B-12, 06 l (VITAMIN B-12 ORAL) dexlansopra 2018-06 Yes 60mg QD Take 60 mg Methodi zole -[address] (DEXILANT) 11:18: daily. Hospi ta 60 mg 06 l capsule paliperidon 2018-06 Yes Take by Met bee e (INVEGA -[address] ORAL) 11:18: Hospita 06 l ALPRAZolam 2018-06 Yes 2mg [id number] Take 2 mg Methodi (XANAX) 2 - [id number] by mouth 3 st MG tablet 11:18: 3D (three) Hospi ta 06 times a l day as needed for anxiety. budesonide/ 2018-06 Yes Inhale. Met hodi formoterol -11 st fumarate 11:18: Hospita (SYMBICORT 06 l INHL) dexlansopra 2018-06 Yes 60mg QD Take 60 mg Methodi zole [address] (DEXILANT) 11:18: daily. Hospi ta 60 mg 06 l capsule paliperidon 2018-06 Yes Take by Met bee e (INVEGA -[address] ORAL) 11:18: Hospita 06 l ALPRAZolam 2018-06 Yes 2mg [id number] Take 2 mg Methodi (XANAX) 2 06-12 [id number] [address] mouth [address] MG tablet 11:18: 3D (three) Hospi ta 06 times a l day as needed for anxiety. budesonide/ 2018-06 Yes Inhale. Met hodi formoterol -11 st fumarate 11:18: Hospita (SYMBICORT 06 l INHL) FLUoxetine 2018-06 Yes 40mg QD Take 40 mg M ethodi (PROzac) [address] MG capsule 11:18: daily. Hospi ta 06 l cyanocobala 2018-06 Yes Take by Met bee min, [address] vitamin 11:18: Hospita B-12, 06 l (VITAMIN B-12 ORAL) dexlansopra 2018-06 Yes 60mg QD Take 60 mg Methodi zole -[address] (DEXILANT) 11:18: daily. Hospi ta 60 mg 06 l capsule paliperidon 2018-06 Yes Take by Met bee e (INVEGA 1-[address] ORAL) 11:18: Hospita 06 l ALPRAZolam 2018-06 Yes 2mg [id number] Take 2 mg Methodi (XANAX) 2 06-12 [id number] [address] mouth [address] MG tablet 11:18: 3D (three) Hospi ta 06 times a l day as needed for anxiety. budesonide/ 2018-06 Yes Inhale. Met hodi formoterol 06-12 st fumarate 11:18: Hospita (SYMBICORT 06 l INHL) antipyrine- Yes 2[drp] Place 2 U nivers [...] lidocaine 2016-0 Yes 15mL Take 15 mL Un anjel 2% viscous 5-09 by mouth ity o f (LIDOCAINE 00:00: every 4 [place] VISCOUS[place] 2 00 (four) Medical % solution hours as Branc h needed for Oral mucosal pain. doxepin 2016-0 Yes 75mg QD Take [address] (SINEQUAN) 8-02 by mouth [facility] 75 MG 10:59: nightly. Medical capsule 26 Center [address] [facility] (BUTRANS 8-02 the skin. Harry es TD) 10:59: Medical 26 Center HYDROcodone 2015-0 Yes 1{tbl} Take [address] -acetaminop 8-02 tablet by Harry es hen (NORCO 10:59: mouth Medica l 5-325) 26 every 6 Center 5-325 mg (six) per tablet hours as needed for Pain. tiZANidine 2015-0 Yes 4mg Take [address] (ZANAFLEX) 8-02 by mouth [facility] 4 MG tablet 10:59: every 6 Med ical 26 (six) Center hours as needed. QUEtiapine 2015-0 Yes 50mg QD Take [address] (SEROQUEL) 8-02 by mouth [facility] 50 MG 10:59: nightly. Medical tablet 26 Center OXcarbazepi 2016-0 Yes 150mg Q.5D Take [address] ne 8-02 mg by [facility] (TRILEPTAL) 10:59: mouth 2 Med ical 150 MG 26 (two) Center tablet times daily. pregabalin 2016-0 Yes 150mg Q.5D Take [address] (LYRICA) 8-02 mg by [facility] 150 MG 10:59: mouth 2 Medical capsule 26 (two) Center times daily. doxepin 2016-0 Yes 75mg QD Take [address] (SINEQUAN) 8-02 by mouth [facility] 75 MG 10:59: nightly. Medical capsule 26 Center BUPRENORPHI 2015-[address] [facility] (BUTRANS 8-02 the skin. Harry es TD) 10:59: Medical 26 Center HYDROcodone 2015-0 Yes 1{tbl} Take [address] -acetaminop 8-02 tablet by Harry gracia child (NORCO 10:59: mouth Medica l 5-325) 26 every 6 Center 5-325 mg (six) per tablet hours as needed for Pain. tiZANidine 2016-0 Yes 4mg Take [address] (ZANAFLEX) 8-02 by mouth [facility] 4 MG tablet 10:59: every 6 Med ical 26 (six) Center hours as needed. QUEtiapine 2016-0 Yes 50mg QD Take [address] (SEROQUEL) 8-02 by mouth [facility] 50 MG 10:59: nightly. Medical tablet 26 Center OXcarbazepi 2016-0 Yes 150mg Q.5D Take [address] ne 8-02 mg by [facility] (TRILEPTAL) 10:59: mouth 2 Med ical 150 MG 26 (two) Center tablet times daily. pregabalin 2016-0 Yes 150mg Q.5D Take [address] (LYRICA) 8-02 mg by [facility] 150 MG 10:59: mouth 2 Medical capsule 26 (two) Center times daily. pregabalin 2016-0 Yes 150mg Q.5D Take [address] (LYRICA) 8-02 mg by [facility] 150 MG 10:59: mouth 2 Medical capsule 26 (two) Center times daily. doxepin 2016-0 Yes 75mg QD Take [address] (SINEQUAN) 8-02 by mouth [facility] 75 MG 10:59: nightly. Medical capsule 26 Center BUPRENORPHI 2015-[address] [facility] (BUTRANS 8-02 the skin. Harry fagan TD) 10:59: Medical 26 Center HYDROcodone 2016-0 Yes 1{tbl} Take [address] -acetaminop 8-02 tablet by Harry child (NORCO 10:59: mouth Medica l 5-325) 26 every 6 Center 5-325 mg (six) per tablet hours as needed for Pain. tiZANidine 2016-0 Yes 4mg Take [address] (ZANAFLEX) 8-02 by mouth [facility] 4 MG tablet 10:59: every 6 Med ical 26 (six) Center hours as needed. QUEtiapine 2016-0 Yes 50mg QD Take [address] (SEROQUEL) 8-02 by mouth [facility] 50 MG 10:59: nightly. Medical tablet 26 Center OXcarbazepi Yes 150mg Q.5D Take [address] ne 8-02 mg by [facility] (TRILEPTAL) 10:59: mouth 2 Med ical 150 MG 26 (two) Center tablet times daily. DEXILANT 60 Yes one po Bin emili MG CPDR 8-05 daily l 00:00: [place] 00 LIPITOR Yes .qd Memoria 8-05 l 00:00: ZANAFLEX Yes .bid Memoria 8-05 l 00:00: HYDROCODONE Yes one po Bin emili -ACETAMINOP 8-05 twice a l HEN 10-325 00:00: day [place] MG TABS 00 COLCHICINE Yes one po [...] ZANAFLEX Yes .bid Memoria 8-05 l 00:00: [place] 00 HYDROCODONE Yes one po Bin emili -ACETAMINOP 8-05 twice a l HEN 10-325 00:00: day Tal MG TABS 00 COLCHICINE Yes one po Memor ia 8-05 twice a l 00:00: day [place] ATARAX Yes prn Memoria 8-05 anxiety l 00:00: [place] SEROQUEL Yes Two po qhs Mem oria [...] twice a l HEN 10-325 00:00: day [place] MG TABS 00 COLCHICINE Yes one po [...] 00:00: day Tal MG TABS 00 SEROQUEL Yes Two po [...] Immunizations Ordered Filled Immunization Date Status Comments [facility] e Immunization Name Name SARS-COV-2 COVID-19 2021-02-16 Completed Unive rsity of PFIZER VACCINE 00:00:00 [facility] SARS-COV-2 COVID-19 2021-02-16 Completed Unive rsity of PFIZER VACCINE 00:00:00 [facility] SARS-COV-2 COVID-19 2021-02-16 Completed Unive rsity of PFIZER VACCINE 00:00:00 [facility] SARS-COV-2 COVID-19 2021-02-16 Completed Unive rsity of PFIZER VACCINE 00:00:00 [facility] SARS-COV-2 COVID-19 2021-01-26 Completed Unive rsity of PFIZER VACCINE 00:00:00 [facility] SARS-COV-2 COVID-19 2021-01-26 Completed Unive rsity of PFIZER VACCINE 00:00:00 [facility] SARS-COV-2 COVID-19 2021-01-26 Completed Unive rsity of PFIZER VACCINE 00:00:00 [facility] SARS-COV-2 COVID-19 2021-01-26 Completed Unive rsity of PFIZER VACCINE 00:00:00 [facility] TDAP 2013-03-18 Completed University of 00:00:00 [facility] TDAP 2013-03-18 Completed University of 00:00:00 [facility] TDAP 2013-03-18 Completed University of 00:00:00 [facility] TDAP 2013-03-18 Completed University of 00:00:00 [facility] Vital Signs Vital Name Observation Time Observation Value Comments Source Systolic blood 2021-05-03 17:08:00 112 mm[Hg] Univer sity of pressure [facility] Diastolic blood 2021-05-03 17:08:00 75 mm[Hg] Unive rsity of pressure [facility] Heart rate 2021-05-03 17:08:00 85 /min [facility] Body height 2021-05-03 17:08:00 154.9 cm [facility] Body weight 2021-05-03 17:08:00 78.472 kg [facility] BMI 2021-05-03 17:08:00 32.69 kg/m2 [facility] Height 2020-12-18 15:59:00 154.94 CM Weight 2020-12-18 [...] Ph ysicians (BMI) [Ratio] Height 2015-01-04 20:15:50 [facility] [place] Weight 2015-01-04 20:15:50 [facility] [place] Temperature Oral (F) 2015-01-04 20:15:50 98.4 F [facility] Heart Rate 2015-01-04 20:15:50 [facility] Systolic (mm Hg) 2015-01-04 20:15:50 Bin rial [place] Diastolic (mm Hg) 2015-01-04 20:15:50 Mem orial Tal Procedures Procedure Date / Time Performing Clinician Source Performed REFERRAL- 2022-01-18 05:01:00 Doctor Unassigned, [facility] REQUEST/RESPONSE [place] [facility] XR HIPS 2 VW BILATERAL 2021-05-03 17:47:00 Sheri Tate [facility] REFERRAL- 2021 05:01:00 Doctor Unassigned, [facility] REQUEST/RESPONSE [place] [facility] DRAIN RH SUBQ TISS FASCIA 2020-08-15 00:00:00 [facility] OPEN APPR Center nfectious agent detection 2019-11-15 00:00:00 [facility] by nucleic acid (DNA or smoking/tobacco 2015-01-04 20:15:50 [facility] monte cessation, patient education and counseling vaginal Pap smear results 2014-01-31 20:34:06 Mi morial [place] colonoscopy 2013-05-02 21:35:09 [facility] Her monte History of Tubal Ligation [facility] History of Exploratory [facility] Laparotomy History of [facility] Cholecystectomy Plan of Care Planned Activity Planned Date Details Comments Source Future Scheduled 2022-05-19 COVID-19 VACCINE (#1) [facility] Test 04:28:51 [code = COVID-19 VACCINE (#1)] Future Scheduled 2022-05-19 BREAST CANCER [facility] Test 04:28:51 SCREENING [code = BREAST CANCER SCREENING] Future Scheduled 2022-05-19 COLONOSCOPY SCREENING [facility] Test 04:28:51 [code = COLONOSCOPY SCREENING] Future Scheduled 2022-05-19 SHINGLES VACCINES (1 Met [facility] Test 04:28:51 of 2) [code = SHINGLES VACCINES (1 of 2)] Future Scheduled 2022-05-19 INFLUENZA VACCINE Method [facility] Test 04:28:51 [code = INFLUENZA VACCINE] Future Scheduled 2022-04-07 BREAST CANCER [facility] Test 20:14:03 SCREENING [code = BREAST CANCER SCREENING] Future Scheduled 2022-04-07 COLONOSCOPY SCREENING [facility] Test 20:14:03 [code = COLONOSCOPY SCREENING] Future Scheduled 2022-04-07 SHINGLES VACCINES (1 Met [facility] Test 20:14:03 of 2) [code = SHINGLES VACCINES (1 of 2)] Future Scheduled 2022-04-07 INFLUENZA VACCINE Method [facility] Test 20:14:03 [code = INFLUENZA VACCINE] Future Scheduled 2022-04-07 HEPATITIS B VACCINES Met [facility] Test 20:14:03 (1 of 3 - 3-dose series) [code = HEPATITIS B VACCINES (1 of 3 - 3-dose series)] Future Scheduled 2022-04-07 COVID-19 VACCINE (#1) [facility] Test 20:14:03 [code = COVID-19 VACCINE (#1)] Future Scheduled 2022-04-07 Pneumococcal Vaccine: [facility] Test 20:14:03 Pediatrics (0 to 5 Years) and At-Risk Patients (6 to 64 Years) (1 - PCV) [code = Pneumococcal Vaccine: Pediatrics (0 to 5 Years) and At-Risk Patients (6 to 64 Years) (1 - PCV)] Future Scheduled 2022-04-07 Hepatitis C screening [facility] Test 20:14:03 (procedure) [code = 142641874] Future Scheduled 2022-04-07 Screening for [facility] Test 20:14:03 malignant neoplasm of cervix (procedure) [code = 438873301] Future Scheduled 2022-04-07 BREAST CANCER [facility] Test 20:14:03 SCREENING [code = BREAST CANCER SCREENING] Future Scheduled 2022-04-07 COLONOSCOPY SCREENING [facility] Test 20:14:03 [code = COLONOSCOPY SCREENING] Future Scheduled 2022-04-07 SHINGLES VACCINES (1 Met [facility] Test 20:14:03 of 2) [code = SHINGLES VACCINES (1 of 2)] Future Scheduled 2022-04-07 INFLUENZA VACCINE Method [facility] Test 20:14:03 [code = INFLUENZA VACCINE] Future Scheduled 2022-04-07 HEPATITIS B VACCINES Met [facility] Test 20:14:03 (1 of 3 - 3-dose series) [code = HEPATITIS B VACCINES (1 of 3 - 3-dose series)] Future Scheduled 2022-04-07 COVID-19 VACCINE (#1) [facility] Test 20:14:03 [code = COVID-19 VACCINE (#1)] Future Scheduled 2022-04-07 Pneumococcal Vaccine: [facility] Test 20:14:03 Pediatrics (0 to 5 Years) and At-Risk Patients (6 to 64 Years) (1 - PCV) [code = Pneumococcal Vaccine: Pediatrics (0 to 5 Years) and At-Risk Patients (6 to 64 Years) (1 - PCV)] Future Scheduled 2022-04-07 Hepatitis C screening [facility] Test 20:14:03 (procedure) [code = 033899182] Future Scheduled 2022-04-07 Screening for [facility] Test 20:14:03 malignant neoplasm of cervix (procedure) [code = 299387837] Encounters Start End Encounter Admission Attending Care Care Encounter Source Date/Time Date/Time Type Type Clinicians Facility Department ID 2021-04-03 Outpatient R GUANAKO [facility] [id number] Univers 02:17:14 ANJU Adkins [facility] 2022-05-23 2022-05-23 Outpatient VIRGILIO [facility] [id number] Jose Roberto 09:20:25 09:20:25 [id number] 2022-04-15 2022-04-15 Outpatient R MAL BURGER [facility] [id number] Univers 10:00:00 10:00:00 MAL BURGER i ty of [facility] 2022-03-08 2022-03-08 Outpatient R MAL BURGER [facility] [id number] Univers 10:30:00 10:30:00 MAL BURGER i ty [facility] 2022-01-18 2022-01-18 Orders Doctor EVANS 1.2.840.114 [id number] Univers 00:00:00 00:00:00 Only Unassigned, MARK 350.1.13.10 [facility] 4.2.7.2.686 Francesco as [phone] [address] 2021-10-08 2021-10-08 Outpatient GC_CPC_Mora PRIV PRIV 240 [id number] [facility] 02:19:00 02:19:00 _A [id number] Medica l 2021-09-25 2021-09-25 Outpatient GC_CPC_Mora PRIV PRIV 240 [id number] [facility] 09:32:00 09:32:00 _A [id number] Medica l 2021-09-25 2021-09-25 Outpatient GC_CPC_Mora PRIV PRIV 240 [id number] [facility] 09:32:00 09:32:00 _A [id number] Medica l 2021-05-14 2021-05-14 [facility] [id number] Univers 00:00:00 00:00:00 [facility] 2021-05-03 2021-05-03 Outpatient Dilip TATE [facility] [id number] Univers 11:15:00 23:59:00 [facility] 2021-05-03 2021-05-03 Hospital [facility] 1.2.840.114 [id number] Univers 11:15:00 23:59:00 Encounter [facility] [id number] ity of [place] 4.2.7.2.686 Francesco as FRANKIE?BLEA [phone] Mi deb MARTINO [address] [place] [address] MEDICAL OFFICE BUILDING 2021-05-03 2021-05-03 Outpatient Dilip TATE [facility] [id number] Univers 11:00:00 11:00:00 [facility] 2021-05-03 2021-05-03 [facility] [id number] Univers 11:00:00 11:00:00 [facility] 2021-05-03 2021-05-03 Office [facility] 1.2.840.114 [id number] Univers 10:24:20 10:54:20 Visit [facility] HEALTH [id number] it y of [place] 4.2.7.2.686 Francesco as FRANKIE?BLEA [phone] [address] MEDICAL OFFICE BUILDING 2021 2021 Orders Doctor NATHAN 1.2.840.114 [id number] Univers 00:00:00 00:00:00 Only Unassigned, MARK 350.1.13.10 [place] [facility] 4.2.7.2.686 Francesco as [phone] [facility] [address] 2021-03-07 2021-03-07 [facility] 1.2.840.114 [id number] Univers 12:06:00 15:59:00 Encounter Anju adkins 350.1.13.10 [place] of [place] [phone] [facility] [address] 2021-03-07 2021-03-07 Surgery [facility] 1.2.840.114 [id number] Univers 13:35:00 14:12:00 Anju adkinston 350.1.13.10 it[place] of [place] [phone] [facility] 0[address] 2021-03-06 2021-03-06 Outpatient R [facility] [id number] Univers 08:00:00 08:00:00 ANJU Adkins o f [facility] 2021-03-06 2021-03-06 Laboratory Only, Adc Test [facility] [[email or web address]] 1.2.840. 114 [id number] Univers 07:40:21 07:55:21 Only Anju Davison 350.1.1 3.10 it[place] of [place] [phone] [facility] [address] 2021-03-06 2021-03-06 Orders Doctor EVANS 1.2.840.114 [id number] Univers 00:00:00 00:00:00 Only Unassigned, MARK 350.1.13.10 [place] [facility] 4.2.7.2.686 Francesco as [phone] [facility] [address] 2021-02-16 2021-02-16 Imm/Inj Nurse, Adc Pob Immunization [facility] [[email or web address]] 1.2.840.114 [id number] Univers 08:04:24 08:14:24 Visit Daniel Chapa 350.1.13 .10 it[place] of [place].2.[place] Profess[place] [phone] Mi dical [facility] 421 [facility] 2021-02-16 2021-02-16 Outpatient R AGAPITO [facility] [id number] Univers 08:10:00 08:10:00 DANIEL castillo of [facility] 2021-02-07 2021-02-07 Office Cristina [facility] 1.2.840.114 [id number] Univers 07:35:37 11:35:37 Visit MULTISPEC 350.1.13.10 [place].2.[place] [phone] [address] [facility] 2021-02-07 2021-02-07 Office Kristi Brock [facility] [[email or web address]] 1.2.840.114 [id number] Univers 07:35:37 11:35:37 Visit MULTISPEC 350.1.13.10 [place] [phone] [address] [facility]ES [facility]INIC 2021-02-07 2021-02-07 Outpatient R KRISTI BROCK [facility] [id number] Univers 08:00:00 08:00:00 ity of [facility] 2021-02-02 2021-02-02 Hospital Radiology [facility] [[email or web address]] 1.2.840.114 [id number] Univers 08:32:14 23:59:00 Encounter Jansen 350.1.13.10 ity of [place].2.[place] [phone] [facility] [address] 2021-02-02 2021-02-02 Hospital Radiology [facility] [[email or web address]] 1.2.840.114 [id number] Univers 08:32:14 23:59:00 Encounter Jansen 350.1.13.10 ity of [place].2.[place] [phone] [facility] [address] 2021-02-02 2021-02-02 Outpatient R RADIOLOGY [facility] [id number] Univers 00:00:00 00:00:00 ity [facility] 2021-01-26 2021-01-26 Outpatient R AGAPITO [facility] [id number] Univers 09:50:00 09:50:00 DANIEL [facility] 2021-01-26 2021-01-26 Imm/Inj Nurse, Adc Pob Immunization [facility] [[email or web address]] 1.2.840.114 [id number] Univers 09:37:51 09:38:00 Visit AgapitoDaniel Melvin [place] 350.1.13 .10 [facility] 4.2.7.2.686 [facility] [phone] Mi dical nal 421 [facility] 2021-01-23 2021-01-23 Outpatient R JEWEL ODEN [facility] [id number] Univers 11:00:00 11:00:00 JEWEL ODEN [facility] 2021-01-22 2021-01-22 Office Karan [facility] [[email or web address]] 1.2.840.114 [id number] Univers 13:20:54 15:07:06 Visit [facility] 350.1.13.10 Pretty 4.2.7.2.686 Francesco as Frankie?Blea [phone] Mi dical kney 092 [facility] Office [facility] 2021-01-22 2021-01-22 Outpatient R JEWEL ODEN [facility] [id number] Univers 14:40:00 14:40:00 JEWEL ODEN [facility] 2021-01-22 2021-01-22 Outpatient R RADIOLOGY [facility] [id number] Univers 00:00:00 00:00:00 [facility] 2021-01-19 2021-01-19 Outpatient R JEWEL ODEN [facility] [id number] Univers 10:40:00 10:40:00 JEWEL ODEN [facility] 2021-01-18 2021-01-18 Outpatient R RADIOLOGY [facility] [id number] Univers 00:00:00 00:00:00 ity of [facility] 2021-01-10 2021-01-10 Telephone [facility] 1.2.840.114 [id number] Univers 00:00:00 00:00:00 Jewel [place] 350.1.13.10 ity of [place] 4.2.[place].2.686 [place] [facility] [phone] Mi dical nal 092 [facility] 2020-12-28 2020-12-28 [facility] 1.2.840.114 [id number] Univers 10:29:55 23:59:00 Encounter Reuben Ho [facility] 350.1.13.10 ity of Surgical 4.2.7.2.686 Francesco as Specialti [phone] Mi dical es 809 [facility] 2020-12-28 2020-12-28 [facility] [id number] Univers 10:15:00 10:49:23 [facility] 2020-12-28 2020-12-28 Office Reuben Montanez [facility] 1.2.840. 114 [id number] Univers 10:09:14 10:49:23 Visit Sheri Tate [facility] 350.1.13.10 ity of SURGICAL 4.2.7.2.686 Francesco as SPECIALTI [phone] Mi dical ES 198 [facility] 2020-12-28 2020-12-28 Outpatient [facility] [id number] Univers 10:15:00 10:15:[address] [facility] 2020-12-18 2020-12-18 [facility] 1.2.789.592 [id number] Univers 11:55:16 23:59:00 Encounter Jewel [place] 350.1.13.10 ity of [place] [phone] [facility] [address] [place] 2020-12-18 2020-12-18 Emergency Sang WOOD, [facility] [id number] [place] 15:41:00 16:41:00 JA Niño [facility] 2020-12-18 2020-12-18 Office [facility] 1.2.840.114 [id number] Univers 10:51:37 12:06:48 Visit Jewel [place] 350.1.13.10 ity of [place] 4.2.7.2.[place] [phone] Mi dical nal 092 [facility] 2020-12-18 2020-12-18 Outpatient JEWEL BANUELOS [facility] [id number] Univers 10:40:00 10:40:00 JEWEL ODEN [facility] 2020-12-13 2020-12-13 Telephone Karan, [facility] 1.2.840.114 [id number] Univers 00:00:00 00:00:00 Jewel [place] 350.1.13.10 it[place] of [place] [phone] [address] 2020-12-12 2020-12-12 [facility] 1.2.222.648 [id number] Univers 15:00:00 23:59:00 Encounter Jewel [place] 350.1.13.10 ity of [place] 4[place]2.[place].2.[place] [phone] [facility] [address] [place] 2020-12-12 2020-12-12 Outpatient JEWEL BANUELOS [facility] [id number] Univers 00:00:00 00:00:00 JEWEL ODEN [facility] 2020-12-12 2020-12-12 Orders Doctor NATHAN 1.2.840.114 [id number] Univers 00:00:00 00:00:00 Only Unassigned, MARK 350.1.13.10 [place] [facility] 4.2.7.2.686 Francesco as [phone] [facility] [address] 2020-12-01 2020-12-01 [facility] 1.2.840.114 [id number] Univers 08:04:24 10:40:04 Visit Jewel [place] 350.1.13.10 ity of [place]2.[place].2.[place] [phone] Me dical nal 092 [facility] 2020-12-01 2020-12-01 Outpatient R KARAN, JEWEL [facility] [id number] Univers 08:00:00 08:00:00 KARAN, JEWEL ity of [facility] 2020-11-20 2020-11-20 Orders Doctor NATHAN 1.2.840.114 [id number] Univers 00:00:00 00:00:00 Only Unassigned, MARK [facility].1.13.[address] [facility] 4.2.7.2.686 [facility] [phone] [facility] [address] 2020-08-21 2020-08-21 Appointmen [facility] Orthopedics [id number] [place] 09:00:00 09:00:00 t; RAMONA QUIJANO M.D. Trauma P chantal GREENE M.D. [facility] 2020-08-15 2020-08-15 Emergency E NICK, [facility] [id number] [facility] 16:24:00 19:05:00 [facility] 2020-03-02 2020-03-02 [facility] Radiology [facility] [[email or web address]] 1.2.840.114 [id number] 08:54:20 23:59:00 Encounter Jansen 350.1.13.10 [place] 4.2.7.2.686 [place] [phone] 806 2020-03-02 2020-03-02 [facility] Radiology [facility] [[email or web address]] 1.2.840.114 [id number] Univers 08:54:20 23:59:00 Encounter [place] 350.1.13.10 ity [facility] 4.2.7.2.686 [facility] [phone] [facility] 8[address] 2020-03-02 2020-03-02 [facility] Radiology [facility] [[email or web address]] 1.2.840.114 [id number] 08:29:56 08:53:00 Encounter [place]ansen 350.1.13.10 [place] 4.2.7.2.686 [place] [phone] [facility] 2020-03-02 2020-03-02 [facility] Radiology [facility] [[email or web address]] 1.2.840.114 [id number] Univers 08:29:56 08:53:00 Encounter Jansen 350.1.13.10 ity of [place] 4.2.7.2.686 [facility] [phone] [address] 2020-03-02 2020-03-02 Outpatient R RADIOLOGY [facility] [id number] Univers 00:00:00 00:00:00 ity of [facility] 2020-01-19 2020-01-19 Hospital Radiology [facility] [[email or web address]] 1.2.840.114 [id number] 12:00:00 23:59:00 Encounter Jansen 350.1.13.10 [place] 4.2.7.2.686 [place] [phone] [facility] 2020-01-19 2020-01-19 Hospital Radiology [facility] [[email or web address]] 1.2.840.114 [id number] Univers 12:00:00 23:59:00 Encounter Jansen 350.1.13.10 ity of [place] 4.2.7.2.686 [facility] [phone] [address] 2020-01-19 2020-01-19 Outpatient R RADIOLOGY [facility] [id number] Univers 00:00:00 00:00:00 ity of [facility] 2019-12-10 2019-12-10 Out[facility] [id number] Univers 16:40:00 16:40:00 VALENTE jonathan [facility] 2019-12-10 2019-12-10 Laboratory Lab, [facility] 1.2.840.114 [id number] 14:41:41 15:01:41 Only Fam Pob I Health 350.1.13.10 [place] 4.2.7.2.686 Professio [phone] [place] [address] Office Building [facility] 2019-12-10 2019-12-10 Laboratory Lab, [facility] Fam Pob I [facility] [[email or web address]] 1.2. 840.114 [id number] Univers 14:41:41 15:01:41 Only Valente [facility] 350.1.13.10 ity of [place] 4.2.7.2.686 Francesco as Professio [phone] Mi dical [address] Office Building [facility] 2019-12-10 2019-12-10 Outpatient [facility] [id number] Univers 16:40:00 14:59:10 VALENTE castillo [facility] 2019-11-15 2019-11-15 Emergency E ALBIN, [facility] [id number] [address] [place] 20:57:00 22:21:00 KEN Medic al [place] 2019-11-15 2019-11-15 Outpatient [facility] [id number] AccessH 14:00:00 14:00:00 [id number] 2019-11-15 2019-11-15 Outpatient CHRIS, [facility] [id number] Access 00:00:00 00:00:00 TUNG [facility] 2019-11-15 2019-11-15 Outpatient CHRIS, [facility] [id number] Access 00:00:00 00:00:00 TUNG Guerrero [id number] [facility] [id number] [facility] [id number] 2019-10-15 2019-10-15 Emergency [facility] [id number] [place] 14:01:00 15:07:00 [facility] 2015-01-04 2015-01-04 Office nullFlavo [facility] [id number] Memoria 00:00:00 00:00:00 Visit r [place] [facility] [id number] l Xu cordero [facility] 2015-01-04 2015-01-04 Lab Report nullFlavo [place] [id number] Memoria 00:00:00 00:00:00 r [place] [facility] [id number] l Xu cordero [facility] Results Test Description Test Time Test Comments Results Result Comments Source TSH, THIRD GENERATION 2022-05-24 06:25:47 Test Item Value Reference Range Interpretation Comme nts TSH, THIRD GENERATION (test code = 2821) 1.110 UIU/ML 0.400-4.100 HEMOGLOBIN [id number] 04:54:02 Test Item Value Reference Range Interpretation Comments HEMOGLOBIN A1c (test code = 29604) 5.8 % 4.2-5.6 H COMPREHENSIVE METABOLIC [id number] 04:35:41 Test Item Value Reference Range Interpretation Comments GLUCOSE (test code = 98 MG/DL 70-99 2217) BUN (test code = 7 MG/DL 8-23 L 2207) CREATININE (test 1.06 MG/DL 0.60-1.30 code = 2213) eGFR (2020 CKD-EPI) 60 ML/MIN/1.73 >60 L (test code = 13602) CALC BUN/CREAT (test 7 RATIO 6-28 code = 223) SODIUM (test code = 142 MEQ/L 719-179 5971) POTASSIUM (test code 4.6 MEQ/L 3.5-5.4 = 2227) CHLORIDE (test code 103 MEQ/L 95-107 = 2214) CARBON DIOXIDE (test 28 MEQ/L 19-31 code = 2205) CALCIUM (test code = 10.2 MG/DL 8.5-10.5 2208) PROTEIN, TOTAL (test 7.0 G/DL 6.1-8.3 code = 2228) ALBUMIN (test code = 4.2 G/DL 3.5-5.2 2200) CALC GLOBULIN (test 2.8 G/DL 1.9-3.7 code = 224) CALC A/G RATIO (test 1.5 RATIO 1.0-2.6 code = 223) BILIRUBIN, TOTAL 1.2 MG/DL See_Comment [Automated message] (test code = 2206) The syste m which generated this result transmit luis carlos reference range : <=1.2. The refe rence range was not u sed to interpret th is result as normal/abnormal . ALKALINE PHOSPHATASE 106 U/L 40-140 (test code = 220) AST (test code = 17 U/L 9-40 2217) ALT (test code = 18 U/L 5-40 2218) LIPID [id number] 04:35:41 Test Item Value Reference Range Interpretation Comments CHOLESTEROL (test 172 MG/DL <200 code = 2210) TRIGLYCERIDES (test 155 MG/DL <150 H code = 2232) HDL CHOLESTEROL (test 44 MG/DL >39 code = 2220) CALC LDL CHOL (test 103 MG/DL <100 H NOTE: C ALCULATED LDL code = 2237) IS BASED ON MELL-CISSE METHOD WHICHINCLUDES ADJUSTABLE TRIGLYCERIDE:VL DL CHOLESTEROL RAT IO.THIS FACTOR VARIES B Y MEASURED TRIGLY CERIDE AND NON-HDLCHOL ESTEROL CONCENTRATIONS WITH INCREASED CALCU LATED LDL SEENIN HIGH ER TRIGLYCERIDE OR LOWER NON-HDL SPECIME NS. FOR MOREINFORMATION , SEE CLIENT ANNOUNCE MENT AT [email or web address] RISK RATIO LDL/HDL 2.34 RATIO <3.22 (test code = 2238) CBC W/AUTO DIFF WITH [id number] 03:02:06 Test Item Value Reference Range Interpretation Comments WBC (test code = 5.3 K/UL 3.5-11.0 1001) RBC (test code = 4.85 M/UL 3.80-5.40 1002) HEMOGLOBIN (test 15.5 G/DL 11.5-15.5 code = 1003) HEMATOCRIT (test 45.1 % 34.0-45.0 H code = 1004) MCV (test code = 93.0 fL 80.0-99.0 1005) MCH (test code = 32.0 PG 25.0-33.0 1006) MCHC (test code = 34.4 G/DL 31.0-36.0 1007) RDW (test code = 13.7 % 11.5-15.0 1038) NEUTROPHILS (test 57.9 % code = 1008) LYMPHOCYTES (test 32.5 % code = 1010) MONOCYTES (test code 7.3 % = 1011) EOSINOPHILS (test 1.3 % code = 1012) BASOPHILS (test code 0.4 % = 1013) IMMATURE 0.6 % GRANULOCYTES (test code = 1036) NUCLEATED RBCS (test 0.0 /100 See_Comment [Autom ated message] code = 1065) WBC'S The system [employer] generated this result transmitted ref erence range: 0.0. The reference range was not used to int erpret this result as normal/abnormal . PLATELET COUNT (test 182 K/UL 130-400 code = 1015) ABSOLUTE NEUTROPHILS 3.08 K/UL 1.50-7.50 (test code = 1066) ABSOLUTE LYMPHOCYTES 1.73 K/UL 1.00-4.00 (test code = 1067) ABSOLUTE MONOCYTES 0.39 K/UL 0.20-1.00 (test code = 1068) ABSOLUTE EOSINOPHILS 0.07 K/UL 0.00-0.50 (test code = 1040) ABSOLUTE BASOPHILS 0.02 K/UL 0.00-0.20 (test code = 1069) ABS IMMATURE 0.03 K/UL 0.00-0.10 GRANULOCYTES (test code = 1020) ABS NUCLEATED RBCS 0.00 K/UL 0.00-0.11 UNLESS O THERWISE (test code = 37444) INDICATE D, ALL TESTING PERFORM ED ATCLINICAL PATH OLOGY LABORATORIES, I [place]. [address] [facility] [place] [address] [facility] DIRECTOR: ESTHER DAS M.D. CLIA NUMBER [id number] CAP ACCREDITATION N O. [id number] XR ANKLE RIGHT COMPLETE 3 VIEWS *WW*2020-12-18 16:16:22 [facility] Dilip : 1960 Sex: FExam: X-ray right ankle 3 viewsLocation: H1Fhaxjzp: Fall with right ankle painFindings:No fractures or dislocations identified. No osseous lesions. Mild soft tissue swelling is present.Impression:1. Mild soft tissueswelling without fracture or dislocation.Electronically signed by: Manuel Beebe MD 12/18/2020 4:16 [facility] FINGER(S) - 2 VWS MIN. RIGHT [id number] 09:35:00Images acquired, not reported on this accession number.[facility] Physicians Panel Description: SARS-CoV-2 (COVID-19) RNA [Presence] in Unspecified specimen by DELFIN with probe [id number] 09:17:00 Test Item Value Reference Range Interpretation Comments SARS-CoV-2, Not Detected Not Detected Testing was per formed using DELFIN (test code the Aptima SA RS-CoV-2 = 87300-5) assay.This test was developed and i ts performance opal racteristics determinedby Ma Narvalous. T his test has not been FDA cl eared orapproved. Thi s test has been authorized by FDA under an Emerge ncy UseAuthorizatio n (EUA). This test is on ly authorized for the duration oftime the decl aration that circumstances e xist justifying [place] uthorization of the emergenc y use of in vitro diagnosti c tests fordetection of SARS-CoV-2 virus and/or di agnosis of COVID-19 infect ionunder section 564(b)( 1) of the Act, 21 U.S.C. 360bbb-3(b)(1), unlessthe authorization i s terminated or revoked soon er.When diagnostic test ing is negative, the p ossibility of a falsenegat mervin result should be consi dered in the context of a patient'srecent exposures and the presenc e of clinical signs and symptomsconsist ent with COVID-19. An in dividual without symptom s of COVID-19and who is not shedding SARS-C oV-2 virus would expect to have anegative (not detected) result in this assay.
< br/>Performe d by:
[facility] david Roger (HD)

AccessHealthSARS-CoV (RAPID ANTIGEN) [id number] 21:58:00 Test Item Value Reference Range Interpretation Comments SARS-CoV (ANTIGEN) NEGATIVE NEGATIVE (test code = COVAG) COVID AG (test This test has been code = COVAGC) marketed under the FDA Emergency Use Authorization (EUA) to meet challenges of the COVID-19 pandemic. The validation standards normally enforced by the FDA and the [employer] ([employer]) are more stringent than those required for this test. Therefore, the result should be interpreted with caution and close attention to other clinical and epidemiological data Ledjbbfnq8559-59-52 21:37:000.9[facility] GvctxooCebpqdnim4407-40-69 21:37:95462 MEQ/L[facility] QikwsdvWkxiphqsm7573-67-07 21:37:005.2 [facility]/L[facility] Tal Ysqbzbadc5198-65-00 21:37:008.6[facility] QmrxyuwUagutduqjf4423-09-64 21:37:0014.1 [facility] LhwncrbZurcheyyms4641-57-38 21:37:0043.5[facility] 21:37:16603 K/CMMMemorial IviwglgDvylxnvzs6664-85-70 21:37:001.590 [facility] YbngyhbRspniudpp3507-62-42 21:37:0017[facility] 2015-01-04 21:37:000.9[facility] BydtysyEbvikdqat7438-32-24 21:37:93519 MEQ/L [facility] JdefoasJjhpyhgpj3635-15-73 21:37:005.2 [facility]/L[facility]ann[facility] 2015-01-04 21:37:008.6[facility] MntvgzlGkzinokhdu7134-57-14 21:37:0014.1[facility] AcyfbbyIbyyfhtwlc9432-25-00 21:37:0043.5[facility] CktlbjmKnnlfpgmkf9009-47-28 21:37:58122 K/CMMMemorial NfwprvgWcglpgrby8908-20-98 21:37:001.590[facility] SicmfirOxqecerdg9734-19-67 21:37:0017[facility] VydqjhnSpmsxgrlv5344-36-15 21:37:001.590[facility] DruirjiWokennuvm0244-43-96 21:37:0017[facility] [place] Lkeebifgm9258-58-75 21:37:000.9[facility] VmtfjbrDpnqpiktv9485-24-30 21:37:85300 MEQ/LMemorial UacusjcWuozquiwx5712-70-81 21:37:005.2 MEQ/LMem[facility] Tal Mgcvgskca5992-51-82 21:37:008.6[facility] UwsxrxbQztqgkbdmx5075-97-86 21:37:0014.1 [facility] KjooqzeYvebigldtm7589-69-13 21:37:0043.5[facility]annHemat[facility] 2015-01-04 21:37:37993 K/CMMMemorial TerbqltJzbrngcdg9297-06-10 21:37:001.590 [facility] VwoqofqFqlzfijda4293-57-05 21:37:0017[facility]annChemistry 2015-01-04 21:37:000.9[facility] GmeghchIzyogvewq4027-94-33 21:37:00134 MEQ/L [facility] BoexqrwPxpjdglra5477-85-28 21:37:005.2 MEQ/LMem[facility] HermannChemistry 2015-01-04 21:37:008.6[facility] VprtkhlPqcuzrrrqj4364-96-48 21:37:0014.1[facility] YjmmplpRtvglavsxb5497-15-93 21:37:0043.5[facility] DxurknwTywtcwzczj5522-60-67 21:37:27191 K/CMMMemorial HermannOb/Tuf3637-48-53 20:34:06NormalMemorial Tal Ob/Fvx1143-29-55 20:34:06NormalMemorial HermannOb/Nvz4431-79-91 20:34:06Normal Memorial HermannOb/Imb1837-47-75 20:34:06NormalMemorial HermannOb/Qtv1074-13-05 20:34:06NormalMemorial HermannOb/Jay9691-24-33 20:34:06NormalMemorial Tal Ob/Jdi3238-68-51 20:34:06NormalMemorial HermannOb/Ulc7710-51-14 20:34:06Normal [facility] Tal
[2022-05-24 18:04] LABS: Albumin 3.3 g/dL (3.4-5.0); Bilirubin Direct 0.2 mg/dL (0-0.2); Bilirubin Total 0.8 mg/dL (0.2-1.0); Potassium 4.2 mmol/L (3.5-5.1); Protein, Total 6.9 g/dL (6.4-8.2); Troponin High Sensitivity 8.3 pg/mL (<58.9)
--- NOTE | 2022-05-24 18:50 | RAD REPORT ---
EXAM DESCRIPTION: CT - Neck Angio - 05/24/2022 6:41 pm CLINICAL HISTORY: Dizziness, headache TECHNIQUE: During dynamic enhancement using nonionic IV contrast, axial 2 mm thick images of the nec k were obtained. Sagittal and axial reconstruction images were generated using MIP technique and revi ewed. All CT scans are performed using dose optimization technique as appropriate and may include automated exposure control or mA/KV adjustment according to patient size. COMPARISON: CT head same date, CT angio head same date FINDINGS: No aneurysm or vascular malformation identified. No carotid or vertebral dissection. No aortic arch or great vessel origin abnormality seen. Patient has a normal variant bovine configura tion of the arch great vessels. Vertebral artery origins unremarkable. No stenosis, vasculitis or oth er significant carotid artery finding. No focal abnormality of either vertebral artery. Basilar arter y is normal. IMPRESSION: Negative CT angio neck examination.
--- NOTE | 2022-05-24 18:53 | RAD REPORT ---
EXAM DESCRIPTION: CT - Head angio - 05/24/2022 6:38 pm CLINICAL HISTORY: Dizziness, Headache TECHNIQUE: During dynamic enhancement using nonionic IV contrast, axial 1 millimeter thick images of the head were obtained. Sagittal and axial reconstruction images were generated using MIP technique and reviewed. All CT scans are performed using dose optimization technique as appropriate and may include automated exposure control or mA/KV adjustment according to patient size. COMPARISON: CT head same date, CT angio neck same date FINDINGS: No aneurysm or vascular malformation identified. Major venous sinuses are patent. No stenosis, named branch occlusion, vasculitis or other significant vascular finding identifiable. IMPRESSION: Negative CT angio head examination.
[2022-05-24] MEDS ORDERED: CYCLOBENZAPRINE 10 MG TAB ONE (19:23)
[2022-05-24] MEDS ORDERED: METOCLOPRAMIDE 10 MG/2mL INJ ONE (19:23)
[2022-05-24] MEDS ORDERED: dexAMETHasone 10 MG/ML VIAL ONE (19:23)
[2022-05-24] MEDS ORDERED: DIPHENHYDRAMINE 50 MG/ML VIAL ONE (19:23)
[2022-05-24] MEDS ORDERED: NA CHLORIDE 0.9% 1,000 ML ONE (19:23)
[2022-05-24] MEDS ORDERED: NA CHLORIDE 0.9% 50 ML IV ONE (19:24)
--- NOTE | 2022-05-24 20:08 | ER ---
Nurse's Notes [facility] Name: Shahnaz Ramos Age: 62 yrs Sex: Female : 1960 Arrival Date: 05/24/2022 Time: 16:00 Bed 13 Private MD: Diagnosis: Headache;Dizziness and giddiness Presentation: 05/24 15:53 Chief complaint: EMS states: states patient called EMS due to dizziness and pt was told db by doctor to come to ER. Pt also complains of migraine states symptoms started yesterday. Coronavirus screen: Vaccine status: Patient reports receiving the 2nd dose of the covid vaccine. Client denies travel out of the [place] in the last 14 days. At this time, the client does not indicate any symptoms associated with coronavirus-19. Ebola Screen: Patient negative for fever greater than or equal to 101.5 degrees Fahrenheit, and additional compatible Ebola Virus Disease symptoms Patient denies exposure to infectious person. Patient denies travel to an Ebola-affected area in the 21 days before illness onset. No symptoms or risks identified at this time. Initial Sepsis Screen: Does the patient meet any 2 criteria? No. Patient's initial sepsis screen is negative. Does the patient have a suspected source of infection? No. Patient's initial sepsis screen is negative. Risk Assessment: Do you want to hurt yourself or someone else? Patient reports no desire to harm self or others. Onset of symptoms was May 23, 2022. 15:53 Method Of Arrival: EMS: [facility] db 15:53 Acuity: [place] 3 db 16:08 Care prior to arrival: Medication(s) given: zofran 4 mg, IV initiated. 20 GA, in the db right hand. Triage Assessment: 16:07 General: Appears in no apparent distress. uncomfortable, Behavior is calm, cooperative, db appropriate for age. Pain: Complains of pain in head. EENT: No deficits noted. No signs and/or symptoms were reported regarding the EENT system. Neuro: No deficits noted. Level of Consciousness is awake, alert, obeys commands, Oriented to person, place, time, situation, Appropriate for age Speech is normal, Facial symmetry appears normal. Cardiovascular: No deficits noted. Respiratory: No deficits noted. Respiratory: Airway is patent Respiratory effort is even, unlabored, Respiratory pattern is regular, symmetrical. GI: Abdomen is round distended, Reports nausea. : No deficits noted. No signs and/or symptoms were reported regarding the genitourinary system. Historical: - Allergies: 16:06 Aspirin; db 16:06 Imitrex; db - PMHx: 16:06 Anxiety; Asthma; Bipolar disorder; cervical spinal stenosis; COPD; Depression; db Diverticulitis; Fibromyalgia; GERD; Hepatitis C; insomnia; Migraines; Ulcers; - Immunization history:: Client reports receiving the 2nd dose of the Covid vaccine. - Social history:: Smoking status: Patient reports the use of cigarette tobacco products, smokes one-half pack cigarettes per day. Screenin:09 [facility] ED Fall Risk Assessment (Adult) History of falling in the last 3 months, db including since admission No falls in past 3 months (0 pts) Confusion or Disorientation No (0 pts) Intoxicated or Sedated No (0 pts) Impaired Gait No (0 pts) Mobility Assist Device Used Yes (1 pt) Altered Elimination No (0 pt) Score/Fall Risk Level 0 - 2 = Low Risk Oriented to surroundings. Abuse screen: Denies threats or abuse. Denies injuries from another. Nutritional screening: No deficits noted. Tuberculosis screening: No symptoms or risk factors identified. Assessment: 16:09 Reassessment: see triage for initial assessment. db 16:35 Reassessment: Patient appears in no apparent distress at this time. Patient and/or db family updated on plan of care and expected duration. Pain level reassessed. Patient is alert, oriented x 3, equal unlabored respirations, skin warm/dry/pink. General: Appears in no apparent distress. comfortable, Behavior is calm, cooperative, appropriate for age. Pain: Complains of pain in head. Neuro: Level of Consciousness is awake, alert, obeys commands, Oriented to person, place, time, situation, Appropriate for age Reports headache. Cardiovascular: No deficits noted. Respiratory: No deficits noted. Airway is patent Respiratory effort is even, unlabored, Respiratory pattern is regular, symmetrical. GI: No deficits noted. No signs and/or symptoms were reported involving the gastrointestinal system. : No deficits noted. No signs and/or symptoms were reported regarding the genitourinary system. EENT: No deficits noted. No signs and/or symptoms were reported regarding the EENT system. Derm: No deficits noted. No signs and/or symptoms reported regarding the dermatologic system. 16:47 Reassessment: PATIENT TO CT. db 18:00 Reassessment: Patient appears in no apparent distress at this time. No changes from db previously documented assessment. Patient and/or family updated on plan of care and expected duration. Pain level reassessed. Patient is alert, oriented x 3, equal unlabored respirations, skin warm/dry/pink. Vital Signs: 15:53 BP 129 / 78; Pulse 72; Resp 18; Temp 98.2(O); Pulse Ox 100% on R/A; Weight 72.57 kg; db Height 5 ft. (152.40 cm); Pain 5/10; 16:00 BP 104 / 83; Pulse 66; Resp 16; Pulse Ox 99% on R/A; db 17:02 BP 103 / 57; Pulse 67; Resp 16; Pulse Ox 100% on R/A; db 18:00 BP 112 / 58; Pulse 65; Resp 18; Pulse Ox 100% ; db 20:37 BP 121 / 92; Pulse 63; Resp 16; Pulse Ox 100% ; vc1 15:53 Body Mass Index 31.25 (72.57 kg, 152.40 cm) db ED Course: 16:00 Patient arrived in ED. ap3 16:02 Chuyita Cooper, RN is Primary Nurse. db 16:05 Triage completed. db 16:06 Ever Casarez DO is Attending Physician. ms3 16:09 Arm band placed on right wrist. Patient placed in an exam room. db 16:36 XRAY Chest (1 view) In Process Unspecified. EDMS 16:52 Head Brain Wo Cont In Process Unspecified. EDMS 18:31 Inserted saline lock: 22 gauge in left antecubital area, using aseptic technique. db 18:31 Maintain EMS IV. Dressing intact. Good blood return noted. Site clean \T\ dry. Gauge \T\ db site: 20g RIGHT HAND. 18:39 CT Head Angio In Process Unspecified. EDMS 18:42 CT Neck Angio In Process Unspecified. EDMS 19:03 Attending Physician role handed off by Ever Casarez DO rt 19:03 Thomas Soares MD is Attending Physician. rt 20:38 No provider procedures requiring assistance completed. IV discontinued, intact, vc1 bleeding controlled, No redness/swelling at site. Pressure dressing applied. IV discontinued, intact, bleeding controlled, No redness/swelling at site. Pressure dressing applied. Administered Medications: 19:36 Drug: Reglan (metoCLOPramide) 10 mg Route: IVP; Site: left antecubital; vc1 20:31 Follow up: Response: No adverse reaction vc1 19:37 Drug: Benadryl (diphenhydrAMINE) 25 mg Route: IVP; Site: left antecubital; vc1 20:31 Follow up: Response: No adverse reaction vc1 19:37 Drug: Decadron - Dexamethasone 10 mg Route: IVP; Site: left antecubital; vc1 20:30 Follow up: Response: No adverse reaction vc1 19:37 Drug: NS 0.9% 1000 ml Route: IV; Rate: 1000 ml; Site: left antecubital; vc1 20:30 Follow up: IV Status: Completed infusion; IV Intake: 1000ml vc1 19:37 Drug: Flexeril (cyclobenzaprine) 10 mg Route: PO; vc1 20:30 Follow up: Response: No adverse reaction vc1 Medication: 18:34 VIS not applicable for this client. db Intake: 20:30 IV: 1000ml; Total: 1000ml. vc1 Outcome: 20:07 Discharge ordered by . rt 20:39 Discharged to home ambulatory. vc1 20:39 Condition: good 20:39 Discharge instructions given to patient, Instructed on discharge instructions, follow up and referral plans. Demonstrated understanding of instructions, follow-up care. 20:39 Patient left the ED. vc1 Signatures: Dispatcher [employer] EDMS Stacia Cortes RN RN ap3 Ever Casarez DO DO ms3 Kayla Kline RN RN vc1 Chuyita Cooper RN RN db [place], Ryan, MD MD rt Corrections: (The following items were deleted from the chart) 16:09 15:53 Chief complaint: EMS states: states patient called EMS due to dizziness and pt db was told by doctor to come to ER. Pt also complains of migraine states symptoms started yesterday db
--- NOTE | 2022-05-24 20:08 | EDPHYS ---
Physician Documentation [facility] Name: Shahnaz Ramos Age: 62 yrs Sex: Female : 1960 Arrival Date: 05/24/2022 Time: 16:00 Bed 13 Private MD: ED Physician Thomas Soares HPI: 05/24 17:38 This 62 yrs old Female presents to ER via EMS with complaints of Dizziness. ms3 17:38 The patient presents with lightheadedness. Onset: The symptoms/episode began/occurred ms3 acutely, yesterday. Context: occurred at an unknown location. Modifying factors: The symptoms are alleviated by nothing, the symptoms are aggravated by nothing. Associated signs and symptoms: The patient has no apparent associated signs or symptoms. Severity of symptoms: At their worst the symptoms were moderate in the emergency department the symptoms are unchanged. Patient's baseline: Neuro: alert and fully oriented, Motor: no deficits, Ambulation: walks without assistance, Speech: normal. Historical: - Allergies: 16:06 Aspirin; db 16:06 Imitrex; db - PMHx: 16:06 Anxiety; Asthma; Bipolar disorder; cervical spinal stenosis; COPD; Depression; db Diverticulitis; Fibromyalgia; GERD; Hepatitis C; insomnia; Migraines; Ulcers; - Immunization history:: Client reports receiving the 2nd dose of the Covid vaccine. - Social history:: Smoking status: Patient reports the use of cigarette tobacco products, smokes one-half pack cigarettes per day. ROS: 17:38 Constitutional: Negative for fever, and chills. Neck: Negative for injury, pain, and ms3 swelling, Cardiovascular: Negative for chest pain, and palpitations. Respiratory: Negative for shortness of breath, cough, wheezing, and pleuritic chest pain, Abdomen/GI: Negative for abdominal pain, nausea, vomiting, diarrhea, and constipation, MS/Extremity: Negative for injury and deformity. 17:38 Neuro: Positive for dizziness. 17:38 All other systems are negative. Exam: 17:22 ECG was reviewed by the Attending Physician. ms3 17:38 Constitutional: This is a well developed, well nourished patient who is awake, alert, ms3 and in no acute distress. Head/Face: Normocephalic, atraumatic. Neck: Trachea midline, no cervical lymphadenopathy. Supple, full range of motion without nuchal rigidity, or vertebral point tenderness. No Meningismus. Chest/axilla: Normal chest wall appearance and motion. Nontender with no deformity. Cardiovascular: Regular rate and rhythm with a normal S1 and S2. No gallops, murmurs, or rubs. Normal PMI, no JVD. No pulse deficits. Respiratory: Lungs have equal breath sounds bilaterally, clear to auscultation and percussion. No rales, rhonchi or wheezes noted. No increased work of breathing, no retractions or nasal flaring. Abdomen/GI: Soft, non-tender, with normal bowel sounds. No distension or tympany. No guarding or rebound. No evidence of tenderness throughout. Skin: Warm, dry with normal turgor. Normal color with no rashes, no lesions, and no evidence of cellulitis. MS/ Extremity: Pulses equal, no cyanosis. Neurovascular intact. Full, normal range of motion. Vital Signs: 15:53 BP 129 / 78; Pulse 72; Resp 18; Temp 98.2(O); Pulse Ox 100% on R/A; Weight 72.57 kg; db Height 5 ft. (152.40 cm); Pain 5/10; 16:00 BP 104 / 83; Pulse 66; Resp 16; Pulse Ox 99% on R/A; db 17:02 BP 103 / 57; Pulse 67; Resp 16; Pulse Ox 100% on R/A; db 18:00 BP 112 / 58; Pulse 65; Resp 18; Pulse Ox 100% ; db 20:37 BP 121 / 92; Pulse 63; Resp 16; Pulse Ox 100% ; vc1 15:53 Body Mass Index 31.25 (72.57 kg, 152.40 cm) db MDM: 16:06 Patient medically screened. ms3 20:08 Differential diagnosis: Near syncope, vertigo, hemorrhage, vertebral or carotid artery rt dissection. Data reviewed: vital signs, nurses notes, old medical records, lab test result(s), EKG, radiologic studies. ED course: Assumed care at shift change. Patient presents to the ED with dizziness, headache. After discussion with the patient, she has chronic migraines, has medicines for this at home. Described dizziness, labs are unremarkable, imaging is unremarkable. No emergent indications for admission at this time, patient stable for outpatient care. 05/24 16:15 Order name: Basic Metabolic Panel; Complete Time: 18:07 ms3 05/24 16:15 Order name: CBC with Diff; Complete Time: 18:07 ms3 05/24 16:15 Order name: LFT's; Complete Time: 18:07 ms3 05/24 16:15 Order name: Troponin HS; Complete Time: 18:07 ms3 05/24 16:15 Order name: XRAY Chest (1 view); Complete Time: 17:03 ms3 05/24 16:15 Order name: CT Head Brain wo Cont ms3 05/24 16:19 Order name: Head Brain Wo Cont; Complete Time: 17:03 EDMS 05/24 17:04 Order name: CT Head Angio; Complete Time: 18:59 ms3 05/24 17:04 Order name: CT Neck Angio; Complete Time: 18:59 ms3 05/24 16:15 Order name: EKG; Complete Time: 16:16 ms3 05/24 16:15 Order name: Cardiac monitoring; Complete Time: 17:16 ms3 05/24 16:15 Order name: EKG - Nurse/Tech; Complete Time: 17:26 ms3 05/24 16:15 Order name: IV Saline Lock; Complete Time: 17:16 ms3 05/24 16:15 Order name: Labs collected and sent; Complete Time: 17:16 ms3 05/24 16:15 Order name: O2 Per Protocol; Complete Time: 17:16 ms3 05/24 16:15 Order name: O2 Sat Monitoring; Complete Time: 17:16 ms3 EC:22 Rate is 65 beats/min. Rhythm is regular. QRS [place] is Normal. [place] interval is normal. QRS ms3 interval is normal. Clinical impression: NSR w/ Non-specific ST/T Changes. Interpreted by me. Reviewed by me. Administered Medications: 19:36 Drug: Reglan (metoCLOPramide) 10 mg Route: IVP; Site: left antecubital; vc1 20:31 Follow up: Response: No adverse reaction vc1 19:37 Drug: Benadryl (diphenhydrAMINE) 25 mg Route: IVP; Site: left antecubital; vc1 20:31 Follow up: Response: No adverse reaction vc1 19:37 Drug: Decadron - Dexamethasone 10 mg Route: IVP; Site: left antecubital; vc1 20:30 Follow up: Response: No adverse reaction vc1 19:37 Drug: NS 0.9% 1000 ml Route: IV; Rate: 1000 ml; Site: left antecubital; vc1 20:30 Follow up: IV Status: Completed infusion; IV Intake: 1000ml vc1 19:37 Drug: Flexeril (cyclobenzaprine) 10 mg Route: PO; vc1 20:30 Follow up: Response: No adverse reaction vc1 Disposition Summary: 05/24/22 20:07 Discharge Ordered Location: Home rt Problem: an acute exacerbation rt Symptoms: have improved rt Condition: Stable rt Diagnosis - Headache rt - Dizziness and giddiness rt Followup: rt - With: Private Physician - When: 2 - 3 days - Reason: Discharge Instructions: - Discharge Summary Sheet rt - Dizziness rt - General Headache Without Cause rt Forms: - Medication Reconciliation Form rt - Thank You Letter rt - Antibiotic Education rt - Prescription Opioid Use rt Signatures: Dispatcher [employer] EDMS Ever Casarez DO DO ms3 Kayla Kline RN RN vc1 Chuyita Cooper RN RN db Thomas Soares MD MD rt
[2022-05-24 20:49] VITALS: TEMP 98.2
[2022-05-24 21:05] VITALS: O2SAT 100
[2022-05-24 21:07] VITALS: BP 121/92
--- NOTE | 2022-05-26 17:03 | EKG ---
Test Date: 2022-05-24 Test Time: 17:22:17 Inspector Line: KILO MEASUREMENT RESULTS: Intervals: Rate: 65 LA: 170 QRSD: 78 QT: 422 QTc: 438 [place]: P: 63 LA: 170 QRS: 81 T: 49 INTERPRETIVE STATEMENTS: Normal sinus rhythm T wave abnormality, consider anterior ischemia Abnormal ECG Compared to ECG 12/11/2021 02:56:41 Possible ischemia now present T-wave abnormality still present Electronically Signed On 05-26-22 17:01:53 [employer] by Watson Malik
== END 2022-05-24 20:39 | disposition home or self-care (01) ==
LOC: ER 15:51
DX: R51.9 Headache, unspecified (principal); F17.210 Nicotine dependence, cigarettes, uncomplicated; Z88.6 Allergy status to analgesic agent
CPT/HCPCS: 96361; 93005; 85025; 80048; 36415; 80076; 84484; 70450; 70496; 70498; 71045; 96375; 96374; 99284; Q9967; J2765; J1200; J1100; J7030

== ENCOUNTER 2022-07-15 14:22 | Observation (INO) | payer OTHER ==
--- OUTSIDE RECORDS SUMMARY | 2022-07-15 14:28 | XMS REPORT | Continuity of Care Document ---
:1960 Author Organization [facility] t Address [address] [place] [address] Care Team Providers Name Role Phone Gómez Medina Anshu Primary Care Physician ANJU DAVISON Attending Clinician Unavailable MAL BURGER Attending Clinician Unavailable MAL BURGER Attending Clinician Unavailable Doctor Unassigned, [place] Attending Clinician Unavailable [email or web address] Attending Clinician Unavailable SHERI TATE Attending Clinician Unavailable Sheri Jeffries Attending Clinician Anju Davison MD Attending Clinician Only, Adc Test Attending Clinician Unavailable Nurse, Adc Pob Immunization Attending Clinician Unavailable Daniel Chapa DO Attending Clinician DANIEL CHAPA Attending Clinician Unavailable Kristi Brock PHD Attending Clinician KRISTI BROCK Attending Clinician Unavailable Radiology Attending Clinician Unavailable RADIOLOGY Attending Clinician Unavailable JEWEL RUSSO Attending Clinician Unavailable JEWEL RUSSO Attending Clinician Unavailable Cecille MD, Jewel Gene Attending Clinician Reuben Montanez MD Attending Clinician [...] Number Effective Date Expiration Date S martha [facility] [id number] 2020 COMP HMO D SNP 00:00:00 MEDICAID [place] [id number] 2020 00:00:00 [facility] [id number] 2022 00:00:00 [facility] MEDICARE [id number] COMPLETE (MEDICARE REPLACEMENT HMO) GENERIC COMMERCIAL [id number] - MOVED HOLD Problems Condition Condition Condition Status Onset Resolution Last Treating Co mments Source Name Details Category Date Date Treatment Clinician Date CHEST PAIN CHEST Condition Active 2015-01-04 Memoria PAIN 01-04 16:37:00 l Active 00:00: Tal 01/04/2015 00 Condition 01/04/2015 [facility] Group LIGHTHEADE Condition Active 2015-01-04 Memoria DNESS LIGHTHEADE 01-04 16:37:00 l DNESS 00:00: Cement Active 00 01/04/2015 Condition 01/04/2015 Medical Group SHORTNESS SHORTNESS Condition Active 2015-01-04 Memoria OF BREATH OF BREATH 01-04 16:37:00 l Active 00:00: Cement 01/04/2015 00 Condition 01/04/2015 Medical Group Cervical [...] different from the original. 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 ICD10 Diagnosis Term [employer] Cocaine Cocaine Disease Active Overview: Univ ers abuse in abuse in 1-10 Formattin ity of remission remission 00:00: g of this [place] 00 note Medical might be Branch different from the original. ICD10 Diagnosis Term [employer] Asthma Asthma Disease Active Overview: Univer s with with 1-10 Formattin ity of status status 00:00: g of this [place] asthmaticu asthmaticu 00 note Me dical s s might be Branch different from the original. ICD10 Diagnosis Term [employer] Peptic Peptic Disease Active Overview: Univer s ulcer ulcer 1-10 Formattin ity of 00:00: g of this [place] 00 note Medical might be Branch different from the original. ICD10 Diagnosis Term [employer] Migraine Migraine Disease Active Overview: Un anjel with aura with aura 1-10 Formattin i ty of 00:00: g of this [place] 00 note Medical might be Branch different from the original. ICD10 Diagnosis Term [employer] No known No known Disease Metho di active active st problems problems Hospit a l Shortness Shortness Problem Active [facility] of breath [...] ASA ASA Active Memoria 8-05 l 00:00: Tal 00 IMITREX IMITREX Active Memoria 8-05 l 00:00: Cement 00 Imitrex DA Active Unknown 2015-0 [facility] 7-30 Medical 00:00: Center 00 Aspirin DA Active Unknown 2012- [facility] 2-14 Medical 00:00: Center 00 Aspirin Propensi Active Rash 2007-0 Univers ty to 1-10 ity of adverse [...] E 00 Medical Branch aspirin Allergy Active [facility] to drug Physici (finding ans ) Imitrex Allergy Active [facility] to drug Physici (finding ans ) Social History Social Habit Start Date Stop Date Quantity Comments Source History of tobacco Cigarette Smoker [facility] Exposure to Not sure [facility] SARS-CoV-2 (event) [facility] History SDOH [facility] Alcohol Std Drinks Hospit al History SDOH [facility] Tobacco use and 2021-03-06 2021-03-06 Smokeless Universit y of exposure 00:00:00 00:00:00 tobacco non-user [facility] [place] [facility] Tobacco Comment 2021-03-06 2021-03-06 1 ppd Universit y of 00:00:00 00:00:00 [facility] History SDOH 2019-04-12 2019-04-12 1 [facility] Alcohol Frequency 00:00:00 00:00:00 Hospita l Cigarettes smoked 2019-04-07 2019-04-[address] current (pack per 00:00:00 00:00:00 Hospita l day) - Reported Alcohol intake 2016-01-02 2016-01-[address] [facility] 00:00:00 00:00:00 non-drinker of Medical nter alcohol (finding) Sex Assigned At [address] [facility] 00:00:00 00:00:00 [facility] Center Smoking Status Start Date Stop Date Source Unknown if [facility] [place] [facility] Smokes tobacco daily 2021-03-06 00:00:00 Univers ity of [facility] Never smoker [facility] Medications Ordered Filled Start Stop Current Ordering [...] 0-06 Puffs as ity of 16:05: needed. [address] hydrOXYzine 2020-06 Yes 50mg Take 50 [...] ity o f 16:05: at [place] [address] bedtime. Medical Branch HYDROcodone 2020-06 Yes 1{tbl} Take 1 Tab Univers -acetaminop 0-06 by mouth 2 it y of hen (NORCO) 16:05: (two) [place] 10-325 mg 17 times Medical tablet daily. Branch ALBUTEROL 2020-06 Yes 2{puff} Inhale 2 U nivers INHALE 0-06 Puffs as ity of 16:05: needed. [address] hydrOXYzine 2020-06 Yes 50mg Take 50 [...] by mouth ity o f 16:05: at [place] 17 bedtime. Medical Branch HYDROcodone 2020-06 Yes 1{tbl} Take 1 Tab Univers -acetaminop 0-06 by mouth 2 it y of hen (NORCO) 16:05: (two) [place] 10-325 mg 17 times Medical tablet daily. Branch ALBUTEROL 2020-06 Yes 2{puff} Inhale 2 U nivers INHALE 0-06 Puffs as ity of 16:05: needed. [place] [address] Medical Branch hydrOXYzine 2020-06 Yes 50mg Take [...] by mouth ity o f 16:05: at [place] 17 bedtime. Medical Branch HYDROcodone 2020-06 Yes 1{tbl} Take 1 Tab Univers -acetaminop 0-06 by mouth 2 it y of hen (NORCO) 16:05: (two) [place] 10-325 mg 17 times Medical tablet daily. Branch ALBUTEROL 2020-06 Yes 2{puff} Inhale 2 U nivers INHALE 0-06 Puffs as ity of 16:05: needed. [place] [address] Medical Branch hydrOXYzine 2020-06 Yes 50mg Take 50 mg Univers (ATARAX) 50 0-06 by mouth 3 it y of mg tablet 16:05: (three) [place] 17 times Medical daily as Branch needed for Itching. QUEtiapine 2020-06 Yes 100mg Take 100 Un anjel (SEROQUEL) 0-06 mg by ity of 50 mg 16:05: mouth at [place] tablet 17 bedtime. Medical Branch acetaminoph 2020-06 Yes 1{tbl} Take 1 Un anjel en-codeine 0-06 tablet by ity of 300-30 mg 16:05: mouth [place] tablet 17 every 4 Medical (four) Branch hours as needed. doxepin 50 2020-06 Yes 50mg Take 50 mg U nivers mg capsule 0-06 by mouth ity o f 16:05: at [place] [address] bedtime. Medical Branch simvastatin Yes 10mg Take 10 mg Univers 10 mg 6-08 by mouth ity of tablet 00:00: every [place] 00 evening. Medical Branch simvastatin Yes 10mg Take 10 mg Univers 10 mg 6-08 by mouth ity of tablet 00:00: every [place] 00 evening. Medical Branch simvastatin 0 Yes 10mg Take 10 mg Univers 10 mg 6-08 by mouth ity of tablet 00:00: every [place] 00 evening. Medical Branch simvastatin 0 Yes 10mg Take 10 mg Univers 10 mg 6-08 by mouth ity of tablet 00:00: every [place] 00 evening. Medical Branch pregabalin 0 Yes 100mg Take 100 Un anjel 100 mg 6-07 mg by ity of capsule 00:00: mouth 2 [place] (two) Medical times Branch daily. pregabalin 2020-0 Yes 100mg Take 100 Un anjel 100 mg 6-07 mg by ity of capsule 00:00: mouth 2 [place] (two) Medical times Branch daily. pregabalin 2020-0 Yes 100mg Take 100 Un anjel 100 mg 6-07 mg by ity of capsule 00:00: mouth 2 [place] (two) Medical times Branch daily. pregabalin 202-0 Yes 100mg Take 100 Un anjel 100 mg 6-07 mg by ity of capsule 00:00: mouth 2 [place] (two) Medical times Branch daily. DEXILANT 60 Yes 1{capsu Take 1 U nivers mg capsule 5-21 le} capsule by ity of 00:00: mouth 00 daily. Medical Branch levocetiriz Yes 5mg Take 5 mg U nivers ine 5 mg 5-21 by mouth ity of tablet 00:00: every [place] 00 evening. Medical Branch DEXILANT 60 Yes 1{capsu Take 1 U nivers mg capsule 5-21 le} capsule by ity of 00:00: mouth [place] 00 daily. Medical Branch levocetiriz Yes 5mg Take 5 mg U nivers ine 5 mg 5-21 by mouth ity of tablet 00:00: every [place] 00 evening. Medical Branch DEXILANT 60 Yes 1{capsu Take 1 U nivers mg capsule 5-21 le} capsule by ity of 00:00: mouth [place] 00 daily. Medical Branch levocetiriz Yes 5mg Take 5 mg U nivers ine 5 mg 5-21 by mouth ity of tablet 00:00: every [place] 00 evening. Medical Branch DEXILANT 60 Yes 1{capsu Take 1 U nivers mg capsule 5-21 le} capsule by ity of 00:00: mouth [place] 00 daily. Medical Branch levocetiriz Yes 5mg Take 5 mg U nivers ine 5 mg 5-21 by mouth ity of tablet 00:00: every [place] 00 evening. Medical Branch Cephalexin Cephalexin Yes RAMONA QUIJANO Q0.25D TAKE 1 UT 500 MG Oral 500 MG Oral 3-22 M.D. TABLET 4 Physici Tablet Tablet 00:00: TIMES ans 00 DAILY FLUoxetine 2018-06 Yes 40mg QD Take 40 mg M ethodi (PROzac) [address] MG capsule 11:18: daily. Hospi ta 06 l cyanocobala 2018-06 Yes Take by Met bee min, 1-[address] vitamin 11:18: Hospita B-12, 06 l (VITAMIN B-12 ORAL) dexlansopra 2018-06 Yes 60mg QD Take 60 mg Methodi zole 1-[address] (DEXILANT) 11:18: daily. Hospi ta 60 mg 06 l capsule paliperidon 2018-06 Yes Take by Met bee e (INVEGA 1-[address] ORAL) 11:18: Hospita 06 l ALPRAZolam 2019-1 Yes 2mg Q.[id number] Take 2 mg Methodi (XANAX) 2 -11 [id number] [address] mouth [address] MG tablet 11:18: 3D (three) Hospi ta 06 times a l day as needed for anxiety. budesonide/ 2018-06 Yes Inhale. Met haii formoterol -11 st fumarate 11:18: Hospita (SYMBICORT 06 l INHL) FLUoxetine 2018-06 Yes 40mg QD Take 40 mg M ethodi (PROzac) 40 -[address] MG capsule 11:18: daily. Hospi ta 06 l cyanocobala 2018-06 Yes Take by Met bee min, -[address] vitamin 11:18: Hospita B-12, 06 l (VITAMIN B-12 ORAL) dexlansopra 2018-06 Yes 60mg QD Take 60 mg Methodi zole -[address] (DEXILANT) 11:18: daily. Hospi ta 60 mg 06 l capsule paliperidon 2018-06 Yes Take by Met bee e (INVEGA [address] ORAL) 11:18: Hospita 06 l ALPRAZolam 2018-06 Yes 2mg Q.[id number] Take 2 mg Methodi (XANAX) 2 -11 [id number] [address] mouth [address] MG tablet 11:18: 3D (three) Hospi ta 06 times a l day as needed for anxiety. budesonide/ 2018-06 Yes Inhale. Met haii formoterol -11 st fumarate 11:18: Hospita (SYMBICORT 06 l INHL) FLUoxetine 2018-06 Yes 40mg QD Take 40 mg M ethodi (PROzac) 40 1-[address] MG capsule 11:18: daily. Hospi ta 06 l FLUoxetine 2018-06 Yes 40mg QD Take 40 mg M ethodi (PROzac) 40 1-[address] MG capsule 11:18: daily. Hospi ta 06 l cyanocobala 2018-06 Yes Take by Met bee min, -[address] vitamin 11:18: Hospita B-12, 06 l (VITAMIN B-12 ORAL) dexlansopra 2018-06 Yes 60mg QD Take 60 mg Methodi zole 1-[address] (DEXILANT) 11:18: daily. Hospi ta 60 mg 06 l capsule paliperidon 2018-06 Yes Take by Met bee e (INVEGA 1-[address] ORAL) 11:18: Hospita 06 l ALPRAZolam 2018-06 Yes 2mg Q.[id number] Take 2 mg Methodi (XANAX) 2 06-12 [id number] [address] mouth [address] MG tablet 11:18: 3D (three) Hospi ta 06 times a l day as needed for anxiety. cyanocobala 2018-06 Yes Take by Met bee min, -[address] vitamin 11:18: Hospita B-12, 06 l (VITAMIN B-12 ORAL) budesonide/ 2018-06 Yes Inhale. Met haii formoterol 06-12 st fumarate 11:18: Hospita (SYMBICORT 06 l INHL) dexlansopra 2018-06 Yes 60mg QD Take 60 mg Methodi zole [address] (DEXILANT) 11:18: daily. Hospi ta 60 mg 06 l capsule paliperidon 2018-06 Yes Take by Met bee e (INVEGA 1-[address] ORAL) 11:18: Hospita 06 l ALPRAZolam 2018-06 Yes 2mg Q.[id number] Take 2 mg Methodi (XANAX) 2 06-12 [id number] mouth [address] MG tablet 11:18: [...] Take 15 mL Un anjel 2% viscous -09 by mouth ity o f (LIDOCAINE 00:00: [...] h needed for Oral mucosal pain. doxepin Yes 75mg QD Take [address] (SINEQUAN) 8-02 by mouth [facility] 75 MG 10:59: nightly. Medical capsule 26 Center [address] Yes [facility] onto [facility] (BUTRANS 8-02 the skin. Harry fagan TD) 10:59: Medical 26 Center HYDROcodone Yes 1{tbl} Take [address] -acetaminop 8-02 tablet by Harry fagan hen (NORCO 10:59: mouth Medica l 5-325) [...] fagan TD) 10:59: Medical 26 Center HYDROcodone 2015-0 [...] 10:59: nightly. Medical capsule 26 Center BUPRENORPHI 2016-[address] [facility] (BUTRANS 8-02 the skin. Harry es TD) 10:59: Medical 26 Center HYDROcodone 2016-0 [...] 10:59: nightly. Medical capsule 26 Center BUPRENORPHI 2016-[address] [facility] (BUTRANS 8-02 the skin. Harry es TD) 10:59: Medical 26 Center HYDROcodone 2016-0 [...] 26 (six) Center hours as needed. QUEtiapine Yes 50mg QD Take [address] (SEROQUEL) 8-02 by mouth [facility] 50 MG 10:59: nightly. Medical tablet 26 Center OXcarbazepi Yes 150mg Q.5D Take [address] 8-02 mg by [facility] (TRILEPTAL) 10:59: mouth 2 Med ical 150 MG 26 (two) Center tablet times daily. pregabalin Yes 150mg Q.5D Take [address] (LYRICA) 8-02 mg by [facility] 150 MG 10:59: mouth 2 Medical capsule 26 (two) Center times daily. DEXILANT 60 Yes one po Bin emili MG CPDR 8-05 daily l 00:00: LIPITOR Yes .qd Memoria 8-05 l 00:00: ZANAFLEX Yes .bid Memoria 8-05 l 00:00: HYDROCODONE Yes one po Bin emili -ACETAMINOP 8-05 twice a l HEN 10-325 00:00: day Cement MG TABS 00 COLCHICINE Yes one po [...] 00:00: day Tal MG TABS 00 COLCHICINE 2015-0 Yes one po Memor ia 8-05 twice a l 00:00: day [place] ATARAX 0 Yes prn Memoria 8-05 anxiety l 00:00: Tal SEROQUEL 0 Yes Two po qhs Mem oria 400 MG TABS 8-05 l 00:00: Tal SEROQUEL 50 0 Yes Two po qam Memoria MG TABS 8-05 l 00:00: Cement DEXILANT 60 0 Yes one po Bin emili MG CPDR 8-05 daily l 00:00: Tal 00 LIPITOR 0 Yes .qd Memoria 8-05 l 00:00: Tal 00 ZANAFLEX 0 Yes .bid Memoria 8-05 l 00:00: Tal 00 HYDROCODONE 0 Yes one po Bin emili -ACETAMINOP 8-05 twice a l HEN 10-325 00:00: day Tal MG TABS 00 COLCHICINE Yes one po Memor ia 8-05 twice a l 00:00: day [place] 00 ATARAX 0 Yes prn Memoria 8-05 anxiety l 00:00: SEROQUEL Yes Two po qhs Mem oria 400 MG TABS 8-05 l 00:00: Cement SEROQUEL 50 0 Yes Two po qam Memoria MG TABS 8-05 l 00:00: DEXILANT 60 0 Yes one po Bin emili MG CPDR 8-05 daily l 00:00: LIPITOR 0 Yes .qd Memoria 8-05 l 00:00: Tal 00 ZANAFLEX 0 Yes .bid Memoria 8-05 l 00:00: Tal 00 HYDROCODONE 0 Yes one po Bin emili -ACETAMINOP 8-05 twice a l HEN 10-325 00:00: day Tal MG TABS 00 SEROQUEL 0 Yes Two po qhs Mem oria 400 MG TABS 8-05 l 00:00: Cement 00 COLCHICINE 0 Yes one po Memor ia 8-05 twice a l 00:00: day Tal ATARAX 0 Yes prn Memoria 8-05 anxiety l 00:00: [place]ement 00 SEROQUEL 50 Yes Two po qam [...] Completed Unive rsity of PFIZER VACCINE 00:00:00 [facility] SARS-COV-2 COVID-19 2021-02-16 Completed Unive rsity of PFIZER VACCINE 00:00:00 [facility] SARS-COV-2 COVID-19 2021-02-16 Completed Unive rsity of PFIZER VACCINE 00:00:00 [facility] SARS-COV-2 COVID-19 2021-02-16 Completed Unive rsity of PFIZER VACCINE 00:00:00 [facility] SARS-COV-2 COVID-19 2021-01-26 Completed Unive rsity of PFIZER VACCINE 00:00:00 [facility] SARS-COV-2 COVID-19 2021-01-26 Completed Unive rsity of PFIZER VACCINE 00:00:00 [facility] SARS-COV-2 COVID-19 2021-01-26 Completed Unive rsity of PFIZER VACCINE 00:00:00 [facility] SARS-COV-2 COVID-19 2021-01-26 Completed Unive rsity of PFIZER VACCINE 00:00:00 [facility] TDAP 2013-03-18 Completed University of 00:00:00 [facility] TDAP 2013-03-18 Completed University of 00:00:00 [facility] TDAP 2013-03-18 Completed University of 00:00:00 [facility] TDAP 2013-03-18 Completed University of 00:00:00 [facility] Vital Signs Vital Name Observation Time Observation Value Comments Source Systolic blood 2021-05-03 17:08:00 112 mm[Hg] Univer sity of pressure [facility] Diastolic blood 2021-05-03 17:08:00 75 mm[Hg] Unive rsity of pressure [facility] Heart rate 2021-05-03 17:08:00 85 /min [facility] Body height 2021-05-03 17:08:00 154.9 cm [facility] Body weight 2021-05-03 17:08:00 78.472 kg [facility] BMI 2021-05-03 17:08:00 32.69 kg/m2 [facility] Height 2020-12-18 15:59:00 154.94 CM Weight [...] Ph ysicians (BMI) [Ratio] Height 2015-01-04 20:15:[facility] 2015-01-04 20:15:50 [facility] Temperature Oral (F) 2015-01-04 20:15:50 98.4 F [facility] Heart Rate 2015-01-04 20:15:50 [facility] Systolic (mm Hg) 2015-01-04 20:15:[facility] Diastolic (mm Hg) 2015-01-04 20:15:50 [facility] orial Tal Procedures Procedure Date / Time Performing Clinician Source Performed REFERRAL- 2022-01-18 05:01:00 Doctor Unassigned, [facility] REQUEST/RESPONSE [facility] XR HIPS 2 VW BILATERAL 2021-05-03 17:47:00 hSeri Tate [facility] of [facility] REFERRAL- 2021 05:01:00 Doctor Unassigned, [facility] REQUEST/RESPONSE [facility] DRAIN RH SUBQ TISS FASCIA 2020-08-15 00:00:00 [facility] OPEN APPR Center nfectious agent detection 2019-11-15 00:00:00 [facility] by nucleic acid (DNA or smoking/tobacco 2015-01-04 20:15:50 Adwoa monte cessation, patient education and counseling vaginal Pap smear results 2014-01-31 20:34:06 Wa morial Tal colonoscopy 2013-05-02 21:35:09 Adwoa monte History of Tubal Ligation [facility] History of Exploratory [facility] Laparotomy [facility] of [facility] Cholecystectomy Plan of Care Planned Activity Planned Date Details Comments Source Future Scheduled 2022-07-15 COVID-19 VACCINE (#1) [facility] Test 14:25:21 [code = COVID-19 VACCINE (#1)] Future Scheduled 2022-07-15 Screening for [facility] Test 14:25:21 malignant neoplasm of cervix (procedure) [code = 537945989] Future Scheduled 2022-07-15 BREAST CANCER [facility] Test 14:25:21 SCREENING [code = BREAST CANCER SCREENING] Future Scheduled 2022-07-15 COLONOSCOPY SCREENING [facility] Test 14:25:21 [code = COLONOSCOPY SCREENING] Future Scheduled 2022-07-15 SHINGLES VACCINES (1 Met [facility] Test 14:25:21 of 2) [code = SHINGLES VACCINES (1 of 2)] Future Scheduled 2022-07-15 INFLUENZA VACCINE Method [facility] Test 14:25:21 [code = INFLUENZA VACCINE] Future Scheduled 2022-05-19 COVID-19 VACCINE (#1) [facility] Test 04:28:51 [code = COVID-19 VACCINE (#1)] Future Scheduled 2022-05-19 BREAST CANCER [facility] Test 04:28:51 SCREENING [code = BREAST CANCER SCREENING] Future Scheduled 2022-05-19 COLONOSCOPY SCREENING [facility] Test 04:28:51 [code = COLONOSCOPY SCREENING] Future Scheduled 2022-05-19 SHINGLES VACCINES (1 Met [facility] Test 04:28:51 of 2) [code = SHINGLES VACCINES (1 of 2)] Future Scheduled 2022-05-19 INFLUENZA VACCINE Method [facility] Test 04:28:51 [code = INFLUENZA VACCINE] Future Scheduled 2022-04-07 COVID-19 VACCINE (#1) [facility] Test 20:14:03 [code = COVID-19 VACCINE (#1)] Future Scheduled 2022-04-07 Pneumococcal Vaccine: [facility] Test 20:14:03 Pediatrics (0 to 5 Years) and At-Risk Patients (6 to 64 Years) (1 - PCV) [code = Pneumococcal Vaccine: Pediatrics (0 to 5 Years) and At-Risk Patients (6 to 64 Years) (1 - PCV)] Future Scheduled 2022-04-07 Hepatitis C screening [facility] Test 20:14:03 (procedure) [code = 387695595] Future Scheduled 2022-04-07 Screening for [facility] Test 20:14:03 malignant neoplasm of cervix (procedure) [code = 276337950] Future Scheduled 2022-04-07 BREAST CANCER [facility] Test 20:14:03 SCREENING [code = BREAST CANCER SCREENING] Future Scheduled 2022-04-07 COLONOSCOPY SCREENING [facility] Test 20:14:03 [code = COLONOSCOPY SCREENING] Future Scheduled 2022-04-07 SHINGLES VACCINES (1 Met [facility] Test 20:14:03 of 2) [code = SHINGLES VACCINES (1 of 2)] Future Scheduled 2022-04-07 INFLUENZA VACCINE Method [facility] Test 20:14:03 [code = INFLUENZA VACCINE] Future Scheduled 2022-04-07 HEPATITIS B VACCINES Met [facility] Test 20:14:03 (1 of 3 - 3-dose series) [code = HEPATITIS B VACCINES (1 of 3 - 3-dose series)] Future Scheduled 2022-04-07 COVID-19 VACCINE (#1) [facility] Test 20:14:03 [code = COVID-19 VACCINE (#1)] Future Scheduled 2022-04-07 Pneumococcal Vaccine: [facility] Test 20:14:03 Pediatrics (0 to 5 Years) and At-Risk Patients (6 to 64 Years) (1 - PCV) [code = Pneumococcal Vaccine: Pediatrics (0 to 5 Years) and At-Risk Patients (6 to 64 Years) (1 - PCV)] Future Scheduled 2022-04-07 Hepatitis C screening [facility] Test 20:14:03 (procedure) [code = 121490705] Future Scheduled 2022-04-07 Screening for [facility] Test 20:14:03 malignant neoplasm of cervix (procedure) [code = 057623631] Future Scheduled 2022-04-07 BREAST CANCER [facility] Test 20:14:03 SCREENING [code = BREAST CANCER SCREENING] Future Scheduled 2022-04-07 COLONOSCOPY SCREENING [facility] Test 20:14:03 [code = COLONOSCOPY SCREENING] Future Scheduled 2022-04-07 SHINGLES VACCINES (1 Met [facility] Test 20:14:03 of 2) [code = SHINGLES VACCINES (1 of 2)] Future Scheduled 2022-04-07 INFLUENZA VACCINE [facility] Test 20:14:03 [code = INFLUENZA VACCINE] Future Scheduled 2022-04-07 HEPATITIS B VACCINES Met [facility] Test 20:14:03 (1 of 3 - 3-dose series) [code = HEPATITIS B VACCINES (1 of 3 - 3-dose series)] Encounters Start End Encounter Admission Attending Care Care Encounter Source Date/Time Date/Time Type Type Clinicians Facility Department ID 2021-04-03 Outpatient R YADIRATUNDEKATHLEENBUSHRA [facility] [id number] Univers 02:17:14 ANJU Adkins of [facility] 2022-05-23 2022-05-23 Outpatient VIRGILIO SFA [id number] Jose Roberto 09:20:25 09:20:25 [id number] F Heath 2022-04-15 2022-04-15 Outpatient MAL [facility] [id number] Univers 10:00:00 10:00:00 MAL BURGER i ty [facility] 2022-03-08 2022-03-08 Outpatient MAL [facility] [id number] Univers 10:30:00 10:30:00 MAL BURGER i ty [facility] 2022-01-18 2022-01-18 Orders Doctor NATHAN [id number] Univers 00:00:00 00:00:00 Only Unassigned, MARK [id number] ity of [facility] [id number] Francesco as [id number] [address] 2021-10-08 2021-10-08 Outpatient [facility] PRIV PRIV [id number] [facility] 02:19:00 02:19:00 _A [id number] Medica l 2021-09-25 2021-09-25 Outpatient [facility] PRIV PRIV [id number] [facility] 09:32:00 09:32:00 _A [id number] Medica l 2021-09-25 2021-09-25 Outpatient [facility] PRIV PRIV [id number] [facility] 09:32:00 09:32:00 _A [id number] Medica l 2021-05-14 2021-05-14 Outpatient Dilip TATE [facility] [id number] Univers 00:00:00 00:00:00 [facility] 2021-05-03 2021-05-03 Outpatient [facility] [id number] Univers 11:15:00 23:59:00 [facility] 2021-05-03 2021-05-03 [facility] 1.2.840.114 [id number] Univers 11:15:00 23:59:00 Encounter Sheri Guerrero HEALTH 350.1.13.10 ity of [place] 4.2.7.2.686 Francesco as FRANKIE?BLEA [phone] [place] gabrielatalisha [place] [address] MEDICAL OFFICE [facility] 2021-05-03 2021-05-03 Outpatient Dilip [facility] [id number] Univers 11:00:00 11:00:00 [facility] 2021-05-03 2021-05-03 Outpatient [facility] [id number] Univers 11:00:00 11:00:00 [facility] 2021-05-03 2021-05-03 Office [facility] 1.2.840.114 [id number] Univers 10:24:20 10:54:20 Visit Sheri Guerrero HEALTH 350.1.13.10 it y of [place] 4.2.7.2.686 Francesco as FRANKIE?BLEA [phone] [place] gabrielatalisha MARTINO [address] MEDICAL OFFICE [facility] 2021 2021 Orders Doctor NATHAN 1.2.840.114 [id number] Univers 00:00:00 00:00:00 Only Unassigned, MARK 350.1.13.10 ity of [place] [facility] 4.2.7.2.686 Francesco as [phone] [place] [address] [address] 2021-03-07 2021-03-07 [facility] 1.2.840.114 [id number] Univers 12:06:00 15:59:00 Encounter Anju adkins 350.1.13.10 it[place] of [place] [phone] [facility] [address] 2021-03-07 2021-03-07 Surgery Charrhona [facility] 1.2.840.114 [id number] Univers 13:35:00 14:12:00 Anju adkins 350.1.13.10 it[place] of [place] [phone] [facility] [address] 2021-03-06 2021-03-06 Outpatient R KLAUSBUSHRA [facility] [id number] Univers 08:00:00 08:00:00 ANJU Adkins o f [facility] 2021-03-06 2021-03-06 Laboratory Only, [facility] Test [facility] 1.2.840. 114 [id number] Univers 07:40:21 07:55:21 Only Anju Davison 350.1.1 3.10 it[place] of [place] [phone] [facility] [address] 2021-03-06 2021-03-06 Orders Doctor NATHAN 1.2.840.114 [id number] Univers 00:00:00 00:00:00 Only Unassigned, MARK 350.1.13.10 ity of [place] [facility] 4.2.7.2.686 Francesco as [phone] [facility] [address] 2021-02-16 2021-02-16 Imm/Inj Nurse, [facility] Pob Immunization [facility] 1.2.840.114 [id number] Univers 08:04:24 08:14:24 Visit Daniel Chapa 350.1.13 .10 it[place] of [place] [phone] [place] dical nal [address] Building 2021-02-16 2021-02-16 Outpatient R SAMMI [facility] [id number] Univers 08:10:00 08:10:00 DANIEL castillo of [facility] 2021-02-07 2021-02-07 Office Kristi Brock [facility] 1.2.840.114 [id number] Univers 07:35:37 11:35:37 Visit MULTISPEC 350.1.13.10 [place] [phone] [facility] AND NIMISHA [address] [facility] 2021-02-07 2021-02-07 Office Kristi Brock [facility] 1.2.840.114 [id number] Univers 07:35:37 11:35:37 Visit MULTISPEC 350.1.13.10 ity of [place] 4.2.7.2.686 [facility] [phone] [facility] AND BANSAL [address] [place] [address] [facility]IN[facility] 2021-02-07 2021-02-07 Outpatient R KRISTI BROCK [facility] [id number] Univers 08:00:00 08:00:00 ity of [facility] 2021-02-02 2021-02-02 [facility] Radiology [facility] 1.2.840.114 [id number] Univers 08:32:14 23:59:00 Encounter [place] 350.1.13.10 ity of [place] 4.2.7.2.686 [facility] [place] [phone] [facility] [address] 2021-02-02 2021-02-02 [facility] Radiology [facility] 1.2.840.114 [id number] Univers 08:32:14 23:59:00 Encounter [place] 350.1.13.10 ity of [place] 4.2.7.2.686 [facility] [phone] [address] 2021-02-02 2021-02-02 Outpatient R RADIOLOGY [facility] [id number] Univers 00:00:00 00:00:00 ity [facility] 2021-01-26 2021-01-26 Outpatient R SAMMI [facility] [id number] Univers 09:50:00 09:50:00 DANIEL castillo of [facility] 2021-01-26 2021-01-26 Imm/Inj Nurse, Adc Pob Immunization [facility] 1.2.840.114 [id number] Univers 09:37:51 09:38:00 Visit Daniel Chapa 350.1.13 .10 it[place] of [place] [phone] Wa dical [address] 2021-01-23 2021-01-23 Outpatient R JEWEL RUSSO [facility] [id number] Univers 11:00:00 11:00:00 JEWEL RUSSO [facility] 2021-01-22 2021-01-22 Office Cecille [facility] 1.2.840.114 [id number] Univers 13:20:54 15:07:06 Visit Jewel Moore [facility] 350.1.13.10 ity [facility] 4.2.7.2.686 Francesco as Frankie?Blea [phone] Wa dical kney [address] Medical Office Building 2021-01-22 2021-01-22 Outpatient R JEWEL RUSSO [facility] [id number] Univers 14:40:00 14:40:00 JEWEL RUSSO [facility] 2021-01-22 2021-01-22 Outpatient R RADIOLOGY [facility] [id number] Univers 00:00:00 00:00:00 ity [facility] 2021-01-19 2021-01-19 Outpatient R JEWEL RUSSO [facility] [id number] Univers 10:40:00 10:40:00 JEWEL RUSSO [facility] 2021-01-18 2021-01-18 Outpatient R RADIOLOGY [facility] [id number] Univers 00:00:00 [facility]-01-10 2021-01-10 [facility] 1.2.840.114 [id number] Univers 00:00:00 00:00:00 Jewel Oscar [place] 350.1.13.10 ity [facility] [place]2.[place] [phone] Wa dical nal 092 [facility] 2020-12-28 2020-12-28 [facility] 1.2.840.114 [id number] Univers 10:29:55 23:59:00 Encounter Reuben Ho [facility] 350.1.13.10 ity of Surgical 4.2.7.2.686 Francesco as Specialti [phone] Wa dical es 809 [facility] 2020-12-28 2020-12-28 Outpatient R BEBETO [facility] [id number] Univers 10:15:00 10:49:23 [facility] 2020-12-28 2020-12-28 Office Reuben Montanez [facility] 1.2.840. 114 [id number] Univers 10:09:14 10:49:23 Visit Sheri Tate [facility] 350.1.13.10 ity of SURGICAL 4.2.7.2.686 Francesco as SPECIALTI [phone] Me dical ES 198 [facility] 2020-12-28 2020-12-28 Outpatient R BEBETO [facility] [id number] Univers 10:15:00 10:15:00 [facility] 2020-12-18 2020-12-18 Hospital [facility] 1.2.889.880 [id number] Univers 11:55:16 23:59:00 Encounter Jewel [place] 350.1.13.10 it[place] of [place] [phone] [facility] [address] 2020-12-18 2020-12-18 Emergency E [facility] [id number] 7738 [facility] 15:41:00 16:41:00 JA Rosalesa [facility] 2020-12-18 2020-12-18 Office Cecille [facility] 1.2.840.114 [id number] Univers 10:51:37 12:06:48 Visit Jewel [place] 350.1.13.10 [place] of [place] [phone] Wa dical nal 092 [facility] 2020-12-18 2020-12-18 Outpatient R JEWEL RUSSO [facility] [id number] Univers 10:40:00 10:40:00 JEWEL RUSSO [facility] 2020-12-13 2020-12-13 Telephone Cecille [facility] 1.2.840.114 [id number] Univers 00:00:00 00:00:00 Jewel [place] 350.1.13.10 ity of [place] [phone] Wa dical nal 092 [facility] 2020-12-12 2020-12-12 [facility] 1.2.190.133 [id number] Univers 15:00:00 23:59:00 Encounter Jewel [place] 350.1.13.10 ity of [place] 4.2.7.2.686 [facility] [phone] [facility] [address] 2020-12-12 2020-12-12 Outpatient Dilip RUSSOJEWEL [facility] [id number] Univers 00:00:00 00:00:[address] [facility] [place] 2020-12-12 2020-12-12 Orders Doctor NATHAN 1.2.840.114 [id number] Univers 00:00:00 00:00:00 Only Unassigned, MARK 350.1.13.10 ity of [place] [facility] 4.2.7.2.686 Francesco as [phone] [address] 2020-12-01 2020-12-01 Office Cecille, [facility] 1.2.840.114 [id number] Univers 08:04:24 10:40:04 Visit Jewel [place] 350.1.13.10 ity [facility] 4.2.7.2.686 [facility] [phone] Wa dical [facility] 2020-12-01 2020-12-01 Outpatient Dilip RUSSOJEWEL [facility] [id number] Univers 08:00:00 08:00:00 CECILLEJEWEL sharon [facility] 2020-11-20 2020-11-20 Orders Doctor NATHAN Dunham2.840.114 [id number] Univers 00:00:00 00:00:00 Only Unassigned, MARK 350.1.13.10 ity of [place] [facility] 4.2.7.2.686 Francesco as [phone] [address] 2020-08-21 2020-08-21 AppointKISHA [facility] 732 [address] [place] 09:00:00 09:00:00 t; RAMONA QUIJANO M.D. Trauma P chantal GREENE M.D. [facility] 2020-08-15 2020-08-15 Emergency E NICK, [facility] [id number] 0567 [place] 16:24:00 19:05:00 [facility] 2020-03-02 2020-03-02 [facility] Radiology [facility] 1.2.840.114 [id number] 08:54:20 23:59:00 Encounter [place] 350.1.13.10 [place] 4.2.7.2.686 [place] [id number] 806 2020-03-02 2020-03-02 [facility] Radiology [facility] 1.2.840.114 [id number] [facility] 08:54:20 23:59:00 Encounter [place] 350.1.13.10 ity of [place] 4.2.7.2.686 [facility] [phone] [facility] [address] 2020-03-02 2020-03-02 [facility] Radiology [facility] 1.2.840.114 [id number] 08:29:56 08:53:00 Encounter [place] 350.1.13.10 [place] 4.2.7.2.686 [place] [id number] 800 2020-03-02 2020-03-02 [facility] Radiology [place] 1.2.840.114 [id number] Univers 08:29:56 08:53:00 Encounter [place] 350.1.13.10 ity of [place] 4.2.7.2.686 [facility] [phone] [place] [address] [address] 2020-03-02 2020-03-02 Outpatient R RADIOLOGY [facility] [id number] Univers 00:00:00 00:00:00 ity of [facility] 2020-01-19 2020-01-19 Hospital Radiology [facility] 1.2.840.114 [id number] 12:00:00 23:59:00 Encounter [place] 350.1.13.10 [place] 4.2.7.2.686 [place] [id number] 800 2020-01-19 2020-01-19 [facility] Radiology [facility] 1.2.840.114 [id number] Univers 12:00:00 23:59:00 Encounter [place] 350.1.13.10 ity of [place] 4.2.7.2.686 [facility] [phone] [address] 2020-01-19 2020-01-19 Outpatient R RADIOLOGY [facility] [id number] Univers 00:00:00 00:00:00 itsharon [facility] 2019-12-10 2019-12-10 Outpatient R ALEXANDER, [facility] [id number] Univers 16:40:00 16:40:00 VALENTE castillo [facility] 2019-12-10 2019-12-10 Laboratory Lab, [facility] 1.2.840.114 [id number] 14:41:41 15:01:41 Only Fam Pob I Health 350.1.13.10 [place] 4.2.7.2.686 Professio [phone] [place] [address] [facility] 2019-12-10 2019-12-10 Laboratory Lab, [facility] Fam Pob I [facility] 1.2. 840.114 [id number] Univers 14:41:41 15:01:41 Only Valente [facility] 350.1.13.10 ity of [place] 4.2.7.2.686 Francesco as Professio [phone] Wa dical [address] [facility] 2019-12-10 2019-12-10 Outpatient R ALEXANDER [facility] [id number] Univers 16:40:00 14:59:[address] [facility] [place] 2019-11-15 2019-11-15 Emergency E TALAMANTES, [facility] [id number] [facility] 20:57[facility]00 22:21:00 [facility] 2019-11-15 2019-11-15 Outpatient [facility] [id number] AccessH 14:00:00 14:00:00 [id number] [facility] [id number] 2019-11-15 2019-11-15 Outpatient [facility] [id number] AccessH 00:00:00 00:00:00 [facility] 2019-11-15 2019-11-15 Outpatient CHRIS [facility] [id number] AccessH 00:00:00 00:00:00 TUNG Guerrero [id number] [facility] [id number] [facility] [id number] 2019-10-15 2019-10-15 Emergency E CAILIN, [facility] [id number] 4784 [facility] 14:01:00 15:07:00 ROSE MARIE [facility] 2015-01-04 2015-01-04 [facility] [id number] Memoria 00:00:00 00:00:00 Visit r [place] [facility] [id number] [facility] 2015-01-04 2015-01-04 Lab Report [place] [address] [id number] Memoria 00:00:00 00:00:00 r [place] [facility] 197243 tyson cordero [facility] Practice Results Test Description Test Time Test Comments Results Result Comments Source TSH, THIRD GENERATION 2022-05-24 06:25:47 Test Item Value Reference Range Interpretation Comme nts TSH, THIRD GENERATION (test code = 2821) 1.110 UIU/ML 0.400-4.100 HEMOGLOBIN [id number] 04:54:02 Test Item Value Reference Range Interpretation Comments HEMOGLOBIN A1c (test code = 40962) 5.8 % 4.2-5.6 H COMPREHENSIVE METABOLIC KILML0435-93-15 04:35:41 Test Item Value Reference Range Interpretation Comments GLUCOSE (test code = 98 MG/DL 70-99 2216) BUN (test code = 7 MG/DL 8-23 L 2207) CREATININE (test 1.06 MG/DL 0.60-1.30 code = 2214) eGFR (2020 CKD-EPI) 60 ML/MIN/1.73 >60 L (test code = 82022) CALC BUN/CREAT (test 7 RATIO 6-28 code = 2235) SODIUM (test code = 142 MEQ/L 323-005 7547) POTASSIUM (test code 4.6 MEQ/L 3.5-5.4 = 2227) CHLORIDE (test code 103 MEQ/L 95-107 = 2215) CARBON DIOXIDE (test 28 MEQ/L 19-31 code = 2206) CALCIUM (test code = 10.2 MG/DL 8.5-10.5 2208) PROTEIN, TOTAL (test 7.0 G/DL 6.1-8.3 code = 2229) ALBUMIN (test code = 4.2 G/DL 3.5-5.2 2200) CALC GLOBULIN (test 2.8 G/DL 1.9-3.7 code = 224) CALC A/G RATIO (test 1.5 RATIO 1.0-2.6 code = 2234) BILIRUBIN, TOTAL 1.2 MG/DL See_Comment [Automated message] (test code = 2207) The syste m which generated this result transmit luis carlos reference range : <=1.2. The refe rence range was not u sed to interpret th is result as normal/abnormal . ALKALINE PHOSPHATASE 106 U/L 40-140 (test code = 2203) AST (test code = 17 U/L 9-40 2217) ALT (test code = 18 U/L 5-40 2218) LIPID [id number] 04:35:41 Test Item Value Reference Range Interpretation [...] MOREINFORMATION , SEE CLIENT ANNOUNCE MENT AT [email or web address] RISK RATIO LDL/HDL 2.34 RATIO <3.22 (test code = 2237) CBC W/AUTO DIFF WITH [id number] 03:02:06 Test Item Value Reference Range Interpretation [...] message] code = 1065) WBC'S The system [employer] generated this result transmitted ref erence range: [...] 0.00-0.11 UNLESS O THERWISE (test code = 89912) INDICATE D, ALL TESTING PERFORM ED ATCLINICAL PATH OLOGY LABORATORIES, [address] [place] [address] [facility] DIRECTOR: ESTHER DAS M.D. CLIA NUMBER [id number] CAP ACCREDITATION N O. [id number] XR ANKLE RIGHT COMPLETE 3 VIEWS *WW*2020-12-18 16:16:22 [facility] : 1960 Sex: FExam: X-ray right ankle 3 viewsLocation: T6Xbicwdt: Fall with right ankle painFindings:No fractures or dislocations identified. No osseous lesions. Mild soft tissue swelling is present.Impression:1. Mild soft tissueswelling without fracture or dislocation.Electronically signed by: Manuel Beebe MD 12/18/2020 4:16 [employer] [U] XRAY FINGER(S) - 2 VWS MIN. RIGHT [id number] 09:35:00Images acquired, not reported on this accession number.[facility] Panel Description: SARS-CoV-2 (COVID-19) RNA [Presence] in Unspecified specimen by DELFIN with probe [id number] 09:17:00 Test Item Value Reference Range Interpretation Comments SARS-CoV-2, Not Detected Not Detected Testing was per formed using DELFIN (test code the Aptima RS-CoV-2 = 89547-3) assay.This test was developed and i ts performance opal racteristics determinedby Wy [employer]. T his test has not been FDA [...] this assay.
< br/>Performe d by:
[facility] (HD)

AccessHealthSARS-CoV (RAPID ANTIGEN) WW2019-11-15 21:58:00 Test Item Value Reference Range Interpretation Comments SARS-CoV (ANTIGEN) NEGATIVE NEGATIVE (test code = COVAG) COVID AG (test This test has been code = COVAGC) marketed under the FDA Emergency Use Authorization (EUA) to meet challenges of the COVID-19 pandemic. The validation standards normally enforced by the FDA and the College of the [place] [employer] (CAP) are more stringent than those required for this test. Therefore, the result should be interpreted with caution and close attention to other clinical and epidemiological data Vtpskqfdr4195-55-56 21:37:001.590[facility] EetiscqHgdoqqauz4551-94-84 21:37:0017 [facility] OugmtppZqkyovmqu5108-15-75 21:37:000.9[facility] 2015-01-04 21:37:51602 MEQ/LMemorial UhpxvasIlethopyx9463-16-18 21:37:005.2 MEQ/LMemorial PquswzaWhsxailwl1712-80-01 21:37:008.6[facility] 2015-01-04 21:37:0014.1[facility] JibhpnjThgzegqxjs0567-08-24 21:37:0043.5Memorial JypqabzBrfuttseyt6946-33-09 21:37:07798 K/CMMMemorial HermannChemistry 2015-01-04 21:37:001.590[facility] UgpsazkZihtromam0827-12-20 21:37:0017Memorial LkesaayAmypiewqg1905-73-80 21:37:000.9[facility]orial XamorwhIkaxlzvov8795-18-97 21:37:13428 MEQ/LMemorial JffbocfGzsuyodpj9506-27-00 21:37:005.2 MEQ/LMemorial OyrzzvzVyygfinhq1066-52-11 21:37:008.6[facility]orial HpeszimYzlcnscbam3419-54-09 21:37:0014.1[facility] QydtaaeWhoewxfrtm2605-58-53 21:37:0043.5Memorial Tal Vvgrftvwjn0740-29-28 21:37:23472 K/CMMMemorial CfaeqivWjbxnhmvyc4890-76-80 21:37:0014.1[facility]orial FcxuyrxYwqrenvyeu1230-44-63 21:37:0043.5Memorial Cement Dttdnweaeo0842-85-40 21:37:43668 K/CMMMemorial QfcjbylTaokowrqz5545-70-61 21:37:001.590[facility] HlzbaivRjpdhonoa6934-04-22 21:37:0017[facility] Tal Fpcmkzlyg9955-61-95 21:37:000.9[facility]orial IfjvusuCdjaeivnu3869-96-14 21:37:90900 MEQ/LMemorial CiqutvcTyunmlnse0389-07-35 21:37:005.2 MEQ/LMemorial Tal Opvceahzk1584-77-18 21:37:008.6[facility]orial PhcmsyyRsdignkdjk8297-64-93 21:37:0014.1 Memorial LastckiXmtdycanmh5975-28-89 21:37:0043.5[facility]ann[facility] 2015-01-04 21:37:66756 K/CMMMemorial ThigfxgDvuymbtpn8473-62-87 21:37:001.590 Memorial GuqjcdsTqyvwoeit4617-71-18 21:37:0017[facility] 2015-01-04 21:37:000.9[facility]orial LrskdgcTyxjsdifv0583-71-98 21:37:00519 MEQ/L Memorial CchhignXvhjoigdc3346-49-22 21:37:005.2 MEQ/LMemorial HermannChemistry 2015-01-04 21:37:008.6Memorial HermannOb/Mgf7242-84-51 20:34:06NormalMemorial HermannOb/Ldw1124-15-05 20:34:06NormalMemorial HermannOb/Csa6649-33-33 20:34:06 NormalMemorial HermannOb/Djk3889-82-90 20:34:06NormalMemorial HermannOb/Care Asst 2014-01-31 20:34:06NormalMemorial HermannOb/Tcz0865-68-58 20:34:06NormalMemorial HermannOb/Zng7433-93-86 20:34:06NormalMemorial HermannOb/Mbk8337-32-55 20:34:06 NormalMemorial Tal
--- NOTE | 2022-07-15 15:45 | RAD REPORT ---
EXAM DESCRIPTION: RAD - Chest Single View - 07/15/2022 3:10 pm CLINICAL HISTORY: Chest pain COMPARISON: 05/24/2022 and 12/11/2009. TECHNIQUE: AP portable chest image was obtained . FINDINGS: Lungs are clear. Heart and vasculature are normal. No measurable pleural effusion and no p neumothorax. No gross bony abnormality seen. IMPRESSION: No acute cardiopulmonary process.
[2022-07-15 15:55] LABS: Hematocrit 42.4 % (36.0-45.0); MCV 96.6 fL (80-100); MPV 8.8 fL (7.6-11.3); RBC Red Blood Cell Count 4.39 M/uL (3.86-4.86)
[2022-07-15 16:24] LABS: Potassium 3.8 mmol/L (3.5-5.1); Troponin High Sensitivity 3.9 pg/mL (<58.9)
[2022-07-15 16:36] LABS: SARS-COV-2 RT PCR NEGATIVE (NEGATIVE)
--- NOTE | 2022-07-15 16:48 | ER ---
Nurse's Notes [facility] Name: Shahnaz Ramos Age: 62 yrs Sex: Female : 1960 Arrival Date: 07/15/2022 Time: 14:23 Bed 27 Private MD: Diagnosis: Chest pain, unspecified;Esophageal obstruction-INTERMITTENT;Esophagitis, unspecified;Tobacco abuse counseling;Tobacco use Presentation: 07/15 14:37 Chief complaint: Patient states: it hurts very bad to swallow; i can eat and drink but jh5 it hurts very bad. It feels like something is lodged. Coronavirus screen: Vaccine status: Patient reports receiving the 2nd dose of the covid vaccine. Client denies travel out of the [place] in the last 14 days. Ebola Screen: Patient negative for fever greater than or equal to 101.5 degrees Fahrenheit, and additional compatible Ebola Virus Disease symptoms Patient denies exposure to infectious person. Patient denies travel to an Ebola-affected area in the 21 days before illness onset. Initial Sepsis Screen: Does the patient meet any 2 criteria? No. Patient's initial sepsis screen is negative. Does the patient have a suspected source of infection? No. Patient's initial sepsis screen is negative. Risk Assessment: Do you want to hurt yourself or someone else? Patient reports no desire to harm self or others. 14:37 Method Of Arrival: Ambulatory [facility] 14:37 Acuity: [place]OL[place] 3 jh5 22:26 Onset of symptoms was July 13, 2022. Triage Assessment: 14:38 General: Appears uncomfortable, well groomed, well developed, Behavior is calm, jh5 cooperative, appropriate for age. Pain: Complains of pain in esophagus. Historical: - Allergies: 14:38 Aspirin; 5 14:38 Imitrex; jh5 - PMHx: 14:38 Anxiety; Asthma; Bipolar disorder; cervical spinal stenosis; COPD; Depression; jh5 Diverticulitis; Fibromyalgia; GERD; Hepatitis C; insomnia; Migraines; Ulcers; - Immunization history:: Adult Immunizations up to date. - Social history:: Smoking status: Patient reports the use of cigarette tobacco products, smokes one-half pack cigarettes per day. - Family history:: not pertinent. - Hospitalizations: : No recent hospitalization is reported. Screenin:30 [facility] ED Fall Risk Assessment (Adult) History of falling in the last 3 months, eh3 including since admission No falls in past 3 months (0 pts) Confusion or Disorientation No (0 pts) Intoxicated or Sedated No (0 pts) Impaired Gait No (0 pts) Mobility Assist Device Used No (0 pt) Altered Elimination No (0 pt) Score/Fall Risk Level 0 - 2 = Low Risk. Abuse screen: Denies threats or abuse. Denies injuries from another. Nutritional screening: No deficits noted. Tuberculosis screening: No symptoms or risk factors identified. Assessment: 15:30 General: Appears in no apparent distress. uncomfortable, Behavior is calm, cooperative, eh3 appropriate for age. Pain: Complains of pain in neck. Neuro: Level of Consciousness is awake, alert, obeys commands, Oriented to person, place, time, situation. Cardiovascular: Capillary refill < 3 seconds Patient's skin is warm and dry. Respiratory: Airway is patent Respiratory effort is even, unlabored, Respiratory pattern is regular, symmetrical. GI: Abdomen is flat, non-distended. : No signs and/or symptoms were reported regarding the genitourinary system. EENT: Reports pain when swallowing. Derm: Skin is pink, warm \T\ dry. Musculoskeletal: Circulation, motion, and sensation intact. Range of motion: intact in all extremities. 16:30 Reassessment: Patient appears in no apparent distress at this time. Patient and/or eh3 family updated on plan of care and expected duration. Pain level reassessed. Patient is alert, oriented x 3, equal unlabored respirations, skin warm/dry/pink. 17:00 Reassessment: Patient appears in no apparent distress at this time. Patient and/or eh3 family updated on plan of care and expected duration. Pain level reassessed. Patient is alert, oriented x 3, equal unlabored respirations, skin warm/dry/pink. Pt verbalizes understanding that provider is aware of her pain level, however analgesics cannot be given while her blood pressure is this low. 17:30 Reassessment: Patient appears in no apparent distress at this time. Patient and/or eh3 family updated on plan of care and expected duration. Pain level reassessed. Patient is alert, oriented x 3, equal unlabored respirations, skin warm/dry/pink. 18:00 Reassessment: Patient appears in no apparent distress at this time. Patient and/or eh3 family updated on plan of care and expected duration. Pain level reassessed. Patient is alert, oriented x 3, equal unlabored respirations, skin warm/dry/pink. 18:30 Reassessment: Patient appears in no apparent distress at this time. Patient and/or eh3 family updated on plan of care and expected duration. Pain level reassessed. Patient is alert, oriented x 3, equal unlabored respirations, skin warm/dry/pink. 19:52 Reassessment: Patient appears in no apparent distress at this time. Patient and/or kl family updated on plan of care and expected duration. Pain level reassessed. Patient is alert, oriented x 3, equal unlabored respirations, skin warm/dry/pink. pt requesting discharge provider notified Patient states feeling better. Vital Signs: 14:37 BP 113 / 51; Pulse 84; Resp 16; Temp 98.0; Pulse Ox 96% ; Pain 6/10; 5 15:30 BP 107 / 63; Pulse 76; Resp 20; Temp 98.6(O); Pulse Ox 97% on R/A; Pain 7/10; iw 16:30 BP 90 / 51; Pulse 76; Resp 18; Pulse Ox 94% on R/A; eh3 17:00 BP 100 / 64; Pulse 79; Resp 15; Pulse Ox 95% on R/A; eh3 17:30 BP 103 / 61; eh3 18:00 BP 90 / 48; Pulse 78; Resp 18; Pulse Ox 95% on R/A; eh3 18:30 BP 98 / 50; Pulse 77; Resp 14; Pulse Ox 97% on R/A; eh3 19:43 BP 103 / 56; Pulse 82; Resp 18; Pulse Ox 99% ; kl Vitals: 15:30 Cardiac Rhythm Assessment Sinus rhythm. ED Course: 14:23 Patient arrived in ED. am2 14:26 Lee Barrett MD is Attending Physician. rn 14:38 Triage completed. jh5 14:38 Arm band placed on right wrist. jh5 15:25 Jacki Pedraza, NEHA is Primary Nurse. eh3 15:30 Patient has correct armband on for positive identification. Bed in low position. Call 3 light in reach. Side rails up X2. Client placed on continuous cardiac and pulse oximetry monitoring. NIBP monitoring applied. Door closed. Noise minimized. Lights dimmed. Warm blanket given. 15:40 Inserted saline lock: 20 gauge in right antecubital area, using aseptic technique. 3 Blood collected. 15:46 COVID-19/FLU A+B Sent. eh3 17:30 Diet: Patient given snack. Patient given water. Tolerated well. 3 19:17 Primary Nurse role handed off by Jacki Pedraza RN [facility] 19:43 Attending Physician role handed off by Lee Barrett MD opal 19:43 Don Mclain MD is Attending Physician. opal 20:31 Prince Rich MD is Hospitalizing Provider. opal 21:46 Yo Lopez is Hospitalizing Provider. sb4 22:22 CT Aorta for Dissection Sent. sb4 22:22 Basic Metabolic Panel Sent. sb4 22:22 CBC with Diff Sent. sb4 22:22 NT PRO-BNP Sent. sb4 22:22 Troponin HS Sent. sb4 22:23 XRAY Chest (1 view) Sent. 4 22:26 No provider procedures requiring assistance completed. Patient admitted, IV remains in kl place. 07/16 07:00 Narendra Navarrete, NEHA is Primary Nurse. bp Administered Medications: 07/15 15:35 Drug: GI Cocktail without - (Maalox Suspension 30 ml, Lidocaine Liquid 2 % 15 eh3 ml) Route: PO; 16:30 Follow up: Response: Pain is unchanged, physician notified [facility] 17:22 Drug: Zofran (Ondansetron) 4 mg Route: IVP; Site: right antecubital; [facility] 21:42 Drug: Xopenex (levalbuterol) 1.25 mg Route: Inhalation; 21:42 Drug: AtroVENT (ipratropium) Aerosol 0.5 mg Route: Inhalation; 21:43 Drug: ProTONIX (pantoprazole) 40 mg Route: IVP; Site: right antecubital; Medication: 22:26 VIS not applicable for this client. Outcome: 16:48 Discharge ordered by . rn 20:34 Decision to Hospitalize by Provider. opal 22:25 Admitted to ER Hold. Please see [facility] for further documentation. 22:25 Condition: stable 22:25 Instructed on the need for admit, Demonstrated understanding of instructions. 07/16 09:13 Patient left the ED. bp Signatures: Lashell Peter, RN Don Mendoza MD MD cha Williams, Irene, RN RN iw Nieto, Roman, MD MD rn Moreno, Amanda am2 Peltier, Brian, RN RN Kyara Dempsey 2 Felipa Walters RN RN 5 Jacki Pedraza RN RN 3 Beverley Razo, PALeonelC PAJcarlos sb4 Corrections: (The following items were deleted from the chart) 07/15 17:01 17:00 Reassessment: Patient appears in no apparent distress at this time. Patient eh3 and/or family updated on plan of care and expected duration. Pain level reassessed. Patient is alert, oriented x 3, equal unlabored respirations, skin warm/dry/pink. eh3
--- NOTE | 2022-07-15 16:49 | EDPHYS ---
Physician Documentation [facility] Name: Shahnaz Ramos Age: 62 yrs Sex: Female : 1960 Arrival Date: 07/15/2022 Time: 14:23 Bed 27 Private MD: POPPY Physician Don Mclain HPI: 07/15 16:42 This 62 yrs old Female presents to ER via Ambulatory with complaints of rn Difficulty Swallowing. 16:42 The patient presents with. rn 16:43 The patient or guardian reports chest pain that is located primarily in the substernal rn area. Onset: yesterday. The pain does not radiate. Associated signs and symptoms: Pertinent negatives: abdominal pain, cough, diaphoresis, palpitations, shortness of breath, syncope, vomiting. The chest pain is described as burning. Duration: The patient or guardian reports multiple episodes, that are intermittent. Modifying factors: The symptoms are alleviated by nothing. the symptoms are aggravated by eating. Severity of pain: At its worst the pain was moderate in the emergency department the pain has improved. The patient has experienced similar episodes in the past. The patient has not recently seen a physician. Pt reports chest pain, substernal, burning, worse with food and burping, no radiation, no sob, no fever. No trauma. . Historical: - Allergies: 14:38 Aspirin; [facility] 14:38 Imitrex; 5 - PMHx: 14:38 Anxiety; Asthma; Bipolar disorder; cervical spinal stenosis; COPD; Depression; 5 Diverticulitis; Fibromyalgia; GERD; Hepatitis C; insomnia; Migraines; Ulcers; - Immunization history:: Adult Immunizations up to date. - Social history:: Smoking status: Patient reports the use of cigarette tobacco products, smokes one-half pack cigarettes per day. - Family history:: not pertinent. - Hospitalizations: : No recent hospitalization is reported. ROS: 16:43 Constitutional: Negative for fever, chills, and weight loss, Eyes: Negative for injury, rn pain, redness, and discharge, Neck: Negative for injury, pain, and swelling, Cardiovascular: Negative for palpitations, and edema, Respiratory: Negative for shortness of breath, cough, wheezing, and pleuritic chest pain, Abdomen/GI: Negative for abdominal pain, nausea, vomiting, diarrhea, and constipation, Back: Negative for injury and pain, MS/Extremity: Negative for injury and deformity, Skin: Negative for injury, rash, and discoloration, Neuro: Negative for headache, weakness, numbness, tingling, and seizure. Exam: 16:16 ECG was reviewed by the Attending Physician. rn 16:43 Constitutional: This is a well developed, well nourished patient who is awake, alert, rn and in no acute distress. Head/Face: Normocephalic, atraumatic. Cardiovascular: Regular rate and rhythm. No pulse deficits. Respiratory: No increased work of breathing, no retractions or nasal flaring. Abdomen/GI: Soft, non-tender Skin: Warm, dry MS/ Extremity: Pulses equal, no cyanosis. Neuro: Awake and alert, GCS 15 Vital Signs: 14:37 BP 113 / 51; Pulse 84; Resp 16; Temp 98.0; Pulse Ox 96% ; Pain 6/10; jh5 15:30 BP 107 / 63; Pulse 76; Resp 20; Temp 98.6(O); Pulse Ox 97% on R/A; Pain 7/10; iw 16:30 BP 90 / 51; Pulse 76; Resp 18; Pulse Ox 94% on R/A; eh3 17:00 BP 100 / 64; Pulse 79; Resp 15; Pulse Ox 95% on R/A; eh3 17:30 BP 103 / 61; eh3 18:00 BP 90 / 48; Pulse 78; Resp 18; Pulse Ox 95% on R/A; eh3 18:30 BP 98 / 50; Pulse 77; Resp 14; Pulse Ox 97% on R/A; eh3 19:43 BP 103 / 56; Pulse 82; Resp 18; Pulse Ox 99% ; kl MDM: 14:27 Patient medically screened. rn 16:43 Differential diagnosis: acute myocardial infarction, acute pericarditis, anxiety, rn costochondritis, esophagitis, gastritis, gastroesophageal reflux disease (GERD), pericarditis, pleurisy, pneumothorax. HEART Score: History: Slightly Suspicious (0), ECG: Normal (0), Age: > 45 and < 65 years (1), Risk Factors: 1 or 2 risk factors (1), Troponin: < or = 1 x Normal Limit (0), Total Score = 2. Data reviewed: vital signs, nurses notes, lab test result(s), EKG, radiologic studies, plain films, and as a result, I will discharge patient. Care significantly affected by the following chronic conditions: Chronic Obstructive Pulmonary Disease, fibromyalgia. Counseling: I had a detailed discussion with the patient and/or guardian regarding: the historical points, exam findings, and any diagnostic results supporting the discharge/admit diagnosis, lab results, radiology results, the need for outpatient follow up, to return to the emergency department if symptoms worsen or persist or if there are any questions or concerns that arise at home. Response to treatment: the patient's symptoms have mildly improved after treatment, and as a result, I will discharge patient. Special discussion: I discussed with the patient/guardian in detail that at this point there is no indication for admission to the hospital. It is understood, however, that if the symptoms persist or worsen the patient needs to return immediately for re-evaluation. Based on the history and exam findings, there is no indication for further emergent testing or inpatient evaluation. I discussed with the patient/guardian the need to see the lamination builder for further evaluation of the symptoms. ED course: Trop neg, no ischemia on ECG, most likely esophagitis or GERD, improved with GI cocktail, already on antacids, will add maalox/TUMS, and return precautions given and understood. Pain is worse with eating, not with exertion, no diaphoresis, no hx of AMI or cardiac problems. Also recommend smoking cessation. . 19:12 Transition of care: After a detail discussion of the patient's case, care is rn transferred to Don Mclain MD. 07/15 14:40 Order name: Basic Metabolic Panel; Complete Time: 22: rn 07/15 14:40 Order name: CBC with Diff; Complete Time: 22: rn 07/15 14:40 Order name: NT PRO-BNP; Complete Time: 22: rn 07/15 14:40 Order name: Troponin HS; Complete Time: 22: rn 07/15 14:40 Order name: COVID-19/FLU A+B; Complete Time: 22: rn 07/15 15:57 Order name: CBC with Automated Diff; Complete Time: 18:33 EDMS 07/15 16:24 Order name: Basic Metabolic Panel; Complete Time: 16:41 EDMS 07/15 16:24 Order name: Troponin High Sensitivity; Complete Time: 16:41 EDMS 07/15 16:24 Order name: NT PRO-BNP; Complete Time: 16:41 EDMS 07/15 16:36 Order name: COVID-19/FLU A+B; Complete Time: 16:41 EDMS 07/15 17:58 Order name: Manual Differential; Complete Time: 18:33 EDMS 07/15 22:23 Order name: Strep sb4 07/16 00:33 Order name: Troponin High Sensitivity EDMS 07/16 03:01 Order name: CBC with Automated Diff EDMS 07/15 14:40 Order name: XRAY Chest (1 view); Complete Time: 22:23 rn 07/15 15:45 Order name: RAD; Complete Time: 16:41 EDMS 07/15 16:53 Order name: CT Aorta for Dissection; Complete Time: 22:22 rn 07/15 19:29 Order name: CT; Complete Time: 20:04 EDMS 07/16 03:22 Order name: Basic Metabolic Panel EDMS 07/16 03:22 Order name: Phosphorus EDMS 07/16 03:22 Order name: Troponin High Sensitivity EDMS 07/16 03:22 Order name: Lipid Profile EDMS 07/16 03:22 Order name: Magnesium EDMS 07/16 03:22 Order name: Thyroid Stimulating Hormone EDMS 07/15 14:40 Order name: EKG; Complete Time: 14:41 rn 07/15 14:40 Order name: Cardiac monitoring; Complete Time: 16:00 rn 07/15 14:40 Order name: EKG - Nurse/Tech; Complete Time: 16:00 rn 07/15 14:40 Order name: IV Saline Lock; Complete Time: 15:46 rn 07/15 14:40 Order name: Labs collected and sent; Complete Time: 15:46 rn 07/15 14:40 Order name: O2 Per Protocol; Complete Time: 15:46 rn 07/15 14:40 Order name: O2 Sat Monitoring; Complete Time: 16:00 rn EC:16 Rate is 74 beats/min. Rhythm is regular. QRS [place] is Normal. ND interval is normal. QRS rn interval is normal. QT interval is normal. No Q waves. T waves are Normal. No ST changes noted. Clinical impression: NSR w/ Non-specific ST/T Changes. Interpreted by me. Reviewed by me. Administered Medications: 15:35 Drug: GI Cocktail without - (Maalox Suspension 30 ml, Lidocaine Liquid 2 % 15 eh3 ml) Route: PO; 16:30 Follow up: Response: Pain is unchanged, physician notified 3 17:22 Drug: Zofran (Ondansetron) 4 mg Route: IVP; Site: right antecubital; eh3 21:42 Drug: Xopenex (levalbuterol) 1.25 mg Route: Inhalation; kl 21:42 Drug: AtroVENT (ipratropium) Aerosol 0.5 mg Route: Inhalation; kl 21:43 Drug: ProTONIX (pantoprazole) 40 mg Route: IVP; Site: right antecubital; kl Disposition Summary: 07/15/22 20:34 Hospitalization Ordered Hospitalization Status: Observation opal Condition: Stable(07/15/22 20:34) opal Problem: new(07/15/22 20:34) opal Symptoms: have improved(07/15/22 20:34) opal Bed/Room Type: Standard opal Provider: Yo Lopez(07/15/22 21:46) sb4 Location: [facility] ER HOLD(07/15/22 22:19) Room Assignment: ERHOLD-(07/15/22 22:19) Diagnosis - Chest pain, unspecified(07/15/22 20:34) opal - Esophageal obstruction - INTERMITTENT opal - Esophagitis, unspecified(07/15/22 20:34) opal - Tobacco abuse counseling opal - Tobacco use opal Forms: - Medication Reconciliation Form opal - SBAR form opal Signatures: Dispatcher [employer] EDMS Lashell Peter RN RN Lori Mason RN RN Don Amos MD MD cha Nieto, Roman, MD MD rn Rees, Jessica, RN RN jh5 Jacki Pedraza RN RN eh3 Beverley Razo, PAJcarlos PAJcarlos sb4 Corrections: (The following items were deleted from the chart) 16:52 16:48 Home rn rn 16:52 16:48 new rn rn 16:52 16:48 have improved rn rn 16:52 16:48 Stable rn rn 16:52 16:48 Chest pain, unspecified rn rn 16:52 16:48 Esophagitis, unspecified rn rn 16:52 16:48 Gastro-esophageal reflux disease with esophagitis rn rn 21:46 20:34 Buzombo, Tyrell opal sb4 : 20:34 Telemetry/MedSurg (observation) opal mw : 20:34 [facility]
[2022-07-15] MEDS ORDERED: ONDANSETRON 4 MG/2 ML VIAL ONE (17:21)
[2022-07-15 17:57] LABS: Platelet Estimate ADEQ
--- NOTE | 2022-07-15 19:28 | RAD REPORT ---
EXAM DESCRIPTION: CT - Angio Aorta For Dissection - 07/15/2022 6:51 pm CLINICAL HISTORY: Chest pain/abdominal pain COMPARISON: CT angiogram of the thoracic and abdominal aorta 07/18/2014. CT chest 01/24/2022. TECHNIQUE: Dynamically enhanced 3 mm thick images of the chest, abdomen, and pelvis were obtained du ring administration of approximately 114mL Isovue 370 IV contrast. Sagittal, coronal, as well as maxi mal intensity projection reconstruction images were generated and reviewed. Exam utilizes a protocol to evaluate entire course of the aorta. All CT scans are performed using dose optimization technique as appropriate and may include automated exposure control or mA/KV adjustment according to patient size. FINDINGS: Aorta is normal in diameter with no evidence of dissection, aneurysmal dilation, or other acute findings. Ascending thoracic aorta was 2.7 centimeter in axial dimension. Mild predominantly ca lcified atherosclerotic plaque along the descending thoracic aorta and mixed calcified none atheroscl erotic plaque along the mid to distal abdominal aorta. Reconstruction images show no other significan t abnormalities. Pulmonary arteries are normal in caliber, without identifiable filling defects to suggest pulmonary e mboli allowing for the contrast timing on the study. No mass or infiltrate in the lung parenchyma. No pleural thickening, pleural effusion or pneumothorax . No abnormal mediastinal or hilar mass or lymphadenopathy seen. No chest wall mass or abnormal axillar y lymphadenopathy. Celiac, SMA, [place], and renal arteries show no suspicious findings. Solid abdominal viscera and bowel s how no significant findings. No mass or abnormal lymphadenopathy. Incidentally noted small right ingu inal fat containing hernia. Patient is status post cholecystectomy. Degenerative changes of the lower lumbar spine. IMPRESSION: No acute abnormalities of the thoracic or abdominal aorta. Atherosclerotic plaque as above, without significant stenosis of the aorta or its major branches. Other Incidental findings of the chest and abdomen, as above.
--- NOTE | 2022-07-15 21:14 | P.HP ---
Certification for Inpatient Patient admitted to: Observation With expected LOS: <2 Midnights Patient will require the following post-hospital care: None Practitioner: I am a practitioner with admitting privileges, knowledge of patient current condition, hospital course, and medical plan of care. Services: Services provided to patient in accordance with Admission requirements found in Title 42 Section 412.3 of the Code of Federal Regulations Patient History Date of Service: 07/15/22 Primary Care Provider: Lamont Reason for admission: Chest Pain History of Present Illness: Patient is a 62 year old female with past medical history of asthma, bipolar disorder, cervical spinal stenosis, COPD, fibromyalgia, GERD, and hepatitis C who presented to the emergency department with complaints of chest pain, acid reflux, and painful swallowing. Symptoms improved after GI cocktail however patient had an unexplained low blood pressure reading in the ED- 48. Cardiac workup was negative- EKG, troponin. CT chest abdomen pelvis showed "No acute abnormalities of the thoracic or abdominal aorta. Atherosclerotic plaque as above, without significant stenosis of the aorta or its major branches." ED provider wishes to admit patient for observation, ACS rule out. Allergies aspirin Allergy (Intermediate, Verified 07/05/16 22:51) Hives/Rash sumatriptan [From Imitrex] Allergy (Intermediate, Verified 07/05/16 22:51) Shortness of breath sumatriptan succinate [From Imitrex] Allergy (Intermediate, Verified 08/31/11 15:18) Hives/Rash Home medications list reviewed: Yes Home Medications: Dexlansoprazole [Dexilant] 60 mg PO DAILY 01/18/16 Doxepin HCl 50 mg PO BID 01/18/16 Pregabalin [Lyrica*] 150 mg PO BID 01/18/16 Quetiapine Fumarate [Seroquel] 100 mg PO BID 01/18/16 Cholecalciferol (Vitamin D3) [Vitamin D 5,000 IU Cap*] 1 cap PO DAILY 07/05/16 Promethazine HCl 25 mg PO PRN PRN 07/05/16 Albuterol Sulfate [Albuterol Sulfate 0.083% Neb Soln] 2.5 mg IH Q6H PRN #25 units 07/06/16 - Past Medical/Surgical History Diabetic: No -: anxiety -: asthma -: bipolar disease -: cervical spinal stenosis -: depression -: COPD -: fibromyalgia -: GERD -: diverticulitis -: insomnia -: hep C -: ulcers -: lap sumit -: tubal ligation -: hysterectomy Psychosocial/ Personal History: Patient lives at home with her family. - Family History Mother -: Stroke - Social History Smoking Status: Current every day smoker Alcohol use: No CD- Drugs: No Caffeine use: Yes Place of Residence: Home Review of Systems ENT: Throat Pain Cardiovascular: Chest Pain Gastrointestinal: Other (Heartburn) Physical Examination - Vital Signs Temperature: 98.6 F Blood Pressure: 103/56 Pulse: 82 Respirations: 18 Pulse Ox (%): 99 - Physical Exam General: Alert, In no apparent distress HEENT: Atraumatic, EOMI, Sclerae nonicteric Neck: Supple, 2+ carotid pulse no bruit Respiratory: Clear to auscultation bilaterally, Normal air movement Cardiovascular: Regular rate/rhythm, Normal S1 S2 Gastrointestinal: Normal bowel sounds, No tenderness Musculoskeletal: No tenderness Integumentary: No rashes Neurological: Normal speech, Normal affect - Studies Laboratory Data (last 24 hrs) 07/15/22 15:42: WBC 10.80, Hgb 14.6, Hct 42.4, Plt Count 201 07/15/22 15:42: Sodium 137, Potassium 3.8, BUN 8, Creatinine 0.82, Glucose 107 H Assessment and Plan - Problems (Diagnosis) (1) Chest pain Current Visit: Yes Status: Acute Qualifiers: Chest pain type: unspecified Qualified Code(s): R07.9 - Chest pain, unspecified (2) COPD (chronic obstructive pulmonary disease) Current Visit: Yes Status: Chronic Qualifiers: COPD type: unspecified COPD Qualified Code(s): J44.9 - Chronic obstructive pulmonary disease, unspecified (3) Hypertension Current Visit: Yes Status: Chronic Qualifiers: Hypertension type: primary hypertension Qualified Code(s): I10 - Essential (primary) hypertension (4) Tobacco abuse Current Visit: Yes Status: Chronic (5) Coronary artery disease Current Visit: Yes Status: Acute Qualifiers: Coronary Disease-Associated Artery/Lesion type: [place] artery Circle vs. transplanted heart: sy[place]uan heart Associated angina: with other forms of angina Qualified Code(s): I25.118 - Atherosclerotic heart disease of [place] coronary artery with other forms of angina pectoris - Plan Patient is admitted for observation, ACS rule out. Cardiology consult. Monitor on telemetry. Initial troponin negative. Trend. Echo, lipid panel, and TSH ordered. Aspirin and atorvastatin daily. Monitor and replete electrolytes per protocol. Reconcile and continue home medications. Lovenox for VTE prophylaxis. Full code. Discharge Plan: Home Plan to discharge in: 24 Hours - Advance Directives Does patient have a Living Will: No Does patient have a Durable POA for Healthcare: No - Code Status/Comfort Care Code Status Assessed: Yes Code Status: Full Code Physician Review: Patient Assessed, Agree with Above Assessment and Plan Critical Care: No Time Spent Managing Pts Care (In Minutes): 50
[2022-07-15] MEDS ORDERED: IPRATROPIUM BROM 0.5MG/2.5ML ONE (21:17)
[2022-07-15] MEDS ORDERED: LEVALBUTEROL 1.25 MG/3 ML NEB ONE (21:17)
[2022-07-15] MEDS ORDERED: PANTOPRAZOLE 40 MG INJ ONE (21:17)
[2022-07-15] MEDS ORDERED: ACETAMINOPHEN 500 MG TAB PO PRN (23:28)
[2022-07-15] MEDS ORDERED: ONDANSETRON 4 MG/2 ML VIAL IV PRN (23:28)
[2022-07-16 00:24] VITALS: TEMP 97
[2022-07-16 01:40] VITALS: BMI 27.3
[2022-07-16 02:55] LABS: Hematocrit 39.2 % (36.0-45.0); Lymphocytes % 26.4 % (15.3-44.8); MCV 97.3 fL (80-100); MPV 9.3 fL (7.6-11.3); RBC Red Blood Cell Count 4.03 M/uL (3.86-4.86)
[2022-07-16] MEDS ORDERED: IPRATROPIUM BROM 0.5MG/2.5ML NEB PRN (03:00)
[2022-07-16] MEDS ORDERED: ALBUTEROL 2.5 MG/3 ML NEB SOL NEB PRN (03:00)
[2022-07-16 03:21] LABS: Magnesium 2.3 mg/dL (1.6-2.4); Phosphorus 2.9 mg/dL (2.5-4.9); Thyroid Stimulating Hormone 0.895 uIU/mL (0.358-3.740); Troponin High Sensitivity 4.7 pg/mL (<58.9)
[2022-07-16 03:30] VITALS: O2SAT 92
[2022-07-16] MEDS ORDERED: INFLUENZA VACCINE (for 6+ mo) 0.5 ML DOSE IMVAC ONE (08:00)
[2022-07-16 08:21] VITALS: BP 107/63
[2022-07-16] MEDS ORDERED: ENOXAPARIN 40 MG/0.4 ML SQ SCH (09:00)
--- NOTE | 2022-07-16 17:12 | EKG ---
Test Date: 2022-07-15 Test Time: 15:53:42 High Wire Artist: JEANNETTE MEASUREMENT RESULTS: Intervals: Rate: 74 MT: 164 QRSD: 74 QT: 362 QTc: 401 [place]: P: 75 MT: 164 QRS: 90 T: 73 INTERPRETIVE STATEMENTS: Normal sinus rhythm Rightward axis Nonspecific T wave abnormality Abnormal ECG Compared to ECG 05/24/2022 17:22:17 Right-axis deviation now present Possible ischemia no longer present T-wave abnormality still present Electronically Signed On 07-16-22 17:09:24 TELETYPE TELEGRAPHER by Watson Malik
[2022-07-16] MEDS ORDERED: ATORVASTATIN 40 MG TAB PO SCH (21:00)
--- NOTE | 2022-07-16 22:37 | P.DS ---
Admission Date: 07/15/22 Discharge Date: 07/16/22 Primary Care Provider: Lamont Disposition: ROUTINE DISCHARGE Discharge Condition: GOOD Reason for Admission: Chest Pain Brief History of Present Illness: 62yo F, PMH: asthma, bipolar disorder, cervical spinal stenosis, COPD, fibromyalgia, GERD, and hepatitis C. Presented to ED due to chest pain/acid reflux, and pain with swallowing. [place] food was stuck in esophagus, which quickly resolved. Afterwards with painful swallowing. In the ED, symptoms improved after GI cocktail. She was noted to have BP reading 90/48, negative troponin, normal EKG, CT dissection protocol without acute process. ED provider requested obs to r/o ACS and monitor blood pressure Hospital Course: Problem List Chest pain - secondary to GERD GERD HTN COPD Nicotine dependence Patient presented with epigastric/chest discomfort. EKG was without ST elevations. Troponins remained negative / within normal limits x3. Her symptoms resolved. Patient felt as though food was initially stuck and then passed, with some pain with swallowing and coughing afterwards - which has improved. Recommended follow up with her GI physician in next few weeks. Reports last had a scope in the last year or so. She has been taking ibuprofen daily for the last few weeks. Advised on stopping this medication. Recommended follow up with Cardiology - Dr. Malik in the office, call this week to schedule appointment. To further discuss and schedule outpatient workup - stress testing. Blood pressure remained stable. Patient reported she runs low typically. Review of prior EMR does show multiple instances of BP ranging 90s-110 systolic Recommend continue home meds as prescribed. Follow up: PCP within 3-5 days. GI within a few weeks. Cardiology within a few weeks. Vital Signs/Physical Exam: Temp Pulse Resp BP Pulse Ox 97 F 91 H 17 107/63 100 07/16/22 04:00 07/16/22 08:00 07/16/22 08:00 07/16/22 08:00 07/16/22 08:00 General: Alert, In no apparent distress, Oriented x3 HEENT: EOMI, Sclerae nonicteric Neck: Supple, No LAD Respiratory: Clear to auscultation bilaterally, Normal air movement Cardiovascular: No edema, Regular rate/rhythm Gastrointestinal: Soft and benign, Non-distended, No tenderness Musculoskeletal: No contractures, No tenderness Integumentary: No significant lesion Neurological: Normal speech, Normal strength at 5/5 x4 extr, Normal affect Laboratory Data at Discharge: WBC 7.70 K/uL (4.3-10.9) 07/16/22 02:17 Hgb 13.2 g/dL (12.0-15.0) D 07/16/22 02:17 Hct 39.2 % (36.0-45.0) 07/16/22 02:17 Plt Count 175 K/uL (152-406) 07/16/22 02:17 Sodium 138 mmol/L (136-145) 07/16/22 02:17 Potassium 4.0 mmol/L (3.5-5.1) 07/16/22 02:17 BUN 8 mg/dL (7-18) 07/16/22 02:17 Creatinine 0.74 mg/dL (0.55-1.02) 07/16/22 02:17 Glucose 97 mg/dL (74-106) 07/16/22 02:17 Phosphorus 2.9 mg/dL (2.5-4.9) 07/16/22 02:17 Magnesium 2.3 mg/dL (1.6-2.4) 07/16/22 02:17 Triglycerides 89 mg/dL (<150) 07/16/22 02:17 Cholesterol 147 mg/dL (<200) 07/16/22 02:17 HDL Cholesterol 50 mg/dL (40-60) 07/16/22 02:17 Cholesterol/HDL Ratio 2.94 07/16/22 02:17 Home Medications: Dexlansoprazole [Dexilant] 60 mg PO DAILY 01/18/16 Doxepin HCl 50 mg PO BID 01/18/16 Pregabalin [Lyrica*] 150 mg PO BID 01/18/16 Quetiapine Fumarate [Seroquel] 100 mg PO BID 01/18/16 Cholecalciferol (Vitamin D3) [Vitamin D 5,000 IU Cap*] 1 cap PO DAILY 07/05/16 Promethazine HCl 25 mg PO PRN PRN 07/05/16 Albuterol Sulfate [Albuterol Sulfate 0.083% Neb Soln] 2.5 mg IH Q6H PRN #25 uni ts 07/06/16 Physician Discharge Instructions: Patient presented with epigastric/chest discomfort. EKG was without ST elevations. Troponins remained negative / within normal limits x3. Her symptoms resolved. Patient felt as though food was initially stuck and then passed, with some pain with swallowing and coughing afterwards - which has improved. Recommended follow up with her GI physician in next few weeks. Reports last had a scope in the last year or so. She has been taking ibuprofen daily for the last few weeks. Advised on stopping this medication. Recommended follow up with Cardiology - Dr. Malik in the office, call this week to schedule appointment. To further discuss and schedule outpatient workup - stress testing. Recommend continue home meds as prescribed. Follow up: PCP within 3-5 days. GI within a few weeks. Cardiology within a few weeks. Followup: Tawana Rosado RN [Primary Care Provider] - Time spent managing pt's care (in minutes): 45
== END 2022-07-16 09:12 | disposition home or self-care (01) ==
LOC: ER 14:22 → ERHOLD 21:08
PROVIDERS: ADMIT Internal Medicine; ATTEND Hospitalist
DX: R07.9 Chest pain, unspecified (principal); J45.909 Unspecified asthma, uncomplicated; F31.9 Bipolar disorder, unspecified; M48.02 Spinal stenosis, cervical region; J44.9 Chronic obstructive pulmonary disease, unspecified; M79.7 Fibromyalgia; K21.9 Gastro-esophageal reflux disease without esophagitis; B19.20 Unspecified viral hepatitis C without hepatic coma; R13.10 Dysphagia, unspecified; I25.10 Atherosclerotic heart disease of native coronary artery without angina pectoris; Z72.0 Tobacco use; Z20.822 Contact with and (suspected) exposure to COVID-19; Z88.8 Allergy status to other drugs, medicaments and biological substances; Z23 Encounter for immunization
CPT/HCPCS: 93005; 85025 ×2; 80048 ×2; 36415; 83735; 84100; 80061; 84443; 84484 ×3; 83880; 0240U; 71275; 74175; 71045; 94760; Q9967; J7614; J7644; C9113; J2405; G0378

== ENCOUNTER 2022-07-29 18:11 | Emergency (ER) | payer OTHER ==
--- OUTSIDE RECORDS SUMMARY | 2022-07-29 18:22 | XMS REPORT | Continuity of Care Document ---
:[address] [facility] t Address [address] [place] [address] Care Team Providers Name Role Phone Gómez Medina Primary Care Physician ANJU DAVISON Attending Clinician Unavailable MAL BURGER Attending Clinician Unavailable MAL BURGER Attending Clinician Unavailable Doctor Unassigned, [place] Attending Clinician Unavailable [email or web address] Attending Clinician Unavailable [...] DR BOB ROMERO Attending Clinician Unavailable VALENTE MUNOZ Attending Clinician Unavailable Lab, Adc Fam Pob [...] Number Effective Date Expiration Date S martha AN/[facility] DUAL [id number] 2020 COMP HMO D SNP 00:00:00 [place]ICAID [place] [id number] 2020 00:00:00 [facility] PLUS [id number] 2022 00:00:00 [facility] MEDICARE [id number] COMPLETE (MEDICARE REPLACEMENT HMO) GENERIC COMMERCIAL [id number] - MOVED HOLD Problems Condition Condition Condition Status Onset Resolution Last Treating Co mments Source Name Details Category Date Date Treatment Clinician Date CHEST PAIN CHEST Condition Active 2015-01-04 Memoria PAIN 01-04 16:37:00 l Active 00:00: 01/04/2015 00 Condition 01/04/2015 Medical Group LIGHTHEADE LIGHTHEAD Condition Active 2015-01-04 Memoria DNESS EDNESS 01-04 16:37:00 l Active 00:00: 01/04/2015 00 Condition 01/04/2015 Medical Group SHORTNESS SHORTNESS Condition Active 2015-01-04 Mem[facility] OF BREATH OF BREATH 01-04 16:37:00 l Active 00:00: 01/04/2015 00 Condition 01/04/2015 Medical Group Cervical [...] different from the original. 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 ICD10 Diagnosis Term Adhesive Primer Utility Cocaine Cocaine Disease Active Overview: Univ ers abuse in abuse in 1-10 Formattin ity of remission remission 00:00: g of this [place] 00 note Medical might be Branch different from the original. ICD10 Diagnosis Term Adhesive Primer Utility Asthma Asthma Disease Active Overview: Univer s with with 1-10 Formattin ity of status status 00:00: g of this [place] asthmaticu asthmaticu 00 note Me dical s s might be Branch different from the original. ICD10 Diagnosis Term Adhesive Primer Utility Peptic Peptic Disease Active Overview: Univer s ulcer ulcer 1-10 Formattin ity of 00:00: g of this [place] 00 note Medical might be Branch different from the original. ICD10 Diagnosis Term Adhesive Primer Utility Migraine Migraine Disease Active Overview: Un anjel with aura with aura 1-10 Formattin i ty of 00:00: g of this [place] 00 note Medical might be Branch different from the original. ICD10 Diagnosis Term Adhesive Primer Utility Shortness Shortness Problem Active [place] of [...] Physic i index index ans finger finger No known No known Disease Metho di active active st problems problems Hospit a l History of History of Problem Resolve UT [...] ASA ASA Active Memoria 8-05 l 00:00: [place] 00 IMITREX IMITREX Active Memoria 8-05 l 00:00: [place] 00 Imitrex DA Active Unknown 2015-0 [facility] [...] History of tobacco Cigarette Smoker [facility] Exposure to Not sure [facility] SARS-CoV-2 (event) [facility] History SDOH [facility] Alcohol Std Drinks Hospit al History SDOH [facility] Tobacco use and 2021-03-06 2021-03-06 Smokeless Universit y of exposure 00:00:00 00:00:00 tobacco non-user [facility] Tobacco Comment 2021-03-06 2021-03-06 1 ppd Universit y of 00:00:00 00:00:00 [facility] History SDOH 2019-04-12 2019-04-12 1 [facility] Alcohol Frequency 00:00:00 00:00:00 Hospita l Cigarettes smoked 2019-04-07 2019-04-[address] current (pack per 00:00:00 00:00:00 Hospita l day) - Reported Alcohol intake 2016-01-02 2016-01-[address] [facility] 00:00:00 00:00:00 non-drinker of Medical nter alcohol (finding) Sex Assigned At [address] [facility] 00:00:00 00:[facility]00 [facility] Smoking Status Start Date Stop Date Source Unknown if ever smoked [facility]finding) [place] [facility] Smokes tobacco daily 2021-03-06 00:00:00 [facility] [place] [facility] Never smoker [facility] [...] 0-06 Puffs as ity of 16:05: needed. [place] [address] Medical Branch hydrOXYzine 2020-06 Yes 50mg Take [...] by mouth ity o f 16:05: at [place] 17 bedtime. Medical Branch HYDROcodone 2020-06 Yes 1{tbl} Take 1 Tab Univers -acetaminop 0-06 by mouth 2 it y of hen (NORCO) 16:05: (two) [place] 10-325 mg 17 times Medical tablet daily. Branch ALBUTEROL 2020-06 Yes 2{puff} Inhale 2 U nivers INHALE 0-06 Puffs as ity of 16:05: needed. [place] [address] Medical Branch hydrOXYzine 2020-06 Yes 50mg Take [...] by mouth ity o f 16:05: at [place] 17 bedtime. Medical Branch HYDROcodone 2020-06 Yes 1{tbl} Take 1 Tab Univers -acetaminop 0-06 by mouth 2 it y of hen (NORCO) 16:05: (two) [place] 10-325 mg 17 times Medical tablet daily. Branch ALBUTEROL 2020-06 Yes 2{puff} Inhale 2 U nivers INHALE 0-06 Puffs as ity of 16:05: needed. [place] [address] Medical Branch hydrOXYzine 2020-06 Yes 50mg Take [...] by mouth ity o f 16:05: at [place] 17 bedtime. Medical Branch HYDROcodone 2020-06 Yes 1{tbl} Take 1 Tab Univers -acetaminop 0-06 by mouth 2 it y of hen (NORCO) 16:05: (two) [place] 10-325 mg 17 times Medical tablet daily. Branch ALBUTEROL 2020-06 Yes 2{puff} Inhale 2 U nivers INHALE 0-06 Puffs as ity of 16:05: needed. [place] [address] Medical Branch hydrOXYzine 2020-06 Yes 50mg Take 50 mg Univers (ATARAX) 50 0-06 by mouth 3 it y of mg tablet 16:05: (three) [place] [address] times Medical daily as Branch needed for Itching. QUEtiapine 2020-06 Yes 100mg Take 100 Un anjel (SEROQUEL) 0-06 mg by ity of 50 mg 16:05: mouth at [facility] 17 bedtime. Medical Branch acetaminoph 2020-06 Yes 1{tbl} Take 1 Un anjel en-codeine 0-06 tablet by ity of 300-30 mg 16:05: mouth [place] tablet 17 every 4 Medical (four) Branch hours as needed. doxepin 50 2020-06 Yes 50mg Take 50 mg U nivers mg capsule 0-06 by mouth ity o f 16:05: at [place] [address] bedtime. Medical Branch simvastatin Yes 10mg Take 10 mg Univers 10 mg 6-08 by mouth ity of tablet 00:00: every [place] 00 evening. Medical Branch simvastatin Yes 10mg Take 10 mg Univers 10 mg 6-08 by mouth ity of tablet 00:00: every [place] 00 evening. Medical Branch simvastatin 0 Yes 10mg Take 10 mg Univers 10 mg 6-08 by mouth ity of tablet 00:00: every [place] 00 evening. Medical Branch simvastatin 0 Yes 10mg Take 10 mg Univers 10 mg 6-08 by mouth ity of tablet 00:00: every [place] 00 evening. Medical Branch pregabalin 0 Yes 100mg Take 100 Un anjel 100 mg 6-07 mg by ity of capsule 00:00: mouth 2 [place] (two) Medical times Branch daily. pregabalin 2020-0 Yes 100mg Take 100 Un anjel 100 mg 6-07 mg by ity of capsule 00:00: mouth 2 [place] (two) Medical times Branch daily. pregabalin 2020-0 Yes 100mg Take 100 Un anjel 100 mg 6-07 mg by ity of capsule 00:00: mouth 2 [place] (two) Medical times Branch daily. pregabalin 202-0 Yes 100mg Take 100 Un anjel 100 mg 6-07 mg by ity of capsule 00:00: mouth 2 [place] (two) Medical times Branch daily. DEXILANT 60 Yes 1{capsu Take 1 U nivers mg capsule 5-21 le} capsule by ity of 00:00: mouth [place] 00 daily. Medical Branch levocetiriz Yes 5mg Take 5 mg U nivers ine 5 mg 5-21 by mouth ity of tablet 00:00: every [place] 00 evening. Medical Branch DEXILANT 60 Yes 1{capsu Take 1 U nivers mg capsule 5-21 le} capsule by ity of 00:00: mouth [place] 00 daily. Medical Branch levocetiriz Yes 5mg Take 5 mg U nivers ine 5 mg 5-21 by mouth ity of tablet 00:00: every [place] 00 evening. Medical Branch DEXILANT 60 Yes 1{capsu Take 1 U nivers mg capsule 5-21 le} capsule by ity of 00:00: mouth [place] 00 daily. Medical Branch levocetiriz Yes 5mg Take 5 mg U nivers ine 5 mg 5-21 by mouth ity of tablet 00:00: every [place] 00 evening. Medical Branch DEXILANT 60 Yes 1{capsu Take 1 U nivers mg capsule 5-21 le} capsule by ity of 00:00: mouth [place] 00 daily. Medical Branch levocetiriz Yes 5mg Take 5 mg U nivers ine 5 mg 5-21 by mouth ity of tablet 00:00: every [place] 00 evening. Medical Branch Cephalexin Cephalexin Yes RAMONA QUIJANO Q0.25D TAKE 1 UT 500 MG Oral 500 MG Oral 3-22 M.D. TABLET 4 Physici Tablet Tablet 00:00: TIMES ans 00 DAILY budesonide/ 2018-06 Yes Inhale. Met bee formoterol 11 st fumarate 11:18: Hospita (SYMBICORT 06 l INHL) FLUoxetine 2018-06 Yes 40mg QD Take 40 mg M ethodi (PROzac) 40 06-[address] MG capsule 11:18: daily. Hospi ta 06 l cyanocobala 2018-06 Yes Take by Met bee nevarez 06-[address] vitamin 11:18: Hospita B-12, 06 l (VITAMIN B-12 ORAL) dexlansopra 2018-06 Yes 60mg QD Take 60 mg Methodi zole [address] (DEXILANT) 11:18: daily. Hospi ta 60 mg 06 l capsule paliperidon 2018-06 Yes Take by Met bee adkins (INVEGA 1-[address] ORAL) 11:18: Hospita 06 l ALPRAZolam 2018-06 Yes 2mg Q.[id number] Take 2 mg Methodi (XANAX) 2 -11 [id number] [address] mouth [address] MG tablet 11:18: 3D (three) Hospi ta 06 times a l day as needed for anxiety. budesonide/ 2018-06 Yes Inhale. Met bee formoterol -11 st fumarate 11:18: Hospita (SYMBICORT [...] paliperidon 2018-06 Yes Take by Met bee adkins (INVEGA 1-[address] ORAL) 11:18: Hospita 06 l ALPRAZolam 2018-06 Yes 2mg Q.[id number] Take 2 mg Methodi (XANAX) 2 -11 [id number] [address] mouth [address] MG tablet 11:18: 3D (three) Hospi ta 06 times a l day as needed for anxiety. budesonide/ 2018-06 Yes Inhale. Met bee formoterol -11 st fumarate 11:18: Hospita (SYMBICORT 06 l INHL) FLUoxetine 2018-06 Yes 40mg QD Take 40 mg M ethodi (PROzac) 40 -[address] MG capsule 11:18: daily. Hospi ta 06 l cyanocobala 2018-06 Yes Take by Met bee nevarez -[address] vitamin 11:18: Hospita B-12, 06 l (VITAMIN B-12 ORAL) dexlansopra 2018-06 Yes 60mg QD Take 60 mg Methodi zole 1-[address] (DEXILANT) 11:18: daily. Hospi ta 60 mg 06 l capsule paliperidon 2018-06 Yes Take by Met bee e (INVEGA 1-[address] ORAL) 11:18: Hospita 06 l ALPRAZolam 2018-06 Yes 2mg Q.[id number] Take 2 mg Methodi (XANAX) 2 - [id number] by mouth 3 st MG tablet 11:18: 3D (three) Hospi ta 06 times a l day as needed for anxiety. FLUoxetine 2018-06 Yes 40mg QD Take 40 mg M ethodi (PROzac) 40 -[address] MG capsule 11:18: daily. Hospi ta 06 l budesonide/ 2018-06 Yes Inhale. Met bee formoterol -11 st fumarate 11:18: Hospita (SYMBICORT 06 l INHL) FLUoxetine 2018-06 Yes 40mg QD Take 40 mg M ethodi (PROzac) 40 -[address] MG capsule 11:18: daily. Hospi ta 06 l cyanocobala 2018-06 Yes Take by Met bee min, - mouth. st vitamin 11:18: Hospita B-12, 06 l (VITAMIN B-12 ORAL) dexlansopra 2018-06 Yes 60mg QD Take 60 mg Methodi zole 1-[address] (DEXILANT) 11:18: daily. Hospi ta 60 mg 06 l capsule paliperidon 2018-06 Yes Take by Met bee e (INVEGA 1-[address] ORAL) 11:18: Hospita 06 l ALPRAZolam 2018-06 Yes 2mg Q.[id number] Take 2 mg Methodi (XANAX) 2 06-12 [id number] [address] mouth [address] MG tablet 11:18: 3D (three) Hospi ta 06 times a l day as needed for anxiety. budesonide/ 2018-06 Yes Inhale. Met bee formoterol -11 st fumarate 11:18: Hospita (SYMBICORT 06 l INHL) cyanocobala 2018-06 Yes Take by Met bee min, -[address] vitamin 11:18: Hospita B-12, 06 l (VITAMIN B-12 ORAL) dexlansopra 2018-06 Yes 60mg QD Take 60 mg Methodi zole 1-[address] (DEXILANT) 11:18: daily. Hospi ta 60 mg 06 l capsule paliperidon 2018-06 Yes Take by Met hodi e (INVEGA 1-[address] ORAL) 11:18: Hospita 06 l ALPRAZolam 2018-06 Yes 2mg Q.[id number] Take 2 mg Methodi (XANAX) 2 1-11 [id number] [address] mouth [address] MG tablet 11:18: 3D (three) Hospi ta 06 times a l day as needed for anxiety. antipyrine- Yes 2[drp] Place 2 U nivers [...] St NE (BUTRANS 8-02 the skin. Harry gracia TD) 10:59: Medical 26 Center HYDROcodone Yes 1{tbl} Take [address] -acetaminop 8-02 tablet by Harry fagan hen (NORCO 10:59: mouth Medica l 5-325) 26 every 6 Center 5-325 mg (six) per tablet hours as needed for Pain. tiZANidine Yes 4mg Take [address] (ZANAFLEX) 8-02 by mouth [facility]ukes 4 MG tablet 10:59: every 6 Med ical 26 (six) Center hours as needed. QUEtiapine Yes 50mg QD Take [address] (SEROQUEL) 8-02 by mouth [facility]ukes 50 MG 10:59: nightly. Medical tablet 26 Center OXcarbazepi 0 Yes 150mg Q.5D Take [address] ne 8-02 mg by Lukes (TRILEPTAL) 10:59: mouth 2 Med ical 150 MG 26 (two) Center tablet times daily. pregabalin 2016-0 Yes 150mg Q.5D Take [address] (LYRICA) 8-02 mg by Lukes 150 MG 10:59: mouth 2 Medical capsule 26 (two) Center times daily. doxepin 2015-0 Yes [...] 10:59: nightly. Medical tablet 26 Center OXcarbazepi 2015-0 Yes 150mg Q.5D Take [address] ne 8-02 mg by Lukes (TRILEPTAL) 10:59: mouth 2 Med ical 150 MG 26 (two) Center tablet times daily. pregabalin 2016-0 Yes 150mg Q.5D Take [address] (LYRICA) 8-02 mg by Lukes 150 MG 10:59: mouth 2 Medical capsule 26 (two) Center times daily. doxepin 2015-0 Yes 75mg QD Take [address] (SINEQUAN) 8-02 by mouth Lukes 75 MG 10:59: nightly. Medical capsule 26 [place] BUPRENORPHI [address] [facility] (BUTRANS 8-02 the skin. Harry es TD) 10:59: Medical [address] [place] [address] pregabalin 2015-0 Yes 150mg Q.5D Take 150 [...] the skin. Harry es TD) 10:59: Medical [address] [place] [address] HYDROcodone 2015-0 Yes 1{tbl} Take 1 CH [...] MG 26 (two) Center tablet times daily. HYDROcodone 2016-0 Yes 1{tbl} Take [address] -acetaminop 8-02 tablet by Harry reportbrain hen ([employer]Lounge 10:59: mouth Medica l 5-325) 26 every [...] Yes Place onto [facility] (BUTRANS 8- the skin. Harry es TD) 10:59: Medical 26 Center HYDROcodone Yes 1{tbl} Take [address] -acetaminop 8-02 tablet by Harry gracia hen (NORCO 10:59: mouth Medica l 5-325) 26 every 6 Center 5-325 mg (six) per tablet hours as needed for Pain. tiZANidine Yes 4mg Take 4 mg CH I [...] twice a l HEN 10-325 00:00: day [place] MG TABS 00 COLCHICINE Yes one po Memor ia 8-05 twice a l 00:00: day [place] ATARAX Yes prn Memoria 8-05 anxiety l 00:00: Tal 00 SEROQUEL Yes Two po qhs Mem oria 400 MG TABS 8-05 l 00:00: SEROQUEL 50 Yes Two po qam Memoria MG TABS 8-05 l 00:00: DEXILANT 60 Yes one po Bin emili MG CPDR 8-05 daily l 00:00: LIPITOR Yes .qd Memoria 8-05 l 00:00: [place] 00 ZANAFLEX Yes .bid Memoria 8-05 l 00:00: [place] 00 HYDROCODONE Yes one po Bin emili -ACETAMINOP 8-05 twice a l HEN 10-325 00:00: day [place] MG TABS 00 COLCHICINE Yes one po Memor ia 8-05 twice a l 00:00: day [place] 00 ATARAX Yes prn Memoria 8-05 anxiety l 00:00: SEROQUEL Yes Two po qhs Mem oria 400 MG TABS 8-05 l 00:00: [place] 00 SEROQUEL 50 Yes Two po qam Memoria MG TABS 8-05 l 00:00: [place] 00 DEXILANT 60 Yes one po Bin emili MG CPDR 8-05 daily l 00:00: Tal 00 LIPITOR 0 Yes .qd Memoria 8-05 l 00:00: [place] 00 ZANAFLEX Yes .bid Memoria 8-05 l 00:00: [place] 00 HYDROCODONE 0 Yes one po Bin emili -ACETAMINOP 8-05 twice a l HEN 10-325 00:00: day [place] MG TABS 00 SEROQUEL Yes Two po [...] Completed Unive rsity of PFIZER VACCINE 00:00:00 [facility] SARS-COV-2 COVID-19 2021-02-16 Completed Unive rsity of PFIZER VACCINE 00:00:00 [facility] SARS-COV-2 COVID-19 2021-02-16 Completed Unive rsity of PFIZER VACCINE 00:00:00 [facility] SARS-COV-2 COVID-19 2021-02-16 Completed Unive rsity of PFIZER VACCINE 00:00:00 [facility] SARS-COV-2 COVID-19 2021-01-26 Completed Unive rsity of PFIZER VACCINE 00:00:00 [facility] SARS-COV-2 COVID-19 2021-01-26 Completed Unive rsity of PFIZER VACCINE 00:00:00 [facility] SARS-COV-2 COVID-19 2021-01-26 Completed Unive rsity of PFIZER VACCINE 00:00:00 [facility] SARS-COV-2 COVID-19 2021-01-26 Completed Unive rsity of PFIZER VACCINE 00:00:00 [facility] TDAP 2013-03-18 Completed University 00:00:00 [facility] TDAP 2013-03-18 Completed University 00:00:00 [facility] TDAP 2013-03-18 Completed University 00:00:00 [facility] TDAP 2013-03-18 Completed University 00:00:00 [facility] Vital Signs Vital Name Observation Time Observation Value Comments Source Systolic blood 2021-05-03 17:08:00 112 mm[Hg] Univer sity of pressure [facility] Diastolic blood 2021-05-03 17:08:00 75 mm[Hg] Unive rsity of pressure [facility] Heart rate 2021-05-03 17:08:00 85 /min [facility] Body height 2021-05-03 17:08:00 154.9 cm [facility] Body weight 2021-05-03 17:08:00 [facility] BMI 2021-05-03 17:08:00 32.69 kg/m2 [facility] [...] ysicians (BMI) [Ratio] Height 2015-01-04 20:15:50 [facility] Weight 2015-01-04 20:15:50 [facility] [place] Temperature Oral (F) 2015-01-04 20:15:50 98.4 F [facility] [place] Heart Rate 2015-01-04 20:15:50 [facility] [place] Systolic (mm Hg) 2015-01-04 20:15:50 Bin ria Tal Diastolic (mm Hg) 2015-01-04 20:15:50 Mem orial Tal Procedures Procedure Date / Time Performing Clinician Source Performed REFERRAL- 2022-01-18 05:01:00 Doctor Unassigned, [facility] REQUEST/RESPONSE [place] [facility] XR HIPS 2 VW BILATERAL 2021-05-03 17:47:00 Sheri Tate [facility] REFERRAL- 2021 05:01:00 Doctor Unassigned, [facility] REQUEST/RESPONSE [place] [facility] DRAIN RH SUBQ TISS FASCIA 2020-08-15 00:00:00 [facility] OPEN APPR Center nfectious agent detection 2019-11-15 00:00:00 [facility] by nucleic acid (DNA or smoking/tobacco 2015-01-04 20:15:50 Adwoa monte cessation, patient education and counseling vaginal Pap smear results 2014-01-31 20:34:06 Mo morial [place] colonoscopy 2013-05-02 21:35:09 Adwoa monte History of Tubal Ligation [facility] History of Exploratory [facility] Lapar[facility] of [facility] Cholecystectomy Plan of Care Planned Activity Planned Date Details Comments Source Future Scheduled 2022-07-15 COVID-19 VACCINE (#1) [facility] Test 14:25:21 [code = COVID-19 VACCINE (#1)] Future Scheduled 2022-07-15 COVID-19 VACCINE (#1) [facility] Test 14:25:21 [code = COVID-19 VACCINE (#1)] Future Scheduled 2022-07-15 Screening for [facility] Test 14:25:21 malignant neoplasm of cervix (procedure) [code = 886067085] Future Scheduled 2022-07-15 BREAST CANCER [facility] Test 14:25:21 SCREENING [code = BREAST CANCER SCREENING] Future Scheduled 2022-07-15 COLONOSCOPY SCREENING [facility] Test 14:25:21 [code = COLONOSCOPY SCREENING] Future Scheduled 2022-07-15 SHINGLES VACCINES ([address] [facility] Hospital Test 14:25:21 of 2) [code = SHINGLES VACCINES (1 of 2)] Future Scheduled 2022-07-15 INFLUENZA VACCINE Method [facility] Hospital Test 14:25:21 [code = INFLUENZA VACCINE] Future Scheduled 2022-07-15 Screening for [facility] Test 14:25:21 malignant neoplasm of cervix (procedure) [code = 310032877] Future Scheduled 2022-07-15 BREAST CANCER [facility] Test 14:25:21 SCREENING [code = BREAST CANCER SCREENING] Future Scheduled 2022-07-15 COLONOSCOPY SCREENING [facility] Test 14:25:21 [code = COLONOSCOPY SCREENING] Future Scheduled 2022-07-15 SHINGLES VACCINES ([address] [facility] Hospital Test 14:25:21 of 2) [code = SHINGLES VACCINES (1 of 2)] Future Scheduled 2022-07-15 INFLUENZA VACCINE Method is Hospital Test 14:25:21 [code = INFLUENZA VACCINE] Future Scheduled 2022-05-19 COVID-19 VACCINE (#1) [facility] Test 04:28:51 [code = COVID-19 VACCINE (#1)] Future Scheduled 2022-05-19 BREAST CANCER [facility] Test 04:28:51 SCREENING [code = BREAST CANCER SCREENING] Future Scheduled 2022-05-19 COLONOSCOPY SCREENING [facility] Test 04:28:51 [code = COLONOSCOPY SCREENING] Future Scheduled 2022-05-19 SHINGLES VACCINES ([address] [facility] Hospital Test 04:28:51 of 2) [code = SHINGLES VACCINES (1 of 2)] Future Scheduled 2022-05-19 INFLUENZA VACCINE Method [facility] Hospital Test 04:28:51 [code = INFLUENZA VACCINE] Future Scheduled 2022-04-07 SHINGLES VACCINES (1 Met [facility] Test 20:14:03 of 2) [code = SHINGLES VACCINES (1 of 2)] Future Scheduled 2022-04-07 INFLUENZA VACCINE Method [facility] Test 20:14:03 [code = INFLUENZA VACCINE] Future Scheduled 2022-04-07 HEPATITIS B VACCINES Met [facility] Test 20:14:03 (1 of 3 - 3-dose series) [code = HEPATITIS B VACCINES (1 of 3 - 3-dose series)] Future Scheduled 2022-04-07 COVID-19 VACCINE (#1) [facility] Test 20:14:03 [code = COVID-19 VACCINE (#1)] Future Scheduled 2022-04-07 Pneumococcal Vaccine: [facility] Test 20:14:03 Pediatrics (0 to 5 Years) and At-Risk Patients (6 to 64 Years) (1 - PCV) [code = Pneumococcal Vaccine: Pediatrics (0 to 5 Years) and At-Risk Patients (6 to 64 Years) (1 - PCV)] Future Scheduled 2022-04-07 Hepatitis C screening [facility] Test 20:14:03 (procedure) [code = [id number]] Future Scheduled 2022-04-07 Screening for [facility] Test 20:14:03 malignant neoplasm of cervix (procedure) [code = 279652136] Future Scheduled 2022-04-07 BREAST CANCER [facility] Test 20:14:03 SCREENING [code = BREAST CANCER SCREENING] Future Scheduled 2022-04-07 COLONOSCOPY SCREENING [facility] Test 20:14:03 [code = COLONOSCOPY SCREENING] Future Scheduled 2022-04-07 SHINGLES VACCINES (1 Met [facility] Test 20:14:03 of 2) [code = SHINGLES VACCINES (1 of 2)] Future Scheduled 2022-04-07 INFLUENZA VACCINE Method [facility] Hospital Test 20:14:03 [code = INFLUENZA VACCINE] Future Scheduled 2022-04-07 HEPATITIS B VACCINES Met [facility] Test 20:14:03 (1 of 3 - 3-dose series) [code = HEPATITIS B VACCINES (1 of 3 - 3-dose series)] Future Scheduled 2022-04-07 COVID-19 VACCINE (#1) [facility] Test 20:14:03 [code = COVID-19 VACCINE (#1)] Future Scheduled 2022-04-07 Pneumococcal Vaccine: [facility] Test 20:14:03 Pediatrics (0 to 5 Years) and At-Risk Patients (6 to 64 Years) (1 - PCV) [code = Pneumococcal Vaccine: Pediatrics (0 to 5 Years) and At-Risk Patients (6 to 64 Years) (1 - PCV)] Future Scheduled 2022-04-07 Hepatitis C screening [facility] Test 20:14:03 (procedure) [code = 384133269] Future Scheduled 2022-04-07 Screening for [facility] Test 20:14:03 malignant neoplasm of cervix (procedure) [code = 962919293] Future Scheduled 2022-04-07 BREAST CANCER [facility] Test 20:14:03 SCREENING [code = BREAST CANCER SCREENING] Future Scheduled 2022-04-07 COLONOSCOPY SCREENING [facility] Test 20:14:03 [code = COLONOSCOPY SCREENING] Encounters Start End Encounter Admission Attending Care Care Encounter Source Date/Time Date/Time Type Type Clinicians Facility Department ID 2021-04-03 Outpatient R GUANAKO [facility] [id number] Univers 02:17:14 ANJU Adkins [facility] 2022-05-23 2022-05-23 Outpatient VIRGILIO POOLE [id number] Jose Roberto 09:20:25 09:20:25 [id number] F [facility] 2022-04-15 2022-04-15 Outpatient R MAL BURGER [facility] 10 [id number] Univers 10:00:00 10:00:00 MAL BURGER i [facility] 2022-03-08 2022-03-08 Outpatient R [facility] [facility] [id number] Univers 10:30:00 10:30:00 MAL BURGER i [facility] 2022-01-18 2022-01-18 Orders Doctor NATHAN 1.2.840.114 [id number] Univers 00:00:00 00:00:00 Only Unassigned, MARK 350.1.13.10 [facility] [facility] [facility] 4.2.7.2.686 Francesco as [phone] [address] 2021-10-08 2021-10-08 Outpatient GC_CPC_Mora PRIV PRIV 240 [id number] [facility] 02:19:00 02:19:00 _A [id number] Medica l 2021-09-25 2021-09-25 Outpatient GC_CPC_Mora PRIV PRIV 240 [id number] [facility] 09:32:00 09:32:00 _A [id number] Medica l 2021-09-25 2021-09-25 Outpatient GC_CPC_Mora PRIV PRIV 240 [id number] [facility] 09:32:00 09:32:00 _A [id number] Medica l 2021-05-14 2021-05-14 Outpatient Dilip TATE [facility] [id number] Univers 00:00:00 00:00:00 [facility] 2021-05-03 2021-05-03 Outpatient Dilip TATE [facility] [id number] Univers 11:15:00 23:59:00 [facility] 2021-05-03 2021-05-03 [facility] 1.2.840.114 [id number] Univers 11:15:00 23:59:00 Encounter [facility] [id number] ity of [place] 4.2.7.2.686 Francesco as FRANKIE?BLEA [phone] Mo deb MARTINO [address] [place] [address] MEDICAL OFFICE BUILDING 2021-05-03 2021-05-03 Outpatient Dilip [facility]ATE [facility] [id number] Univers 11:00:00 11:00:00 [facility] 2021-05-03 2021-05-03 Outpatient Dilip TATE [facility] [id number] Univers 11:00:00 11:00:00 [facility] 2021-05-03 2021-05-03 Office Bebeto [facility] 1.2.840.114 [id number] Univers 10:24:20 10:54:20 Visit Sheri Guerrero [facility] 350.1.13.10 it y of [place] 4.2.7.2.686 Francesco as FRANKIE?BLEA [phone] Mo dic[address] MEDICAL OFFICE BUILDING 2021 2021 Orders Doctor NATHAN 1.2.840.114 [id number] Univers 00:00:00 00:00:00 Only Unassigned, MARK 350.1.13.10 ity of [place] [facility] 4.2.7.2.686 Francesco as [phone] [facility] [address] 2021-03-07 2021-03-07 [facility] 1.2.840.114 [id number] Univers 12:06:00 15:59:00 Encounter Anju adkins 350.1.13.10 [place] [phone] [facility] [address] 2021-03-07 2021-03-07 Surgery [facility] 1.2.840.114 [id number] Univers 13:35:00 14:12:00 Anju adkins 350.1.13.10 it[place] of [place] [phone] [facility] [address] 2021-03-06 2021-03-06 Outpatient R [facility] [id number] Univers 08:00:00 08:00:00 ANJU Adkins o f [facility] 2021-03-06 2021-03-06 Laboratory Only, Adc Test [facility] 1.2.840. 114 [id number] Univers 07:40:21 07:55:21 Only Anju Davison 350.1.1 3.10 it[place] of [place].2.[place] [phone] [facility] [address] 2021-03-06 2021-03-06 Orders Doctor NATHAN 1.2.840.114 [id number] Univers 00:00:00 00:00:00 Only Unassigned, MARK 350.1.13.10 ity of [place] [facility]PITAL 4.2.7.2.686 Francesco as [phone] [facility] [address] 2021-02-16 2021-02-16 Imm/Inj Nurse, Adc Pob Immunization [facility] 1.2.840.114 [id number] Univers 08:04:24 08:14:24 Visit Daniel Chapa 350.1.13 .10 it[place] of [place].7.2.[place] Profess [phone] Mo dical [facility] 421 [facility] 2021-02-16 2021-02-16 Outpatient R SAMMI [facility] [id number] Univers 08:10:00 08:10:00 DANIEL castillo [facility] 2021-02-07 2021-02-07 Office Cristina [facility] 1.2.840.114 [id number] Univers 07:35:37 11:35:37 Visit MULTISPEC 350.1.13.10 [place] of [place].2.[place] [phone] [address] [facility] 2021-02-07 2021-02-07 Office Cristina [facility] 1.2.840.114 [id number] Univers 07:35:37 11:35:37 Visit MULTISPEC 350.1.13.10 [place].2.[place] [phone] [address] [facility] 2021-02-07 2021-02-07 Outpatient R KRISTI BROCK [facility] [id number] Univers 08:00:00 08:00:00 ity of [facility] 2021-02-02 2021-02-02 Hospital Radiology [facility] 1.2.840.114 [id number] Univers 08:32:14 23:59:00 Encounter Miroslava 350.1.13.10 ity of [place].2.[place] [phone] [facility] [address] 2021-02-02 2021-02-02 Hospital Radiology [facility] 1.2.840.114 [id number] Univers 08:32:14 23:59:00 Encounter [facility]roslava [facility]1.13.10 [facility] 4.[place].2.[place] [phone] [facility] [address] 2021-02-02 2021-02-02 Outpatient R RADIOLOGY [facility] [id number] Univers 00:00:00 00:00:00 [facility] 2021-01-26 2021-01-26 Outpatient R SAMMI [facility] [id number] Univers 09:50:00 09:50:00 DANIEL [facility] 2021-01-26 2021-01-26 Imm/Inj Nurse, Adc Pob Immunization [facility] 1.2.840.114 [id number] Univers 09:37:51 09:38:00 Visit Daniel Chapa 350.1.13 .10 [facility] 4.2.7.2.686 [facility] [phone] Mo dical nal [address] 2021-01-23 2021-01-23 Outpatient R JEWEL RUSSO [facility] [id number] Univers 11:00:00 11:00:00 JEWEL RUSSO [facility] 2021-01-22 2021-01-22 Office Cecille [facility] 1.2.840.114 [id number] Univers 13:20:54 15:07:06 Visit Jewel [facility] 350.1.13.10 [place] 4.2.7.2.686 Francesco as Frankie?Blea [phone] Mo dical kney [address] [facility] Building 2021-01-22 2021-01-22 Outpatient R JEWEL RUSSO [facility] [id number] Univers 14:40:00 14:40:00 JEWEL RUSSO [facility] 2021-01-22 2021-01-22 Outpatient R RADIOLOGY [facility] [id number] Univers 00:00:00 00:00:00 [facility] 2021-01-19 2021-01-19 Outpatient R JEWEL RUSSO [facility] [id number] Univers 10:40:00 10:40:00 JEWEL RUSSO ity [facility] 2021-01-18 2021-01-18 Outpatient R RADIOLOGY [facility] [id number] Univers 00:00:00 00:00:00 ity of [facility] 2021-01-10 2021-01-10 [facility] 1.2.840.114 [id number] Univers 00:00:00 00:00:00 Jewel Moore [place] 350.1.13.10 ity of [place]2.[place].2.[place] [facility] [phone] Me dical nal 092 [facility] 2020-12-28 2020-12-28 [facility] 1.2.840.114 [id number] Univers 10:29:55 23:59:00 Encounter [facility] 350.1.13.10 ity of Surgical 4.2.7.2.686 Francesco as Specialti [phone] Me dical es 809 [facility] 2020-12-28 2020-12-28 Outpatient R BEBETO [facility] [id number] Univers 10:15:00 10:49:23 [facility] 2020-12-28 2020-12-28 Office Reuben Montanez [facility] 1.2.840. 114 [id number] Univers 10:09:14 10:49:23 Visit Sheri Tate [facility] 350.1.13.10 ity of SURGICAL 4.2.7.2.686 Francesco as SPECIALTI [phone] Me dical ES 198 [facility] 2020-12-28 2020-12-28 Outpatient R BEBETO [facility] [id number] Univers 10:15:00 10:15:00 [facility] 2020-12-18 2020-12-18 [facility] 1.2.223.997 [id number] Univers 11:55:16 23:59:00 Encounter Jewle [place] 350.1.13.10 ity of [place].7.2.[place] [phone] [facility] [address] 2020-12-18 2020-12-18 Emergency E ISRAEL, [facility] [id number] [facility] 15:41:00 16:41:00 [facility] 2020-12-18 2020-12-18 Office [facility] 1.2.840.114 [id number] Univers 10:51:37 12:06:48 Visit Jewel [place] 350.1.13.10 ity of [place] 4.2.7.2.686 [place] [facility] [phone] Mo dical nal 092 [facility] 2020-12-18 2020-12-18 Outpatient JEWEL BANUELOS [facility] [id number] Univers 10:40:00 10:40:00 JEWEL RUSSO [facility] 2020-12-13 2020-12-13 Telephone [facility] 1.2.840.114 [id number] Univers 00:00:00 00:00:00 Jewel [place] 350.1.13.10 ity of [place].2.[place] Profess[place] [phone] Mo dicfl nal [address] [place] [address] 2020-12-12 2020-12-12 [facility] 1.2.604.680 [id number] Univers 15:00:00 23:59:00 Encounter Jewel [place] 350.1.13.10 ity of [place] 4.2.7.2.686 [place] [phone] [facility] [address] 2020-12-12 2020-12-12 Outpatient JEWEL BANUELOS [facility] [id number] Univers 00:00:00 00:00:00 JEWEL RUSSO [facility] 2020-12-12 2020-12-12 Orders Doctor EVANS 1.2.840.114 [id number] Univers 00:00:00 00:00:00 Only Unassigned, MARK 350.1.13.10 ity of [place] [facility] 4.2.7.2.686 Francesco as [phone] [facility] [address] 2020-12-01 2020-12-01 Office Cecille [facility] 1.2.840.114 [id number] [facility] 08:04:24 10:40:04 Visit Jewel [place] 350.1.13.10 ity of [place] 4.2.7.[address] [place] [address] [phone] Mo dical nal 092 [facility] 2020-12-01 2020-12-01 Outpatient R JEWEL RUSSO [facility] [id number] Univers 08:00:00 08:00:00 JEWEL RUSSO ity [facility] 2020-11-20 2020-11-20 Orders Doctor NATHAN 1.2.840.114 [id number] Univers 00:00:00 00:00:00 Only Unassigned, MARK 350.1.13.10 ity [place] [address] [place] [address] [phone] [place] [address] [address] 2020-08-21 2020-08-[address] [facility] Orthopedics 732 [address] [place] 09:00:00 09:00:00 t; RAMONA QUIJANO M.D. Trauma P chantal GREENE M.D. [facility] 2020-08-15 2020-08-15 Emergency E NICK, [facility] [id number] [facility] 16:24:00 19:05:00 [facility] 2020-03-02 2020-03-02 [facility] Radiology [facility] 1.2.840.114 [id number] 08:54:20 23:59:00 Encounter [place] 350.1.13.10 [place] [address] [place] [address] [phone] [facility] 2020-03-02 2020-03-02 Hospital Radiology [facility] 1.2.840.114 [id number] Univers 08:54:20 23:59:00 Encounter [place] 350.1.13.10 ity of [place] 4.2.7.2.686 [facility] [phone] [facility] [address] 2020-03-02 2020-03-02 [facility] Radiology [facility] 1.2.840.114 [id number] 08:29:56 08:53:00 Encounter [place] 350.1.13.10 [place] 4.2.7.2.686 [place] [phone] [facility] 2020-03-02 2020-03-02 Hospital Radiology [facility] 1.2.840.114 [id number] Univers 08:29:56 08:53:00 Encounter [place] 350.1.13.10 ity of [place] 4.2.7.2.686 [facility] [phone] [address] 2020-03-02 2020-03-02 Outpatient R RADIOLOGY [facility] [id number] Univers 00:00:00 00:00:00 ity of [facility] 2020-01-19 2020-01-19 [facility] Radiology [facility] 1.2.840.114 [id number] 12:00:00 23:59:00 Encounter [place] 350.1.13.10 [place] 4.2.7.2.686 [place] [phone] [facility] 2020-01-19 2020-01-19 [facility] Radiology [facility] 1.2.840.114 [id number] Univers 12:00:00 23:59:00 Encounter [place] 350.1.13.10 ity of [place] 4.2.7.2.686 [facility] [phone] [address] 2020-01-19 2020-01-19 Outpatient R RADIOLOGY [facility] [id number] Univers 00:00:00 00:00:00 ity of [facility] 2019-12-10 2019-12-10 Outpatient R SAPPHIRE [facility] [id number] Univers 16:40:00 16:40:00 VALENTE ity of [facility] 2019-12-10 2019-12-10 Laboratory Lab, [facility] 1.2.840.114 [id number] 14:41:41 15:01:41 Only Fam Pob I Health 350.1.13.10 [place] 4.2.7.2.686 Professio [phone] nal [address] 2019-12-10 2019-12-10 Laboratory Lab, [facility] Fam Pob I [facility] 1.2. 840.114 [id number] Univers 14:41:41 15:01:41 Only [facility] 350.1.13.10 ity of [place] 4.2.7.2.686 Francesco as Lisa [phone] Mo dical [address] Office [address] One 2019-12-10 2019-12-10 Outpatient Dilip MUNOZ [facility] [id number] Univers 16:40:00 14:59:10 VALENTE castillo [facility] 2019-11-15 2019-11-15 Emergency E ALBIN, [facility] [id number] 20:57:00 22:21:00 KEN Medic al [place] 2019-11-15 2019-11-15 Outpatient [facility] [id number] AccessH 14:00:00 14:00:00 [id number] 2019-11-15 2019-11-15 Outpatient [facility] [id number] Access[facility] 00:00:00 00:00:00 TUNG [facility] 2019-11-15 2019-11-15 [facility] [id number]-[id number] Access 00:00:00 00:00:00 TUNG Guerrero [id number] [facility] [id number] 2019-10-15 2019-10-15 [facility] [id number] [place] 14:01:00 15:07:00 [facility] 2015-01-04 2015-01-04 Office nullFlavo [facility] [id number] Memoria 00:00:00 00:00:00 Visit r [place] [facility] [id number] [facility] 2015-01-04 2015-01-04 Lab Report nullFlavo [place] [address] [id number] Memoria 00:00:00 00:00:00 r [place] [facility] [id number] [facility] Results Test Description Test Time Test Comments Results Result Comments Source TSH, THIRD GENERATION 2022-05-24 06:25:47 Test Item Value Reference Range Interpretation Comme nts TSH, THIRD GENERATION (test code = 2821) 1.110 UIU/ML 0.400-4.100 HEMOGLOBIN [id number] 04:54:02 Test Item Value Reference Range Interpretation Comments HEMOGLOBIN A1c (test code = 69881) 5.8 % 4.2-5.6 H COMPREHENSIVE METABOLIC [id number] 04:35:41 Test Item Value Reference Range Interpretation Comments GLUCOSE (test code = 98 MG/DL 70-99 2216) BUN (test code = 7 MG/DL 8-23 L 2207) CREATININE (test 1.06 MG/DL 0.60-1.30 code = 221) eGFR (2020 CKD-EPI) 60 ML/MIN/1.73 >60 L (test code = 45931) CALC BUN/CREAT (test 7 RATIO 6-28 code = 223) SODIUM (test code = 142 MEQ/L 138-829 8340) POTASSIUM (test code 4.6 MEQ/L 3.5-5.4 = 2227) CHLORIDE (test code 103 MEQ/L 95-107 = 2214) CARBON DIOXIDE (test 28 MEQ/L 19-31 code = 220) CALCIUM (test code = 10.2 MG/DL 8.5-10.5 2208) PROTEIN, TOTAL (test 7.0 G/DL 6.1-8.3 code = 222) ALBUMIN (test code = 4.2 G/DL 3.5-5.2 2200) CALC GLOBULIN (test 2.8 G/DL 1.9-3.7 code = 2240) CALC A/G RATIO (test 1.5 RATIO 1.0-2.6 code = 2234) BILIRUBIN, TOTAL 1.2 MG/DL See_Comment [Automated message] (test code = 220) The syste m which generated this result transmit luisc arlos reference range : <=1.2. The refe rence range was not u sed to interpret th is result as normal/abnormal . ALKALINE PHOSPHATASE 106 U/L 40-140 (test code = 2204) AST (test code = 17 U/L 9-40 2217) ALT (test code = 18 U/L 5-40 2218) LIPID [id number] 04:35:41 Test Item Value Reference Range Interpretation [...] MOREINFORMATION , SEE CLIENT ANNOUNCE MENT AT [email or web address] RISK RATIO LDL/HDL 2.34 RATIO <3.22 (test code = 2238) CBC W/AUTO DIFF WITH [id number] 03:02:06 Test Item Value Reference Range Interpretation [...] message] code = 1065) WBC'S The system TESARO generated this result transmitted ref erence range: [...] 0.00-0.11 UNLESS O THERWISE (test code = 15196) INDICATE D, ALL TESTING PERFORM ED ATCLINICAL PATH OLOGY LABORATORIES, [place]. [address] [facility] [place] [address] [facility] DIRECTOR: ESTHER DAS M.D. CLIA NUMBER [id number] CAP ACCREDITATION N O. [id number] XR ANKLE RIGHT COMPLETE 3 VIEWS *WW*2020-12-18 16:16:22 [facility] LOLA ENRIQUEZ : 1960 Sex: FExam: X-ray right ankle 3 viewsLocation: X4Wopcntd: Fall with right ankle painFindings:No fractures or dislocations identified. No osseous lesions. Mild soft tissue swelling is present.Impression:1. Mild soft tissueswelling without fracture or dislocation.Electronically signed by: Manuel Beebe MD 12/18/2020 4:16 PMCDT [U] XRAY FINGER(S) - 2 VWS MIN. RIGHT [id number] 09:35:00Images acquired, not reported on this accession number.[place] [facility] Panel Description: SARS-CoV-2 (COVID-19) RNA [Presence] in Unspecified specimen by DELFIN with probe [id number] 09:17:00 Test Item Value Reference Range Interpretation Comments SARS-CoV-2, Not Detected Not Detected Testing was per formed using DELFIN (test code the Aptima SA RS-CoV-2 = 41220-8) assay.This test was developed and i ts performance opal racteristics determinedby [employer]. T his test has not been FDA [...] in this assay.
< br/>Performe d by:
LabDc david Roger ()

AccessHealthSARS-CoV (RAPID ANTIGEN) WW2019-11-15 21:58:00 Test Item Value Reference Range Interpretation Comments SARS-CoV (ANTIGEN) NEGATIVE NEGATIVE (test code = COVAG) COVID AG (test This test has been code = COVAGC) marketed under the FDA Emergency Use Authorization (EUA) to meet challenges of the COVID-19 pandemic. The validation standards normally enforced by the FDA and the College of the [employer] (CAP) are more stringent than those required for this test. Therefore, the result should be interpreted with caution and close attention to other clinical and epidemiological data Dimadbbnp5449-74-52 21:37:001.590[facility] KsopehmSkcvrhthl3839-35-31 21:37:0017 Memorial IehxjjcPeotyhhtn8977-35-59 21:37:000.9[facility] 2015-01-04 21:37:00906 MEQ/LMemorial DcfesnrQxdhiwjff1619-45-56 21:37:005.2 MEQ/LMemorial YbvwotmKioplscyo2491-92-86 21:37:008.6[facility] 2015-01-04 21:37:0014.1Memorial EyurodeMyiwurhkbp6470-66-15 21:37:0043.5Memorial ZbvuvmfNiwwyymkbr4980-86-38 21:37:78103 K/CMMMemorial HermannChemistry 2015-01-04 21:37:001.590Memorial RvvkgcmVuvhdnsvf9433-76-80 21:37:0017Memorial RlfsahmJncxnucpa7211-17-08 21:37:000.9Memorial IddzdigXaoreuuyy7363-00-32 21:37:60759 MEQ/LMemorial AozsxqqUujadmcsf9551-74-91 21:37:005.2 MEQ/LMemorial NiriwoyFdwxjqozf3674-63-90 21:37:008.6Memorial RzdcvkkMtctwxxcsj7144-59-75 21:37:0014.1Memorial BwasahvKpfcdvuzdb2687-06-31 21:37:0043.5Memorial Tal Buvpxfowts3442-12-65 21:37:70032 K/CMMMemorial QkquheuHepibwayy8365-48-75 21:37:001.590Memorial XlwuvmwPeznwpgvu2978-95-30 21:37:0017Memorial Tal Zodiobfil5399-30-34 21:37:000.9Memorial NajfungQnkuqmpns7671-19-29 21:37:18344 MEQ/LMemorial OydvarnCndezjoor6461-85-31 21:37:005.2 MEQ/LMemorial Tal Ottruxmul8804-44-37 21:37:008.6Memorial AwqzhoqXqtfncgcmz2512-28-69 21:37:0014.1 Memorial UtgnkxgUpcioohinw3601-34-74 21:37:0043.5[facility]ann[facility]ology 2015-01-04 21:37:68840 K/CMMMemorial FocvmblVkyorldne3686-95-60 21:37:001.590 Memorial ZiuhpkiGnnboweic5802-72-19 21:37:0017[facility] 2015-01-04 21:37:000.9Memorial MnzonpxYbfutindt6458-79-76 21:37:65798 MEQ/L Memorial HcddbolYhrelhkmn1987-56-42 21:37:005.2 MEQ/LMemorial HermannChemistry 2015-01-04 21:37:008.6Memorial BxdqhzeVscatqrdug8190-62-48 21:37:0014.1Memorial VyhcchyPznkdbxojc7209-82-58 21:37:0043.5Memorial ScckavkEuhmcahchc7142-81-39 21:37:05208 K/CMMMemorial HermannOb/Fox6558-33-53 20:34:06NormalMemorial Tal Ob/Ztp6576-04-95 20:34:06NormalMemorial HermannOb/Ynr4516-06-27 20:34:06Normal Memorial HermannOb/Ejm7395-11-46 20:34:06NormalMemorial HermannOb/Nzo7491-76-54 20:34:06NormalMemorial HermannOb/Hho4132-74-68 20:34:06NormalMemorial [place] Ob/Hxf2706-89-58 20:34:06NormalMemorial HermannOb/Dqr5766-70-72 20:34:06Normal Memorial [place]
[2022-07-29] MEDS ORDERED: LIDOCAINE 1% MPF 30 ML VIAL ONE (18:41)
[2022-07-29] MEDS ORDERED: KETOROLAC 30 MG/ML INJ ONE (18:41)
--- NOTE | 2022-07-29 19:00 | EDPHYS ---
Physician Documentation [facility] Name: Shahnaz Ramos Age: 62 yrs Sex: Female : 1960 Arrival Date: 07/29/2022 Time: 18:13 Bed Treatment Private MD: Tawana Rosado ED Physician Ever Casarez HPI: 07/29 18:20 This 62 yrs old Female presents to ER via Ambulatory with complaints of Finger jh7 Swelling. 18:20 Onset: The symptoms/episode began/occurred 3 day(s) ago. Associated signs and symptoms: jh7 Pertinent negatives: fever. Patient reports that she pulled a hangnail on her right third digit and reports pain and swelling around her finger. Denies fever. Reports that this is happened before.. Historical: - Allergies: 18:23 Aspirin; ld1 18:23 Imitrex; ld1 - PMHx: 18:23 Anxiety; Asthma; Bipolar disorder; cervical spinal stenosis; COPD; Depression; ld1 Diverticulitis; Fibromyalgia; GERD; Hepatitis C; insomnia; Migraines; Ulcers; - PSHx: 18:23 Total abdominal hysterectomy; Tubal ligation; Cholecystectomy; ld1 - Immunization history:: Adult Immunizations up to date, Client reports receiving the 2nd dose of the Covid vaccine. - Social history:: Smoking status: Patient reports the use of cigarette tobacco products, smokes one-half pack cigarettes per day, Patient/guardian denies using alcohol. ROS: 18:20 Constitutional: Negative for fever, chills, and weight loss, Eyes: Negative for injury, jh7 pain, redness, and discharge, ENT: Negative for injury, pain, and discharge, Neck: Negative for injury, pain, and swelling, Cardiovascular: Negative for chest pain, palpitations, and edema, Respiratory: Negative for shortness of breath, cough, wheezing, and pleuritic chest pain, Abdomen/GI: Negative for abdominal pain, nausea, vomiting, diarrhea, and constipation, Back: Negative for injury and pain, MS/Extremity: Negative for injury and deformity, Neuro: Negative for headache, weakness, numbness, tingling, and seizure. 18:20 Skin: Positive for erythema, swelling, of the R 3rd digit. 18:20 All other systems are negative. Exam: 18:20 Constitutional: This is a well developed, well nourished patient who is awake, alert, jh7 and in no acute distress. Head/Face: Normocephalic, atraumatic. Eyes: Pupils equal round and reactive to light, extra-ocular motions intact. Lids and lashes normal. Conjunctiva and sclera are non-icteric and not injected. Cornea within normal limits. Periorbital areas with no swelling, redness, or edema. Neck: Trachea midline, no thyromegaly or masses palpated, and no cervical lymphadenopathy. Supple, full range of motion without nuchal rigidity, or vertebral point tenderness. No Meningismus. Cardiovascular: Regular rate and rhythm with a normal S1 and S2. No gallops, murmurs, or rubs. Normal PMI, no JVD. No pulse deficits. Respiratory: Lungs have equal breath sounds bilaterally, clear to auscultation and percussion. No rales, rhonchi or wheezes noted. No increased work of breathing, no retractions or nasal flaring. Abdomen/GI: Soft, non-tender, with normal bowel sounds. No distension or tympany. No guarding or rebound. No evidence of tenderness throughout. Back: No spinal tenderness. No costovertebral tenderness. Full range of motion. MS/ Extremity: Pulses equal, no cyanosis. Neurovascular intact. Full, normal range of motion. Neuro: Awake and alert, GCS 15, oriented to person, place, time, and situation. Motor strength 5/5 in all extremities. Sensory grossly intact. Normal gait. 18:20 Skin: cellulitis, that is mild, on the right 3rd digit, Erythema and mild swelling present on the right medial border of the nail with scant dried purulent drainage near the nailbed. No fluctuance noted. The area is mildly indurated.. Vital Signs: 18:22 BP 108 / 66; Pulse 76; Resp 18; Temp 97.5(O); Pulse Ox 95% on R/A; Weight 62.6 kg; ld1 Height 5 ft. 1 in. (154.94 cm); Pain 10/10; 18:22 Body Mass Index 26.07 (62.60 kg, 154.94 cm) ld1 Procedures: 18:20 I \T\ D: Incision and drainage was performed for an abscess of the right R 3rd digit jh7 Prepped with Betadine, Anesthetized with 3 ml's 1% Lidocaine. Incised with 18 g needle. Drained small amount bloody fluid. Dressing: sterile 4x4 gauze, the patient tolerated the procedure well. MDM: 18:25 Patient medically screened. 7 19:00 Differential diagnosis: Cellulitis, paronychia. Data reviewed: vital signs, nurses [facility] notes. I considered the following discharge prescriptions or medication management in the emergency department Medications were administered in the Emergency Department. See MAR. Counseling: I had a detailed discussion with the patient and/or guardian regarding: the historical points, exam findings, and any diagnostic results supporting the discharge/admit diagnosis, to return to the emergency department if symptoms worsen or persist or if there are any questions or concerns that arise at home. Special discussion: Informed the patient that we would likely not be able to express much due to there being no localized fluid collection. Discussed that this is likely a very early paronychia and will require oral antibiotics and antibiotic ointment. Advised warm Epsom salt soaks at home. Encouraged to return if redness spreads, localized fluid collection develops, or fever develops.. 07/29 18:30 Order name: I\T\D Setup; Complete Time: 18:40 [facility] Administered Medications: 18:40 Drug: Ketorolac 30 mg Route: IM; Site: left ventrogluteal; Disposition: 19:11 Co-signature as Attending Physician, Ever MARIA was immediately available on-site ms3 in the Emergency Department for consultation in the care of the patient. Disposition Summary: 07/29/22 18:59 Discharge Ordered Location: Home [facility] Problem: new [facility] Symptoms: are unchanged [facility] Condition: Stable [facility] Diagnosis - Cellulitis of finger [facility] Followup: [facility] - With: Private Physician - When: 2 - 3 days - Reason: Recheck today's complaints Discharge Instructions: - Discharge Summary Sheet [facility] - Cellulitis, Adult [facility] - Paronychia [facility] Forms: - Medication Reconciliation Form [facility] - Thank You Letter [facility] - Antibiotic Education [facility] Prescriptions: - mupirocin 2 % Topical ointment - apply 1 application by TOPICAL route 3 times per day for 7 days; 1 tube; [facility] Refills: 0, Product Selection Permitted - Naprosyn 500 mg Oral Tablet - take 1 tablet by ORAL route 2 times per day take with food; 30 tablet; Refills: jh7 0, Product Selection Permitted - Bactrim DS 800-160 mg Oral Tablet - take 1 tablet by ORAL route every 12 hours for 10 days; 20 tablet; Refills: 0, jh7 Product Selection Permitted Signatures: Roya Hummel RN RN iw Ever Casarez, DO ms3 Kassie Bashir RN RN ld1 Jennifer Goodrich, CAFETERIA WORKER CAFETERIA WORKER jh7 Corrections: (The following items were deleted from the chart) 19:08 18:20 This 62 yrs old Female presents to ER via Ambulatory with complaints of jh7 Finger Swelling. jh7
--- NOTE | 2022-07-29 19:00 | ER ---
Nurse's Notes [facility] Name: Shahnaz Ramos Age: 62 yrs Sex: Female : 1960 Arrival Date: 07/29/2022 Time: 18:13 Bed Treatment Private MD: Tawana Rosado Diagnosis: Cellulitis of finger Presentation: 07/29 18:22 Chief complaint: Patient states: Pulled hang nail on middle finger to right hand. C/O ld1 pain to side of finger. Coronavirus screen: At this time, the client does not indicate any symptoms associated with coronavirus-19. Ebola Screen: No symptoms or risks identified at this time. Initial Sepsis Screen: Does the patient meet any 2 criteria? No. Patient's initial sepsis screen is negative. Does the patient have a suspected source of infection? No. Patient's initial sepsis screen is negative. Risk Assessment: Do you want to hurt yourself or someone else? Patient reports no desire to harm self or others. Onset of symptoms was July 29, 2022. 18:22 Method Of Arrival: Ambulatory ld1 18:22 Acuity: [place] 4 ld1 Triage Assessment: 18:23 General: Appears in no apparent distress. uncomfortable, Behavior is calm, cooperative, ld1 appropriate for age. Pain: Complains of pain in right hand Pain does not radiate. Pain currently is 10 out of 10 on a pain scale. EENT: No signs and/or symptoms were reported regarding the EENT system. Neuro: Level of Consciousness is awake, alert, obeys commands, Oriented to person, place, time, situation. Respiratory: Airway is patent Respiratory effort is even, unlabored. Derm: Reports pain that is 10 out of 10 on a pain scale. to right middle finger. Historical: - Allergies: 18:23 Aspirin; ld1 18:23 Imitrex; ld1 - PMHx: 18:23 Anxiety; Asthma; Bipolar disorder; cervical spinal stenosis; COPD; Depression; ld1 Diverticulitis; Fibromyalgia; GERD; Hepatitis C; insomnia; Migraines; Ulcers; - PSHx: 18:23 Total abdominal hysterectomy; Tubal ligation; Cholecystectomy; ld1 - Immunization history:: Adult Immunizations up to date, Client reports receiving the 2nd dose of the Covid vaccine. - Social history:: Smoking status: Patient reports the use of cigarette tobacco products, smokes one-half pack cigarettes per day, Patient/guardian denies using alcohol. Screenin:34 [facility] ED Fall Risk Assessment (Adult) History of falling in the last 3 months, iw including since admission. Abuse screen: Denies threats or abuse. Denies injuries from another. Nutritional screening: No deficits noted. Tuberculosis screening: No symptoms or risk factors identified. Assessment: 19:30 Reassessment: Patient appears in no apparent distress at this time. Patient and/or iw family updated on plan of care and expected duration. Pain level reassessed. Patient is alert, oriented x 3, equal unlabored respirations, skin warm/dry/pink. General: Appears in no apparent distress. comfortable, Behavior is calm, cooperative. Vital Signs: 18:22 BP 108 / 66; Pulse 76; Resp 18; Temp 97.5(O); Pulse Ox 95% on R/A; Weight 62.6 kg; ld1 Height 5 ft. 1 in. (154.94 cm); Pain 10/10; 18:22 Body Mass Index 26.07 (62.60 kg, 154.94 cm) ld1 ED Course: 18:13 Patient arrived in ED. as 18:13 Tawana Rosado is Private Physician. as 18:22 Don Retana PA is PHCP. cp 18:23 Triage completed. ld1 18:23 Arm band placed on right wrist. ld1 18:25 Jennifer Goodrich FNP is PHCP. 7 18:25 Ever Casarez DO is Attending Physician. 7 19:00 Patient has correct armband on for positive identification. iw 19:10 Assist provider with I \T\ D: of an abscess on right Performed by Jennifer GUZMÁN iw Dressing with 4X4s, tape Patient tolerated well. Patient did not have IV access during this emergency room visit. 19:33 Roya Hummel, RN is Primary Nurse. iw Administered Medications: 18:40 Drug: Ketorolac 30 mg Route: IM; Site: left ventrogluteal; iw Medication: 19:35 VIS not applicable for this client. iw Outcome: 18:59 Discharge ordered by . [facility] 19:34 Discharged to home ambulatory, with family. iw 19:34 Condition: good 19:34 Discharge instructions given to patient, family, Instructed on discharge instructions, follow up and referral plans. medication usage, Demonstrated understanding of instructions, follow-up care, medications, Prescriptions given X 3. 19:35 Patient left the ED. iw Signatures: Solange Grijalva Irene, RN RN iw Don Retana PA PA cp Dibbern, Lauren RN RN ld1 Jennifer Goodrich, HORTICULTURE WORKER HORTICULTURE WORKER jh7
[2022-07-29 19:54] VITALS: BP 108/66; TEMP 97.5; O2SAT 95
== END 2022-07-29 19:35 | disposition home or self-care (01) ==
LOC: ER 18:11
PROC: 0H9FXZZ Drainage of Right Hand Skin, External Approach (ICD-10-PCS; principal; 2022-07-29)
DX: L03.011 Cellulitis of right finger (principal); F17.210 Nicotine dependence, cigarettes, uncomplicated; Z88.6 Allergy status to analgesic agent
CPT/HCPCS: 26010; J2001; 96372; 99283

== ENCOUNTER 2022-08-03 16:40 | Emergency (ER) | payer OTHER ==
--- OUTSIDE RECORDS SUMMARY | 2022-08-03 16:45 | XMS REPORT | Continuity of Care Document ---
:1960 Author Organization [facility] t Address [address] [place] [address] Care Team Providers Name Role Phone Gómez Medina Primary Care Physician ANJU DAVISON Attending Clinician Unavailable MAL BURGER Attending Clinician Unavailable MAL BURGER Attending Clinician Unavailable Doctor Unassigned, [place] Attending Clinician Unavailable [email or web address] Attending Clinician Unavailable [...] Clinician Unavailable Jewel Oden MD Attending Clinician Lisseth NAIDU, Reuben Ho Attending Clinician DR JA WOOD Attending Clinician [...] Effective Date Expiration Date S martha [facility] DUAL [id number] 2020 COMP HMO D SNP 00:00:00 [place]ID [place] [id number] 2020 00:00:00 [facility] PLUS [id number] 2022 00:00:00 [facility] MEDICARE [id number] COMPLETE (MEDICARE REPLACEMENT HMO) GENERIC COMMERCIAL [id number] - MOVED HOLD Problems Condition Condition Condition [...] different from the original. 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 ICD10 Diagnosis Term Foreign Legal Consultant Utility Cocaine Cocaine Disease Active Overview: Univ ers abuse in abuse in 1-10 Formattin ity of remission remission 00:00: g of this [place] 00 note Medical might be Branch different from the original. ICD10 Diagnosis Term Foreign Legal Consultant Utility Asthma Asthma Disease Active Overview: Univer s with with 1-10 Formattin ity of status status 00:00: g of this [place] asthmaticu asthmaticu 00 note Me dical s s might be Branch different from the original. ICD10 Diagnosis Term Foreign Legal Consultant Utility Peptic Peptic Disease Active Overview: Univer s ulcer ulcer 1-10 Formattin ity of 00:00: g of this [place] 00 note Medical might be Branch different from the original. ICD10 Diagnosis Term Foreign Legal Consultant Utility Migraine Migraine Disease Active Overview: Un anjel with aura with aura 1-10 Formattin i ty of 00:00: g of this 00 note Medical might be Branch different from the original. ICD10 Diagnosis Term Foreign Legal Consultant Utility No known No known Disease Metho [...] 00:00: Tal 00 IMITREX IMITREX Active Memoria 805 l 00:00: [place] 00 Imitrex DA Active Unknown 2015-0 [place] [...] History of tobacco Cigarette Smoker [facility] Exposure to Not sure University of SARS-CoV-2 (event) [facility] History SDOH [facility] Alcohol Std Drinks Hospit al History SDOH [facility] Alcohol Binge Hospital Tobacco use and 2021-03-06 2021-03-06 Smokeless Universit y of exposure 00:00:00 00:00:00 tobacco non-user [facility] Tobacco Comment 2021-03-06 2021-03-06 1 ppd Universit y of 00:00:00 00:00:00 [facility] History SDOH 2019-04-12 2019-04-12 1 [facility] Alcohol Frequency 00:00:00 00:00:00 Hospita l Alcohol intake 2019-04-12 2019-04-12 Ex-drinker [facility] 00:00:00 00:00:00 (finding) Hospital Cigarettes smoked 2019-04-07 2019-04-[address] current (pack per 00:00:00 00:00:00 Hospita l day) - Reported Sex Assigned At [birth year] [facility] 00:00:00 00:00:00 Hospital Smoking Status Start Date Stop Date Source Smoker (finding) [facility] Unknown if ever smoked [facility] Smokes tobacco daily 2021-03-06 00:00:00 Univers ity of [facility] Never smoker [facility] Medications Ordered Filled Start Stop Current Ordering [...] 0-06 Puffs as ity of 16:05: needed. [place] [address] Medical Branch hydrOXYzine 2020-06 Yes 50mg Take [...] by mouth ity o f 16:05: at [place] [address] bedtime. Medical Branch HYDROcodone 2020-06 Yes 1{tbl} Take 1 Tab Univers -acetaminop 0-06 by mouth 2 it y of hen (NORCO) 16:05: (two) [place] 10-325 mg 17 times Medical tablet daily. Branch ALBUTEROL 2020-06 Yes 2{puff} Inhale 2 U nivers INHALE 0-06 Puffs as ity of 16:05: needed. [place] [address] Medical Branch hydrOXYzine 2020-06 Yes 50mg Take [...] by mouth ity o f 16:05: at [place] 17 bedtime. Medical Branch HYDROcodone 2020-06 Yes 1{tbl} Take 1 Tab Univers -acetaminop 0-06 by mouth 2 it y of hen (NORCO) 16:05: (two) [place] 10-325 mg 17 times Medical tablet daily. Branch ALBUTEROL 2020-06 Yes 2{puff} Inhale 2 U nivers INHALE 0-06 Puffs as ity of 16:05: needed. [place] [address] Medical Branch hydrOXYzine 2020-06 Yes 50mg Take 50 mg Univers (ATARAX) 50 0-06 by mouth 3 it y of mg tablet 16:05: (three) [place] 17 times Medical daily as Branch needed [...] by mouth ity o f 16:05: at [place] 17 bedtime. Medical Branch HYDROcodone 2020-06 Yes 1{tbl} Take 1 Tab Univers -acetaminop 0-06 by mouth 2 it y of hen (NORCO) 16:05: (two) [place] 10-325 mg 17 times Medical tablet daily. Branch ALBUTEROL 2020-06 Yes 2{puff} Inhale 2 U nivers INHALE 0-06 Puffs as ity of 16:05: needed. [place] [address] Medical Branch hydrOXYzine 2020-06 Yes 50mg Take 50 mg Univers (ATARAX) 50 0-06 by mouth 3 it y of mg tablet 16:05: (three) [place] 17 times Medical daily as Branch needed for Itching. QUEtiapine 2020-06 Yes 100mg Take 100 Un anjel (SEROQUEL) 0-06 mg by ity of 50 mg 16:05: mouth at [facility] 17 bedtime. Medical Branch acetaminoph 2020-06 Yes 1{tbl} Take 1 Un anjel en-codeine 0-06 tablet by ity of 300-30 mg 16:05: mouth [place] tablet 17 every 4 Medical (four) Branch hours as needed. doxepin 50 2020-06 Yes 50mg Take 50 mg U nivers mg capsule 0-06 by mouth ity o f 16:05: at [place] [address] bedtime. Medical Branch simvastatin Yes 10mg Take 10 mg Univers 10 mg 6-08 by mouth ity of tablet 00:00: every [place] 00 evening. Medical Branch simvastatin Yes 10mg Take 10 mg Univers 10 mg 6-08 by mouth ity of tablet 00:00: every [place] 00 evening. Medical Branch simvastatin 0 Yes 10mg Take 10 mg Univers 10 mg 6-08 by mouth ity of tablet 00:00: every [place] 00 evening. Medical Branch simvastatin 0 Yes 10mg Take 10 mg Univers 10 mg 6-08 by mouth ity of tablet 00:00: every [place] 00 evening. Medical Branch pregabalin 0 Yes 100mg Take 100 Un anjel 100 mg 6-07 mg by ity of capsule 00:00: mouth [place] (two) Medical times Branch daily. pregabalin 2020-0 Yes 100mg Take 100 Un anjel 100 mg 6-07 mg by ity of capsule 00:00: mouth [place] (two) Medical times Branch daily. pregabalin 2020-0 Yes 100mg Take 100 Un anjel 100 mg 6-07 mg by ity of capsule 00:00: mouth [place] (two) Medical times Branch daily. pregabalin 202-0 Yes 100mg Take 100 Un anjel 100 mg 6-07 mg by ity of capsule 00:00: mouth [place] (two) Medical times Branch daily. DEXILANT 60 Yes 1{capsu Take 1 U nivers mg capsule 5-21 le} capsule by ity of 00:00: mouth [place] 00 daily. Medical Branch levocetiriz 2021-0 Yes 5mg Take 5 mg U nivers ine 5 mg 5-21 by mouth ity of tablet 00:00: every [place] 00 evening. Medical Branch DEXILANT 60 Yes 1{capsu Take 1 U nivers mg capsule 5-21 le} capsule by ity of 00:00: mouth [place] 00 daily. Medical Branch levocetiriz Yes 5mg Take 5 mg U nivers ine 5 mg 5-21 by mouth ity of tablet 00:00: every [place] 00 evening. Medical Branch DEXILANT 60 Yes 1{capsu Take 1 U nivers mg capsule 5-21 le} capsule by ity of 00:00: mouth [place] 00 daily. Medical Branch levocetiriz Yes 5mg Take 5 mg U nivers ine 5 mg 5-21 by mouth ity of tablet 00:00: every [place] 00 evening. Medical Branch DEXILANT 60 Yes 1{capsu Take 1 U nivers mg capsule 5-21 le} capsule by ity of 00:00: mouth [place] 00 daily. Medical Branch levocetiriz Yes 5mg Take 5 mg U nivers ine 5 mg 5-21 by mouth ity of tablet 00:00: every [place] 00 evening. Medical Branch Cephalexin Cephalexin Yes [...] Hospita 06 l ALPRAZolam 2018-06 Yes 2mg Q.[id number] Take 2 mg Methodi (XANAX) 2 1-11 [id number] [address] mouth [address] MG tablet 11:18: [...] l cyanocobala 2018-06 Yes Take by Met haii min, -[address] vitamin 11:18: Hospita B-12, 06 l (VITAMIN B-12 ORAL) dexlansopra 2018-06 Yes 60mg QD Take 60 mg Methodi zole -[address] (DEXILANT) 11:18: daily. Hospi ta 60 mg 06 l capsule paliperidon 2018-06 Yes Take by Met haii e (INVEGA 1-[address] ORAL) 11:18: Hospita 06 l ALPRAZolam 2018-06 Yes 2mg Q.[id number] Take 2 mg Methodi (XANAX) 2 - [id number] by mouth 3 st MG tablet 11:18: [...] l cyanocobala 2018-06 Yes Take by Met haii min, -[address] vitamin 11:18: Hospita B-12, 06 l (VITAMIN B-12 ORAL) dexlansopra 2018-06 Yes 60mg QD Take 60 mg Methodi zole -[address] (DEXILANT) 11:18: daily. Hospi ta 60 mg 06 l capsule paliperidon 2018-06 Yes Take by Met hodi e (INVEGA 1-[address] ORAL) 11:18: Hospita 06 l ALPRAZolam 2019-1 Yes 2mg Q.[id number] Take 2 mg Methodi (XANAX) 2 - [id number] by mouth 3 st MG tablet 11:18: [...] Hospi ta 60 mg 06 l capsule FLUoxetine 2018-06 Yes 40mg QD Take 40 [...] Hospita 06 l ALPRAZolam 2018-06 Yes 2mg Q.[id number] Take 2 mg Methodi (XANAX) 2 - [id number] by mouth 3 st MG tablet 11:18: 3D (three) Hospi ta 06 times a l day as needed for anxiety. budesonide/ 2018-06 Yes Inhale. Met haii formoterol -11 st fumarate 11:18: Hospita (SYMBICORT 06 l INHL) paliperidon 2018-06 Yes Take by Met bee e (INVEGA 1-[address] ORAL) 11:18: Hospita 06 l ALPRAZolam 2018-06 Yes 2mg Q.[id number] Take 2 mg Methodi (XANAX) 2 - [id number] by mouth 3 st MG tablet 11:18: 3D (three) Hospi ta 06 times a l day as needed for anxiety. budesonide/ 2018-06 Yes Inhale. Met bee formoterol - st fumarate 11:18: Hospita (SYMBICORT 06 l INHL) FLUoxetine 2018-06 Yes 40mg QD Take 40 mg M ethodi (PROzac) 40 06-[address] MG capsule 11:18: daily. Hospi ta 06 l cyanocobala 2018-06 Yes Take by Met bee min, [address] vitamin 11:18: Hospita B-12, 06 l (VITAMIN B-12 ORAL) dexlansopra 2018-06 Yes 60mg QD Take 60 mg Methodi zole 06-[address] (DEXILANT) 11:18: daily. Hospi ta 60 mg 06 l capsule paliperidon 2018-06 Yes Take by Met bee e (INVEGA [address] ORAL) 11:18: Hospita 06 l ALPRAZolam 2018-06 Yes 2mg Q.[id number] Take 2 mg Methodi (XANAX) 2 06-12 [id number] [address] mouth 3 [address] MG tablet 11:18: [...] capsule 26 (two) Center times daily. doxepin 0 Yes 75mg QD Take [address] (SINEQUAN) 8-02 by mouth [facility] 75 MG 10:59: nightly. Medical capsule 26 Center [address]EN[address] [facility] (BUTRANS 8-02 the skin. Harry gracia TD) 10:59: Medical 26 Center HYDROcodone 0 Yes 1{tbl} Take [address] [...] MG 26 (two) Center tablet times daily. doxepin Yes 75mg QD Take 75 mg [...] ZANAFLEX Yes .bid Memoria 8-05 l 00:00: [place] 00 HYDROCODONE Yes one po Bin emili -ACETAMINOP 8-05 twice a l HEN 10-325 00:00: day [place] MG TABS 00 COLCHICINE Yes one po Memor ia 8-05 twice a l 00:00: day Tal 00 ATARAX Yes prn Memoria 8-05 anxiety l 00:00: SEROQUEL 2015-0 Yes Two po qhs Mem oria 400 [...] twice a l HEN 10-325 00:00: day [place] MG TABS 00 COLCHICINE Yes one po [...] Immunizations Ordered Filled Immunization Date Status Comments [facility] e Immunization Name Name SARS-COV-2 COVID-19 2021-02-16 Completed Unive rsity of PFIZER VACCINE 00:00:00 [facility] SARS-COV-2 COVID-19 2021-02-16 Completed Unive rsity of PFIZER VACCINE 00:00:00 [facility] SARS-COV-2 COVID-19 2021-02-16 Completed Unive rsity of PFIZER VACCINE 00:00:00 [facility] SARS-COV-2 COVID-19 2021-02-16 Completed Unive rsity of PFIZER VACCINE 00:00:00 [facility] SARS-COV-2 COVID-19 2021-01-26 Completed Unive rsity of PFIZER VACCINE 00:00:00 [facility] SARS-COV-2 COVID-19 2021-01-26 Completed Unive rsity of PFIZER VACCINE 00:00:00 [facility] SARS-COV-2 COVID-19 2021-01-26 Completed Unive rsity of PFIZER VACCINE 00:00:00 [facility] SARS-COV-2 COVID-19 2021-01-26 Completed Unive rsity of PFIZER VACCINE 00:00:00 [facility] TDAP 2013-03-18 Completed University 00:00:00 [facility] TDAP 2013-03-18 Completed University of 00:00:00 [facility] TDAP 2013-03-18 Completed University of 00:00:00 [facility] TDAP 2013-03-18 Completed University 00:00:00 [facility] Vital Signs Vital Name Observation Time Observation Value Comments Source Systolic blood 2021-05-03 17:08:00 112 mm[Hg] Univer sity of pressure [facility] Diastolic blood 2021-05-03 17:08:00 75 mm[Hg] Unive rsity of pressure [facility] Heart rate 2021-05-03 17:08:00 85 /min Universi ty [facility] Body height 2021-05-03 17:08:00 154.9 cm Universi [facility] Body weight 2021-05-03 17:08:00 [facility] BMI 2021-05-03 17:08:00 32.69 kg/m2 [facility] Height 2020-12-18 15:59:00 154.94 CM [...] 20:15:50 [facility] Weight 2015-01-04 20:15:50 [facility] Temperature Oral (F) 2015-01-04 20:15:50 98.4 F [facility] [place] Heart Rate 2015-01-04 20:15:50 [facility] [place] Systolic (mm Hg) 2015-01-04 20:15:50 Bin rial [place] Diastolic (mm Hg) 2015-01-04 20:15:50 Mem orial [place] Procedures Procedure Date / Time Performing Clinician Source Performed REFERRAL- 2022-01-18 05:01:00 Doctor Unassigned, [facility] REQUEST/RESPONSE [place] [facility] XR HIPS 2 VW BILATERAL 2021-05-03 17:47:00 Sheri Tate Unive rsity of [place] [facility] REFERRAL- 2021 05:01:00 Doctor Unassigned, [facility] REQUEST/RESPONSE [place] [facility] DRAIN RH SUBQ TISS FASCIA 2020-08-15 00:00:00 [facility] OPEN APPR Center nfectious agent detection 2019-11-15 00:00:00 [facility] by nucleic acid (DNA or smoking/tobacco 2015-01-04 20:15:50 [facility] Her monte cessation, patient education and counseling vaginal Pap smear results 2014-01-31 20:34:06 Me morial [place] colonoscopy 2013-05-02 21:35:09 [facility] History of [facility]al Ligation [facility] History of Exploratory [facility] Laparotomy History of [facility] Cholecystectomy Plan of Care Planned Activity Planned Date Details Comments Source Future Scheduled 2022-07-15 COLONOSCOPY SCREENING [facility] Hospital Test 14:25:21 [code = COLONOSCOPY SCREENING] Future Scheduled 2022-07-15 SHINGLES VACCINES (1 Met [facility] Hospital Test 14:25:21 of 2) [code = SHINGLES VACCINES (1 of 2)] Future Scheduled 2022-07-15 INFLUENZA VACCINE Method ist Hospital Test 14:25:21 [code = INFLUENZA VACCINE] Future Scheduled 2022-07-15 COVID-19 VACCINE (#1) [facility] Hospital Test 14:25:21 [code = COVID-19 VACCINE (#1)] Future Scheduled 2022-07-15 Screening for [facility] Hospital Test 14:25:21 malignant neoplasm of cervix (procedure) [code = 523407563] Future Scheduled 2022-07-15 BREAST CANCER [facility] Test 14:25:21 SCREENING [code = BREAST CANCER SCREENING] Future Scheduled 2022-07-15 COLONOSCOPY SCREENING [facility] Hospital Test 14:25:21 [code = COLONOSCOPY SCREENING] Future Scheduled 2022-07-15 SHINGLES VACCINES (1 Met [facility] Test 14:25:21 of 2) [code = SHINGLES VACCINES (1 of 2)] Future Scheduled 2022-07-15 INFLUENZA VACCINE Method ist Hospital Test 14:25:21 [code = INFLUENZA VACCINE] Future Scheduled 2022-07-15 COVID-19 VACCINE (#1) [facility] Hospital Test 14:25:21 [code = COVID-19 VACCINE (#1)] Future Scheduled 2022-07-15 Screening for [facility] Hospital Test 14:25:21 malignant neoplasm of cervix (procedure) [code = 492102357] Future Scheduled 2022-07-15 BREAST CANCER [facility] Test 14:25:21 SCREENING [code = BREAST CANCER SCREENING] Future Scheduled 2022-07-15 COLONOSCOPY SCREENING [facility] Test 14:25:21 [code = COLONOSCOPY SCREENING] Future Scheduled 2022-07-15 SHINGLES VACCINES (1 Met [facility] Test 14:25:21 of 2) [code = SHINGLES VACCINES (1 of 2)] Future Scheduled 2022-07-15 INFLUENZA VACCINE [facility] Test 14:25:21 [code = INFLUENZA VACCINE] Future Scheduled 2022-07-15 COVID-19 VACCINE (#1) [facility] Test 14:25:21 [code = COVID-19 VACCINE (#1)] Future Scheduled 2022-07-15 Screening for [facility] Test 14:25:21 malignant neoplasm of cervix (procedure) [code = 772381337] Future Scheduled 2022-07-15 BREAST CANCER [facility] Test 14:25:21 SCREENING [code = BREAST CANCER SCREENING] Future Scheduled 2022-05-19 COVID-19 VACCINE (#1) [facility] Test 04:28:51 [code = COVID-19 VACCINE (#1)] Future Scheduled 2022-05-19 BREAST CANCER [facility] Test 04:28:51 SCREENING [code = BREAST CANCER SCREENING] Future Scheduled 2022-05-19 COLONOSCOPY SCREENING [facility] Test 04:28:51 [code = COLONOSCOPY SCREENING] Future Scheduled 2022-05-19 SHINGLES VACCINES (1 Met [facility] Test 04:28:51 of 2) [code = SHINGLES VACCINES (1 of 2)] Future Scheduled 2022-05-19 INFLUENZA VACCINE [facility] Test 04:28:51 [code = INFLUENZA VACCINE] Future Scheduled 2022-04-07 HEPATITIS B VACCINES [facility] Test 20:14:03 (1 of 3 - 3-dose series) [code = HEPATITIS B VACCINES (1 of 3 - 3-dose series)] Future Scheduled 2022-04-07 COVID-19 VACCINE (#1) [facility] Test 20:14:03 [code = COVID-19 VACCINE (#1)] Future Scheduled 2022-04-07 Pneumococcal Vaccine: [facility] Test 20:14:03 Pediatrics (0 to 5 Years) and At-Risk Patients (6 to 64 Years) (1 - PCV) [code = Pneumococcal Vaccine: Pediatrics (0 to 5 Years) and At-Risk Patients (6 to 64 Years) (1 - PCV)] Future Scheduled 2022-04-07 Hepatitis C screening [facility] Test 20:14:03 (procedure) [code = 990877968] Future Scheduled 2022-04-07 Screening for [facility] Test 20:14:03 malignant neoplasm of cervix (procedure) [code = 885078829] Future Scheduled 2022-04-07 BREAST CANCER [facility] Test 20:14:03 SCREENING [code = BREAST CANCER SCREENING] Future Scheduled 2022-04-07 COLONOSCOPY SCREENING [facility] Test 20:14:03 [code = COLONOSCOPY SCREENING] Future Scheduled 2022-04-07 SHINGLES VACCINES (1 Met [facility] Test 20:14:03 of 2) [code = SHINGLES VACCINES (1 of 2)] Future Scheduled 2022-04-07 INFLUENZA VACCINE [facility] Test 20:14:03 [code = INFLUENZA VACCINE] Future Scheduled 2022-04-07 HEPATITIS B VACCINES [facility] Test 20:14:03 (1 of 3 - 3-dose series) [code = HEPATITIS B VACCINES (1 of 3 - 3-dose series)] Future Scheduled 2022-04-07 COVID-19 VACCINE (#1) [facility] Test 20:14:03 [code = COVID-19 VACCINE (#1)] Future Scheduled 2022-04-07 Pneumococcal Vaccine: [facility] Test 20:14:03 Pediatrics (0 to 5 Years) and At-Risk Patients (6 to 64 Years) (1 - PCV) [code = Pneumococcal Vaccine: Pediatrics (0 to 5 Years) and At-Risk Patients (6 to 64 Years) (1 - PCV)] Future Scheduled 2022-04-07 Hepatitis C screening [facility] Test 20:14:03 (procedure) [code = 177626777] Future Scheduled 2022-04-07 Screening for [facility] Test 20:14:03 malignant neoplasm of cervix (procedure) [code = 211867840] Future Scheduled 2022-04-07 BREAST CANCER [facility] Test 20:14:03 SCREENING [code = BREAST CANCER SCREENING] Future Scheduled 2022-04-07 COLONOSCOPY SCREENING [facility] Test 20:14:03 [code = COLONOSCOPY SCREENING] Future Scheduled 2022-04-07 SHINGLES VACCINES (1 Met [facility] Test 20:14:03 of 2) [code = SHINGLES VACCINES (1 of 2)] Future Scheduled 2022-04-07 INFLUENZA VACCINE Method ist Hospital Test 20:14:03 [code = INFLUENZA VACCINE] Encounters Start End Encounter Admission Attending Care Care Encounter Source Date/Time Date/Time Type Type Clinicians Facility Department ID 2021-04-03 Outpatient R GUANAKO [facility] [id number] Univers 02:17:14 ANJU Adkins [facility] 2022-07-31 2022-07-31 Outpatient [facility] Jose Roberto 15:14:08 15:14:08 [id number] [address] [place] 2022-05-23 2022-05-23 Outpatient [facility] Jose Roberto 09:20:25 09:20:25 [id number] [address] [place] 2022-04-15 2022-04-15 Outpatient R MAL BURGER [facility] [id number] Univers 10:00:00 10:00:00 MAL BURGER i ty [facility] 2022-03-08 2022-03-08 Outpatient R MAL BURGER [facility] [id number] Univers 10:30:00 10:30:00 MAL BURGER i ty [facility] 2022-01-18 2022-01-18 Orders Doctor EVANS [id number] Univers 00:00:00 00:00:00 Only Unassigned, MARK [id number] ity of [place] [facility] [id number] Francesco as [id number] [address] 2021-10-08 2021-10-08 Outpatient [facility] PRIV PRIV [id number] [facility] 02:19:00 02:19:00 _A [id number] Medica l 2021-09-25 2021-09-25 Outpatient [facility] PRIV PRIV [id number] [facility] 09:32:00 09:32:00 _A [id number] Medica l 2021-09-25 2021-09-25 Outpatient [facility] PRIV PRIV [id number] [facility] 09:32:00 09:32:00 _A [id number] Medica l 2021-05-14 2021-05-14 Outpatient [facility] [id number] Univers 00:00:00 00:00:00 [facility] 2021-05-03 2021-05-03 Outpatient Dilip [facility] [id number] Univers 11:15:00 23:59:00 [facility] 2021-05-03 2021-05-03 Hospital [facility] [id number] Univers 11:15:00 23:59:00 Encounter [facility] [id number] ity of [place] [id number] Francesco as FRANKIE?BLEA [id number] Oh deb MARTINO [address] MEDICAL OFFICE [facility] 2021-05-03 2021-05-03 Outpatient Dilip [facility] [id number] Univers 11:00:00 11:00:00 [facility] 2021-05-03 2021-05-03 Outpatient Dilip [facility] [id number] Univers 11:00:00 11:00:00 [facility] 2021-05-03 2021-05-03 Office [facility] [id number] Univers 10:24:20 10:54:20 Visit [facility] [id number] it y of [place] [id number] Francesco as FRANKIE?BLEA [id number] Oh deb MARTINO [address] MEDICAL OFFICE [facility] 2021 2021 Orders Doctor EVANS [id number] Univers 00:00:00 00:00:00 Only Unassigned, MARK [id number] ity of [place] [facility] [id number] Francesco as [id number] [address] 2021-03-07 2021-03-07 [facility] [id number] Univers 12:06:00 15:59:00 Encounter Anju adkins [id number] [id number] [id number] [facility] 071 Branch 2021-03-07 2021-03-07 Surgery [facility] [id number] Univers 13:35:00 14:12:00 eAnju [id number] [id number] [id number] [facility] 020 Branch 2021-03-06 2021-03-06 Outpatient R [facility] [id number] Univers 08:00:00 08:00:00 ANJU Adkinsy o f [facility] 2021-03-06 2021-03-06 Laboratory Only, Adc Test [facility] [id number]. [id number] Univers 07:40:21 07:55:21 Only Anju Davison 350.1.1 3.10 [id number] [place] [id number] [facility] 353 Branch 2021-03-06 2021-03-06 Orders Doctor NATHAN [id number] Univers 00:00:00 00:00:00 Only Unassigned, MARK 350.1.13.10 ity of [place] [facility] 4.2.7.2.686 Francesco as [phone] [facility] [address] 2021-02-16 2021-02-16 Imm/Inj Nurse, Adc Pob Immunization [facility] 1.2.840.114 [id number] Univers 08:04:24 08:14:24 Visit Daniel Chapa 350.1.13 .10 [place] [phone] Oh dical [facility] 2021-02-16 2021-02-16 Outpatient R AGAPITO [facility] [id number] Univers 08:10:00 08:10:00 DANIEL itsharon [facility] 2021-02-07 2021-02-07 Office Kristi Brock [facility] 1.2.840.114 [id number] Univers 07:35:37 11:35:37 Visit MULTISPEC 350.1.13.10 ity of [place] 4.2.7.2.686 Formerly [facility] [phone] [facility] AND [address] [facility] 2021-02-07 2021-02-07 Office Cristina Kristi [facility] 1.2.840.114 [id number] Univers 07:35:37 11:35:37 Visit MULTISPEC 350.1.13.10 ity of [place] 4.2.7.2.686 [facility]ly [facility] [phone] [facility] AND [address] [facility] 2021-02-07 2021-02-07 Outpatient R KRISTI BROCK [facility] [id number] Univers 08:00:00 08:00:00 ity of [facility] 2021-02-02 2021-02-02 [facility] Radiology [facility] 1.2.840.114 [id number] Univers 08:32:14 23:59:00 Encounter [place] 350.1.13.10 [place] of [place] 4.2.7.2.686 [facility] [phone] [address] 2021-02-02 2021-02-02 [facility] Radiology [facility] 1.2.840.114 [id number] Univers 08:32:14 23:59:00 Encounter [place] 350.1.13.10 [place] of [place] 4.2.7.2.686 [facility] [phone] [address] 2021-02-02 2021-02-02 Outpatient R RADIOLOGY [facility] [id number] Univers 00:00:00 00:00:00 ity of [facility] 2021-01-26 2021-01-26 Outpatient R AGAPITO [facility] [id number] Univers 09:50:00 09:50:00 DANIEL itsharon [facility] 2021-01-26 2021-01-26 Imm/Inj Nurse, Adc Pob Immunization [facility] 1.2.840.114 [id number] Univers 09:37:51 09:38:00 Visit AgapitoDaniel Miroslava 350.1.[address] [facility] [place]2.7.2.[place] [phone] [facility] [address] [facility] 2021-01-23 2021-01-23 Outpatient R KARANJEWEL CAPUTO [facility] [id number] Univers 11:00:00 11:00:00 EJWEL ODEN [facility] 2021-01-22 2021-01-22 [facility] 1.2.840.114 [id number] Univers 13:20:54 15:07:[address] [facility] 350.1.13.10 [facility] 4.2.7.2.686 Francesco as Frankie?Blea [phone] Oh dic[address] Office [facility] 2021-01-22 2021-01-22 Outpatient R JEWEL ODEN [facility] [id number] Univers 14:40:00 14:40:00 JEWEL ODEN [facility] 2021-01-22 2021-01-22 Outpatient R RADIOLOGY [facility] [id number] Univers 00:00:00 [facility]-01-19 2021-01-19 Outpatient R KARANJEWEL CAPUTO [facility] [id number] Univers 10:40:00 10:40:00 KARANJEWEL Adkins [facility] 2021-01-18 2021-01-18 Outpatient R RADIOLOGY [facility] [id number] Univers 00:00:00 00:00:00 ity [facility] 2021-01-10 2021-01-10 [facility] 1.2.840.114 [id number] Univers 00:00:00 00:00:00 Jewel Moore [place] 350.1.13.[address] [facility] 4.2.7.2.[place] [phone] [facility] [address] [facility] 2020-12-28 2020-12-28 [facility] 1.2.840.114 [id number] Univers 10:29:55 23:59:00 Encounter Reuben Ho [facility] 350.1.13.10 ity of Surgical 4.2.7.2.686 Francesco as Specialti [phone] Oh dical es [facility] 2020-12-28 2020-12-28 [facility] [id number] Univers 10:15:00 10:49:23 [facility] 2020-12-28 2020-12-28 Office Reuben Montanez [facility] 1.2.840. 114 [id number] Univers 10:09:14 10:49:23 Visit Sheri Tate [facility] 350.1.13.10 ity of SURGICAL 4.2.7.2.686 Francesco as SPECIALTI [phone] Oh dical ES 198 [facility] 2020-12-28 2020-12-28 Outpatient Dilip TATE [facility] [id number] Univers 10:15:00 10:15:00 [facility] 2020-12-18 2020-12-18 Hospital [facility] 1.2.041.029 [id number] Univers 11:55:16 23:59:00 Encounter Jewel [place] 350.1.13.[address] [facility] 4.2.7.2.686 [place] [facility] [phone] [facility] [address] 2020-12-18 2020-12-18 Emergency E WOOD, [facility] [id number] [facility] 15:41:00 16:41:00 JA Niño [facility] 2020-12-18 2020-12-18 Office Karan [facility] 1.2.840.114 [id number] Univers 10:51:37 12:06:48 Visit Jewel [place] 350.1.13.10 [facility] 4.2.7.2.686 [facility] [phone] Oh dical nal 092 [facility] 2020-12-18 2020-12-18 Outpatient JEWEL BANUELOS [facility] [id number] Univers 10:40:00 10:40:00 JEWEL ODEN itsharon [facility] 2020-12-13 2020-12-13 Telephone Karan [facility] 1.2.840.114 [id number] Univers 00:00:00 00:00:00 [place]el [place] 350.1.13.10 [place] [phone] [facility] nal 092 [facility] 2020-12-12 2020-12-12 Hospital [facility] 1.2.894.771 [id number] Univers 15:00:00 23:59:00 Encounter Jewel [place] 350.1.13.10 [place]2.7.2.[place] [phone] [facility] [address] 2020-12-12 2020-12-12 Outpatient Dilip ODEN JEWEL [facility] [id number] Univers 00:00:00 00:00:00 JEEWL ODEN [facility] 2020-12-12 2020-12-12 Orders Doctor NATHAN 1Lefty2.840.114 [id number] Univers 00:00:00 00:00:00 Only Unassigned, MARK 350.1.13.10 ity of [place] [facility] 4.2.7.2.686 [place] [phone] [facility] [address] 2020-12-01 2020-12-01 [facility] 1.2.840.114 [id number] Univers 08:04:24 10:40:04 Visit Jewel [place] 350.1.13.10 [place] [phone] [facility] nal 092 [facility] 2020-12-01 2020-12-01 Outpatient Dilip ODEN JEWEL [facility] [id number] Univers 08:00:00 08:00:00 JEWEL ODEN [facility] 2020-11-20 2020-11-20 Orders Doctor NATHAN 1Lefty2.840.114 [id number] Univers 00:00:00 00:00:00 Only Unassigned, MARK 350.1.13.10 ity of [place] [facility] 4.2.7.2.686 Francesco as [phone] [facility] [address] 2020-08-21 2020-08-21 Appointmen KISHA QUIJANO [facility] [id number] [place] 09:00:00 09:00:00 tRAMONA ODEN M.D. Trauma P chantal GREENE M.D. [facility] 2020-08-15 2020-08-15 Emergency E NICK, [facility] [id number] [facility] 16:24:00 19:05:00 [facility] 2020-03-02 2020-03-02 Hospital Radiology [facility] 1.2.840.114 [id number] 08:54:20 23:59:00 Encounter [place] 350.1.13.10 [place] 4.2.7.2.686 [place] [id number] 806 2020-03-02 2020-03-02 [facility] Radiology [facility] 1.2.840.114 [id number] Univers 08:54:20 23:59:00 Encounter [place] 350.1.13.10 [place] 4.2.7.2.686 [facility] [phone] [facility] [address] 2020-03-02 2020-03-02 [facility] Radiology [facility] 1.2.840.114 [id number] 08:29:56 08:53:00 Encounter [place] 350.1.13.10 [place] 4.2.7.2.686 [place] [id number] 800 2020-03-02 2020-03-02 Hospital Radiology [facility] 1.2.840.114 [id number] Univers 08:29:56 08:53:00 Encounter [place] 350.1.13.10 [place] 4.2.7.2.686 [facility] [phone] [facility] [address] 2020-03-02 2020-03-02 Outpatient R RADIOLOGY [facility] [id number] Univers 00:00:00 00:00:00 ity of [facility] 2020-01-19 2020-01-19 Hospital Radiology [facility] 1.2.840.114 [id number] 12:00:00 23:59:00 Encounter [place] 350.1.13.10 [place] 4.2.7.2.686 [place] [phone] [facility] 2020-01-19 2020-01-19 Hospital Radiology [facility] 1.2.840.114 [id number] Univers 12:00:00 23:59:00 Encounter [place] 350.1.13.[address] [facility] 4.2.7.2.686 [facility] [phone] [address] 2020-01-19 2020-01-19 Outpatient R RADIOLOGY [facility] [id number] Univers 00:00:00 00:00:00 ity of [facility] 2019-12-10 2019-12-10 [facility] [id number] Univers 16:40:00 16:40:00 VALENTE castillo [facility] 2019-12-10 2019-12-10 Laboratory Lab, [facility] 1.2.840.114 [id number] 14:41:41 15:01:41 Only Fam Pob I Health 350.1.13.10 [place] 4.2.7.2.686 Professio [phone] [place] [address] [address] 2019-12-10 2019-12-10 Laboratory Lab, [facility] Fam Pob I [facility] 1.2. 840.114 [id number] Univers 14:41:41 15:01:41 Only Valente [facility] 350.1.13.10 ity [facility] 4.2.7.2.686 Francesco as Professio [phone] Oh dical [address] Office [address] [facility] 2019-12-10 2019-12-10 Outpatient [facility] [id number] Univers 16:40:00 14:59:10 VLAENTE itsharon [facility] 2019-11-15 2019-11-15 Emergency E TALAMANTES, [facility] [id number] [address] 20:57:00 22:21:00 KEN [facility] 2019-11-15 2019-11-15 Outpatient [facility] [id number] AccessH 14:00:00 14:00:00 [id number] 2019-11-15 2019-11-15 [facility]patient [facility] [id number] [facility] 00:00:00 00:00:00 TUNG [facility] 2019-11-15 2019-11-15 Outpatient CHRIS [facility] [id number] Access 00:00:00 00:00:00 TUNG Guerrero [id number] -[id number] [facility] [id number] 2019-10-15 2019-10-15 Emergency E CAILIN, [facility] [id number] 14:01:00 15:07:00 ROSE MARIE [facility] 2015-01-04 2015-01-04 [facility] [id number] Memoria 00:00:00 00:00:00 Visit r MATHEUS [facility] [id number] tyson cordero [facility] 2015-01-04 2015-01-04 Lab Report [place] [address] [id number] Memoria 00:00:00 00:00:00 dilip JARVIS Medical [id number] tyson cordero [facility] Results Test Description Test Time Test Comments Results Result Comments Source TSH, THIRD GENERATION 2022-05-24 06:25:47 Test Item Value Reference Range Interpretation Comme nts TSH, THIRD GENERATION (test code = 2821) 1.110 UIU/ML 0.400-4.100 HEMOGLOBIN [id number] 04:54:02 Test Item Value Reference Range Interpretation Comments HEMOGLOBIN A1c (test code = 70195) 5.8 % 4.2-5.6 H COMPREHENSIVE METABOLIC [id number] 04:35:41 Test Item Value Reference Range Interpretation Comments GLUCOSE (test code = 98 MG/DL 70-99 2216) BUN (test code = 7 MG/DL 8-23 L 2207) CREATININE (test 1.06 MG/DL 0.60-1.30 code = 2214) eGFR (2020 CKD-EPI) 60 ML/MIN/1.73 >60 L (test code = 87949) CALC BUN/CREAT (test 7 RATIO 6-28 code = 2235) SODIUM (test code = 142 MEQ/L 591-004 0013) POTASSIUM (test code 4.6 MEQ/L 3.5-5.4 = [...] code = 18 U/L 5-40 2218) LIPID [id number] 04:35:41 Test Item Value Reference Range Interpretation [...] MOREINFORMATION , SEE CLIENT ANNOUNCE MENT AT [email or web address] [email or web address] RATIO LDL/HDL 2.34 RATIO <3.22 (test code = 2238) CBC W/AUTO DIFF WITH [id number] 03:02:06 Test Item Value Reference Range Interpretation [...] message] code = 1065) WBC'S The system [employer] generated this result transmitted ref erence range: [...] 0.00-0.11 UNLESS O THERWISE (test code = 57738) INDICATE D, ALL TESTING PERFORM ED ATCLINICAL PATH OLOGY LABORATORIES, I [place]. [address] [place] [address] [facility] DIRECTOR: ESTHER DAS M.D. CLIA NUMBER [id number] CAP ACCREDITATION N O. [id number] XR ANKLE RIGHT COMPLETE 3 VIEWS *WW*2020-12-18 16:16:22 [facility] CENTERName: LOLA ENRIQUEZ : 1960 Sex: FExam: X-ray right ankle 3 viewsLocation: W4Sgjxxyq: Fall with right ankle painFindings:No fractures or dislocations identified. No osseous lesions. Mild soft tissue swelling is present.Impression:1. Mild soft tissueswelling without fracture or dislocation.Electronically signed by: Manuel Beebe MD 12/18/2020 4:16 QuireDT [U] XRAY FINGER(S) - 2 VWS MIN. RIGHT [id number] 09:35:00Images acquired, not reported on this accession number.AL Physicians Panel Description: SARS-CoV-2 (COVID-19) RNA [Presence] in Unspecified specimen by DELFIN with probe [id number] 09:17:00 Test Item Value Reference Range Interpretation Comments SARS-CoV-2, Not Detected Not Detected Testing was per formed using DELFIN (test code the Aptima RS-CoV-2 = 52881-3) assay.This test was developed and i ts performance opal racteristics determinedby Ut BTIG. T his test has not been FDA [...] the FDA and the [employer] the [employer] (CAP) are more stringent than those required for this test. Therefore, the result should be interpreted with caution and close attention to other clinical and epidemiological data Tsbqbyqto5701-64-35 21:37:001.590[facility] ZbxnokkCcashgoky7501-69-23 21:37:0017 [facility] RhtirkuSiyugawae7178-75-96 21:37:000.9[facility] 2015-01-04 21:37:77448 MEQ/LMemorial QhdquvkPvqtqdlws4153-26-71 21:37:005.2 MEQ/LMemorial XjhjgpyBikyhbiem5107-08-52 21:37:008.6[facility]ann[facility] 2015-01-04 21:37:0014.1[facility]orial XxgwqhkUvvlfzndzi0049-61-91 21:37:0043.5[facility]orial HsapyteClozhrdeia6401-92-28 21:37:68795 K/CMMMemorial HermannChemistry 2015-01-04 21:37:001.590[facility]orial ApfqgrmQqacwpqci0090-62-37 21:37:0017Memorial WjjvqltLxbcxtzcr4600-18-05 21:37:000.9[facility]orial BkpzkhzBitrbtujk7164-26-02 21:37:64719 MEQ/LMemorial FisjvlaTlysbarvb1043-95-44 21:37:005.2 MEQ/LMemorial KwhzfemEssunttcy0610-87-59 21:37:008.6[facility]orial TghpykpOgebnmrfzw8757-64-66 21:37:0014.1[facility]orial HqgwmnaFwzeavzijd1270-68-76 21:37:0043.5Memorial Tal Ixuanphflq4005-33-61 21:37:34940 K/CMMMemorial YynamdvXtikhayat4305-13-72 21:37:001.590Memorial AmwpdygRuihvnbii7620-17-28 21:37:0017[facility] Tal Ewuyjzrrz4257-76-89 21:37:000.9[facility]orial GqyxvvxPyqrfpvel0836-51-64 21:37:85096 MEQ/LMemorial LttohjvKqpfpelqy8803-38-81 21:37:005.2 MEQ/LMemorial Salineno Yxbxsgrto4797-51-48 21:37:008.emorial RoaqmruCbozcziegi2874-16-72 21:37:0014.1 Memorial HyfjzzcRfauxwjucy0296-53-74 21:37:0043.5[facility] 2015-01-04 21:37:91266 K/CMMMemorial NzjffudDbzlfsqjo8499-19-09 21:37:001.590 Memorial XxwnvrkUojcxwrrb5601-06-38 21:37:0017[facility] 2015-01-04 21:37:000.9[facility]orial JerxspaIxkalliua8147-39-16 21:37:41255 MEQ/L Memorial RkrkplpXgabukrxz8172-95-32 21:37:005.2 MEQ/LMemorial HermannChemistry 2015-01-04 21:37:008.emorial XjrmfryFjcfdlisrc9987-48-81 21:37:0014.1Memorial VtotownCesnhpdglp1295-14-30 21:37:0043.5Memorial XvnkfvhRckadujcwl2546-38-06 21:37:57550 K/CMMMemorial HermannOb/Fxm1046-90-40 20:34:06NormalMemorial Salineno Ob/Mrh9022-22-47 20:34:06NormalMemorial HermannOb/Hxk3511-65-16 20:34:06Normal Memorial HermannOb/Giq4016-43-69 20:34:06NormalMemorial HermannOb/Fuo3295-29-40 20:34:06NormalMemorial HermannOb/Xbh7579-44-67 20:34:06NormalMemorial Salineno Ob/Gbo5531-29-90 20:34:06NormalMemorial HermannOb/Yxr6749-84-83 20:34:06Normal Memorial Sal[facility]o
[2022-08-03] MEDS ORDERED: HYDROCODONE/APAP 5/325 MG TAB ONE (18:27)
--- NOTE | 2022-08-03 19:02 | RAD REPORT ---
EXAM DESCRIPTION: RAD - Hand Right 3 View - 08/03/2022 6:37 pm CLINICAL HISTORY: Pain COMPARISON: None. FINDINGS: Three views of the right hand. No fracture is identified. There is no dislocation or periosteal reaction noted. No foreign body or other soft tissue abnormalit y. IMPRESSION: Negative right hand examination.
--- NOTE | 2022-08-03 19:30 | EDPHYS ---
Physician Documentation [facility] Name: Shahnaz Ramos Age: 62 yrs Sex: Female : 1960 Arrival Date: 08/03/2022 Time: 16:46 Bed 10 Private MD: ED Physician Margret Pinon HPI: 08/03 18:10 This 62 yrs old Female presents to ER via Ambulatory with complaints of Finger snw Injury. 18:10 The patient or guardian reports pain, swelling, tenderness. The complaints affect the snw right hand diffusely, middle finger paronychia. Onset: The symptoms/episode began/occurred acutely. Severity of symptoms: At their worst the symptoms were moderate. The patient has experienced a previous episode, paronychia being treated with Augmentin and Bactrim. The patient has been recently seen by a physician: with similar presenting complaints, was given a prescription for antibiotics. Historical: - Allergies: 17:50 Aspirin; mb9 17:50 Imitrex; mb9 - PMHx: 17:50 Anxiety; Asthma; Bipolar disorder; cervical spinal stenosis; COPD; Depression; mb9 Diverticulitis; Fibromyalgia; GERD; Hepatitis C; insomnia; Migraines; Ulcers; - PSHx: 17:50 Cholecystectomy; Total abdominal hysterectomy; tubal ligation; mb9 - Immunization history:: Adult Immunizations up to date. - Social history:: Smoking status: Patient reports the use of cigarette tobacco products, smokes one pack cigarettes per day. ROS: 17:36 Constitutional: Negative for fever, chills, and weight loss, Eyes: Negative for injury, snw pain, redness, and discharge, ENT: Negative for injury, pain, and discharge, Neck: Negative for injury, pain, and swelling, Cardiovascular: Negative for chest pain, palpitations, and edema, Respiratory: Negative for shortness of breath, cough, wheezing, and pleuritic chest pain, Abdomen/GI: Negative for abdominal pain, nausea, vomiting, diarrhea, and constipation, Back: Negative for injury and pain, : Negative for injury, bleeding, discharge, and swelling, MS/Extremity: Negative for injury and deformity, Neuro: Negative for headache, weakness, numbness, tingling, and seizure, Psych: Negative for depression, anxiety, suicide ideation, homicidal ideation, and hallucinations. 17:36 Skin: Positive for swelling, tenderness to right hand/paronychia to middle lateral fingernail being tx with augmentin and bactrim. Exam: 17:27 Constitutional: This is a well developed, well nourished patient who is awake, alert, snw and in no acute distress. Head/Face: Normocephalic, atraumatic. Eyes: Pupils equal round and reactive to light, extra-ocular motions intact. Lids and lashes normal. Conjunctiva and sclera are non-icteric and not injected. Cornea within normal limits. Periorbital areas with no swelling, redness, or edema. Neck: Trachea midline, no thyromegaly or masses palpated, and no cervical lymphadenopathy. Supple, full range of motion without nuchal rigidity, or vertebral point tenderness. No Meningismus. 17:27 Skin: Appearance: normal except for affected area, swelling, that are moderate, to right dorsal hand over index finger, erythematous and edematous. paronychia to right middle lateral finger. Vital Signs: 17:49 BP 96 / 69; Pulse 68; Resp 20; Temp 98.4(O); Pulse Ox 96% on R/A; Weight 62.14 kg; mb9 Height 5 ft. 1 in. (154.94 cm); Pain 8/10; 19:41 BP 110 / 81; Pulse 70; Resp 18; Pulse Ox 97% on R/A; mb9 17:49 Body Mass Index 25.89 (62.14 kg, 154.94 cm) mb9 Procedures: 19:32 Performed mild scraping and removal of cuticle to relieve paronychia. snw MDM: 17:19 Patient medically screened. snw 19:31 Differential diagnosis: closed fracture, contusion, abrasion. Data reviewed: vital snw signs, nurses notes, radiologic studies, plain films. Counseling: I had a detailed discussion with the patient and/or guardian regarding: the historical points, exam findings, and any diagnostic results supporting the discharge/admit diagnosis, radiology results, the need for outpatient follow up, to return to the emergency department if symptoms worsen or persist or if there are any questions or concerns that arise at home. Special discussion: I discussed in detail with the patient the higher chance of wound infection based on his presenting history. Based on the history and exam findings, there is no indication for further emergent testing or inpatient evaluation. I discussed with the patient/guardian the need to see the primary care provider for further evaluation of the symptoms. 08/03 17:27 Order name: Hand Right 3 View XRAY snw 08/03 17:27 Order name: Misc. Order: soak right fingers in hibiclens and warm water after hand snw x-ray; Complete Time: 17:53 08/03 19:02 Order name: RAD; Complete Time: 19:05 EDMS Administered Medications: No medications were administered Disposition Summary: 08/03/22 19:29 Discharge Ordered Location: Home snw Condition: Stable snw Diagnosis - Paronychia snw - Contusion of right hand snw Followup: snw - With: Emergency Department - When: As needed - Reason: Worsening of condition Followup: snw - With: Private Physician - When: 2 - 3 days - Reason: Recheck today's complaints, Continuance of care, Re-evaluation by your physician Discharge Instructions: - Discharge Summary Sheet snw - Paronychia snw - Hand Contusion, Wetf-vo-Ebpv snw - Heat Therapy snw Forms: - Medication Reconciliation Form snw - Thank You Letter snw - Antibiotic Education snw - Prescription Opioid Use snw Prescriptions: - Tramadol 50 mg Oral Tablet - take 1 tablet by ORAL route every 8 hours as needed; 12 tablet; Refills: 0, snw Product Selection Permitted Signatures: Dispatcher [employer] Leanne Fitch FNP-C PROTECTIVE SERVICE SPECIALIST-Csnw Milagros Dodd RN RN mb9
--- NOTE | 2022-08-03 19:30 | ER ---
Nurse's Notes [facility] Name: Shahnaz Ramos Age: 62 yrs Sex: Female : 1960 Arrival Date: 08/03/2022 Time: 16:46 Bed 10 Private MD: Diagnosis: Paronychia;Contusion of right hand Presentation: 08/03 17:49 Chief complaint: Patient states: "injured my right index an middle finger when trying mb9 to roll my window down today". Coronavirus screen: Vaccine status: Patient reports receiving the 2nd dose of the covid vaccine. Ebola Screen: No symptoms or risks identified at this time. Initial Sepsis Screen: Does the patient meet any 2 criteria? No. Patient's initial sepsis screen is negative. Does the patient have a suspected source of infection? No. Patient's initial sepsis screen is negative. Risk Assessment: Do you want to hurt yourself or someone else? Patient reports no desire to harm self or others. Onset of symptoms was August 03, 2022. 17:49 Method Of Arrival: Ambulatory mb9 17:49 Acuity: WOLFGANG 4 mb9 Triage Assessment: 17:51 General: Appears in no apparent distress. Behavior is cooperative. Pain: Complains of mb9 pain in right index and middle finger. Neuro: Level of Consciousness is awake, alert, obeys commands, Oriented to person, place, time, situation, Appropriate for age. Respiratory: Airway is patent Respiratory effort is even, unlabored, Respiratory pattern is regular, symmetrical. Derm: Skin is pink, warm \\T\\ dry. Musculoskeletal: Range of motion: intact in all extremities, Swelling present in right hand. Historical: - Allergies: 17:50 Aspirin; mb9 17:50 Imitrex; mb9 - PMHx: 17:50 Anxiety; Asthma; Bipolar disorder; cervical spinal stenosis; COPD; Depression; mb9 Diverticulitis; Fibromyalgia; GERD; Hepatitis C; insomnia; Migraines; Ulcers; - PSHx: 17:50 Cholecystectomy; Total abdominal hysterectomy; tubal ligation; mb9 - Immunization history:: Adult Immunizations up to date. - Social history:: Smoking status: Patient reports the use of cigarette tobacco products, smokes one pack cigarettes per day. Screenin:51 [facility] ED Fall Risk Assessment (Adult) History of falling in the last 3 months, mb9 including since admission No falls in past 3 months (0 pts) Confusion or Disorientation No (0 pts) Intoxicated or Sedated No (0 pts) Impaired Gait No (0 pts) Mobility Assist Device Used No (0 pt) Altered Elimination No (0 pt) Score/Fall Risk Level 0 - 2 = Low Risk Oriented to surroundings, Maintained a safe environment, Educated pt \\T\\ family on fall prevention, incl call for assistance when getting out of bed. Abuse screen: Denies threats or abuse. Nutritional screening: No deficits noted. Tuberculosis screening: No symptoms or risk factors identified. Assessment: 17:52 Reassessment: see triage assessment. mb9 18:57 Reassessment: No changes from previously documented assessment. Patient and/or family mb9 updated on plan of care and expected duration. Pain level reassessed. Patient is alert, oriented x 3, equal unlabored respirations, skin warm/dry/pink. 19:41 Reassessment: No changes from previously documented assessment. Patient and/or family mb9 updated on plan of care and expected duration. Pain level reassessed. Patient is alert, oriented x 3, equal unlabored respirations, skin warm/dry/pink. Patient states feeling better. Patient states symptoms have improved. Vital Signs: 17:49 BP 96 / 69; Pulse 68; Resp 20; Temp 98.4(O); Pulse Ox 96% on R/A; Weight 62.14 kg; mb9 Height 5 ft. 1 in. (154.94 cm); Pain 8/10; 19:41 BP 110 / 81; Pulse 70; Resp 18; Pulse Ox 97% on R/A; mb9 17:49 Body Mass Index 25.89 (62.14 kg, 154.94 cm) mb9 ED Course: 16:46 Patient arrived in ED. mr 17:07 [facility] Neves, [facility] snw 17:07 Margret Pinon MD is Attending Physician. snw 17:19 Milagros Dodd, NEHA is Primary Nurse. mb9 17:49 Arm band placed on. mb9 17:50 Triage completed. mb9 17:51 Placed in gown. Bed in low position. Call light in reach. Side rails up X 1. Client mb9 placed on continuous cardiac and pulse oximetry monitoring. NIBP monitoring applied. 17:51 No provider procedures requiring assistance completed. Patient did not have IV access mb9 during this emergency room visit. Administered Medications: No medications were administered Medication: 17:51 VIS not applicable for this client. mb9 Outcome: 19:29 Discharge ordered by . frandy 19:42 Discharged to home ambulatory. mb9 19:42 Condition: stable 19:42 Discharge instructions given to patient, Instructed on discharge instructions, follow up and referral plans. Demonstrated understanding of instructions, follow-up care, medications, Prescriptions given X 1. 19:42 Patient left the ED. mb9 Signatures: Leanne Neves, ASIC VERIFICATION ENGINEER-C ASIC VERIFICATION ENGINEER-Barbw Milagros [place], Milagros Parnell, RN RN mb9
[2022-08-03 20:02] VITALS: TEMP 98.4
[2022-08-03 20:04] VITALS: BP 110/81; O2SAT 97
== END 2022-08-03 19:42 | disposition home or self-care (01) ==
LOC: ER 16:40
DX: L03.011 Cellulitis of right finger (principal); S60.221A Contusion of right hand, initial encounter; F17.210 Nicotine dependence, cigarettes, uncomplicated; Z88.6 Allergy status to analgesic agent
CPT/HCPCS: 99282

== ENCOUNTER 2023-09-21 20:21 | Emergency (ER) | payer OTHER ==
[2023-09-21] MEDS ORDERED: FLEET ENEMA ADULT PR ONE ×2 (21:02→23:25)
[2023-09-21] MEDS ORDERED: NA CHLORIDE 0.9% 1,000 ML ONE (21:02)
[2023-09-21] MEDS ORDERED: ONDANSETRON 4 MG/2 ML VIAL ONE (21:02)
[2023-09-21 21:26] LABS: Absolute Basophils 0.1 K/uL (0-0.5); Absolute Eosinophils 0.1 K/uL (0-0.5); Absolute Lymphocytes (CBC) 2.9 K/uL (0.7-4.9); Absolute Monocytes 0.5 K/uL (0.1-1.3); Absolute Neutrophil 3.8 K/uL (1.8-8.0); Basophils % 0.7 % (0-1.3); Eosinophils % 1.5 % (0-4.4); Hematocrit 43.8 % (36.0-45.0); Hemoglobin 14.6 g/dL (12.0-15.0); Lymphocytes % 38.7 % (15.3-44.8); MCHC 33.3 g/dL (32.0-36.0); MCV 96.1 fL (80-100); MPV 8.4 fL (7.6-11.3); Monocytes % 7.1 % (3.3-12.3); Nucleated Red Blood Cells % 0.1 % (0-0); Platelets 225 thou/uL (152-406); RBC Red Blood Cell Count 4.56 M/uL (3.86-4.86); Red Cell Distribution Width 14.3 % (12.1-15.2)
[2023-09-21 22:06] LABS: Albumin 3.3 g/dL (3.4-5.0); Albumin/Globulin Ratio 0.9 (1.1-1.8); Anion Gap 7.2 mEq/L (5.0-15.0); Bilirubin Total 0.4 mg/dL (0.2-1.0); Globulin 3.7 g/dL (2.3-3.5); Potassium 4.2 mEq/L (3.5-5.1)
[2023-09-21 22:11] LABS: Specific Gravity 1.007 (1.005-1.030); Urine Bilirubin NEGATIVE (Negative); Urine Blood Negative (Negative); Urine Clarity Clear (Clear); Urine Color Colorless (Yellow); Urine Glucose NEGATIVE (Negative); Urine Ketones NEGATIVE (Negative); Urine Microscopic Reflex YN NO UMIC; Urine Nitrite NEGATIVE (Negative); Urine Protein NEGATIVE (Negative); Urine Urobilinogen Normal (Normal)
--- NOTE | 2023-09-21 22:30 | RAD REPORT ---
EXAM DESCRIPTION: CTAbdomen Pelvis W Contrast - 09/21/2023 10:19 pm CLINICAL HISTORY: ABD PAIN COMPARISON: Abdomen Pelvis W Contrast dated 05/06/2021; Abdomen Pelvis W Contrast dated 12/10/2018 ; Abdomen Pelvis W Contrast dated 07/10/2017; Abdomen Pelvis W Contrast dated 08/07/2016 TECHNIQUE: CT of the abdomen and pelvis was performed. All CT scans are performed using dose optimization technique as appropriate and may include automated exposure control or mA/KV adjustment according to patient size. FINDINGS: Lower chest: No acute abnormality. Liver: Hepatic steatosis . Biliary: Cholecystectomy. No biliary duct dilatation. Stomach: No significant focal abnormality. Duodenum: No significant focal abnormality. Pancreas: No significant abnormality. Spleen: No significant abnormality. Adrenal: No suspicious lesions. Kidney/ureter: No hydronephrosis. No renal calculi. Retroperitoneum: No retroperitoneal adenopathy. Vascular: No aneurysm. Bowel: Moderate to large lamas colonic stool burden.. Peritoneum: No ascites or free air. Small fat containing umbilical hernia. Small fat containing right inguinal hernia. Bladder: Grossly unremarkable. Reproductive: No adnexal masses. Hysterectomy. Bones: No acute fracture. Grade 1 anterolisthesis of L4 on L5. Severe disc height loss L5-S1 Other: n/a IMPRESSION: No acute intra-abdominal or pelvic finding. Moderate to large colonic and rectal stool b urden consistent with constipation.
[2023-09-21] MEDS ORDERED: LACTULOSE 20 GM/30 ML UCUP ONE (22:59)
--- NOTE | 2023-09-21 23:46 | ER ---
Nurse's Notes [facility] Name: Shahnaz Ramos Age: 63 yrs Sex: Female : 1960 Arrival Date: 09/21/2023 Time: 20: Bed 13 Private MD: Diagnosis: Constipation Presentation: 09/20 20:48 Chief complaint: Patient states: LBM was 1 week ago and having difficulty urinating for km8 1 week. Coronavirus screen: Client denies travel out of the [place] in the last 14 days. Ebola Screen: No symptoms or risks identified at this time. Initial Sepsis Screen: Does the patient meet any 2 criteria? No. Patient's initial sepsis screen is negative. Does the patient have a suspected source of infection? No. Patient's initial sepsis screen is negative. Risk Assessment: Do you want to hurt yourself or someone else? Patient reports no desire to harm self or others. Onset of symptoms was September 14, 2023. 20:48 Method Of Arrival: Ambulatory km8 20:48 Acuity: WOLFGANG 3 km8 Triage Assessment: 20:52 General: Appears in no apparent distress. uncomfortable, Behavior is cooperative, km8 appropriate for age. Pain: Complains of pain in abdomen. EENT: No signs and/or symptoms were reported regarding the EENT system. Neuro: Level of Consciousness is awake, alert, obeys commands, Oriented to person, place, time, situation. Cardiovascular: Denies chest pain, shortness of breath, Patient's skin is warm and dry. Respiratory: Airway is patent Respiratory effort is even, unlabored, Respiratory pattern is regular, symmetrical. GI: Reports lower abdominal pain, upper abdominal pain, constipation. : Reports inability to void. Derm: Skin is intact, is healthy with good turgor, Skin is dry, Skin is pink, warm \T\ dry. normal, Skin temperature is warm. Musculoskeletal: No signs and/or symptoms reported regarding the musculoskeletal system. Range of motion: intact in all extremities. Historical: - Allergies: 20:52 Aspirin; km8 20:52 Imitrex; km8 - PMHx: 20:52 Anxiety; Asthma; Bipolar disorder; cervical spinal stenosis; Depression; COPD; km8 Diverticulitis; Fibromyalgia; GERD; Hepatitis C; insomnia; Migraines; Ulcers; - PSHx: 20:52 Cholecystectomy; Total abdominal hysterectomy; tubal ligation; km8 - Immunization history:: Adult Immunizations up to date. - Infectious Disease History:: Denies. - Social history:: Smoking status: Patient reports the use of cigarette tobacco products, smokes one pack cigarettes per day. Patient uses street drugs, marijuana, Patient/guardian denies using alcohol. Screenin:42 [facility] ED Fall Risk Assessment (Adult) History of falling in the last 3 months, tm6 including since admission No falls in past 3 months (0 pts) Confusion or Disorientation No (0 pts) Intoxicated or Sedated No (0 pts) Impaired Gait No (0 pts) Mobility Assist Device Used No (0 pt) Altered Elimination No (0 pt) Score/Fall Risk Level 0 - 2 = Low Risk Oriented to surroundings, Maintained a safe environment. Abuse screen: Denies threats or abuse. Denies injuries from another. Nutritional screening: No deficits noted. Tuberculosis screening: No symptoms or risk factors identified. Assessment: 23:42 General: Appears uncomfortable, Behavior is calm, cooperative. Pain: Denies pain. tm6 Neuro: Level of Consciousness is awake, alert, obeys commands, Oriented to person, place, time, situation. Cardiovascular: No deficits noted. Patient's skin is warm and dry. GI: Abdomen is flat, non-distended, Bowel sounds present X 4 quads. Abd is soft and non tender Reports constipation. : Reports inability to void. EENT: No signs and/or symptoms were reported regarding the EENT system. Derm: No signs and/or symptoms reported regarding the dermatologic system. Musculoskeletal: No signs and/or symptoms reported regarding the musculoskeletal system. 23:47 Reassessment: patient was able to have bowel movement. BM was large and firm. tm6 Vital Signs: 20:48 BP 144 / 88; Pulse 83; Resp 18; Temp 96.7(TE); Pulse Ox 92% on R/A; Weight 60.33 kg km8 (R); Height 5 ft. 1 in. (R); Pain 9/10; 23:00 BP 107 / 68; Pulse 73; Resp 16; Pulse Ox 98% ; pm6 23:53 BP 156 / 86; Pulse 79; Resp 19; Temp 97.5(TE); Pulse Ox 96% on R/A; Pain 0/10; tm6 20:48 Body Mass Index 25.13 (60.33 kg, 154.94 cm) km8 20:48 Pain Scale: Adult km8 23:53 Pain Scale: Adult tm6 ED Course: 20:25 Patient arrived in ED. jj6 20:27 Vicki Schwab FNP-C is [facility]. kb 20:27 Max Wadsworth MD is Attending Physician. kb 20:45 Shahida Koehler is Primary Nurse. cp4 20:51 Triage completed. km8 20:52 Arm band placed on right wrist. Patient placed in an exam room. km8 20:59 Inserted saline lock: 20 gauge in right antecubital area, using aseptic technique. pm6 Blood collected. 21:02 CBC with Diff Sent. pm6 21:02 CMP Sent. pm6 21:02 Lipase Sent. pm6 21:24 Warm blanket given. oe 22:21 CT Abd/Pelvis - IV Contrast Only In Process Unspecified. EDMS 23:42 Patient has correct armband on for positive identification. Placed in gown. Bed in low tm6 position. Call light in reach. Side rails up X 1. Provided Education on: plan of care. 23:48 No provider procedures requiring assistance completed. IV discontinued, intact, tm6 bleeding controlled, No redness/swelling at site. Pressure dressing applied. Administered Medications: 21:06 Drug: NS 0.9% IV 1000 ml IV at 1 bolus Per protocol; 1000 mL bolus Route: IV; Rate: 1 cp4 bolus; Site: right antecubital; 21:06 Drug: Ondansetron IVP 4 mg IVP once; over 2 minutes Route: IVP; Site: right antecubital;cp4 21:06 Drug: Fleet Enema OK 133 ml OK once; may repeat once Route: OK; cp4 23:00 Drug: Lactulose PO 30 grams 45 ml PO once Volume: 45 ml; Route: PO; tm6 Medication: 23:42 VIS not applicable for this client. tm6 Outcome: 23:45 Discharge ordered by . kb 23:54 Discharged to home ambulatory, tm6 23:54 Condition: stable 23:54 Discharge instructions given to patient, Instructed on discharge instructions, follow up and referral plans. Demonstrated understanding of instructions, follow-up care, 23:54 Patient left the ED. tm6 Signatures: Dispatcher [employer] EDMS Vicki Schwab, DOOR HANGER-C DOOR HANGER-Ckb Shelton Christianson Jennifer jj6 Shahida Koehler cp4 Demetra Espinal, RN RN km8 Som Metz RN RN tm6 Jocelyn Paulino pm6
--- NOTE | 2023-09-21 23:46 | EDPHYS ---
Physician Documentation [facility] Name: Shahnaz Ramos Age: 63 yrs Sex: Female : 1960 Arrival Date: 09/21/2023 Time: 20:21 Bed 13 Private MD: ED Physician Max Wadsworth HPI: 09/21 00:26 This 63 yrs old Female presents to ER via Ambulatory with complaints of kb Urinary Retention, Constipation. 00:26 Patient is a 63-year-old female who presents for constipation and difficulty urinating. kb States she has not had a bowel movement in 7 days. Reports abdominal pain and history of diverticulitis. Denies fever, nausea or vomiting.. Historical: - Allergies: 09/20 20:52 Aspirin; km8 20:52 Imitrex; km8 - PMHx: 20:52 Anxiety; Asthma; Bipolar disorder; cervical spinal stenosis; Depression; COPD; km8 Diverticulitis; Fibromyalgia; GERD; Hepatitis C; insomnia; Migraines; Ulcers; - PSHx: 20:52 Cholecystectomy; Total abdominal hysterectomy; tubal ligation; km8 - Immunization history:: Adult Immunizations up to date. - Infectious Disease History:: Denies. - Social history:: Smoking status: Patient reports the use of cigarette tobacco products, smokes one pack cigarettes per day. Patient uses street drugs, marijuana, Patient/guardian denies using alcohol. ROS: 09/21 00:26 Constitutional: As per HPI kb Exam: 00:26 Constitutional: This is a well developed, well nourished patient who is awake, alert, kb and in no acute distress. Head/Face: Normocephalic, atraumatic. ENT: Moist Mucous membranes Cardiovascular: Regular rate Respiratory: Respirations even and unlabored. No increased work of breathing. Talking in full sentences Skin: Warm, dry with normal turgor. Normal color. MS/ Extremity: Pulses equal, no cyanosis. Neurovascular intact. Full, normal range of motion. Neuro: Awake and alert, GCS 15, oriented to person, place, time, and situation. Moves all extremities. Normal gait. 00:26 Abdomen/GI: Inspection: abdomen appears normal, Bowel sounds: normal, Palpation: soft, in all quadrants, mild abdominal tenderness, in the suprapubic area, Vital Signs: 09/20 20:48 BP 144 / 88; Pulse 83; Resp 18; Temp 96.7(TE); Pulse Ox 92% on R/A; Weight 60.33 kg km8 (R); Height 5 ft. 1 in. (R); Pain 9/10; 23:00 BP 107 / 68; Pulse 73; Resp 16; Pulse Ox 98% ; pm6 23:53 BP 156 / 86; Pulse 79; Resp 19; Temp 97.5(TE); Pulse Ox 96% on R/A; Pain 0/10; tm6 20:48 Body Mass Index 25.13 (60.33 kg, 154.94 cm) km8 20:48 Pain Scale: Adult km8 23:53 Pain Scale: Adult tm6 MDM: 20:27 Patient medically screened. kb 09/21 00:27 Differential diagnosis: Constipation, small bowel obstruction, colitis, diverticulitis, kb UTI. Data reviewed: vital signs, nurses notes. Counseling: I had a detailed discussion with the patient and/or guardian regarding the historical points, exam findings, and any diagnostic results supporting the discharge/admit diagnosis, lab results, radiology results, the need for outpatient follow up, a family practitioner, to return to the emergency department if symptoms worsen or persist or if there are any questions or concerns that arise at home. ED course: Patient was able to have a large bowel movement after enema. Patient feeling better upon discharge.. 09/20 20:53 Order name: CBC with Diff; Complete Time: 21:45 kb 09/20 20:53 Order name: CMP; Complete Time: 22:07 kb 09/20 20:53 Order name: Lipase; Complete Time: 22:07 kb 09/20 20:53 Order name: Urinalysis w/ reflexes; Complete Time: 22:12 kb 09/20 20:53 Order name: CT Abd/Pelvis - IV Contrast Only; Complete Time: 22:31 kb 09/20 20:53 Order name: IV Saline Lock; Complete Time: 20:59 kb 09/20 20:53 Order name: Labs collected and sent; Complete Time: 20:59 kb 09/20 21:12 Order name: Straight Cath; Complete Time: 21:57 kb Administered Medications: 09/20 21:06 Drug: NS 0.9% IV 1000 ml IV at 1 bolus Per protocol; 1000 mL bolus Route: IV; Rate: 1 cp4 bolus; Site: right antecubital; 21:06 Drug: Ondansetron IVP 4 mg IVP once; over 2 minutes Route: IVP; Site: right antecubital;cp4 21:06 Drug: Fleet Enema MN 133 ml MN once; may repeat once Route: MN; cp4 23:00 Drug: Lactulose PO 30 grams 45 ml PO once Volume: 45 ml; Route: PO; tm6 Disposition: 09/21 05:23 Co-signature as Attending Physician, Max Wadsworth MD I agree with the assessment sp4 and plan of care. I reviewed the patient's care provided by the Advanced Practice Provider and agree with the diagnosis and treatment plan. Disposition Summary: 09/21/23 23:45 Discharge Ordered Notes: Location: Home kb Condition: Stable kb Diagnosis - Constipation kb Followup: kb - With: Emergency Department - When: As needed - Reason: Worsening of condition Followup: kb - With: Private Physician - When: 2 - 3 days - Reason: Recheck today's complaints, Continuance of care, Re-evaluation by your physician Discharge Instructions: - Discharge Summary Sheet kb - Constipation, Adult, [id number] kb Forms: - Medication Reconciliation Form kb - Thank You Letter kb - Antibiotic Education kb - Prescription Opioid Use kb - Patient Portal Instructions kb - Leadership Thank You Letter kb Signatures: Dispatcher [employer] EDVicki Matos, POOL SERVICER-C POOL SERVICER-Max Lazaro MD MD sp4 Shahida Koehler Katie, RN RN km8 Som Metz RN RN tm6 Corrections: (The following items were deleted from the chart) 09/20 21:12 21:12 [place] ordered. kb kb
[2023-09-22 00:55] VITALS: BP 156/86; TEMP 97.5; O2SAT 96
== END 2023-09-21 23:54 | disposition home or self-care (01) ==
LOC: ER 20:21
DX: K59.00 Constipation, unspecified (principal); F17.210 Nicotine dependence, cigarettes, uncomplicated; Z88.6 Allergy status to analgesic agent
CPT/HCPCS: 85025; 36415; 81003; 83690; 80053; 74177; 96374; 99284; Q9967; J2405; J7030

== ENCOUNTER 2024-01-11 19:41 | Emergency (ER) | payer OTHER ==
[2024-01-11] MEDS ORDERED: NA CHLORIDE 0.9% 1,000 ML ONE (20:11)
[2024-01-11] MEDS ORDERED: ONDANSETRON 4 MG/2 ML VIAL ONE (20:11)
[2024-01-11] MEDS ORDERED: FAMOTIDINE 20 MG/2 ML VIAL IV ONE (20:11)
[2024-01-11] MEDS ORDERED: ALBUTEROL 2.5 MG/3 ML NEB SOL ONE ×2 (20:11→20:51)
[2024-01-11] MEDS ORDERED: IPRATROPIUM BROM 0.5MG/2.5ML ONE (20:11)
[2024-01-11 20:32] LABS: Absolute Basophils 0.1 K/uL (0-0.5); Absolute Eosinophils 0.1 K/uL (0-0.5); Absolute Lymphocytes (CBC) 2.8 K/uL (0.7-4.9); Absolute Monocytes 0.5 K/uL (0.1-1.3); Absolute Neutrophil 4.1 K/uL (1.8-8.0); Basophils % 1.5 % (0-1.3); Eosinophils % 1.9 % (0-4.4); Hematocrit 43.5 % (36.0-45.0); Hemoglobin 14.2 g/dL (12.0-15.0); Lymphocytes % 36.3 % (15.3-44.8); MCHC 32.8 g/dL (32.0-36.0); MCV 97.6 fL (80-100); Monocytes % 6.7 % (3.3-12.3); Neutrophils % 53.6 % (41.7-73.7); Platelets 222 thou/uL (152-406); RBC Red Blood Cell Count 4.45 M/uL (3.86-4.86); Red Cell Distribution Width 14.4 % (12.1-15.2)
[2024-01-11 20:36] LABS: Specific Gravity 1.025 (1.005-1.030); Sqamous Epithelial <5 /HPF (None Seen); Urine Bacteria <20 /HPF (<20); Urine Bilirubin NEGATIVE (Negative); Urine Blood Negative (Negative); Urine Clarity Extremely Turbid (Clear); Urine Color Yellow (Yellow); Urine Glucose NEGATIVE (Negative); Urine Ketones NEGATIVE (Negative); Urine Microscopic Reflex YN ORDER UMIC; Urine Mucus 1+ /HPF (None Seen); Urine Nitrite NEGATIVE (Negative); Urine Protein TRACE (Negative); Urine Urobilinogen 2+ (Normal); Urine WBC <5 /HPF (<5)
[2024-01-11 20:44] LABS: SARS-CoV-2 Antigen CONTROL BLUE LINE VIS/BG OK; SARS-CoV-2 Antigen Rapid Res Negative (Negative)
--- NOTE | 2024-01-11 20:47 | RAD REPORT ---
EXAM DESCRIPTION: RAD - Chest Single View - 01/11/2024 8:40 pm CLINICAL HISTORY: Cough;Congestion COMPARISON: Chest Single View dated 11/02/2023; Chest Pa And Lat (2 Views) dated 02/20/2023; Chest Sing le View dated 07/15/2022; Chest Single View dated 05/24/2022 FINDINGS: Lines: None. Lungs: No evidence of edema or pneumonia. Pleural: No significant pleural effusions or pneumothorax. Cardiac: Cardiomegaly. Mediastinum: Within normal limits. Bones: No acute fractures. Other: None IMPRESSION: No acute cardiopulmonary disease.
[2024-01-11] MEDS ORDERED: LIDOCAINE VISCOUS 2% 10ML ORAL SOLN ONE (20:51)
[2024-01-11] MEDS ORDERED: MAGNES/ALUMIN/SIMET 30ML UCUP ONE (20:51)
[2024-01-11 21:04] LABS: Albumin 3.4 g/dL (3.4-5.0); Albumin/Globulin Ratio 0.9 (1.1-1.8); Anion Gap 8.8 mEq/L (5.0-15.0); Bilirubin Total 0.6 mg/dL (0.2-1.0); Globulin 3.7 g/dL (2.3-3.5); Potassium 3.8 mEq/L (3.5-5.1); Protein, Total 7.1 g/dL (6.4-8.2)
--- NOTE | 2024-01-11 21:54 | RAD REPORT ---
EXAM DESCRIPTION: CTAbdomen Pelvis W Contrast - 01/11/2024 9:34 pm CLINICAL HISTORY: ABD PAIN COMPARISON: Abdomen Pelvis W Contrast dated 09/21/2023; Abdomen Pelvis W Contrast dated 05/06/2021 ; Abdomen Pelvis W Contrast dated 12/10/2018; Abdomen Pelvis W Contrast dated 07/10/2017 TECHNIQUE: CT of the abdomen and pelvis was performed with IV contrast. All CT scans are performed using dose optimization technique as appropriate and may include automated exposure control or mA/KV adjustment according to patient size. FINDINGS: Lower chest: Circumferential thickened distal esophagus could reflect mild esophagitis. Liver: No acute abnormality or suspicious lesions. Biliary: Cholecystectomy Stomach: No significant focal abnormality. Duodenum: No significant focal abnormality. Pancreas: No significant abnormality. Spleen: No significant abnormality. Adrenal: No suspicious lesions. Kidney/ureter: No hydronephrosis. No renal calculi. Retroperitoneum: No retroperitoneal adenopathy. Vascular: No aneurysm. Mild atherosclerosis. Bowel: No significant focal abnormality. Peritoneum: No ascites or free air. Small fat containing right inguinal hernia. Interval enlargement of some lymph nodes in the region of the gastrohepatic ligament and a pathologically enlarged inferio r diaphragmatic lymph node measuring 10 millimeters in short axis. Small fat containing umbilical her kim. Bladder: Grossly unremarkable. Reproductive: Hysterectomy Bones: No acute fracture. Moderate disc height loss at L5-S1. Grade 1 anterolisthesis of L4 on L5. Other: n/a IMPRESSION: No acute intra-abdominal or pelvic finding. Interval enlargement of a couple of lymph nodes near the GE junction as noted above. One is pathologi tisha enlarged. The etiology is uncertain. They could be reactive secondary to either esophagitis or gastritis. Consider endoscopy for further evaluation.
[2024-01-11] MEDS ORDERED: MAGNESIUM CITRATE 300 ML BOT ONE (22:46)
--- NOTE | 2024-01-11 22:59 | ER ---
Nurse's Notes [facility] Name: Shahnaz Ramos Age: 63 yrs Sex: Female : 1960 Arrival Date: 01/11/2024 Time: 19:41 Bed 4 Private MD: Diagnosis: Esophagitis, unspecified;Constipation Presentation: 01/10 20:02 Chief complaint: Patient states: Nausea and vomiting for 2 days, along with abdominal nj1 pain. Reports fever yesterday. Denies diarrhea. Last BM 4 days ago. Coronavirus screen: Vaccine status: Patient reports being unvaccinated. Ebola Screen: Patient denies travel to an Ebola-affected area in the 21 days before illness onset. Initial Sepsis Screen: Does the patient meet any 2 criteria? No. Patient's initial sepsis screen is negative. Does the patient have a suspected source of infection? No. Patient's initial sepsis screen is negative. Risk Assessment: Do you want to hurt yourself or someone else? Patient reports no desire to harm self or others. Onset of symptoms was January 09, 2024. 20:02 Method Of Arrival: Ambulatory nj 20:02 Acuity: [id number] 3 nj1 Historical: - Allergies: 20:05 Aspirin; nj1 20:05 Imitrex; nj1 - PMHx: 20:05 Anxiety; Asthma; Bipolar disorder; cervical spinal stenosis; COPD; Depression; nj1 Diverticulitis; Fibromyalgia; GERD; Hepatitis C; insomnia; Migraines; Ulcers; - PSHx: 20:05 Cholecystectomy; Total abdominal hysterectomy; tubal ligation; nj1 - Immunization history:: Client reports having NOT received the Covid vaccine. - Infectious Disease History:: Denies. - Social history:: Smoking status: Patient reports the use of cigarette tobacco products, smokes one pack cigarettes per day. Screenin:27 [facility] ED Fall Risk Assessment (Adult) History of falling in the last 3 months, bm8 including since admission No falls in past 3 months (0 pts) Confusion or Disorientation No (0 pts) Intoxicated or Sedated No (0 pts) Impaired Gait No (0 pts) Mobility Assist Device Used No (0 pt) Altered Elimination No (0 pt) Score/Fall Risk Level 0 - 2 = Low Risk Oriented to surroundings, Maintained a safe environment, Educated pt \T\ family on fall prevention, incl call for assistance when getting out of bed, Assessed \T\ reinforced patient's understanding of fall precautions, Hourly rounding (assess needs \T\ fall precautionary measures) done, Used ambulatory aids as needed (educated on \T\ assisted with), Used gait belt as appropriate. Abuse screen: Denies threats or abuse. Nutritional screening: No deficits noted. Tuberculosis screening: No symptoms or risk factors identified. Assessment: 20:27 General: Appears in no apparent distress. comfortable, Behavior is calm, cooperative, bm8 appropriate for age. Pain: Complains of pain in epigastric area Pain does not radiate. Pain currently is 5 out of 10 on a pain scale. Quality of pain is described as burning. Neuro: No deficits noted. Level of Consciousness is awake, alert, obeys commands, Oriented to person, place, time, situation, Appropriate for age. Cardiovascular: Heart tones S1 S2 present Capillary refill < 3 seconds Patient's skin is warm and dry. Respiratory: No deficits noted. Airway is patent Trachea midline Respiratory effort is even, unlabored, Respiratory pattern is regular, symmetrical, Breath sounds with rales bilaterally. GI: Abdomen is flat, non-distended, Bowel sounds present X 4 quads. Abd is soft and non tender Reports epigastric pain, indigestion, Patient currently denies nausea, vomiting. : No signs and/or symptoms were reported regarding the genitourinary system. EENT: No signs and/or symptoms were reported regarding the EENT system. Derm: No signs and/or symptoms reported regarding the dermatologic system. Musculoskeletal: No signs and/or symptoms reported regarding the musculoskeletal system. 21:02 Reassessment: Patient appears in no apparent distress at this time. Patient and/or bm8 family updated on plan of care and expected duration. Pain level reassessed. Patient is alert, oriented x 3, equal unlabored respirations, skin warm/dry/pink. Respiratory: Airway is patent Respiratory effort is even, unlabored, Respiratory pattern is regular, symmetrical, Breath sounds with rales bilaterally. GI: Reports epigastric pain, indigestion. 21:02 Reassessment: informed provider of findings after 1st doses of medication, new orders bm8 reciecved. 22:04 Reassessment: Patient and/or family updated on plan of care and expected duration. Pain bm8 level reassessed. Patient is alert, oriented x 3, equal unlabored respirations, skin warm/dry/pink. provider notified of pt's pain level. awaiting CT results. Respiratory: Airway is patent Respiratory effort is even, unlabored, Respiratory pattern is regular, symmetrical, Breath sounds are diminished bilaterally. GI: Reports lower abdominal pain, Pain is 8 out of 10 on a pain scale. pt describes pain as very sharp. 23:07 Reassessment: No changes from previously documented assessment. bm8 Vital Signs: 20:02 BP 151 / 80; Pulse 61; Resp 18; Temp 98.7; Pulse Ox 93% ; Weight 58.97 kg; Height 5 ft. nj1 1 in. ; Pain 10/10; 20:27 BP 156 / 82; Pulse 57; Resp 18; Temp 98.7; Pulse Ox 100% on Nebulizer Mask; Pain 5/10; bm8 22:04 BP 123 / 65; Pulse 61; Resp 17; Temp 98.7; Pulse Ox 96% on R/A; Pain 8/10; bm8 23:07 BP 142 / 80; Pulse 65; Resp 17; Temp 98.5; Pulse Ox 96% ; Pain 8/10; bm8 20:02 Body Mass Index 24.56 (58.97 kg, 154.94 cm) nj1 20:02 Pain Scale: Adult nj1 20:27 Pain Scale: Adult bm8 22:04 Pain Scale: Adult bm8 23:07 Pain Scale: Adult bm8 [place] Coma Score: 20:27 Eye Response: spontaneous(4). Motor Response: obeys commands(6). Verbal Response: bm8 oriented(5). Total: 15. 22:04 Eye Response: spontaneous(4). Motor Response: obeys commands(6). Verbal Response: bm8 oriented(5). Total: 15. 23:07 Eye Response: spontaneous(4). Motor Response: obeys commands(6). Verbal Response: bm8 oriented(5). Total: 15. ED Course: 19:44 Patient arrived in ED. ra3 19:47 [facility]icki Schwab FNP-C [facility]. kb 19:47 Ever Casarez DO is Attending Physician. kb 20:05 Triage completed. nj1 20:05 Arm band placed on right wrist. nj1 20:06 Tenzin Montanez, RN is Primary Nurse. bm8 20:27 Patient has correct armband on for positive identification. Placed in gown. Bed in low bm8 position. Call light in reach. Side rails up X 1. Client placed on continuous cardiac and pulse oximetry monitoring. NIBP monitoring applied. Pulse ox on. NIBP on. Door closed. Noise minimized. Warm blanket given. Pillow given. Verbal reassurance given. Head of bed elevated. 20:27 No provider procedures requiring assistance completed. Initial lab(s) drawn, by , bmLee sent to lab. Urine collected: clean catch specimen, clear, COVID swab sent to lab. X-ray(s) taken. Inserted saline lock: 20 gauge in left antecubital area, using aseptic technique. Blood collected. Flushed with 10 mL NS. 20:41 Chest Single View XRAY In Process Unspecified. EDMS 21:36 CT Abd/Pelvis - IV Contrast Only In Process Unspecified. EDMS 23:07 Provided Education on: post er care. bm8 23:07 IV discontinued, intact, bleeding controlled, No redness/swelling at site. Pressure bm8 dressing applied. Administered Medications: 20:27 Drug: NS 0.9% IV 1000 ml IV at 1 bolus Per protocol; 1000 mL bolus Route: IV; Rate: 1 bm8 bolus; Site: left antecubital; 23:09 Follow up: Response: No adverse reaction; IV Status: Completed infusion; IV Intake: bm8 1000ml 20:27 Drug: Famotidine IVP 20 mg IVP once; dilute with 10 mL 0.9% NaCl; give over 2 minutes bm8 Route: IVP; Site: left antecubital; 23:10 Follow up: Response: No adverse reaction bm8 20:27 Drug: Ondansetron IVP 4 mg IVP once; over 2 minutes Route: IVP; Site: left antecubital; bm8 23:09 Follow up: Response: No adverse reaction bm8 20:27 Drug: Albuterol Inhalation 2.5 mg Inhalation once Route: Inhalation; bm8 23:09 Follow up: Response: No adverse reaction bm8 20:27 Drug: Ipratropium Inhalation Aerosol 0.5 mg Inhalation once Route: Inhalation; bm8 23:09 Follow up: Response: No adverse reaction bm8 21:02 Drug: Albuterol Inhalation 2.5 mg Inhalation once Route: Inhalation; bm8 22:07 Follow up: Response: No adverse reaction bm8 21:02 Drug: GI Cocktail without - (Maalox PO 30 ml, Lidocaine Mucous Membrane 2 % 15 bm8 ml) PO once Route: PO; 22:07 Follow up: Response: No adverse reaction bm8 22:35 Drug: Magnesium Citrate PO Liquid 300 ml PO once Route: PO; ha1 23:09 Follow up: Response: No adverse reaction bm8 Medication: 20:27 VIS not applicable for this client. bm8 Intake: 23:09 IV: 1000ml; Total: 1000ml. bm8 Outcome: 22:58 Discharge ordered by . andres 23:07 Discharged to home ambulatory, bm8 23:07 Condition: stable 23:07 Discharge instructions given to patient, Instructed on discharge instructions, follow up and referral plans. medication usage, Demonstrated understanding of instructions, follow-up care, medications, Prescriptions given X 1, 23:10 Patient left the ED. bm8 Signatures: Dispatcher [employer] EDMS Vicki Schwab, DIRECTOR ENERGY-C DIRECTOR ENERGY-Jeannine Benitez, RN RN ha1 Liseth Oliveros RN RN nj1 Kanika Jacobs ra3 Tenzin Montanez, RN RN bm8
--- NOTE | 2024-01-11 22:59 | EDPHYS ---
Physician Documentation [facility] Name: Shahnaz Ramos Age: 63 yrs Sex: Female : 1960 Arrival Date: 01/11/2024 Time: 19:41 Bed 4 Private MD: ED Physician Ever Casarez HPI: 01/10 19:59 This 63 yrs old Female presents to ER via Unassigned with complaints of kb Abdominal Pain. 19:59 Pt is a 63 year old female who presents for nausea and vomiting for 2 days. States she kb has bad acid reflux and that is what she believes is the cause. Reports last BM 4 days ago. Reports abd pain after eating. Reports fever of 101 last night. Historical: - Allergies: 20:05 Aspirin; nj1 20:05 Imitrex; nj1 - PMHx: 20:05 Anxiety; Asthma; Bipolar disorder; cervical spinal stenosis; COPD; Depression; nj1 Diverticulitis; Fibromyalgia; GERD; Hepatitis C; insomnia; Migraines; Ulcers; - PSHx: 20:05 Cholecystectomy; Total abdominal hysterectomy; tubal ligation; nj1 - Immunization history:: Client reports having NOT received the Covid vaccine. - Infectious Disease History:: Denies. - Social history:: Smoking status: Patient reports the use of cigarette tobacco products, smokes one pack cigarettes per day. ROS: 20:00 Constitutional: As per HPI kb Exam: 22:31 Constitutional: This is a well developed, well nourished patient who is awake, alert, kb and in no acute distress. Head/Face: Normocephalic, atraumatic. ENT: Moist Mucous membranes Cardiovascular: Regular rate Respiratory: Respirations even and unlabored. No increased work of breathing. Talking in full sentences Skin: Warm, dry with normal turgor. Normal color. MS/ Extremity: Pulses equal, no cyanosis. Neurovascular intact. Full, normal range of motion. Neuro: Awake and alert, GCS 15, oriented to person, place, time, and situation. Moves all extremities. Normal gait. 22:31 Respiratory: Breath sounds: wheezing: expiratory that is mild, is heard in the left lower lobe, right lower lobe, left posterior lower lobe and right posterior lower lobe, 22:31 Abdomen/GI: Inspection: abdomen appears normal, Bowel sounds: normal, Palpation: soft, in all quadrants, mild abdominal tenderness, in the right upper quadrant and left upper quadrant, Vital Signs: 20:02 BP 151 / 80; Pulse 61; Resp 18; Temp 98.7; Pulse Ox 93% ; Weight 58.97 kg; Height 5 ft. nj1 1 in. ; Pain 10/10; 20:27 BP 156 / 82; Pulse 57; Resp 18; Temp 98.7; Pulse Ox 100% on Nebulizer Mask; Pain 5/10; bm8 22:04 BP 123 / 65; Pulse 61; Resp 17; Temp 98.7; Pulse Ox 96% on R/A; Pain 8/10; bm8 23:07 BP 142 / 80; Pulse 65; Resp 17; Temp 98.5; Pulse Ox 96% ; Pain 8/10; bm8 20:02 Body Mass Index 24.56 (58.97 kg, 154.94 cm) nj1 20:02 Pain Scale: Adult nj1 20:27 Pain Scale: Adult bm8 22:04 Pain Scale: Adult bm8 23:07 Pain Scale: Adult bm8 [place] Coma Score: 20:27 Eye Response: spontaneous(4). Motor Response: obeys commands(6). Verbal Response: bm8 oriented(5). Total: 15. 22:04 Eye Response: spontaneous(4). Motor Response: obeys commands(6). Verbal Response: bm8 oriented(5). Total: 15. 23:07 Eye Response: spontaneous(4). Motor Response: obeys commands(6). Verbal Response: bm8 oriented(5). Total: 15. MDM: 19:47 Patient medically screened. kb 22:32 Differential diagnosis: gastritis, non-specific abd pain, pancreatitis, esophagitis, kb constipation, bowel obstruction. Data reviewed: vital signs, nurses notes. Consideration of Admission/Observation Escalation of care including admission/observation considered. admission considered for elevated lipase, but CT negative for pancreatitis. Upper abd pain improved after GI cocktail. Pt tolerating po intake. Management of patient was discussed with the following: angelo Padilla to discharge for outpatient follow up. Counseling: I had a detailed discussion with the patient and/or guardian regarding the historical points, exam findings, and any diagnostic results supporting the discharge/admit diagnosis, lab results, radiology results, the need for outpatient follow up, a family practitioner, to return to the emergency department if symptoms worsen or persist or if there are any questions or concerns that arise at home. 01/10 20:04 Order name: CBC with Diff; Complete Time: 20:42 kb 01/10 20:04 Order name: CMP; Complete Time: 21:08 kb 01/10 20:04 Order name: Lipase; Complete Time: 21:08 kb 01/10 20:04 Order name: Urinalysis w/ reflexes; Complete Time: 20:42 kb 01/10 20:04 Order name: SARS-COV-2 Antigen Rapid; Complete Time: 20:46 kb 01/10 20:04 Order name: CT Abd/Pelvis - IV Contrast Only; Complete Time: 22:01 kb 01/10 20:04 Order name: Chest Single View XRAY; Complete Time: 20:50 kb 01/10 20:04 Order name: IV Saline Lock; Complete Time: 20:27 kb 01/10 20:04 Order name: Labs collected and sent; Complete Time: 20:27 kb Administered Medications: 20:27 Drug: NS 0.9% IV 1000 ml IV at 1 bolus Per protocol; 1000 mL bolus Route: IV; Rate: 1 bm8 bolus; Site: left antecubital; 23:09 Follow up: Response: No adverse reaction; IV Status: Completed infusion; IV Intake: bm8 1000ml 20:27 Drug: Famotidine IVP 20 mg IVP once; dilute with 10 mL 0.9% NaCl; give over 2 minutes bm8 Route: IVP; Site: left antecubital; 23:10 Follow up: Response: No adverse reaction bm8 20:27 Drug: Ondansetron IVP 4 mg IVP once; over 2 minutes Route: IVP; Site: left antecubital; bm8 23:09 Follow up: Response: No adverse reaction bm8 20:27 Drug: Albuterol Inhalation 2.5 mg Inhalation once Route: Inhalation; bm8 23:09 Follow up: Response: No adverse reaction bm8 20:27 Drug: Ipratropium Inhalation Aerosol 0.5 mg Inhalation once Route: Inhalation; bm8 23:09 Follow up: Response: No adverse reaction bm8 21:02 Drug: Albuterol Inhalation 2.5 mg Inhalation once Route: Inhalation; bm8 22:07 Follow up: Response: No adverse reaction bm8 21:02 Drug: GI Cocktail without - (Maalox PO 30 ml, Lidocaine Mucous Membrane 2 % 15 bm8 ml) PO once Route: PO; 22:07 Follow up: Response: No adverse reaction bm8 22:35 Drug: Magnesium Citrate PO Liquid 300 ml PO once Route: PO; ha1 23:09 Follow up: Response: No adverse reaction bm8 Disposition: 23:03 I was immediately available on-site in the Emergency Department for consultation in the ms3 care of the patient. Disposition Summary: 01/11/24 22:58 Discharge Ordered Notes: Location: Home kb Condition: Stable kb Diagnosis - Esophagitis, unspecified kb - Constipation kb Followup: kb - With: Emergency Department - When: As needed - Reason: Worsening of condition Followup: kb - With: Private Physician - When: 2 - 3 days - Reason: Recheck today's complaints, Continuance of care, Re-evaluation by your physician Discharge Instructions: - Discharge Summary Sheet kb - Esophagitis kb - Constipation, Adult, [id number] kb Forms: - Medication Reconciliation Form kb - Antibiotic Education kb - Prescription Opioid Use kb - Patient Portal Instructions kb - Leadership Thank You Letter kb Prescriptions: - Protonix 40 mg Oral Tablet - take 1 tablet ORAL route once daily; 30 tablet; Refills: 0, Product Selection kb Permitted Signatures: Dispatcher [employer] EDWV Vicki Schwab, RAMIREZ-C ESTHETICIAN-Ever De La Vega, DO ms3 Jeannine Barber, RN RN ha1 Liseth Oliveros, RN RN nj1 Tenzin Montanez, RN RN bm8 Corrections: (The following items were deleted from the chart) 20:01 19:59 Pt is a 63 year old female who presents for nausea and vomiting for 2 days. kb States she has bad acid reflux and that is what she believes is the cause. Reports last BM 4 days ago. Reports abd pain after eating. . kb
[2024-01-11 23:39] VITALS: O2SAT 96
[2024-01-11 23:41] VITALS: BP 142/80; TEMP 98.5
== END 2024-01-11 23:10 | disposition home or self-care (01) ==
LOC: ER 19:41
DX: K20.90 Esophagitis, unspecified without bleeding (principal); K59.00 Constipation, unspecified; F17.210 Nicotine dependence, cigarettes, uncomplicated; Z11.52 Encounter for screening for COVID-19
CPT/HCPCS: 96361; 85025; 81001; 36415; 83690; 80053; 74177; 71045; 96375; 96374; 99285; 87811; Q9967; J7613 ×2; J7644; J2405; J7030

== ENCOUNTER 2024-07-11 12:54 | Observation (INO) | payer OTHER ==
[2024-07-11] MEDS ORDERED: IPRATROPIUM BROM 0.5MG/2.5ML ONE (14:33)
[2024-07-11] MEDS ORDERED: ALBUTEROL 2.5 MG/3 ML NEB SOL ONE (14:33)
[2024-07-11] MEDS ORDERED: MAGNESIUM SULFATE 1 gm IVPB 1 GM/100 ML BAG IV ONE (14:34)
[2024-07-11] MEDS ORDERED: NA CHLORIDE 0.9% 1,000 ML ONE (14:34)
[2024-07-11] MEDS ORDERED: METHYLPREDNISOLONE 125 MG INJ ONE (14:34)
[2024-07-11 14:57] LABS: Absolute Basophils 0.1 K/uL (0-0.5); Absolute Eosinophils 0.1 K/uL (0-0.5); Absolute Lymphocytes (CBC) 2.6 K/uL (0.7-4.9); Absolute Monocytes 0.5 K/uL (0.1-1.3); Absolute Neutrophil 5.3 K/uL (1.8-8.0); Basophils % 1.3 % (0-1.3); Eosinophils % 1.2 % (0-4.4); Hematocrit 38.2 % (36.0-45.0); Hemoglobin 13.3 g/dL (12.0-15.0); MCH 32.9 pg (27.0-35.0); MCHC 34.8 g/dL (32.0-36.0); MCV 94.6 fL (80-100); MPV 8.7 fL (7.6-11.3); Neutrophils % 61.5 % (41.7-73.7); Nucleated Red Blood Cells % 0.1 % (0-0); Platelets 234 thou/uL (152-406); RBC Red Blood Cell Count 4.03 M/uL (3.86-4.86)
[2024-07-11 15:10] LABS: Anion Gap 9.6 mEq/L (5.0-15.0); BUN Blood Urea Nitrogen 16 mg/dL (7-18); Bicarbonate 25 mEq/L (21-32); Glomerular Filtration Rate 62 ml/min (=/>90); Glucose Level 87 mg/dL (74-106); Magnesium 2.2 mg/dL (1.6-2.4); NT PRO-BNP 65 pg/mL (<125); Potassium 3.6 mEq/L (3.5-5.1); Sodium Level 139 mEq/L (136-145)
[2024-07-11 15:12] LABS: Troponin High Sensitivity < 3.0 pg/mL (<58.9)
[2024-07-11 15:21] LABS: SARS-CoV-2 Antigen CONTROL BLUE LINE VIS/BG OK; SARS-CoV-2 Antigen Rapid Res Negative (Negative)
--- NOTE | 2024-07-11 15:29 | RAD REPORT ---
EXAMINATION: TWO VIEW CHEST XR CLINICAL INDICATION: CONGESTION TECHNIQUE: 2 views of the chest was performed. COMPARISON: No prior exam. FINDINGS: Prominent interstitial markings could represent mild interstitial pulmonary edema or viral infection/ bronchitis. The heart is moderately enlarged. No displaced fractures evident.
--- NOTE | 2024-07-11 16:04 | ER ---
Nurse's Notes [facility] Name: Shahnaz Ramos Age: 64 yrs Sex: Female : 1960 Arrival Date: 07/11/2024 Time: 12:54 Bed 16 Private MD: Diagnosis: COPD/ Chronic obstructive pulmonary disease with acute lower respiratory infection;Dyspnea Presentation: 07/11 13:26 Chief complaint: Chief complaint: Patient states: cough, chest congestion that began ss 5-6 days ago. 13:26 Coronavirus screen: Client denies travel out of the [place] in the last 14 days. Ebola ss Screen: Patient denies exposure to infectious person. Patient denies travel to an Ebola-affected area in the 21 days before illness onset. Initial Sepsis Screen: Does the patient meet any 2 criteria? No. Patient's initial sepsis screen is negative. Does the patient have a suspected source of infection? No. Patient's initial sepsis screen is negative. Risk Assessment: Do you want to hurt yourself or someone else? Patient reports no desire to harm self or others. Onset of symptoms was July 06, 2024. 13:26 Method Of Arrival: Ambulatory ss 13:26 Acuity: [place] 3 ss Historical: - Allergies: 13:28 Aspirin; ss 13:28 Imitrex; ss - PMHx: 13:28 Anxiety; Asthma; Bipolar disorder; cervical spinal stenosis; COPD; Depression; ss Diverticulitis; Fibromyalgia; GERD; Hepatitis C; insomnia; Migraines; Ulcers; - PSHx: 13:28 Total abdominal hysterectomy; tubal ligation; Cholecystectomy; ss - Immunization history:: Client reports receiving the 2nd dose of the Covid vaccine. - Infectious Disease History:: Denies. - Social history:: Smoking status: Patient reports the use of cigarette tobacco products, smokes one-half pack cigarettes per day. Screenin:58 [facility] ED Fall Risk Assessment (Adult) History of falling in the last 3 months, kc6 including since admission No falls in past 3 months (0 pts) Confusion or Disorientation No (0 pts) Intoxicated or Sedated No (0 pts) Impaired Gait No (0 pts) Mobility Assist Device Used No (0 pt) Altered Elimination No (0 pt) Score/Fall Risk Level 0 - 2 = Low Risk Oriented to surroundings, Maintained a safe environment, Educated pt \T\ family on fall prevention, incl call for assistance when getting out of bed. Abuse screen: Denies threats or abuse. Denies injuries from another. Nutritional screening: No deficits noted. Tuberculosis screening: No symptoms or risk factors identified. Assessment: 15:57 General: Appears in no apparent distress. uncomfortable, ill, well groomed, well kc6 developed, Behavior is calm, cooperative, appropriate for age. Neuro: Level of Consciousness is awake, alert, obeys commands, Oriented to person, place, time, situation, Appropriate for age. Cardiovascular: Capillary refill < 3 seconds. Respiratory: Reports cough that is dry, hacking, persistent pain with cough pain with respiration Airway is patent Trachea midline Respiratory effort is even, unlabored, Respiratory pattern is regular, symmetrical. GI: No signs and/or symptoms were reported involving the gastrointestinal system. : No signs and/or symptoms were reported regarding the genitourinary system. EENT: No signs and/or symptoms were reported regarding the EENT system. Derm: No signs and/or symptoms reported regarding the dermatologic system. Skin is intact, is healthy with good turgor, Skin is pink, warm \T\ dry. Musculoskeletal: No signs and/or symptoms reported regarding the musculoskeletal system. Circulation, motion, and sensation intact. Range of motion: intact in all extremities. 16:37 Reassessment: Patient appears in no apparent distress at this time. No changes from kc6 previously documented assessment. Patient and/or family updated on plan of care and expected duration. Pain level reassessed. Patient is alert, oriented x 3, equal unlabored respirations, skin warm/dry/pink. 17:41 Reassessment: Patient appears in no apparent distress at this time. No changes from kc6 previously documented assessment. Patient and/or family updated on plan of care and expected duration. Pain level reassessed. Patient is alert, oriented x 3, equal unlabored respirations, skin warm/dry/pink. 18:45 Reassessment: Patient appears in no apparent distress at this time. No changes from kc6 previously documented assessment. Patient and/or family updated on plan of care and expected duration. Pain level reassessed. Patient is alert, oriented x 3, equal unlabored respirations, skin warm/dry/pink. Vital Signs: 13:26 BP 116 / 68; Pulse 72; Resp 20; Temp 98.2(O); Pulse Ox 100% ; Weight 58.97 kg; Height 5 ss ft. 1 in. ; Pain 8/10; 18:45 BP 120 / 70; Pulse 75; Resp 20 S; Temp 98.1(O); Pulse Ox 99% on R/A; kc6 13:26 Body Mass Index 24.56 (58.97 kg, 154.94 cm) ss 13:26 Pain Scale: Adult ss ED Course: 12:56 Patient arrived in ED. im 12:58 Beverley Razo PA-C is PHCP. sb4 12:58 Lee Barrett MD is Attending Physician. sb4 13:28 Triage completed. ss 13:28 Arm band placed on right wrist. ss 14:31 Ale Schmidt, NEHA is Primary Nurse. kc6 14:58 Patient has correct armband on for positive identification. Bed in low position. Call kc6 light in reach. Side rails up X2. Pulse ox on. NIBP on. Door closed. Noise minimized. Lights dimmed. Warm blanket given. Pillow given. 14:58 Inserted saline lock: 20 gauge in left antecubital area, using aseptic technique. Blood kc6 collected. Flushed with 10 mL NS. 14:58 Patient maintains SpO2 saturation greater than 95% on room air. kc6 15:24 XRAY Chest Pa And Lat (2 Views) In Process Unspecified. EDMS 16:03 Yo Lopez is Hospitalizing Provider. sb4 18:45 No provider procedures requiring assistance completed. Patient admitted, IV remains in kc6 place. Administered Medications: 14:58 Drug: DuoNeb Nebulize (3:1) (2.5 mg - 0.5 mg) 3 ml Nebulizer once Route: Nebulizer; kc6 16:04 Follow up: Response: No adverse reaction kc6 14:58 Drug: NS 0.9% IV 1000 ml IV at 1 bolus Per protocol; to be given as a bolus over 60 kc6 minutes Route: IV; Rate: 1 bolus; Site: left antecubital; 16:36 Follow up: Response: No adverse reaction; IV Status: Completed infusion; IV Intake: kc6 1000ml 14:58 Drug: Magnesium Sulfate IVPB 1 grams IVPB once over 1 hrs Route: IVPB; Infused Over: 1 kc6 hrs; Site: left antecubital; 16:36 Follow up: Response: No adverse reaction; IV Status: Completed infusion; IV Intake: kc6 100ml 14:58 Drug: MethylPrednisoLONE IVP 125 mg IVP once Route: IVP; Site: left antecubital; kc6 16:04 Follow up: Response: No adverse reaction kc6 16:22 Drug: Rocephin IV 1 grams IV at calculated rate once; Given slow IV push per pharmacy kc6 instructions Route: IV; Rate: calculated rate; Site: left antecubital; 16:36 Follow up: Response: No adverse reaction; IV Status: Completed infusion; IV Intake: [id number] 16:22 Drug: AZITHromycin IVPB 500 mg IVPB once over 1 hrs; (mix in 250 mL NS) Route: IVPB; kc6 Infused Over: 1 hrs; Site: left antecubital; 17:31 Follow up: Response: No adverse reaction; IV Status: Completed infusion; IV Intake: kc6 250ml 16:22 Drug: Levalbuterol Inhalation 1.25 mg Inhalation once Route: Inhalation; kc6 16:36 Follow up: Response: No adverse reaction kc6 Medication: 18:45 VIS not applicable for this client. kc6 Intake: 16:36 IV: 50ml; Total: 50ml. kc6 16:36 IV: 100ml; Total: 150ml. kc6 16:36 IV: 1000ml; Total: 1150ml. kc6 17:31 IV: 250ml; Total: 1400ml. kc6 Outcome: 16:03 Decision to Hospitalize by Provider. sb4 18:45 Admitted to Med/surg accompanied by tech, via wheelchair, room 218, with chart, kc6 18:45 Condition: good 18:45 Instructed on the need for admit, 18:46 Patient left the ED. kc6 Signatures: Dispatcher [employer] EDAngelika Frye RN RN ss Campbell, Kaitlyn, RN RN Beverley Sanderson PA-C PARemedios Carr Corrections: (The following items were deleted from the chart) 13:28 13:26 Chief complaint: ss ss
--- NOTE | 2024-07-11 16:04 | EDPHYS ---
Physician Documentation [facility] Name: Shahnaz Ramos Age: 64 yrs Sex: Female : 1960 Arrival Date: 07/11/2024 Time: 12:54 Bed 16 Private MD: ED Physician Lee Barrett HPI: 07/11 14:50 This 64 yrs old Female presents to ER via Ambulatory with complaints of Flu sb4 Symptoms. 14:50 Patient reports feeling sick for about 6 days. She believes it started with some sort sb4 of viral infection but it is now settled into her chest. She is reporting cough, wheezing, shortness of breath. Does report a history of COPD. Unsure if she has had any fever. Denies any nausea, vomiting, or diarrhea. Historical: - Allergies: 13:28 Aspirin; ss 13:28 Imitrex; ss - PMHx: 13:28 Anxiety; Asthma; Bipolar disorder; cervical spinal stenosis; COPD; Depression; ss Diverticulitis; Fibromyalgia; GERD; Hepatitis C; insomnia; Migraines; Ulcers; - PSHx: 13:28 Total abdominal hysterectomy; tubal ligation; Cholecystectomy; ss - Immunization history:: Client reports receiving the 2nd dose of the Covid vaccine. - Infectious Disease History:: Denies. - Social history:: Smoking status: Patient reports the use of cigarette tobacco products, smokes one-half pack cigarettes per day. ROS: 14:50 Constitutional: Negative for fever, chills, and weight loss, sb4 14:50 Respiratory: Positive for cough, shortness of breath, 14:50 All other systems are negative, Exam: 14:50 Head/Face: Normocephalic, atraumatic. Eyes: Extra-ocular motions intact. Periorbital sb4 areas with no swelling, redness, or edema. ENT: Mucous membranes moist. Cardiovascular: Regular rate and rhythm with a normal S1 and S2. Abdomen/GI: Soft, non-tender, no distension. Skin: Warm, dry with normal turgor. Normal color with no rashes, no lesions, and no evidence of cellulitis. 14:50 Constitutional: The patient appears alert, awake, obviously ill, 14:50 Respiratory: the patient does not display signs of respiratory distress, Breath sounds: rhonchi, that are moderate, are scattered, Vital Signs: 13:26 BP 116 / 68; Pulse 72; Resp 20; Temp 98.2(O); Pulse Ox 100% ; Weight 58.97 kg; Height 5 ss ft. 1 in. ; Pain 8/10; 18:45 BP 120 / 70; Pulse 75; Resp 20 S; Temp 98.1(O); Pulse Ox 99% on R/A; kc6 13:26 Body Mass Index 24.56 (58.97 kg, 154.94 cm) ss 13:26 Pain Scale: Adult ss MDM: 13:04 Medical Screening Exam initiated sb4 17:48 Data reviewed: vital signs, nurses notes, lab test result(s), EKG, radiologic studies, sb4 and as a result, I will admit patient. Consideration of Admission/Observation Patient was admitted/placed on observation. Counseling: I had a detailed discussion with the patient and/or guardian regarding the historical points, exam findings, and any diagnostic results supporting the discharge/admit diagnosis, lab results, radiology results, the need for further work-up and treatment in the hospital. 07/11 13:32 Order name: BMP; Complete Time: 15:14 sb4 07/11 13:32 Order name: CBC with Diff; Complete Time: 15:08 sb4 07/11 13:32 Order name: Magnesium; Complete Time: 15:14 sb4 07/11 13:32 Order name: NT PRO-BNP; Complete Time: 15:14 sb4 07/11 13:32 Order name: Troponin HS; Complete Time: 15:14 sb4 07/11 13:32 Order name: SARS RAPID; Complete Time: 15:21 sb4 07/11 13:32 Order name: Flu; Complete Time: 15:22 sb4 07/11 17:24 Order name: CBC with Automated Diff EDMS 07/11 17:24 Order name: CBC with Automated Diff EDMS 07/11 17:24 Order name: Comprehensive Metabolic Panel EDMS 07/11 17:24 Order name: Comprehensive Metabolic Panel EDMS 07/11 17:24 Order name: Troponin High Sensitivity EDMS 07/11 17:24 Order name: Troponin High Sensitivity EDMS 07/11 17:24 Order name: Troponin High Sensitivity EDMS 07/11 17:24 Order name: Troponin High Sensitivity EDMS 07/11 13:32 Order name: XRAY Chest Pa And Lat (2 Views); Complete Time: 15:32 sb4 07/11 17:24 Order name: CONS Physician Consult EDMS 07/11 13:32 Order name: Cardiac monitoring; Complete Time: 14:58 sb4 07/11 13:32 Order name: IV Saline Lock; Complete Time: 14:58 sb4 07/11 13:32 Order name: Labs collected and sent; Complete Time: 14:58 sb4 07/11 13:32 Order name: O2 Per Protocol; Complete Time: 14:31 sb4 07/11 13:32 Order name: O2 Sat Monitoring; Complete Time: 14:31 sb4 Administered Medications: 14:58 Drug: DuoNeb Nebulize (3:1) (2.5 mg - 0.5 mg) 3 ml Nebulizer once Route: Nebulizer; kc6 16:04 Follow up: Response: No adverse reaction [facility] 14:58 Drug: NS 0.9% IV 1000 ml IV at 1 bolus Per protocol; to be given as a bolus over 60 kc6 minutes Route: IV; Rate: 1 bolus; Site: left antecubital; 16:36 Follow up: Response: No adverse reaction; IV Status: Completed infusion; IV Intake: kc6 1000ml 14:58 Drug: Magnesium Sulfate IVPB 1 grams IVPB once over 1 hrs Route: IVPB; Infused Over: 1 kc6 hrs; Site: left antecubital; 16:36 Follow up: Response: No adverse reaction; IV Status: Completed infusion; IV Intake: kc6 100ml 14:58 Drug: MethylPrednisoLONE IVP 125 mg IVP once Route: IVP; Site: left antecubital; kc6 16:04 Follow up: Response: No adverse reaction [facility] 16:22 Drug: Rocephin IV 1 grams IV at calculated rate once; Given slow IV push per pharmacy kc6 instructions Route: IV; Rate: calculated rate; Site: left antecubital; 16:36 Follow up: Response: No adverse reaction; IV Status: Completed infusion; IV Intake: [id number] 16:22 Drug: AZITHromycin IVPB 500 mg IVPB once over 1 hrs; (mix in 250 mL NS) Route: IVPB; kc6 Infused Over: 1 hrs; Site: left antecubital; 17:31 Follow up: Response: No adverse reaction; IV Status: Completed infusion; IV Intake: kc6 250ml 16:22 Drug: Levalbuterol Inhalation 1.25 mg Inhalation once Route: Inhalation; kc6 16:36 Follow up: Response: No adverse reaction kc6 Disposition: 07/12 09:06 Co-signature as Attending Physician, Lee Barrett MD I reviewed the patient's care rn provided by the Advanced Practice Provider and agree with the diagnosis and treatment plan. Disposition Summary: 07/11/24 16:03 Hospitalization Ordered Notes: Hospitalization Status: Observation sb4 Provider: Yo Lopez sb4 Location: Telemetry/MedSurg (observation) sb4 Condition: Fair sb4 Problem: new sb4 Symptoms: are unchanged sb4 Bed/Room Type: Standard sb4 Room Assignment: 218(07/11/24 17:36) eb Diagnosis - COPD/ Chronic obstructive pulmonary disease with acute lower respiratory infection sb4 - Dyspnea sb4 Forms: - Medication Reconciliation Form sb4 - SBAR form sb4 - Leadership Thank You Letter sb4 Signatures: Dispatcher [employer] EDLee Rose MD MD rn Blanchard, Shelby, RN RN ss Botello, Elizabeth eb Campbell, Kaitlyn, RN RN kc6 Beverley Razo PALeonelC PA-C sb4 Corrections: (The following items were deleted from the chart) 07/11 13:32 13:32 BASIC METABOLIC PANEL+C.LAB.BRZ ordered. EDMS EDMS 13:32 13:32 CBC+H.LAB.BRZ ordered. EDMS EDMS 13:32 13:32 MAGNESIUM+C.LAB.BRZ ordered. EDMS EDMS 13:32 13:32 PROBNP+C.LAB.BRZ ordered. EDMS EDMS 13:32 13:32 Troponin High Sensitivity+C.LAB.BRZ ordered. EDMS EDMS 13:32 13:32 Chest Pa And Lat (2 Views)+RAD.RAD.BRZ ordered. EDMS EDMS 13:32 13:32 SARS-COV-2 Antigen Rapid+I.LAB.BRZ ordered. EDMS EDMS 13:32 13:32 Influenza Screen (A \T\ B)+BA.LAB.BRZ ordered. EDMS EDMS 17:36 16:03 sb4 eb
[2024-07-11] MEDS ORDERED: CEFTRIAXONE 1000 MG/VIAL ONE (16:09)
[2024-07-11] MEDS ORDERED: LEVALBUTEROL 1.25 MG/3 ML NEB ONE (16:09)
[2024-07-11] MEDS ORDERED: AZITHROMYCIN 500 MG INJ IVPB ONE (16:09)
[2024-07-11] MEDS ORDERED: NA CHLORIDE 0.9% 250 ML ONE (16:10)
[2024-07-11] MEDS ORDERED: ONDANSETRON 4 MG/2 ML VIAL IV PRN (17:17)
[2024-07-11] MEDS ORDERED: ACETAMINOPHEN 500 MG TAB PO PRN (17:17)
[2024-07-11 19:43] VITALS: BMI 26.1
[2024-07-11] MEDS: METHYLPREDNISOLONE 40 MG INJ IV SCH (20:08)
[2024-07-11] MEDS: NA CHLORIDE 0.9% 1,000 ML IV SCH (20:08)
[2024-07-11] MEDS: GUAIFENESIN/DM 5 ML UCUP PO PRN (22:03)
[2024-07-12] MEDS ORDERED: PRAZOSIN HCL 1 MG CAP PO PRN (02:08)
[2024-07-12] MEDS: QUETIAPINE 100MG TAB PO SCH (02:33)
[2024-07-12 04:31] LABS: Absolute Lymphocytes (CBC) 0.8 K/uL (0.7-4.9); Absolute Monocytes 0.1 K/uL (0.1-1.3); Absolute Neutrophil 5.4 K/uL (1.8-8.0); Basophils % 0.6 % (0-1.3); Hematocrit 36.5 % (36.0-45.0); Hemoglobin 12.6 g/dL (12.0-15.0); Lymphocytes % 12.1 % (15.3-44.8); MCHC 34.4 g/dL (32.0-36.0); MCV 95.8 fL (80-100); Monocytes % 1.9 % (3.3-12.3); Neutrophils % 85.4 % (41.7-73.7); Nucleated Red Blood Cells % 0.1 % (0-0); Platelets 219 thou/uL (152-406); RBC Red Blood Cell Count 3.81 M/uL (3.86-4.86); Red Cell Distribution Width 14.2 % (12.1-15.2)
[2024-07-12 04:51] LABS: Albumin 3.2 g/dL (3.4-5.0); Albumin/Globulin Ratio 0.9 (1.1-1.8); Anion Gap 9.1 mEq/L (5.0-15.0); Bilirubin Total 0.5 mg/dL (0.2-1.0); Globulin 3.7 g/dL (2.3-3.5); Potassium 4.1 mEq/L (3.5-5.1); Protein, Total 6.9 g/dL (6.4-8.2); Troponin High Sensitivity 5.5 pg/mL (<58.9)
[2024-07-12] MEDS ORDERED: GUAIFENESIN/CODEINE 5ML UCUP PO PRN (05:21)
[2024-07-12] MEDS ORDERED: BENZONATATE 100 MG CAP PO PRN (05:21)
[2024-07-12 05:24] LABS: Band Neutrophils 7 % (0-1); Differential Total Cells Count 100; Lymphocytes 13 % (15-42); Monocytes 2 % (0-10); Segmented Neutrophils 78 % (40-80)
[2024-07-12 05:25] LABS: Blood Morphology Comment NOT SEEN (NOT SEEN); Platelet Estimate ADEQ
--- NOTE | 2024-07-12 05:27 | P.HP ---
Certification for Inpatient Patient admitted to: Observation With expected LOS: <2 Midnights Patient will require the following post-hospital care: None Practitioner: I am a practitioner with admitting privileges, knowledge of patient current condition, hospital course, and medical plan of care. Services: Services provided to patient in accordance with Admission requirements found in Title 42 Section 412.3 of the Code of Federal Regulations Patient History Date of Service: 07/11/24 Reason for admission: Shortness of breath History of Present Illness: patient is a 64-year-old female comes to the hospital with persistent cough and congestion. Patient was found to have acute COPD exacerbation. Patient was given nebs, steroids, and antibiotics. Patient clinically is doing well. Patient's symptoms seem to be improving. At this time patient will be admitted to the hospital for further evaluation. Patient started on IV steroids and continue with IV antibiotics at this time. Patient also having persistent cough with minimal congestion. Will give her antitussives and will consult Pulmonary. At this time patient be admitted hospital for further evaluation. Allergies aspirin Allergy (Intermediate, Verified 07/05/16 22:51) Hives/Rash sumatriptan [From Imitrex] Allergy (Intermediate, Verified 07/05/16 22:51) Shortness of breath sumatriptan succinate [From Imitrex] Allergy (Intermediate, Verified 08/31/11 15:18) Hives/Rash Home Medications: Quetiapine Fumarate [Seroquel] 100 mg PO BEDTIME 01/18/16 Levocetirizine Dihydrochloride [Xyzal] 5 mg PO DAILY 07/12/24 Montelukast [Singulair*] 10 mg PO DAILY 07/12/24 Pantoprazole [Protonix Tab*] 40 mg PO DAILY 07/12/24 Prazosin HCl 1 - 3 cap PO BEDTIME PRN 07/12/24 Propranolol [Inderal] 40 mg PO DAILY 07/12/24 Simvastatin [Zocor] 10 mg PO DAILY 07/12/24 Ubrogepant [Ubrelvy] 100 mg PO PRN PRN 07/12/24 Venlafaxine HCl [Venlafaxine HCl ER] 75 mg PO DAILY 07/12/24 - Past Medical/Surgical History Has patient received pneumonia vaccine in the past: Yes Diabetic: No -: anxiety -: asthma -: bipolar disease -: cervical spinal stenosis -: depression -: COPD -: fibromyalgia -: GERD -: diverticulitis -: insomnia -: hep C -: ulcers -: lap sumit -: tubal ligation -: hysterectomy Psychosocial/ Personal History: Patient lives at home with her family. - Family History Mother Medical History: Stroke - Social History Smoking Status: Current some day smoker Alcohol use: No Caffeine use: Yes Place of Residence: Home Review of Systems 10-point ROS is otherwise unremarkable Physical Examination - Vital Signs Temperature: 98 F Blood Pressure: 127/64 Pulse: 88 Respirations: 18 Pulse Ox (%): 98 - Physical Exam General: Alert, In no apparent distress, Oriented x3 HEENT: Atraumatic, PERRLA, Mucous membr. moist/pink, EOMI, Sclerae nonicteric Neck: Supple, 2+ carotid pulse no bruit, No LAD, Without JVD or thyroid abnormality Respiratory: Diminished, Crackles/rales, Expiratory wheezes Cardiovascular: Regular rate/rhythm, Normal S1 S2, No murmurs Gastrointestinal: Normal bowel sounds, Soft and benign, Non-distended, No tenderness Musculoskeletal: No clubbing, No swelling, No tenderness Integumentary: No rashes Neurological: Normal gait, Normal speech, Normal strength at 5/5 x4 extr, Normal tone, Sensation intact, Cranial nerves 3-12 intact, Normal affect Lymphatics: No axilla or inguinal lymphadenopathy - Studies Laboratory Data (last 24 hrs) 07/11/24 07/11/24 14:43 14:43 WBC 8.60 Hgb 13.3 Hct 38.2 Plt Count 234 Sodium 139 Potassium 3.6 BUN 16 Creatinine 1.02 Glucose 87 Magnesium 2.2 Microbiology Data (last 24 hrs): 07/11/24 14:43 Nasopharnyx Influenza Type A Antigen Screen - Final 07/11/24 14:43 Nasopharnyx Influenza Type B Antigen Screen - Final Assessment & Plan - Problems (Diagnosis) (1) Chronic obstructive pulmonary disease with (acute) exacerbation Current Visit: No Status: Acute (2) Coronary artery disease Current Visit: No Status: Acute Qualifiers: (3) Affective bipolar disorder Current Visit: No Status: Chronic Qualifiers: (4) Hypertension Current Visit: No Status: Chronic Qualifiers: (5) Tobacco abuse Current Visit: No Status: Chronic - Plan Plan: 1. Shortness of breath secondary to acute COPD exacerbation; continue with nebs, steroids, and antibiotics. Continue with current treatment plan. Will get pulmonary consultation. Antitussives as well. 2. History of hypertension; continue with antihypertensives 3. Bipolar disorder; continue with Seroquel 4. GERD; continue with PPI 5. Gi DVT prophylaxis Discharge Plan: Home Plan to discharge in: 24 Hours - Advance Directives Does patient have a Living Will: No Does patient have a Durable POA for Healthcare: No - Code Status/Comfort Care Code Status Assessed: Yes Code Status: Full Code Critical Care: No Time Spent Managing PTS Care (In Minutes): 45
[2024-07-12] MEDS: ALBUTEROL 2.5 MG/3 ML NEB SOL NEB SCH (08:36)
[2024-07-12] MEDS: IPRATROPIUM BROM 0.5MG/2.5ML NEB SCH (08:36)
[2024-07-12 08:37] VITALS: O2SAT 97
[2024-07-12 08:47] VITALS: BP 127/68; TEMP 98.2
[2024-07-12] MEDS ORDERED: ACETYLCYST 20% 4 ML VIAL IH SCH (09:24)
--- NOTE | 2024-07-12 09:41 | P.DS ---
Admission Date: 07/11/24 Discharge Date: 07/12/24 Disposition: ROUTINE DISCHARGE Discharge Condition: GOOD Reason for Admission: Shortness of breath Brief History of Present Illness: patient is a 64-year-old female smoker with a past medical history notable for COPD, hypertension, bipolar disorder, generalized anxiety disorder, fibromyalgia, migraine comes to the hospital with persistent cough and congestion for a few days.. Patient was found to have acute COPD exacerbation. Patient was given nebs, steroids, and antibiotics. She was admitted on general medical floor for observation. Hospital Course: Chest ray showed no pneumonia or pulmonary edema. She tested negative for COVID-19, influenza A and B. She was responding well to the treatment consisting of IV steroid, scheduled DuoNeb, antitussive. Her symptoms significantly improved the following day and discharged home. 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 #1 acute exacerbation of COPD #2 well-controlled hypertension #3 history of bipolar disorder #4 nicotine use disorder Vital Signs/Physical Exam: Temp Pulse Resp BP Pulse Ox 98.2 F 95 H 12 127/68 97 07/12/24 08:00 07/12/24 08:00 07/12/24 08:00 07/12/24 08:00 07/12/24 08:00 Other Physical/Emotional Findings: - Physical Exam. General: Not acutely ill looking, in no apparent distress,. HEENT: Normocephalic, atraumatic, nonicteric sclera, nonanemic conjunctive. Neck: Supple, without JVD or goiter or thyroid mass. Respiratory: Normal breathing effort, clear to auscultation bilaterally except mild rhonchi bilaterally,, no crackles no wheezing. Cardiovascular: Regular rate and rhythm, S1, S2 normal, no murmur no gallop. Gastrointestinal: Normal bowel sounds, nondistended, nontender, No ascites, , No masses, no hepatosplenomegaly. Extremities : No clubbing, No peripheral edema,. Integumentary: No rashes, petechia, suspected lesions. Lymphatics: No axilla or cervical lymphadenopathy. Neurology; alert awake oriented x3, no focal neurologic deficit, normal affection . mood and behavior. Laboratory Data at Discharge: WBC 6.30 thou/uL (4.3-10.9) 07/12/24 04:00 Hgb 12.6 g/dL (12.0-15.0) 07/12/24 04:00 Hct 36.5 % (36.0-45.0) 07/12/24 04:00 Plt Count 219 thou/uL (152-406) 07/12/24 04:00 Sodium 138 mEq/L (136-145) 07/12/24 04:00 Potassium 4.1 mEq/L (3.5-5.1) D 07/12/24 04:00 BUN 14 mg/dL (7-18) 07/12/24 04:00 Creatinine 0.80 mg/dL (0.55-1.02) 07/12/24 04:00 Glucose 144 mg/dL (74-106) H 07/12/24 04:00 Magnesium 2.2 mg/dL (1.6-2.4) 07/11/24 14:43 Total Bilirubin 0.5 mg/dL (0.2-1.0) 07/12/24 04:00 AST 11 U/L (15-37) L 07/12/24 04:00 ALT 19 U/L (13-56) 07/12/24 04:00 Alkaline Phosphatase 103 U/L (45-117) 07/12/24 04:00 Imagings Data: Chest x-ray on admission personally reviewed unremarkable Home Medications: Quetiapine Fumarate [Seroquel] 100 mg PO BEDTIME 01/18/16 Albuterol Neb [Proventil 0.083% Neb Soln] 2.5 mg NEB TID PRN #30 amp 07/12/24 Benzonatate [Tessalon Perle*] 200 mg PO TID #30 cap 07/12/24 Cefuroxime [Ceftin*] 250 mg PO BID #6 tab 07/12/24 Levocetirizine Dihydrochloride [Xyzal] 5 mg PO DAILY 07/12/24 Montelukast [Singulair*] 10 mg PO DAILY 07/12/24 Nebulizer 1 each MC TID #1 ea 07/12/24 Nebulizer Accessories [Adult Aerosol Mask] 1 each MC TID #1 ea 07/12/24 Nebulizer Accessories [Ez Twist Tubing] 1 each MC TID #1 ea 07/12/24 Pantoprazole [Protonix Tab*] 40 mg PO DAILY 07/12/24 Prazosin HCl 1 - 3 cap PO BEDTIME PRN 07/12/24 Prazosin HCl [Minipress*] 2 mg PO BEDTIME PRN cap 07/12/24 Propranolol [Inderal*] 40 mg PO DAILY 07/12/24 Quetiapine [Seroquel*] 100 mg PO BEDTIME tab 07/12/24 Simvastatin [Zocor] 10 mg PO DAILY 07/12/24 Ubrogepant [Ubrelvy] 100 mg PO PRN PRN 07/12/24 Venlafaxine HCl [Venlafaxine HCl ER] 75 mg PO DAILY 07/12/24 prednisoLONE [Prednisolone] 20 mg PO BID #24 07/12/24 New Medications: Nebulizer Accessories [Adult Aerosol Mask] 1 each MC TID #1 ea Cefuroxime [Ceftin*] 250 mg PO BID #6 tab Nebulizer Accessories [Ez Twist Tubing] 1 each MC TID #1 ea Nebulizer 1 each MC TID #1 ea prednisoLONE [Prednisolone] 20 mg PO BID #24 Albuterol Neb [Proventil 0.083% Neb Soln] 2.5 mg NEB TID PRN #30 amp PRN Reason: Shortness Of Breath Benzonatate [Tessalon Perle*] 200 mg PO TID #30 cap Followup: Julien Ram PA [Primary Care Provider] - 1-2 Weeks
--- NOTE | 2024-07-12 12:43 | P.CNS ---
Date of Consult: 07/12/24 Reason for Consult: COPD exacerbation Chief Complaint: Shortness of breath History of Present Illness: Patient is 64 years of age heavy smoker admitted with worsening dyspnea past 3 days she uses trilogy at home contracted upper respiratory tract viral infection it appeared in the hospital change clear sputum Allergies aspirin Allergy (Intermediate, Verified 07/05/16 22:51) Hives/Rash sumatriptan [From Imitrex] Allergy (Intermediate, Verified 07/05/16 22:51) Shortness of breath sumatriptan succinate [From Imitrex] Allergy (Intermediate, Verified 08/31/11 15:18) Hives/Rash Home Medications: Quetiapine Fumarate [Seroquel] 100 mg PO BEDTIME 01/18/16 Albuterol Neb [Proventil 0.083% Neb Soln] 2.5 mg NEB TID PRN #30 amp 07/12/24 Benzonatate [Tessalon Perle*] 200 mg PO TID #30 cap 07/12/24 Cefuroxime [Ceftin*] 250 mg PO BID #6 tab 07/12/24 Levocetirizine Dihydrochloride [Xyzal] 5 mg PO DAILY 07/12/24 Montelukast [Singulair*] 10 mg PO DAILY 07/12/24 Nebulizer 1 each MC TID #1 ea 07/12/24 Nebulizer Accessories [Adult Aerosol Mask] 1 each MC TID #1 ea 07/12/24 Nebulizer Accessories [Ez Twist Tubing] 1 each MC TID #1 ea 07/12/24 Pantoprazole [Protonix Tab*] 40 mg PO DAILY 07/12/24 Prazosin HCl 1 - 3 cap PO BEDTIME PRN 07/12/24 Prazosin HCl [Minipress*] 2 mg PO BEDTIME PRN cap 07/12/24 Propranolol [Inderal*] 40 mg PO DAILY 07/12/24 Quetiapine [Seroquel*] 100 mg PO BEDTIME tab 07/12/24 Simvastatin [Zocor] 10 mg PO DAILY 07/12/24 Ubrogepant [Ubrelvy] 100 mg PO PRN PRN 07/12/24 Venlafaxine HCl [Venlafaxine HCl ER] 75 mg PO DAILY 07/12/24 prednisoLONE [Prednisolone] 20 mg PO BID #24 07/12/24 - Past Medical/Surgical History Diabetic: No -: anxiety -: asthma -: bipolar disease -: cervical spinal stenosis -: depression -: COPD -: fibromyalgia -: GERD -: diverticulitis -: insomnia -: hep C -: ulcers -: lap sumit -: tubal ligation -: hysterectomy Psychosocial/ Personal History: Patient lives at home with her family. - Family History Mother Medical History: Stroke - Social History Smoking Status: Current every day smoker Alcohol use: No CD- Drugs: No Caffeine use: Yes Place of Residence: Home Review of Systems General: Weakness Respiratory: Cough, Shortness of Breath Physical Examination Temp Pulse Resp BP Pulse Ox 98.2 F 95 H 12 127/68 97 07/12/24 08:00 07/12/24 08:00 07/12/24 08:00 07/12/24 08:00 07/12/24 08:00 General: Alert, Oriented x3 Respiratory: Diminished, Expiratory wheezes Cardiovascular: No edema, Regular rate/rhythm, Normal S1 S2 Gastrointestinal: Normal bowel sounds, Soft and benign Laboratory Data (last 24 hrs) 07/11/24 07/11/24 14:43 14:43 WBC 8.60 Hgb 13.3 Hct 38.2 Plt Count 234 Sodium 139 Potassium 3.6 BUN 16 Creatinine 1.02 Glucose 87 Magnesium 2.2 - Problems (1) Chronic obstructive pulmonary disease with (acute) exacerbation Status: Acute Plan: Patient is 64 years of age with a history of COPD on Trelegy admitted with an exacerbation very heavy smoker chest x-ray is clear she of counseled her on smoking of lung cancer the fact that she needs to undergo low-dose CAT scans every year till the age of 81 and her about possible methods of quitting smoking and using her Chantix nicotine patches continue with Trelegy patient can go home on some antibiotics and steroids follow-up with me in 2 weeks
[2024-07-12] MEDS ORDERED: METHYLPREDNISOLONE 40 MG INJ IV SCH (21:00)
== END 2024-07-12 11:23 | disposition home or self-care (01) ==
LOC: ER 12:54 → ERHOLD 17:17 → 2ND 18:11
PROVIDERS: ADMIT Hospitalist; ATTEND Internal Medicine
DX: J44.1 Chronic obstructive pulmonary disease with (acute) exacerbation (principal); R06.02 Shortness of breath; R05.9 Cough, unspecified; F17.210 Nicotine dependence, cigarettes, uncomplicated; I25.10 Atherosclerotic heart disease of native coronary artery without angina pectoris; F31.9 Bipolar disorder, unspecified; I10 Essential (primary) hypertension; Z88.6 Allergy status to analgesic agent; Z88.8 Allergy status to other drugs, medicaments and biological substances; Z71.6 Tobacco abuse counseling; Z11.52 Encounter for screening for COVID-19
CPT/HCPCS: 96365; 85025 ×2; 80048; 36415; 83735; 84484 ×2; 80053; 83880; 87804 ×2; 71046; 94640; 96375; 99285; 96366; 87811; J3475; J7614; J7613 ×3; J7644 ×3; J2919 ×3; J7050; J7030 ×2; J0696; G0378 ×3; J7608

== ENCOUNTER 2024-09-15 12:02 | Emergency (ER) | payer OTHER ==
[2024-09-15 13:02] LABS: Absolute Eosinophils 0.1 K/uL (0-0.5); Absolute Lymphocytes (CBC) 1.4 K/uL (0.7-4.9); Absolute Monocytes 0.4 K/uL (0.1-1.3); Absolute Neutrophil 3.2 K/uL (1.8-8.0); Basophils % 0.6 % (0-1.3); Eosinophils % 1.7 % (0-4.4); Hematocrit 38.9 % (36.0-45.0); Hemoglobin 13.5 g/dL (12.0-15.0); MCH 34.2 pg (27.0-35.0); MCHC 34.7 g/dL (32.0-36.0); MCV 98.5 fL (80-100); MPV 8.3 fL (7.6-11.3); Monocytes % 7.1 % (3.3-12.3); Neutrophils % 62.6 % (41.7-73.7); Nucleated Red Blood Cells % 0.1 % (0-0); Platelets 202 thou/uL (152-406); RBC Red Blood Cell Count 3.95 M/uL (3.86-4.86); Red Cell Distribution Width 14.4 % (12.1-15.2)
[2024-09-15 13:16] LABS: Albumin 3.3 g/dL (3.4-5.0); Albumin/Globulin Ratio 0.8 (1.1-1.8); Anion Gap 8.7 mEq/L (5.0-15.0); Bilirubin Total 0.7 mg/dL (0.2-1.0); Globulin 3.9 g/dL (2.3-3.5); Potassium 3.7 mEq/L (3.5-5.1); Protein, Total 7.2 g/dL (6.4-8.2)
--- NOTE | 2024-09-15 13:49 | RAD REPORT ---
EXAMINATION: CT ABDOMEN AND PELVIS WITH CONTRAST CLINICAL INDICATION: Abdominal pain 2023. Flank pain TECHNIQUE: CT abdomen and pelvis was performed, after the administration of 100 cc Isovue-300.. Sagit travon and coronal reconstructions were obtained. One or more of the following dose reduction techniques were used: Automated exposure control, adjustment of the mA and kV according to patient si ze, and iterative reconstruction. Unless otherwise specified, incidental findings do not require dedicated imaging follow-up. [id number]. Oral contrast was not given which limits evaluation of bowel and appendix. COMPARISON: .None FINDINGS: Lymph nodes at the GE junction have diminished in size and are likely benign. Cholecystectomy. Fluid throughout nondilated small bowel. Liver, spleen, pancreas, adrenals and kidneys appear unremarkable No evidence of diverticulitis. Mild posterior subluxation L5 on S1 with disc space narrowing, subchondral sclerosis and vacuum pheno medley. Small ventral and umbilical hernias containing fat. Small inguinal hernias. Moderate amount stool within the colon. Hysterectomy. No adnexal mass : IMPRESSION: Fluid throughout nondilated small bowel may indicate an enteritis Moderate amount of stool within the colon
[2024-09-15 14:36] LABS: Specific Gravity 1.025 (1.005-1.030); Urine Bilirubin NEGATIVE (Negative); Urine Blood Negative (Negative); Urine Clarity Clear (Clear); Urine Color Light-Yellow (Yellow); Urine Glucose NEGATIVE (Negative); Urine Ketones NEGATIVE (Negative); Urine Microscopic Reflex YN NO UMIC; Urine Nitrite NEGATIVE (Negative); Urine Protein NEGATIVE (Negative); Urine Urobilinogen Normal (Normal)
[2024-09-15] MEDS ORDERED: METHOCARBAMOL 1,000 MG/10 ML VIAL ONE (14:39)
[2024-09-15] MEDS ORDERED: NA CHLORIDE 0.9% 1,000 ML ONE (14:40)
[2024-09-15] MEDS ORDERED: KETOROLAC 30 MG/ML INJ ONE (14:40)
[2024-09-15] MEDS ORDERED: NA CHLORIDE 0.9% 100 ML ONE (14:40)
--- NOTE | 2024-09-15 15:38 | EDPHYS ---
Physician Documentation [facility] Name: Shahnaz Ramos Age: 64 yrs Sex: Female : 1960 Arrival Date: 09/15/2024 Time: 12:02 Bed 2 Private MD: ED Physician Thomas Soares HPI: 09/15 13:39 This 64 yrs old Female presents to ER via Wheelchair with complaints of Right rt Groin Pain, Lower Back Pain. 13:39 Patient presents to the ED with a lower back pain for about 5 days, she states that she rt is currently being treated for kidney infection. The patient reports having pain to the right groin. No adequate relief with Tylenol. States that it makes it difficult to walk due to the pain. Denies other acute complaints at this time, symptoms are moderate in severity, no other aggravating or elevating factors.. Historical: - Allergies: 12:33 Aspirin; db 12:33 Imitrex; db - PMHx: 12:33 Asthma; Bipolar disorder; cervical spinal stenosis; COPD; Diverticulitis; Depression; db Anxiety; GERD; Hepatitis C; Migraines; insomnia; Fibromyalgia; Ulcers; - PSHx: 12:33 Cholecystectomy; Total abdominal hysterectomy; tubal ligation; db - Immunization history:: Adult Immunizations unknown. - Infectious Disease History:: Denies. - Social history:: Smoking status: Patient denies any tobacco usage or history of. - Family history:: not pertinent. ROS: 13:39 Constitutional: Negative for fever, chills, and weight loss, Cardiovascular: Negative rt for chest pain, palpitations, and edema, Respiratory: Negative for shortness of breath, cough, wheezing, and pleuritic chest pain, Abdomen/GI: Negative for abdominal pain, nausea, vomiting, diarrhea, and constipation, Skin: Negative for injury, rash, and discoloration, Neuro: Negative for headache, weakness, numbness, tingling, and seizure, 13:39 Back: Positive for pain at rest, Negative for injury or acute deformity, Exam: 13:39 Constitutional: This is a well developed, well nourished patient who is awake, alert, rt and in no acute distress. Head/Face: Normocephalic, atraumatic. Chest/axilla: Normal chest wall appearance and motion. Nontender with no deformity. No lesions are appreciated. Cardiovascular: Regular rate and rhythm with a normal S1 and S2. No gallops, murmurs, or rubs. Normal PMI, no JVD. No pulse deficits. Respiratory: Lungs have equal breath sounds bilaterally, clear to auscultation and percussion. No rales, rhonchi or wheezes noted. No increased work of breathing, no retractions or nasal flaring. Abdomen/GI: Soft, non-tender, with normal bowel sounds. No distension or tympany. No guarding or rebound. No evidence of tenderness throughout. Skin: Warm, dry with normal turgor. Normal color with no rashes, no lesions, and no evidence of cellulitis. MS/ Extremity: Pulses equal, no cyanosis. Neurovascular intact. Full, normal range of motion. 13:39 Back: Tenderness to the lower paraspinal regions, no CVAT, Vital Signs: 12:33 BP 120 / 69; Pulse 66; Resp 16; Temp 99.1; Pulse Ox 99% ; Weight 65.32 kg; Height 5 ft. db 0 in. ; 16:36 BP 116 / 70; Pulse 70; Resp 17 S; Pulse Ox 99% on R/A; kc6 12:33 Body Mass Index 28.12 (65.32 kg, 152.4 cm) db MDM: 12:31 Medical Screening Exam initiated rt 16:05 Differential Diagnosis Mechanical back pain, Adonis, kidney stone, disc disease. Data rt reviewed: vital signs, nurses notes, lab test result(s), radiologic studies. Consideration of Admission/Observation Escalation of care including admission/observation considered. Patient with no red flag symptoms, suspect mechanical back pain, workup is benign. No indications for admission at this time, I discussed this with the patient.. I considered the following discharge prescriptions or medication management in the emergency department Medications were administered in the Emergency Department. See MAR. Independent interpretation of the following test(s) in the Emergency Department CT Scan: My interpretation is No ureteral stones, interpretation of CT scan images. Test considered but Not performed: MRI: No signs or symptoms to suggest cauda equina syndrome, spinal epidural abscess, MRI is not emergently indicated. Care significantly affected by the following chronic conditions: Chronic Obstructive Pulmonary Disease. Counseling: I had a detailed discussion with the patient and/or guardian regarding the historical points, exam findings, and any diagnostic results supporting the discharge/admit diagnosis, lab results, radiology results, the need for outpatient follow up, to return to the emergency department if symptoms worsen or persist or if there are any questions or concerns that arise at home. Special discussion: I discussed with the patient/guardian in detail that at this point there is no indication for admission to the hospital. It is understood, however, that if the symptoms persist or worsen the patient needs to return immediately for re-evaluation. 09/15 12:37 Order name: CBC with Diff; Complete Time: 13:54 rt 09/15 12:37 Order name: CMP; Complete Time: 13:54 rt 09/15 12:37 Order name: Lipase; Complete Time: 13:54 rt 09/15 12:37 Order name: Urinalysis w/ reflexes; Complete Time: 14:39 rt 09/15 12:37 Order name: CT Abd/Pelvis - IV Contrast Only; Complete Time: 13:54 rt 09/15 12:37 Order name: IV Saline Lock; Complete Time: 12:57 rt 09/15 12:37 Order name: Labs collected and sent; Complete Time: 12:57 rt Administered Medications: 14:49 Drug: TORadol - Ketorolac IVP 15 mg IVP once Route: IVP; Site: right antecubital; kc6 16:35 Follow up: Response: No adverse reaction; Pain is unchanged, physician notified kc6 14:49 Drug: NS 0.9% IV 1000 ml IV at 1 bolus Per protocol; to be given as a bolus over 60 kc6 minutes Route: IV; Rate: 1 bolus; Site: right antecubital; 16:35 Follow up: Response: No adverse reaction; IV Status: Completed infusion; IV Intake: kc6 1000ml 14:49 Drug: Methocarbamol IVPB 1 grams IVPB once over 1 hrs; (mix in NS 100 mL) Route: IVPB; kc6 Infused Over: 1 hrs; Site: right antecubital; 16:35 Follow up: Response: No adverse reaction; IV Status: Completed infusion; IV Intake: kc6 100ml 15:51 Drug: Decadron - Dexamethasone IVP 10 mg IVP once Route: IVP; Site: right antecubital; jb4 16:35 Follow up: Response: No adverse reaction kc 15:52 Drug: morphine IVP or IV 4 mg IVP once over 4 mins Route: IVP; Infused Over: 4 mins; jb4 Site: right antecubital; 16:35 Follow up: Response: No adverse reaction; Pain is decreased; RASS: Alert and Calm (0) kc6 15:52 Drug: Ondansetron IVP 4 mg IVP once; over 2 minutes Route: IVP; Site: right antecubital;jb4 16:35 Follow up: Response: No adverse reaction kc6 Disposition Summary: 09/15/24 15:32 Discharge Ordered Notes: Location: Home rt Problem: new rt Symptoms: have improved rt Condition: Stable rt Diagnosis - Low back pain rt Followup: rt - With: Private Physician - When: 2 - 3 days - Reason: Discharge Instructions: - Discharge Summary Sheet rt - Acute Back Pain, Adult rt Forms: - Medication Reconciliation Form rt - Antibiotic Education rt - Prescription Opioid Use rt - Patient Portal Instructions rt - Leadership Thank You Letter rt Prescriptions: - Cyclobenzaprine 10 mg Oral tablet - take 1 tablet ORAL route every 8 hours As needed; 15 tablet; Refills: 0, rt Product Selection Permitted - Tramadol 50 mg Oral tablet - take 1 tablet ORAL route every 8 hours as needed; 15 tablet; Refills: 0, rt Product Selection Permitted - Medrol (Sergei) 4 mg Oral Tablets, Dose Pack - take 1 tablet ORAL route as directed - follow package instructions; 1 packet; rt Refills: 0, Product Selection Permitted Signatures: Dispatcher [employer] EDMS Piter Evangelista RN RN jb4 Ale Schmidt RN RN kc6 Chuyita Cooper, RN RN Thomas Smith MD MD rt Corrections: (The following items were deleted from the chart) 12:37 12:37 CBC+H.LAB.BRZ ordered. EDMS EDMS 12:37 12:37 COMPREHENSIVE METABOLIC PANEL+C.LAB.BRZ ordered. EDMS EDMS 12:37 12:37 LIPASE+C.LAB.BRZ ordered. EDMS EDMS 12:37 12:37 Urinalysis+U.LAB.BRZ ordered. EDMS EDMS 12:37 12:37 Abdomen Pelvis W Con+CT.RAD.BRZ ordered. EDMS EDMS
--- NOTE | 2024-09-15 15:38 | ER ---
Nurse's Notes [facility] Name: Shahnaz Ramos Age: 64 yrs Sex: Female : 1960 Arrival Date: 09/15/2024 Time: 12:02 Bed 2 Private MD: Diagnosis: Low back pain Presentation: 09/15 12:31 Chief complaint: Patient states: LOWER BACK PAIN X 5 DAYS. STATES NOW HAS DIFFICULTY db WALKING GRADUALLY GETTING WORSE. DENIES RECENT INJURY. STATES URINATES EVERY 5 MINUTES BUT STATES IS NORMAL FOR PATIENT. STATES RIGHT GROIN PAIN WELL. IS BEING TREATED FOR KIDNEY INFECTION AND UPPER RESPIRATORY INFECTION. 12:33 Coronavirus screen: Client denies travel out of the [place] in the last 14 days. At this db time, the client does not indicate any symptoms associated with coronavirus-19. Ebola Screen: Patient negative for fever greater than or equal to 101.5 degrees Fahrenheit, and additional compatible Ebola Virus Disease symptoms Patient denies exposure to infectious person. Patient denies travel to an Ebola-affected area in the 21 days before illness onset. No symptoms or risks identified at this time. Initial Sepsis Screen: Does the patient meet any 2 criteria? No. Patient's initial sepsis screen is negative. Does the patient have a suspected source of infection? No. Patient's initial sepsis screen is negative. Risk Assessment: Do you want to hurt yourself or someone else? Patient reports no desire to harm self or others. Onset of symptoms was September 15, 2024. 12:33 Method Of Arrival: Wheelchair db 12:33 Acuity: WOLFGANG 3 db Triage Assessment: 12:33 General: Appears in no apparent distress. uncomfortable, Behavior is calm, cooperative. db Pain: Complains of pain in back and pelvis. Neuro: Level of Consciousness is awake, alert, obeys commands, Oriented to person, place, time, situation. Respiratory: Airway is patent Respiratory effort is even, unlabored, Respiratory pattern is regular, symmetrical. : Reports urinary frequency. Historical: - Allergies: 12:33 Aspirin; db 12:33 Imitrex; db - PMHx: 12:33 Asthma; Bipolar disorder; cervical spinal stenosis; COPD; Diverticulitis; Depression; db Anxiety; GERD; Hepatitis C; Migraines; insomnia; Fibromyalgia; Ulcers; - PSHx: 12:33 Cholecystectomy; Total abdominal hysterectomy; tubal ligation; db - Immunization history:: Adult Immunizations unknown. - Infectious Disease History:: Denies. - Social history:: Smoking status: Patient denies any tobacco usage or history of. - Family history:: not pertinent. Screenin:49 [facility] ED Fall Risk Assessment (Adult) History of falling in the last 3 months, kc6 including since admission No falls in past 3 months (0 pts) Confusion or Disorientation No (0 pts) Intoxicated or Sedated No (0 pts) Impaired Gait No (0 pts) Mobility Assist Device Used No (0 pt) Altered Elimination No (0 pt) Score/Fall Risk Level 0 - 2 = Low Risk Oriented to surroundings, Maintained a safe environment, Educated pt \T\ family on fall prevention, incl call for assistance when getting out of bed. Abuse screen: Denies threats or abuse. Denies injuries from another. Nutritional screening: No deficits noted. Tuberculosis screening: No symptoms or risk factors identified. Assessment: 14:50 General: Appears in no apparent distress. uncomfortable, well groomed, well developed, kc6 Behavior is calm, cooperative, appropriate for age. Pain: Complains of pain in pelvis and back. Neuro: Level of Consciousness is awake, alert, obeys commands, Oriented to person, place, time, situation, Appropriate for age. Cardiovascular: Capillary refill < 3 seconds. Respiratory: Airway is patent Trachea midline Respiratory effort is even, unlabored, Respiratory pattern is regular, symmetrical. GI: No signs and/or symptoms were reported involving the gastrointestinal system. : Reports urinary frequency. EENT: No signs and/or symptoms were reported regarding the EENT system. Derm: No signs and/or symptoms reported regarding the dermatologic system. Skin is intact, is healthy with good turgor, Skin is pink, warm \T\ dry. Musculoskeletal: Circulation, motion, and sensation intact. Range of motion: intact in all extremities. 15:50 Reassessment: Patient appears in no apparent distress at this time. Patient and/or jb4 family updated on plan of care and expected duration. Pain level reassessed. Patient is alert, oriented x 3, equal unlabored respirations, skin warm/dry/pink. D/c pending ride home. 16:36 Reassessment: Patient appears in no apparent distress at this time. No changes from kc6 previously documented assessment. Patient and/or family updated on plan of care and expected duration. Pain level reassessed. Patient is alert, oriented x 3, equal unlabored respirations, skin warm/dry/pink. Patient states feeling better. Patient states symptoms have improved. Vital Signs: 12:33 BP 120 / 69; Pulse 66; Resp 16; Temp 99.1; Pulse Ox 99% ; Weight 65.32 kg; Height 5 ft. db 0 in. ; 16:36 BP 116 / 70; Pulse 70; Resp 17 S; Pulse Ox 99% on R/A; kc6 12:33 Body Mass Index 28.12 (65.32 kg, 152.4 cm) db ED Course: 12:06 Patient arrived in ED. cj3 12:15 Thomas Soares MD is Attending Physician. rt 12:35 Triage completed. db 12:35 Arm band placed on. db 12:57 CBC with Diff Sent. cc6 12:57 CMP Sent. cc6 12:57 Lipase Sent. cc6 12:57 Initial lab(s) drawn, by me, sent to lab. Inserted saline lock: 20 gauge in right cc6 antecubital area, using aseptic technique. Blood collected. Flushed with 10 mL NS. 13:35 CT Abd/Pelvis - IV Contrast Only In Process Unspecified. EDMS 14:00 Urine collected:. db 14:32 Ale Schmidt, RN is Primary Nurse. kc6 14:49 Patient has correct armband on for positive identification. Bed in low position. Call kc light in reach. Side rails up X 1. Pulse ox on. NIBP on. Door closed. Noise minimized. Lights dimmed. Warm blanket given. Pillow given. Verbal reassurance given. 14:49 Patient maintains SpO2 saturation greater than 95% on room air. kc6 16:36 No provider procedures requiring assistance completed. IV discontinued, intact, kc6 bleeding controlled, No redness/swelling at site. Pressure dressing applied. Administered Medications: 14:49 Drug: TORadol - Ketorolac IVP 15 mg IVP once Route: IVP; Site: right antecubital; kc6 16:35 Follow up: Response: No adverse reaction; Pain is unchanged, physician notified kc6 14:49 Drug: NS 0.9% IV 1000 ml IV at 1 bolus Per protocol; to be given as a bolus over 60 kc6 minutes Route: IV; Rate: 1 bolus; Site: right antecubital; 16:35 Follow up: Response: No adverse reaction; IV Status: Completed infusion; IV Intake: kc6 1000ml 14:49 Drug: Methocarbamol IVPB 1 grams IVPB once over 1 hrs; (mix in NS 100 mL) Route: IVPB; kc6 Infused Over: 1 hrs; Site: right antecubital; 16:35 Follow up: Response: No adverse reaction; IV Status: Completed infusion; IV Intake: kc6 100ml 15:51 Drug: Decadron - Dexamethasone IVP 10 mg IVP once Route: IVP; Site: right antecubital; jb4 16:35 Follow up: Response: No adverse reaction kc6 15:52 Drug: morphine IVP or IV 4 mg IVP once over 4 mins Route: IVP; Infused Over: 4 mins; jb4 Site: right antecubital; 16:35 Follow up: Response: No adverse reaction; Pain is decreased; RASS: Alert and Calm (0) [facility] 15:52 Drug: Ondansetron IVP 4 mg IVP once; over 2 minutes Route: IVP; Site: right antecubital;jb4 16:35 Follow up: Response: No adverse reaction kc6 Intake: 16:35 IV: 1000ml; Total: 1000ml. kc6 16:35 IV: 100ml; Total: 1100ml. kc6 Outcome: 15:32 Discharge ordered by MD. rt 16:36 Patient left the ED. db 16:36 Discharged to home via wheelchair, with family, kc6 16:36 Condition: good 16:36 Discharge instructions given to patient, Instructed on discharge instructions, follow up and referral plans. no drinking with medication, no driving heavy equipment, medication usage, Demonstrated understanding of instructions, follow-up care, medications, Prescriptions given X 3, Signatures: Dispatcher [employer] EDMS Piter Evangelista RN RN jb4 Ale Schmidt RN RN kc6 Chuyita Cooper RN RN Thomas Smith MD MD rt Keisha Conroy cc6 Ryanne Martin cj3 Corrections: (The following items were deleted from the chart) 12:35 12:31 Chief complaint: Patient states: LOWER BACK PAIN X 5 DAYS. STATES NOW HAS db DIFFICULTY WALKING GRADUALLY GETTING WORSE. DENIES RECENT INJURY. STATES URINATES EVERY 5 MINUTES BUT STATES IS NORMAL FOR PATIENT db 12:36 12:33 BP 120 / 69; Pulse 66bpm; Resp 16bpm; Pulse Ox 99%; 65.32 kg; Height 5 ft. 0 in.; db BMI: 28.1; db
[2024-09-15] MEDS ORDERED: ONDANSETRON 4 MG/2 ML VIAL ONE (15:39)
[2024-09-15] MEDS ORDERED: MORPHINE 4 MG/ML SYR ONE (15:39)
[2024-09-15] MEDS ORDERED: dexAMETHasone 10 MG/ML VIAL ONE (15:39)
[2024-09-15 16:57] VITALS: TEMP 99.1; O2SAT 99
[2024-09-15 17:03] VITALS: BP 116/70
== END 2024-09-15 16:36 | disposition home or self-care (01) ==
LOC: ER 12:02
DX: M54.50 Low back pain, unspecified (principal); R10.31 Right lower quadrant pain
CPT/HCPCS: 85025; 36415; 81003; 83690; 80053; 74177; Q9967; J1100; J2405; J2800; J7030

== ENCOUNTER 2024-09-25 16:19 | Emergency (ER) | payer OTHER ==
[2024-09-25] MEDS ORDERED: HYDROCODONE/APAP 7.5/325 MG TAB ONE (17:00)
--- NOTE | 2024-09-25 17:18 | RAD REPORT ---
Extremity Venous [employer] CLINICAL INDICATION: Female, 64 years old.PAIN RIGHT TECHNIQUE: Complete duplex sonography of the lower extremity veins was performed of the affected limb . The examination included compression for vein patency, color Doppler imaging and flow augmentation in response to distal compression of the distal external iliac, common femoral, femoral, popliteal, peroneal, tibial and great saphenous veins. [id number]. COMPARISON: No prior exams FINDINGS: Duplex sonography imaging demonstrates all deep veins examined to be fully compressible with spontane ous, phasic and augmented flow in the affected limb. IMPRESSION: No evidence of deep venous thrombosis in the right lower extremity.
--- NOTE | 2024-09-25 17:49 | RAD REPORT ---
EXAMINATION: Pelvis CLINICAL INDICATION: Female, 64 years old. PAIN COMPARISON: No prior exam. FINDINGS: No acute fracture. No malalignment/dislocation. No significant focal degenerative change. Other: Large colonic stool burden. IMPRESSION: No acute osseous abnormality. Constipation.
--- NOTE | 2024-09-25 17:52 | ER ---
Nurse's Notes [facility] Name: Shahnaz Ramos Age: 64 yrs Sex: Female : 1960 Arrival Date: 09/25/2024 Time: 16:19 Bed 11 Private MD: Diagnosis: Pain in right leg Presentation: 09/25 16:41 Chief complaint: Patient states: right groin pain since she fell on the , feels iw like nerve pain. Coronavirus screen: At this time, the client does not indicate any symptoms associated with coronavirus-19. Ebola Screen: No symptoms or risks identified at this time. Initial Sepsis Screen: Does the patient meet any 2 criteria? No. Patient's initial sepsis screen is negative. Does the patient have a suspected source of infection? No. Patient's initial sepsis screen is negative. Risk Assessment: Do you want to hurt yourself or someone else? Patient reports no desire to harm self or others. Onset of symptoms was September 15, 2024. 16:41 Method Of Arrival: Ambulatory iw 16:41 Acuity: WOLFGANG 4 iw Historical: - Allergies: 16:42 Imitrex; iw 16:42 Aspirin; iw - PMHx: 16:42 Asthma; Bipolar disorder; Anxiety; cervical spinal stenosis; COPD; Depression; iw Diverticulitis; Fibromyalgia; GERD; Hepatitis C; insomnia; Migraines; Ulcers; - PSHx: 16:42 Total abdominal hysterectomy; Cholecystectomy; tubal ligation; iw - Immunization history:: Adult Immunizations up to date. - Infectious Disease History:: Denies. - Social history:: Smoking status: Patient reports the use of cigarette tobacco products, smokes one-half pack cigarettes per day. Assessment: 17:08 Reassessment: Patient is alert, oriented x 3, equal unlabored respirations, skin aa5 warm/dry/pink. 17:08 General: Appears uncomfortable. aa5 18:07 Reassessment: Patient is alert, oriented x 3, equal unlabored respirations, skin aa5 warm/dry/pink. 18:10 Reassessment: Pt requested CD copy of radiology, awaiting CD for d/c home. . aa5 18:35 Reassessment: Patient is alert, oriented x 3, equal unlabored respirations, skin aa5 warm/dry/pink. Vital Signs: 16:41 BP 109 / 69; Pulse 71; Resp 16; Temp 98.6; Pulse Ox 99% on R/A; Weight 65.32 kg; Height iw 5 ft. 0 in. ; Pain 8/10; 16:41 Body Mass Index 28.12 (65.32 kg, 152.4 cm) iw 16:41 Pain Scale: Adult ED Course: 16:22 Patient arrived in ED. im 16:27 Vicki Schwab FNP-C is PHCP. kb 16:27 Lee Barrett MD is Attending Physician. kb 16:42 Triage completed. iw 16:42 Arm band placed on. iw 17:06 US Extremity Venous Unilateral Ltd In Process Unspecified. EDMS 17:34 Pelvis XRAY In Process Unspecified. EDMS 18:05 No provider procedures requiring assistance completed. Patient did not have IV access aa5 during this emergency room visit. 18:14 PHCP role handed off by Vicki Schwab FNP-C aa5 Administered Medications: 17:08 Drug: Hydrocodone-Acetaminophen PO (7.5 mg-325 mg) 1 tabs PO once Route: PO; aa5 18:07 Follow up: Response: No adverse reaction aa5 18:07 Drug: morphine IM 4 mg IM once Route: IM; Site: right gluteus; aa5 18:15 Follow up: Response: No adverse reaction aa5 18:07 Drug: Ondansetron PO 4 mg PO once Route: PO; aa5 18:15 Follow up: Response: No adverse reaction aa5 Outcome: 17:51 Discharge ordered by MD. kb 18:35 Discharged to home via wheelchair, with family, aa5 18:35 Condition: improved 18:35 Discharge instructions given to patient, Instructed on discharge instructions, follow up and referral plans. Demonstrated understanding of instructions, follow-up care, 18:41 Patient left the ED. aa5 Signatures: Dispatcher [employer] EDMS Vicki Schwab FNP-C FNP-Ckb Williams, Irene, RN RN iw Calderon, Audri RN RN aa5 Remedios Padron im Corrections: (The following items were deleted from the chart) 18:12 18:11 Patient left the ED. aa5 aa5 18:15 18:05 Patient left the ED. aa5 aa5 18:15 18:05 Discharged to Left before discharge instructions were given. aa5 aa5 18:15 18:05 Discharge instructions given to none aa5 aa5
--- NOTE | 2024-09-25 17:52 | EDPHYS ---
Physician Documentation [facility] Name: Shahnaz Ramos Age: 64 yrs Sex: Female : 1960 Arrival Date: 09/25/2024 Time: 16:19 Bed 11 Private MD: ED Physician Lee Barrett HPI: 09/25 17:10 This 64 yrs old Female presents to ER via Ambulatory with complaints of Groin kb Pain. 17:10 Patient is a 64-year-old female who presents for right groin pain that started 2 weeks kb ago after a fall. States she was seen after the fall and told she had a slipped disc in her back. States she has had the groin pain since then, has been evaluated by her PCP. Came in today because the pain persisted and is now radiating down to her calf.. Historical: - Allergies: 16:42 Imitrex; iw 16:42 Aspirin; iw - PMHx: 16:42 Asthma; Bipolar disorder; Anxiety; cervical spinal stenosis; COPD; Depression; iw Diverticulitis; Fibromyalgia; GERD; Hepatitis C; insomnia; Migraines; Ulcers; - PSHx: 16:42 Total abdominal hysterectomy; Cholecystectomy; tubal ligation; iw - Immunization history:: Adult Immunizations up to date. - Infectious Disease History:: Denies. - Social history:: Smoking status: Patient reports the use of cigarette tobacco products, smokes one-half pack cigarettes per day. ROS: 17:07 Constitutional: As per HPI kb Exam: 17:07 Constitutional: This is a well developed, well nourished patient who is awake, alert, kb and in no acute distress. Head/Face: Normocephalic, atraumatic. ENT: Moist Mucous membranes Cardiovascular: Regular rate Respiratory: Respirations even and unlabored. No increased work of breathing. Talking in full sentences Abdomen/GI: Soft, non-tender. No distention Skin: Warm, dry with normal turgor. Normal color. Neuro: Awake and alert, GCS 15, oriented to person, place, time, and situation. 17:07 Musculoskeletal/extremity: Extremities: grossly normal except: noted in the right inner thigh: pain, tenderness, ROM: intact in all extremities, Circulation is intact in all extremities. Sensation intact. Weight bearing: able to fully bear weight, Vital Signs: 16:41 BP 109 / 69; Pulse 71; Resp 16; Temp 98.6; Pulse Ox 99% on R/A; Weight 65.32 kg; Height iw 5 ft. 0 in. ; Pain 8/10; 16:41 Body Mass Index 28.12 (65.32 kg, 152.4 cm) iw 16:41 Pain Scale: Adult iw MDM: 16:27 Medical Screening Exam initiated kb 17:10 Data reviewed: vital signs, nurses notes. kb 17:50 Differential diagnosis: strain, fracture, dvt. Counseling: I had a detailed discussion kb with the patient and/or guardian regarding the historical points, exam findings, and any diagnostic results supporting the discharge/admit diagnosis, radiology results, the need for outpatient follow up, a family practitioner, to return to the emergency department if symptoms worsen or persist or if there are any questions or concerns that arise at home. 09/25 16:45 Order name: US Extremity Venous Unilateral Ltd; Complete Time: 17:18 kb 09/25 16:45 Order name: Pelvis XRAY; Complete Time: 17:50 kb Administered Medications: 17:08 Drug: Hydrocodone-Acetaminophen PO (7.5 mg-325 mg) 1 tabs PO once Route: PO; aa5 18:07 Follow up: Response: No adverse reaction aa5 18:07 Drug: morphine IM 4 mg IM once Route: IM; Site: right gluteus; aa5 18:15 Follow up: Response: No adverse reaction aa5 18:07 Drug: Ondansetron PO 4 mg PO once Route: PO; aa5 18:15 Follow up: Response: No adverse reaction aa5 Disposition Summary: 09/25/24 17:51 Discharge Ordered Notes: Location: Home kb Condition: Stable kb Diagnosis - Pain in right leg kb Followup: kb - With: Emergency Department - When: As needed - Reason: Worsening of condition Followup: kb - With: Private Physician - When: 2 - 3 days - Reason: Recheck today's complaints, Continuance of care, Re-evaluation by your physician Discharge Instructions: - Discharge Summary Sheet kb - Musculoskeletal Pain kb - Muscle Strain, [id number] kb Forms: - Medication Reconciliation Form kb - Antibiotic Education kb - Prescription Opioid Use kb - Patient Portal Instructions kb - Leadership Thank You Letter kb Addendum: 09/27/2024 09:04 Co-signature as Attending Physician, Lee NAIDU I reviewed the patient's care r n provided by the Advanced Practice Provider and agree with the diagnosis and treatment plan. Signatures: Dispatcher [employer] Vicki Smith, MAYA ARIASP-Roya Gallardo, RN Lee Thomson MD MD rn Calderon, Audri, NEHA RN aa5
[2024-09-25] MEDS ORDERED: ONDANSETRON 4 MG (ODT) TAB ONE (18:01)
[2024-09-25] MEDS ORDERED: MORPHINE 4 MG/ML SYR ONE (18:01)
[2024-09-27 20:40] VITALS: BP 109/69; TEMP 98.6; O2SAT 99
== END 2024-09-25 18:41 | disposition home or self-care (01) ==
LOC: ER 16:19
DX: M79.604 Pain in right leg (principal); F17.210 Nicotine dependence, cigarettes, uncomplicated
CPT/HCPCS: 72170; 93971; 96372; 99284; Q0162

== ENCOUNTER 2024-10-08 15:35 | Emergency (ER) | payer OTHER ==
[2024-10-08] MEDS ORDERED: NA CHLORIDE 0.9% 1,000 ML ONE (15:52)
[2024-10-08 16:17] LABS: Absolute Basophils 0.1 K/uL (0-0.5); Absolute Eosinophils 0.1 K/uL (0-0.5); Absolute Lymphocytes (CBC) 1.7 K/uL (0.7-4.9); Absolute Monocytes 0.5 K/uL (0.1-1.3); Absolute Neutrophil 3.8 K/uL (1.8-8.0); Eosinophils % 1.6 % (0-4.4); Hematocrit 39.5 % (36.0-45.0); Hemoglobin 13.7 g/dL (12.0-15.0); Lymphocytes % 27.5 % (15.3-44.8); MCH 33.3 pg (27.0-35.0); MCHC 34.7 g/dL (32.0-36.0); MCV 96.1 fL (80-100); MPV 8.4 fL (7.6-11.3); Monocytes % 8.7 % (3.3-12.3); Neutrophils % 61.2 % (41.7-73.7); Nucleated RBC Absolute Count 0.1 (0-0); Nucleated Red Blood Cells % 0.9 % (0-0); Platelets 183 thou/uL (152-406); RBC Red Blood Cell Count 4.11 M/uL (3.86-4.86); Red Cell Distribution Width 13.5 % (12.1-15.2)
[2024-10-08 16:24] LABS: Specific Gravity > 1.030 (1.005-1.030); Sqamous Epithelial <5 /HPF (None Seen); Urine Bacteria None Seen /HPF (<20); Urine Bilirubin NEGATIVE (Negative); Urine Blood Negative (Negative); Urine Clarity Clear (Clear); Urine Color Dark-Yellow (Yellow); Urine Culture Reflex Order NOT NEEDED; Urine Glucose NEGATIVE (Negative); Urine Ketones NEGATIVE (Negative); Urine Microscopic Reflex YN ORDER UMIC; Urine Mucus Slight /HPF (None Seen); Urine Nitrite NEGATIVE (Negative); Urine Protein TRACE (Negative); Urine RBC <5 /HPF (None Seen); Urine Urobilinogen 1+ (Normal); Urine WBC <5 /HPF (<5)
[2024-10-08 16:35] LABS: Anion Gap 10.1 mEq/L (5.0-15.0); Potassium 4.1 mEq/L (3.5-5.1); Troponin High Sensitivity 3.5 pg/mL (<58.9)
--- NOTE | 2024-10-08 17:48 | ER ---
Nurse's Notes [facility] Name: Shahnaz Ramos Age: 64 yrs Sex: Female : 1960 Arrival Date: 10/08/2024 Time: 15:35 Bed 15 Private MD: Diagnosis: Migraine, unspecified, not intractable, without status migrainosus;Dehydration;Hyperglycemia, unspecified Presentation: 10/08 15:37 Chief complaint: EMS states: they were toned out for RLQ groin pain, nausea, headache kc6 and dizziness. Coronavirus screen: At this time, the client does not indicate any symptoms associated with coronavirus-19. Ebola Screen: No symptoms or risks identified at this time. Initial Sepsis Screen: Does the patient meet any 2 criteria? No. Patient's initial sepsis screen is negative. Does the patient have a suspected source of infection? No. Patient's initial sepsis screen is negative. Risk Assessment: Do you want to hurt yourself or someone else? Patient reports no desire to harm self or others. Onset of symptoms was October 08, 2024. Care prior to arrival: IV initiated. 20 GA, in the right forearm, Glucose check: 128. 15:37 Method Of Arrival: EMS: [facility] kc6 15:37 Acuity: WOLFGANG 3 kc6 Historical: - Allergies: 15:38 Aspirin; kc6 15:38 Imitrex; kc6 - PMHx: 15:38 Ulcers; Migraines; insomnia; Hepatitis C; GERD; Fibromyalgia; Diverticulitis; kc6 Depression; COPD; cervical spinal stenosis; Bipolar disorder; Asthma; Anxiety; - PSHx: 15:38 Cholecystectomy; Total abdominal hysterectomy; tubal ligation; kc6 - Immunization history:: Adult Immunizations up to date. - Infectious Disease History:: Denies. - Social history:: Smoking status: Patient reports the use of cigarette tobacco products, denies chronic smoking, but will smoke occasionally. - Family history:: not pertinent. - Hospitalizations: : No recent hospitalization is reported. Screenin:40 [facility] ED Fall Risk Assessment (Adult) History of falling in the last 3 months, kc6 including since admission No falls in past 3 months (0 pts) Confusion or Disorientation No (0 pts) Intoxicated or Sedated No (0 pts) Impaired Gait No (0 pts) Mobility Assist Device Used No (0 pt) Altered Elimination No (0 pt) Score/Fall Risk Level 0 - 2 = Low Risk Oriented to surroundings. Abuse screen: Denies threats or abuse. Denies injuries from another. Nutritional screening: No deficits noted. Tuberculosis screening: No symptoms or risk factors identified. Assessment: 15:35 General: Appears in no apparent distress. comfortable, well groomed, well developed, kc6 Behavior is calm, cooperative, appropriate for age. Pain: Complains of pain in right lower quadrant and right femoral area. Neuro: Level of Consciousness is awake, alert, obeys commands, Oriented to person, place, time, situation, Appropriate for age Reports dizziness, headache. Cardiovascular: Capillary refill < 3 seconds. Respiratory: Airway is patent Trachea midline Respiratory effort is even, unlabored, Respiratory pattern is regular, symmetrical. GI: Abdomen is round non-distended, Bowel sounds present X 4 quads. Reports lower abdominal pain, nausea, Patient currently denies diarrhea, vomiting. : No signs and/or symptoms were reported regarding the genitourinary system. EENT: No signs and/or symptoms were reported regarding the EENT system. Derm: No signs and/or symptoms reported regarding the dermatologic system. Skin is intact, is healthy with good turgor, Skin is pink, warm \T\ dry. Musculoskeletal: No signs and/or symptoms reported regarding the musculoskeletal system. Circulation, motion, and sensation intact. Range of motion: intact in all extremities. 16:35 Reassessment: Patient appears in no apparent distress at this time. No changes from kc6 previously documented assessment. Patient and/or family updated on plan of care and expected duration. Pain level reassessed. Patient is alert, oriented x 3, equal unlabored respirations, skin warm/dry/pink. 17:35 Reassessment: Patient appears in no apparent distress at this time. No changes from kc6 previously documented assessment. Patient and/or family updated on plan of care and expected duration. Pain level reassessed. Patient is alert, oriented x 3, equal unlabored respirations, skin warm/dry/pink. Vital Signs: 15:37 BP 108 / 64; Pulse 85; Resp 18 S; Temp 99.1(O); Pulse Ox 97% on R/A; Weight 68.04 kg kc6 (R); Height 5 ft. 0 in. (R); 16:55 BP 110 / 68; Pulse 76; Resp 16 S; Pulse Ox 100% on R/A; kc6 15:37 Body Mass Index 29.29 (68.04 kg, 152.4 cm) kc6 [place] Coma Score: 17:45 Eye Response: spontaneous(4). Motor Response: obeys commands(6). Verbal Response: rn oriented(5). Total: 15. ED Course: 15:36 Patient arrived in ED. rn 15:36 Lee Barrett MD is Attending Physician. rn 15:36 Ale Schmidt RN is Primary Nurse. kc6 15:38 Triage completed. kc6 15:38 Arm band placed on. kc6 15:39 Maintain EMS IV. Dressing intact. Good blood return noted. Site clean \T\ dry. Gauge \T\ mat 6 site: 20G RFA. Flushed with 10 mL NS. Patient maintains SpO2 saturation greater than 95% on room air. 15:40 Patient has correct armband on for positive identification. Bed in low position. Call kc6 light in reach. Side rails up X2. Pulse ox on. NIBP on. Door closed. Noise minimized. Lights dimmed. Pillow given. Verbal reassurance given. 16:49 CT Head Brain wo Cont In Process Unspecified. EDMS 17:59 No provider procedures requiring assistance completed. IV discontinued, intact, kc6 bleeding controlled, No redness/swelling at site. Pressure dressing applied. Administered Medications: 16:20 Drug: NS 0.9% IV 1000 ml IV at 1 bolus Per protocol; to be given as a bolus over 60 kc6 minutes Route: IV; Rate: 1 bolus; Site: right antecubital; 17:46 Follow up: Response: No adverse reaction; IV Status: Completed infusion; IV Intake: kc6 1000ml Medication: 18:00 VIS not applicable for this client. kc6 Intake: 17:46 IV: 1000ml; Total: 1000ml. kc6 Outcome: 17:47 Discharge ordered by . rn 18:00 Discharged to home via wheelchair, with family, kc6 18:00 Condition: good 18:00 Discharge instructions given to patient, Instructed on discharge instructions, follow up and referral plans. Demonstrated understanding of instructions, follow-up care, 18:00 Patient left the ED. kc6 Signatures: Dispatcher [employer] EDMS Lee Barrett MD MD rn Ale Schmidt, NEHA RN kc6
--- NOTE | 2024-10-08 17:48 | EDPHYS ---
Physician Documentation [facility] Name: Shahnaz Ramos Age: 64 yrs Sex: Female : 1960 Arrival Date: 10/08/2024 Time: 15:35 Bed 15 Private MD: ED Physician Lee Barrett HPI: 10/08 16:40 This 64 yrs old Female presents to ER via EMS with complaints of Nausea, rn Dizziness, Headache. 16:41 The patient complains of pain to the top of head. The patient describes the headache as rn aching, throbbing. Onset: The symptoms/episode began/occurred this morning. Severity of symptoms: At its worst the pain was moderate, "similar to past headaches", in the emergency department the pain is unchanged. The symptoms are alleviated by nothing. the symptoms are aggravated by nothing. The patient has experienced similar episodes in the past. Patient reports headache that began this morning, has history of migraine disorder and headache feels similar to previous migraines. Patient also reports here for high blood sugar. Her sugar has been in the 300s over the last few days with increased urination and thirst. Does not take any medication and is labeled prediabetic. EMS reports glucose in the 100s. Patient reports dizzy and lightheaded with generalized malaise. No focal weakness or numbness. No abdominal or chest pain. No back pain. Patient reports fall somewhat recently and has been having groin pain since then and was told was neuropathic pain from possible disc problem. Historical: - Allergies: 15:38 Aspirin; kc6 15:38 Imitrex; kc6 - PMHx: 15:38 Ulcers; Migraines; insomnia; Hepatitis C; GERD; Fibromyalgia; Diverticulitis; kc6 Depression; COPD; cervical spinal stenosis; Bipolar disorder; Asthma; Anxiety; - PSHx: 15:38 Cholecystectomy; Total abdominal hysterectomy; tubal ligation; kc6 - Immunization history:: Adult Immunizations up to date. - Infectious Disease History:: Denies. - Social history:: Smoking status: Patient reports the use of cigarette tobacco products, denies chronic smoking, but will smoke occasionally. - Family history:: not pertinent. - Hospitalizations: : No recent hospitalization is reported. ROS: 16:41 Constitutional: Negative for fever, chills, and weight loss, Eyes: Negative for injury, rn pain, redness, and discharge, Neck: Negative for injury, pain, and swelling, Cardiovascular: Negative for chest pain, palpitations, and edema, Respiratory: Negative for shortness of breath, cough, wheezing, and pleuritic chest pain, Abdomen/GI: Negative for abdominal pain, vomiting, diarrhea, and constipation, Back: Negative for injury and pain, MS/Extremity: Negative for injury and deformity, Skin: Negative for injury, rash, and discoloration, Neuro: Negative for numbness, tingling, and seizure, Exam: 16:41 Constitutional: This is a well developed, well nourished patient who is awake, alert, rn and in no acute distress. Head/Face: Normocephalic, atraumatic. Eyes: Pupils equal round and reactive to light, extra-ocular motions intact. Neck: Supple, no meningismus Cardiovascular: Regular rate and rhythm. No pulse deficits. Respiratory: No increased work of breathing, no retractions or nasal flaring. Abdomen/GI: Soft, non-tender MS/ Extremity: Pulses equal, no cyanosis. Neuro: Awake and alert, GCS 15, oriented to person, place, time, and situation. Cranial nerves II-XII grossly intact. Motor strength 5/5 in all extremities. Sensory grossly intact. Cerebellar exam normal. Normal gait. 16:55 ECG was reviewed by the Attending Physician. rn Vital Signs: 15:37 BP 108 / 64; Pulse 85; Resp 18 S; Temp 99.1(O); Pulse Ox 97% on R/A; Weight 68.04 kg kc6 (R); Height 5 ft. 0 in. (R); 16:55 BP 110 / 68; Pulse 76; Resp 16 S; Pulse Ox 100% on R/A; kc6 15:37 Body Mass Index 29.29 (68.04 kg, 152.4 cm) kc6 [place] Coma Score: 17:45 Eye Response: spontaneous(4). Motor Response: obeys commands(6). Verbal Response: rn oriented(5). Total: 15. MDM: 15:36 Medical Screening Exam initiated rn 17:45 Differential diagnosis: intracerebral hemorrhage, migraine, tension headache, vasomotor rn headache, Dehydration, hyperglycemia. Data reviewed: vital signs, nurses notes, lab test result(s), EKG, radiologic studies, CT scan, and as a result, I will discharge patient. Counseling: I had a detailed discussion with the patient and/or guardian regarding the historical points, exam findings, and any diagnostic results supporting the discharge/admit diagnosis, lab results, radiology results, the need for outpatient follow up, to return to the emergency department if symptoms worsen or persist or if there are any questions or concerns that arise at home. Special discussion: I discussed with the patient/guardian in detail that at this point there is no indication for admission to the hospital. It is understood, however, that if the symptoms persist or worsen the patient needs to return immediately for re-evaluation. ED course: No acute findings in workup. CT head without acute findings. Glucose under 100. Improved after fluids. Will discharge home with return precautions as dehydration, hyperglycemia and migraine headache.. 10/08 15:37 Order name: CBC with Diff; Complete Time: 16:39 rn 10/08 15:37 Order name: Basic Metabolic Panel; Complete Time: 16:39 rn 10/08 15:37 Order name: UA Rfx Jorge Cult if indicated; Complete Time: 16:39 rn 10/08 15:37 Order name: Troponin High Sensitivity; Complete Time: 16:39 rn 10/08 16:18 Order name: Glucose, Ancillary Testing; Complete Time: 16:39 EDMS 10/08 15:37 Order name: CT Head Brain wo Cont rn 10/08 15:37 Order name: EKG; Complete Time: 15:38 rn 10/08 15:37 Order name: IV Start; Complete Time: 15:47 rn 10/08 15:37 Order name: Glucose Level; Complete Time: 16:20 rn 10/08 15:37 Order name: EKG - Nurse/Tech; Complete Time: 16:20 rn EC:55 Rate is 82 beats/min. Rhythm is regular. QRS [place] is Normal. [place] interval is normal. QRS rn interval is normal. QT interval is normal. No Q waves. T waves are Normal. No ST changes noted. Clinical impression: NSR w/ Non-specific ST/T Changes. Interpreted by me. Reviewed by me. Administered Medications: 16:20 Drug: NS 0.9% IV 1000 ml IV at 1 bolus Per protocol; to be given as a bolus over 60 kc6 minutes Route: IV; Rate: 1 bolus; Site: right antecubital; 17:46 Follow up: Response: No adverse reaction; IV Status: Completed infusion; IV Intake: kc6 1000ml Disposition Summary: 10/08/24 17:47 Discharge Ordered Notes: Location: Home rn Problem: new rn Symptoms: have improved rn Condition: Stable rn Diagnosis - Migraine, unspecified, not intractable, without status migrainosus rn - Dehydration rn - Hyperglycemia, unspecified rn Followup: rn - With: Private Physician - When: As needed - Reason: Recheck today's complaints, Re-evaluation by your physician Discharge Instructions: - Discharge Summary Sheet rn - Dehydration, Adult rn - Migraine Headache rn - Hyperglycemia rn - Blood Glucose Monitoring, Adult rn Forms: - Medication Reconciliation Form rn - Antibiotic rn shift mgr - Prescription Opioid Use rn - Patient Portal Instructions rn - Leadership Thank You Letter rn Signatures: Dispatcher [employer] Lee Augustin MD MD rn Campbell, Kaitlyn, RN RN kc6
[2024-10-08 18:26] VITALS: TEMP 99.1
[2024-10-08 18:27] VITALS: BP 110/68; O2SAT 100
--- NOTE | 2024-10-08 22:02 | RAD REPORT ---
EXAM: CT brain without contrast HISTORY: ATKINSON, dizzy COMPARISON: None TECHNIQUE: Multiple contiguous axial images were obtained and a CT of the brain without contrast. Sag ittal and coronal reformats were performed. One or more of the following dose reduction techniques were used: Automated exposure control, adjustm ent of the mA and/or kV according to patient size, and/or iterative reconstruction. FINDINGS: No evidence of hydrocephalus, intracranial hemorrhage, or extra-axial fluid collection. The brain is normal in morphology. No evidence of midline shift or areas of brain edema. The calvarium is intact. The visualized paranasal sinuses and mastoid air cells are essentially clear . IMPRESSION: No evidence of acute intracranial abnormality. Electronically signed by: Harry David MD 10/08/2024 05:27 PM CDT RP Due to temporary technical issues with the PACS/Zoomdata reporting system, reports are being esteban d by the in-house radiologist without review as a courtesy to ensure prompt reporting the interpreting radiologist is fully responsible for the content of the report. Transcribed Date/Time: 10/08/2024 10:02 PM
--- NOTE | 2024-10-11 12:05 | EKG ---
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
== END 2024-10-08 18:00 | disposition home or self-care (01) ==
LOC: ER 15:35
DX: G43.909 Migraine, unspecified, not intractable, without status migrainosus (principal); E86.0 Dehydration; R73.9 Hyperglycemia, unspecified; J44.9 Chronic obstructive pulmonary disease, unspecified; F31.9 Bipolar disorder, unspecified; F17.210 Nicotine dependence, cigarettes, uncomplicated
CPT/HCPCS: 93005; 85025; 81001; 80048; 36415; 82947; 84484; 70450; 96360; 99284; J7030

== ENCOUNTER 2025-01-12 18:34 | Emergency (ER) | payer OTHER ==
[2025-01-12] MEDS ORDERED: FENTANYL CITR 100 MCG/2 ML ONE (20:07)
[2025-01-12] MEDS ORDERED: ONDANSETRON 4 MG/2 ML VIAL ONE (20:09)
[2025-01-12] MEDS ORDERED: NA CHLORIDE 0.9% 1,000 ML ONE (20:09)
[2025-01-12 20:10] LABS: Absolute Lymphocytes (CBC) 2.4 K/uL (0.7-4.9); Hematocrit 39.5 % (36.0-45.0); Hemoglobin 13.2 g/dL (12.0-15.0); MCH 31.4 pg (27.0-35.0); MCHC 33.5 g/dL (32.0-36.0); MCV 93.6 fL (80-100); MPV 8.3 fL (7.6-11.3); Nucleated RBC Absolute Count 0.0 (0-0); Nucleated Red Blood Cells % 0.1 % (0-0); RBC Red Blood Cell Count 4.22 M/uL (3.86-4.86); White Blood Count 5.20 thou/uL (4.3-10.9)
[2025-01-12 20:37] LABS: ALT/SGPT 21 U/L (13-56); Albumin 3.5 g/dL (3.4-5.0); Albumin/Globulin Ratio 1.0 (1.1-1.8); Alkaline Phosphatase 79 U/L (45-117); Anion Gap 7.1 mEq/L (5.0-15.0); BUN Blood Urea Nitrogen 16 mg/dL (7-18); Globulin 3.6 g/dL (2.3-3.5); Glucose Level 95 mg/dL (74-106); Lipase 34 U/L (13-75); Potassium 4.1 mEq/L (3.5-5.1)
[2025-01-12 20:43] LABS: AST/SGOT < 10 U/L (15-37)
[2025-01-12 20:52] LABS: Urine Microscopic Reflex YN NO UMIC
--- NOTE | 2025-01-12 21:39 | RAD REPORT ---
EXAMINATION: Abdomen Pelvis W/Wo Contrast CLINICAL INDICATION: Female, 64 years old.right lower abdomen pain TECHNIQUE: CT abdomen and pelvis was performed before and after the administration of IV contrast as per department protocol. Axial, sagittal and coronal reconstructions were obtained. One or more of the following dose reduction techniques were used: Automated exposure control, adjustment of the mA a nd/or kV according to patient size, and/or iterative reconstruction. Unless otherwise specified, incidental findings do not require dedicated imaging follow-up. [id number]. COMPARISON: No prior exams FINDINGS: LOWER CHEST: No acute process identified.No significant pericardial effusion. Mild coronary artery ca lcifications.Mild circumferential thickening of the distal esophagus which could reflect esophagitis. UPPER GI: No significant abnormality. LIVER: No significant focal abnormality. GALLBLADDER/BILE DUCTS: Cholecystectomy.? PANCREAS: No mass, ductal dilation, or maricarmen-pancreatic fluid. SPLEEN: Unremarkable. ADRENALS: No adrenal masses. KIDNEYS AND URETERS: No hydronephrosis.No suspicious renal mass.No renal calculi.No ureteral calculi. ABDOMINAL AORTA AND OTHER VESSELS: Mild atherosclerotic changes. PERITONEUM: No abnormal free fluid. No free air. LYMPH NODES: No pathologic lymphadenopathy. ABDOMINAL WALL: Small fat containing umbilical hernia. Small fat-containing right inguinal hernia. SMALL BOWEL/COLON: Small bowel has normal course and caliber. No colonic wall thickening or pericolon ic inflammatory changes.Normal appendix. Mild diverticulosis without diverticulitis. Moderate formed stool burden could indicate constipation. URINARY BLADDER: Underdistended but grossly unremarkable. REPRODUCTIVE ORGANS: No pathologic process. MUSCULOSKELETAL: Multilevel degenerative changes in the spine. No acute fracture. ADDITIONAL FINDINGS: None. IMPRESSION: No acute findings within the abdomen or pelvis. No appendicitis. Incidental findings as noted above.
[2025-01-12] MEDS ORDERED: MORPHINE 4 MG/ML SYR ONE (21:52)
--- NOTE | 2025-01-12 22:29 | EDPHYS ---
Physician Documentation [facility] Name: Shahnaz Ramos Age: 64 yrs Sex: Female : 1960 Arrival Date: 01/12/2025 Time: 18:34 Bed 6 Private MD: ED Physician Ever Casarez HPI: 01/12 18:55 This 64 yrs old Female presents to ER via Ambulatory with complaints of cp Constipation, Hernia pain. 18:55 The patient presents with abdominal pain right lower quadrant. cp 18:55 Onset: The symptoms/episode began/occurred 1 week(s) ago. Associated signs and cp symptoms: Pertinent positives: constipation. 18:55 Patient reports history of right side hernia and has upcoming appt with surgery. cp Historical: - Allergies: 18:48 Aspirin; dd2 18:48 Imitrex; dd2 - PMHx: 18:48 Anxiety; Asthma; Bipolar disorder; cervical spinal stenosis; COPD; Depression; dd2 Diverticulitis; Fibromyalgia; GERD; Hepatitis C; insomnia; Migraines; Ulcers; - PSHx: 18:48 Cholecystectomy; Total abdominal hysterectomy; tubal ligation; dd2 - Immunization history:: Adult Immunizations up to date. - Infectious Disease History:: Denies. - Social history:: Smoking status: Patient denies any tobacco usage or history of. ROS: 19:00 Abdomen/GI: Positive for abdominal pain, nausea, vomiting, constipation, of the right cp lower abdomen, Exam: 19:05 Constitutional: The patient appears in no acute distress, alert, awake, cp non-diaphoretic, non-toxic, well developed, well nourished, uncomfortable, 19:05 Head/Face: Normocephalic, atraumatic. cp 19:05 Eyes: Periorbital structures: appear normal, Conjunctiva: normal, no exudate, no injection, Sclera: no appreciated abnormality, Lids and lashes: appear normal, bilaterally, 19:05 ENT: External ear(s): are unremarkable, Nose: is normal, Mouth: Lips: moist, Oral mucosa: moist, Posterior pharynx: Airway: no evidence of obstruction, patent, 19:05 Chest/axilla: Inspection: normal, cp 19:05 Cardiovascular: Rate: normal, Rhythm: regular, cp 19:05 Respiratory: the patient does not display signs of respiratory distress, Respirations: normal, no use of accessory muscles, no retractions, labored breathing, is not present, Breath sounds: are clear throughout, no decreased breath sounds, no stridor, no wheezing, 19:05 Abdomen/GI: Inspection: obese Bowel sounds: active, all quadrants, Palpation: soft, in all quadrants, moderate abdominal tenderness, in the right lower quadrant, rebound tenderness, is not appreciated, involuntary guarding, is not appreciated, 19:05 Back: CVA tenderness, is absent, 19:05 Skin: cellulitis, is not appreciated, no rash present. Vital Signs: 18:45 BP 97 / 63; Pulse 78; Resp 16; Temp 98.4; Pulse Ox 99% on R/A; Weight 69.85 kg; Pain dd2 1010; 20:00 BP 114 / 67; Pulse 61; Resp 16; Pulse Ox 100% on R/A; al5 20:30 BP 141 / 72; Pulse 59; Resp 16; Pulse Ox 99% on R/A; al5 21:00 BP 141 / 75; Pulse 63; Resp 18; Pulse Ox 100% on R/A; al5 22:00 BP 141 / 79; Pulse 64; Resp 17; Pulse Ox 100% on R/A; al5 22:30 BP 162 / 91; Pulse 58; Resp 17; Pulse Ox 99% on R/A; al5 18:45 Pain Scale: Adult dd2 MDM: 18:45 Medical Screening Exam initiated 22:29 Data reviewed: vital signs, nurses notes, lab test result(s), radiologic studies, CT cp scan, and as a result, I will discharge patient. 22:29 I considered the following discharge prescriptions or medication management in the emergency department Medications were administered in the Emergency Department. See MAR. Counseling: I had a detailed discussion with the patient and/or guardian regarding the historical points, exam findings, and any diagnostic results supporting the discharge/admit diagnosis, lab results, radiology results, the need for outpatient follow up, a general surgeon. Special discussion: Based on the patient's Hx, exam, and Dx evaluation, there is no indication for emergent surgery or inpatient Tx. It is understood by the patient/guardian that if the Sx's persist or worsen they need to return immediately for re-evaluation. 01/12 18:48 Order name: CBC with Diff; Complete Time: 21:42 cp 01/12 21:42 Interpretation: Normal except: LYM% 46.1. cp 01/12 18:48 Order name: CMP; Complete Time: 21:42 cp 01/12 21:43 Interpretation: Normal except: CRE 1.07; GFR 58; AST < 10; GLOB 3.6; A/G 1.0. 01/12 18:48 Order name: Lipase; Complete Time: 21:42 cp 01/12 19:59 Order name: UA Rfx Jorge Cult if indicated; Complete Time: 21:42 cp 01/12 21:44 Interpretation: Reviewed. 01/12 19:59 Order name: CT Abd/Pelvis- W/WO Contrast; Complete Time: 21:42 cp 01/12 18:48 Order name: IV Saline Lock; Complete Time: 20:03 cp 01/12 18:48 Order name: Labs collected and sent; Complete Time: 20:03 cp Administered Medications: 19:58 CANCELLED (Physician Discretion): ns 0.9% 500 ml 500 ml IV at 1 bolus once; to be given cp as a bolus over 60 minutes 20:16 Drug: fentaNYL (PF) IVP 25 mcg IVP once; may give if systolic pressure >100 Route: IVP; al5 Site: right antecubital; 21:56 Follow up: Response: No adverse reaction; Pain is unchanged, physician notified al5 20:17 Drug: Ondansetron IVP 4 mg IVP once; over 2 minutes Route: IVP; Site: right antecubital;al5 21:56 Follow up: Response: No adverse reaction al5 20:17 Drug: NS 0.9% IV 1000 ml IV at 1000 ml once; to be given as a bolus over 60 minutes al5 Route: IV; Rate: 1000 ml; Site: right antecubital; 22:44 Follow up: Response: No adverse reaction; IV Status: Completed infusion; IV Intake: al5 1000ml 21:56 Drug: morphine IVP or IV 4 mg IVP once over 4 mins Route: IVP; Infused Over: 4 mins; al5 Site: right antecubital; 22:41 Follow up: Response: No adverse reaction; Pain is decreased al5 Disposition Summary: 01/12/25 22:29 Discharge Ordered Notes: Location: Home cp Problem: an ongoing problem cp Symptoms: have improved cp Condition: Stable cp Diagnosis - Lower abdominal pain, unspecified cp Followup: cp - With: Mansoor Flor MD - When: 1 - 2 days - Reason: Recheck today's complaints Discharge Instructions: - Discharge Summary Sheet cp - Abdominal Pain, Adult cp - Inguinal Hernia, Adult cp - Umbilical Hernia, Adult cp Forms: - Medication Reconciliation Form cp - Antibiotic Education cp - Prescription Opioid Use cp - Patient Portal Instructions cp - Leadership Thank You Letter cp Prescriptions: - Golytely [id number] -5.86 gram Oral Recon Soln - administer 240 milliliter ORAL route every 2 hours As needed until bowel cp movement; 2000 milliliter; Refills: 0, Product Selection Permitted - Zofran 4 mg Oral Tablet - take 1 tablet ORAL route every 12 hours As needed; 20 tablet; Refills: 0, cp Product Selection Permitted - dicyclomine 20 mg Oral tablet - take 1 tablet ORAL route 4 times per day; 30 tablet; Refills: 0, Product cp Selection Permitted Addendum: 01/15/2025 00:23 I was immediately available on-site in the Emergency Department for consultation in the m s3 care of the patient. Signatures: Dispatcher [employer] EDMS Don Retana PA PA cp Ever Casarez DO DO ms3 Stacia Farley RN RN al5 MAINOR SENIOR RN RN dd2 Corrections: (The following items were deleted from the chart) 01/12 19:58 18:48 NS 0.9% IV 500 ml 500 ml IV at 1 bolus once; to be given as a bolus over 60 cp minutes ordered. cp
--- NOTE | 2025-01-12 22:29 | ER ---
Nurse's Notes [facility] Name: Shahnaz Ramos Age: 64 yrs Sex: Female : 1960 Arrival Date: 01/12/2025 Time: 18:34 Bed 6 Private MD: Diagnosis: Lower abdominal pain, unspecified Presentation: 01/12 18:45 Chief complaint: Patient states: RT LOWER STOMACH PAIN, NAUSEA/VOMITING X1 WEEK AND NO dd2 BOWEL MOVEMENT FOR 3 DAYS. PT REPORTS TO PASSING GAS. Coronavirus screen: At this time, the client does not indicate any symptoms associated with coronavirus-19. Ebola Screen: No symptoms or risks identified at this time. Initial Sepsis Screen: Does the patient meet any 2 criteria? No. Patient's initial sepsis screen is negative. Does the patient have a suspected source of infection? No. Patient's initial sepsis screen is negative. Risk Assessment: Do you want to hurt yourself or someone else? Patient reports no desire to harm self or others. Onset of symptoms was January 05, 2025. 18:45 Method Of Arrival: Ambulatory dd2 18:45 Acuity: [place] 3 dd2 Triage Assessment: 18:48 General: Appears in no apparent distress. uncomfortable, Behavior is calm, cooperative, dd2 appropriate for age. Pain: Complains of pain in right lower quadrant Pain currently is 10 out of 10 on a pain scale. GI: Abd is soft X 4 quads Abdomen is tender to palpation in right lower quadrant Reports lower abdominal pain, constipation, nausea, vomiting. Historical: - Allergies: 18:48 Aspirin; dd2 18:48 Imitrex; dd2 - PMHx: 18:48 Anxiety; Asthma; Bipolar disorder; cervical spinal stenosis; COPD; Depression; dd2 Diverticulitis; Fibromyalgia; GERD; Hepatitis C; insomnia; Migraines; Ulcers; - PSHx: 18:48 Cholecystectomy; Total abdominal hysterectomy; tubal ligation; dd2 - Immunization history:: Adult Immunizations up to date. - Infectious Disease History:: Denies. - Social history:: Smoking status: Patient denies any tobacco usage or history of. Screenin:04 [facility] ED Fall Risk Assessment (Adult) History of falling in the last 3 months, al5 including since admission No falls in past 3 months (0 pts) Confusion or Disorientation No (0 pts) Intoxicated or Sedated No (0 pts) Impaired Gait No (0 pts) Mobility Assist Device Used No (0 pt) Altered Elimination No (0 pt) Score/Fall Risk Level 0 - 2 = Low Risk Oriented to surroundings, Maintained a safe environment, Hourly rounding (assess needs \T\ fall precautionary measures) done. Abuse screen: Denies threats or abuse. Denies injuries from another. Nutritional screening: No deficits noted. Tuberculosis screening: No symptoms or risk factors identified. Assessment: 20:07 General: Appears in no apparent distress. uncomfortable, Behavior is calm, cooperative. al5 Pain: Complains of pain in right lower quadrant Pain currently is 8 out of 10 on a pain scale. Neuro: Level of Consciousness is awake, alert, obeys commands, Oriented to person, place, time, situation. Cardiovascular: Capillary refill < 3 seconds Patient's skin is warm and dry. Respiratory: Airway is patent Respiratory effort is even, unlabored, Respiratory pattern is regular, symmetrical. GI: Abdomen is non-distended, obese, Bowel sounds present X 4 quads. Reports lower abdominal pain, nausea. : No signs and/or symptoms were reported regarding the genitourinary system. EENT: No signs and/or symptoms were reported regarding the EENT system. Derm: Skin is intact, is healthy with good turgor, Skin is pink, warm \T\ dry. normal. Musculoskeletal: Circulation, motion, and sensation intact. Range of motion: intact in all extremities. 21:29 Reassessment: Patient appears in no apparent distress at this time. No changes from al5 previously documented assessment. Patient and/or family updated on plan of care and expected duration. Pain level reassessed. Patient is alert, oriented x 3, equal unlabored respirations, skin warm/dry/pink. 22:43 Reassessment: Patient appears in no apparent distress at this time. No changes from al5 previously documented assessment. Patient and/or family updated on plan of care and expected duration. Pain level reassessed. Patient is alert, oriented x 3, equal unlabored respirations, skin warm/dry/pink. pain decreased. Vital Signs: 18:45 BP 97 / 63; Pulse 78; Resp 16; Temp 98.4; Pulse Ox 99% on R/A; Weight 69.85 kg; Pain dd2 10/10; 20:00 BP 114 / 67; Pulse 61; Resp 16; Pulse Ox 100% on R/A; al5 20:30 BP 141 / 72; Pulse 59; Resp 16; Pulse Ox 99% on R/A; al5 21:00 BP 141 / 75; Pulse 63; Resp 18; Pulse Ox 100% on R/A; al5 22:00 BP 141 / 79; Pulse 64; Resp 17; Pulse Ox 100% on R/A; al5 22:30 BP 162 / 91; Pulse 58; Resp 17; Pulse Ox 99% on R/A; al5 18:45 Pain Scale: Adult dd2 ED Course: 18:38 Patient arrived in ED. im 18:44 Don Retana PA is PHCP. cp 18:44 Ever Casarez DO is Attending Physician. cp 18:48 Triage completed. dd2 18:48 Arm band placed on right wrist. dd2 20:04 Patient has correct armband on for positive identification. Bed in low position. Call al5 light in reach. Side rails up X 1. Provided Education on: plan of care. 20:04 No provider procedures requiring assistance completed. Inserted saline lock: 20 gauge al5 in right antecubital area, using aseptic technique. Blood collected. Flushed with 10 mL NS. 20:17 Stacia Farley, NEHA is Primary Nurse. al5 21:18 CT Abd/Pelvis- W/WO Contrast In Process Unspecified. EDMS 22:28 Mansoor Flor MD is Referral Physician. cp 22:43 IV discontinued, intact, bleeding controlled, No redness/swelling at site. Pressure al5 dressing applied. Administered Medications: 19:58 CANCELLED (Physician Discretion): ns 0.9% 500 ml 500 ml IV at 1 bolus once; to be given cp as a bolus over 60 minutes 20:16 Drug: fentaNYL (PF) IVP 25 mcg IVP once; may give if systolic pressure >100 Route: IVP; al5 Site: right antecubital; 21:56 Follow up: Response: No adverse reaction; Pain is unchanged, physician notified al5 20:17 Drug: Ondansetron IVP 4 mg IVP once; over 2 minutes Route: IVP; Site: right antecubital;al5 21:56 Follow up: Response: No adverse reaction al5 20:17 Drug: NS 0.9% IV 1000 ml IV at 1000 ml once; to be given as a bolus over 60 minutes al5 Route: IV; Rate: 1000 ml; Site: right antecubital; 22:44 Follow up: Response: No adverse reaction; IV Status: Completed infusion; IV Intake: al5 1000ml 21:56 Drug: morphine IVP or IV 4 mg IVP once over 4 mins Route: IVP; Infused Over: 4 mins; al5 Site: right antecubital; 22:41 Follow up: Response: No adverse reaction; Pain is decreased al5 Medication: 20:05 VIS not applicable for this client. al5 Intake: 22:44 IV: 1000ml; Total: 1000ml. al5 Outcome: 22:29 Discharge ordered by . tiara 22:44 Discharged to home via wheelchair, with family, al5 22:44 Condition: good 22:44 Discharge instructions given to patient, Instructed on discharge instructions, follow up and referral plans. medication usage, Demonstrated understanding of instructions, follow-up care, medications, Prescriptions given X 2, 22:44 Patient left the ED. al5 Signatures: Dispatcher [employer] EDMS Don Retana PA PA cp Mendoza, Itzel im Langhorst, Amanda, RN RN al5 MAINOR SENIOR RN RN dd2
[2025-01-12 23:13] VITALS: TEMP 98.4
[2025-01-12 23:19] VITALS: BP 162/91; O2SAT 99
== END 2025-01-12 22:44 | disposition home or self-care (01) ==
LOC: ER 18:34
DX: R10.31 Right lower quadrant pain (principal); K59.00 Constipation, unspecified
CPT/HCPCS: 96361; 85025; 36415; 81003; 83690; 80053; 74178; 96375; 96374; 99284; Q9967; J3010; J2405; J7030

== ENCOUNTER 2025-02-18 06:33 | Day surgery (SDC) | payer OTHER ==
[2025-02-18] MEDS: Ringers Lactate 1,000 ML IV ONE (06:45)
[2025-02-18] MEDS ORDERED: LIDOCAINE 1% MPF 5 ML VIAL ONE (07:40)
[2025-02-18] MEDS ORDERED: EPHEDRINE SULF 50 MG/ML VIAL ONE (07:40)
[2025-02-18] MEDS ORDERED: SIMETHICONE 40 MG/ 0.6 ML ONE (07:46)
[2025-02-18] MEDS ORDERED: ONDANSETRON 4 MG/2 ML VIAL ONE (07:54)
[2025-02-18] MEDS ORDERED: MIDAZOLAM HCL 2 MG/2 ML INJ ONE (07:54)
[2025-02-18 09:37] VITALS: BP 109/52; O2SAT 98
[2025-02-18 10:45] VITALS: TEMP 97.5
== END 2025-02-18 10:11 | disposition home or self-care (01) ==
LOC: OR 06:33
PROVIDERS: ATTEND Surgery
PROC: 0DB68ZX Excision of Stomach, Via Natural or Artificial Opening Endoscopic, Diagnostic (ICD-10-PCS; 2025-02-18)
PROC: 0DB48ZX Excision of Esophagogastric Junction, Via Natural or Artificial Opening Endoscopic, Diagnostic (ICD-10-PCS; 2025-02-18)
PROC: 0DJD8ZZ Inspection of Lower Intestinal Tract, Via Natural or Artificial Opening Endoscopic (ICD-10-PCS; principal; 2025-02-18 08:00)
PROC: 0DB98ZX Excision of Duodenum, Via Natural or Artificial Opening Endoscopic, Diagnostic (ICD-10-PCS; 2025-02-18 08:00)
DX: Z12.11 Encounter for screening for malignant neoplasm of colon (principal); K21.9 Gastro-esophageal reflux disease without esophagitis; R10.13 Epigastric pain; K57.30 Diverticulosis of large intestine without perforation or abscess without bleeding; K64.8 Other hemorrhoids; K29.50 Unspecified chronic gastritis without bleeding; K21.00 Gastro-esophageal reflux disease with esophagitis, without bleeding; K42.9 Umbilical hernia without obstruction or gangrene; K40.20 Bilateral inguinal hernia, without obstruction or gangrene, not specified as recurrent
CPT/HCPCS: 88312; 88305; 43239; J2704; J2003; J2250; J2405; J7120